=== PATIENT | male | born 1955 | race Caucasian/White ===

== ENCOUNTER 2016-08-31 18:03 | Emergency (ER) | payer MEDICAID ==
[~2016-08-31] VITALS: Ht 175.3 cm; Wt 90.0 kg
[~2016-08-31 18:03] MED LIST: ASPI81CH CHEW; ISOS30TA3 PO; LIPI40TA PO; METO25TA3 PO; NIFE30TA8 PO; PANT20 PO
[2016-08-31 18:19] VITALS: BP 129/77; PULSE 72; RESP 22; TEMP 97.9; O2SAT 94
--- NOTE | 2016-08-31 18:39 | PD ---
HPI Chief Complaint: Flank/Kidney Pain Time Seen by Provider: 18:36 Travel History International Travel<30 days: No Contact w/Intl Traveler<30days: No Traveled to known affect area: No History of Present Illness HPI 61-year-old male that presents to the ED for evaluation of left chest discomfort. Per patient he had a fall about a week ago and he landed on his left chest. Per patient she's been having the pain since been worsening recently. Denies any shortness of breath. He has a history of alcohol abuse and states that he drank a lot today. Patient is a daily drinker. Patient comes here a lot secondary to chest discomfort. Patient denies any his head or losing consciousness. Patient denies any abdominal pain. He does have a history of renal cancer with bladder removal. He denies any abdominal discomfort. No fevers chills or sweats. Patient does have bruising noted on the left rib cage. Per patient he spent is 8 out of 10 and gets worse with movement. Allergy to doxycycline and sulfa. Per patient he has not sick help until now because the pain got severe today. Unclear if this taken anything for this. History is somewhat limited because of patient's intoxication. He does have a history of heart disease on himself with stents in the past. PFSH Past Medical History Hx Anticoagulant Therapy: Yes Arthritis: Yes (BACK) Blood Disorders: No Anxiety: Yes Depression: No Heart Rhythm Problems: Yes Cancer: Yes (BLADDER) Cardiac Catheterization: No Cardiovascular Problems: Yes High Cholesterol: Yes Chemotherapy: No Chest Pain: Yes Congestive Heart Failure: No Cerebrovascular Accident: No Diabetes: No Diminished Hearing: No Endocrine: No Gastrointestinal Disorders: Yes GERD: No Genitourinary: Yes (ILEAL CONDUIT) Headaches: Yes Hepatitis: Yes (HEP B) Hiatal Hernia: No Hypertension: Yes Immune Disorder: No Implanted Vascular Access Dvce: Yes Medical other: No Musculoskeletal: No Neurologic: No Psychiatric: No Reproductive: No Respiratory: No Migraines: No Myocardial Infarction: Yes Radiation Therapy: No Renal Failure: No Seizures: No Thyroid Disease: No Ulcer: Yes Past Surgical History Abdominal Surgery: Yes AICD: No Arteriovenous Shunt: No Body Medical Devices: ILEAL CONDUIT, CARDIAC STENTS Cardiac Surgery: Yes (CARDIAC STENT 01/2013) Coronary Artery Bypass Graft: No Coronary Stent: Yes (X 2) Ear Surgery: No Endocrine Surgery: No Eye Surgery: No Genitourinary Surgery: Yes (BLADDER REMOVED-UROSTOMY IN 2011, URETERAL STENT) Gynecologic Surgery: No Insulin Pump: No Joint Replacement: No Neurologic Surgery: No Oral Surgery: No Pacemaker: No Prostatectomy: Yes Thoracic Surgery: No Other Surgery: Yes (CYSTECTOMY/PROSTATECTOMY 2010) Family History Family Myocardial Infarction: Yes Social History Alcohol Use: Yes (VODKA) Tobacco Use: Yes (< 1/2 PPD) Substance Use: Yes (etoh abuse) Allergies-Medications (Allergen,Severity, Reaction): Coded Allergies: Doxycycline (Verified Allergy, Severe, 08/31/16) allergy Sulfa (Verified Allergy, Severe, Rash, 08/31/16) "quit breathing" *MDRO Multi-Drug Resistant Organism (Verified Adverse Reaction, Unknown, ESBL, 08/31/16) 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 Reported Meds & Prescriptions Reported Meds & Active Scripts Active Reported Isosorbide Mononitrate ER (Isosorbide Mononitrate) 30 Mg Lance 30 Mg PO DAILY Protonix (Pantoprazole Sodium) 20 Mg Tab 20 Mg PO DAILY Lipitor (Atorvastatin Calcium) 40 Mg Tab 40 Mg PO HS Aspirin 81 Mg Chew 81 Mg CHEW DAILY Metoprolol Tartrate 25 Mg Tab 12.5 Mg PO BID Review of Systems Except as stated in HPI: all other systems reviewed are Neg Physical Exam Narrative GENERAL: SKIN: Warm and dry. HEAD: Atraumatic. Normocephalic. EYES: Pupils equal and round. No scleral icterus. No injection or drainage. ENT: No nasal bleeding or discharge. Mucous membranes pink and moist. Tongue is midline. No uvula deviation. NECK: Trachea midline. No JVD. CARDIOVASCULAR: Regular rate and rhythm. No murmurs, S3, S4. Patient has reproducible pain in the left chest. Some bruising noted in this area. RESPIRATORY: No accessory muscle use. Clear to auscultation. Breath sounds equal bilaterally. GASTROINTESTINAL: Abdomen soft, non-tender, nondistended. Hepatic and splenic margins not palpable. MUSCULOSKELETAL: Extremities without clubbing, cyanosis, or edema. No obvious deformities. Full range of motion of the upper and lower extremities bilaterally. 2+ pulses bilaterally. NEUROLOGICAL: Awake and alert. No obvious cranial nerve deficits. Motor grossly within normal limits. Five out of 5 muscle strength in the arms and legs. Normal speech. PSYCHIATRIC: Appropriate mood and affect; insight and judgment normal. Data Data Last Documented VS Vital Signs Date Time Temp Pulse Resp B/P Pulse Ox O2 Delivery O2 Flow Rate FiO2 08/31/16 18:19 97.9 72 22 129/77 94 Orders Electrocardiogram (08/31/16 18:25) Complete Blood Count With Diff (08/31/16 18:25) Basic Metabolic Panel (Bmp) (08/31/16 18:25) Troponin I (08/31/16 18:25) Ribs, Uni (W/Exp Cxr-Min 3vw) (08/31/16 ) Urinalysis - C+S If Indicated (08/31/16 18:32) Alcohol (Ethanol) (08/31/16 18:33) Ct Abd/Pel W Iv Contrast(Rout) (08/31/16 ) Acetaminophen (Tylenol) (08/31/16 19:30) Urine Culture (08/31/16 18:25) Ceftriaxone Inj (Rocephin Inj) (08/31/16 20:45) Iohexol 350 Inj (Omnipaque 350 Inj) (08/31/16 20:44) Acetamin-Hydrocod 325-5 Mg ([place] 5-325 (08/31/16 20:45) Labs Laboratory Tests Test 08/31/16 18:25 White Blood Count 4.9 TH/MM3 Red Blood Count 4.11 MIL/MM3 Hemoglobin 13.9 GM/DL Hematocrit 41.3 % Mean Corpuscular Volume 100.5 FL Mean Corpuscular Hemoglobin 33.7 PG Mean Corpuscular Hemoglobin 33.6 % Concent Red Cell Distribution Width 16.7 % Platelet Count 159 TH/MM3 Mean Platelet Volume 7.7 FL Neutrophils (%) (Auto) 59.1 % Lymphocytes (%) (Auto) 28.4 % Monocytes (%) (Auto) 11.4 % Eosinophils (%) (Auto) 0.6 % Basophils (%) (Auto) 0.5 % Neutrophils # (Auto) 2.9 TH/MM3 Lymphocytes # (Auto) 1.4 TH/MM3 Monocytes # (Auto) 0.6 TH/MM3 Eosinophils # (Auto) 0.0 TH/MM3 Basophils # (Auto) 0.0 TH/MM3 CBC Comment DIFF FINAL Differential Comment Urine Color YELLOW Urine Turbidity HAZY Urine pH 7.5 Urine Specific [place] 1.013 Urine Protein 30 mg/dL Urine Glucose (UA) NEG mg/dL Urine Ketones NEG mg/dL Urine Occult Blood MOD Urine Nitrite NEG Urine Bilirubin NEG Urine Urobilinogen LESS THAN 2.0 MG/DL Urine Leukocyte Esterase LARGE Urine RBC 2 /hpf Urine WBC 17 /hpf Urine Squamous Epithelial <1 /hpf Cells Urine Amorphous Sediment RARE Urine Bacteria MOD /hpf Urine Mucus FEW /lpf Microscopic Urinalysis Comment CULTURE INDICATED Sodium Level 140 MEQ/L Potassium Level 3.7 MEQ/L Chloride Level 107 MEQ/L Carbon Dioxide Level 19.1 MEQ/L Anion Gap 14 MEQ/L Blood Urea Nitrogen 10 MG/DL Creatinine 0.79 MG/DL Estimat Glomerular Filtration 99 ML/MIN Rate Random Glucose 107 MG/DL Calcium Level 8.0 MG/DL Troponin I LESS THAN 0.02 NG/ML Ethyl Alcohol Level 287 MG/DL [facility] Medical Decision Making Medical Screen Exam Complete: Yes Emergency Medical Condition: Yes Medical Record Reviewed: Yes Interpretation(s) CBC & BMP Diagram 08/31/16 18:25 Alcohol in the 200s EKG shows sinus rhythm with no sign of acute ischemia or arrythmia read by me and attending. troponin and CKMB negative UA shows UTI Differential Diagnosis Chest pain versus a typical chest pain versus burst fracture versus pneumothorax versus alcohol abuse Narrative Course 61-year-old male that presents to the ED for evaluation of left-sided chest pain. Patient was properly examined and was found to have signs and symptoms consistent appears to be muscle scale chest pain. Labs and imaging ordered. Labs and imaging showed no sign of acute disease. Patient does have an elevated alcohol level. CT and chest x-ray did not show any sign of acute disease. This is likely musculoskeletal chest pain. Patient's pain is reproducible with touch. This time I recommend treatment with anti- inflammatories and pain medication. Patient was told to follow up with PCP. She will be treated for his UTI and given here ceftriaxone IV. Patient will be given a prescription for Cipro. He will be allowed to sleep off his intoxication here until sober or if he get a responsible adult to pick him up. Patient was told to follow up closely with PCP. Ice or warm compresses. See ED if worsening symptoms. Diagnosis Primary Impression: Rib pain on left side Additional Impression: UTI (urinary tract infection) Qualified Code: N30.00 - Acute cystitis without hematuria Patient Instructions: General Instructions, Narcotic given in the ED Additional Instructions: Stop drinking. Take medications as prescribed. See ED worsening symptoms. Follow with PCP. Med/Other Pt SpecificInfo: Prescription(s) given Disposition: 01 DISCHARGE HOME Condition: Shubham Mccain August 31, 2016 18:39
[2016-08-31 19:03] LABS: AUTOMATED NEUTROPHIL # 2.9 TH/MM3 (1.8-7.7); BASOPHIL % 0.5 % (0.0-2.0); EOSINOPHIL % 0.6 % (0.0-4.0); HEMATOCRIT 41.3 % (39.0-51.0); HEMO FLAGS DIFF FINAL; LYMPH % 28.4 % (9.0-44.0); LYMPHOCYTE # 1.4 TH/MM3 (1.0-4.8); MEAN CELL VOLUME 100.5 FL (80.0-100.0); MEAN CORPUSCULAR HEMOGLOBIN 33.7 PG (27.0-34.0); MEAN CORPUSCULAR HGB CONC 33.6 % (32.0-36.0); MONO % 11.4 % (0.0-8.0); NEUT % 59.1 % (16.0-70.0); PLATELET COUNT 159 TH/MM3 (150-450); RED BLOOD COUNT 4.11 MIL/MM3 (4.50-5.90); RED CELL DISTRIBUTION WIDTH 16.7 % (11.6-17.2); WHITE BLOOD COUNT 4.9 TH/MM3 (4.0-11.0)
--- NOTE | 2016-08-31 19:03 | RADRPT ---
EXAM DATE/TIME: 08/31/2016 18:38 [facility] COMPARISON: No previous studies available for comparison. INDICATIONS : Left side rib pain, fall. MEDICAL HISTORY : None. SURGICAL HISTORY : None. ENCOUNTER: Initial ACUITY: 2 weeks PAIN SCORE: 7/10 LOCATION: Left lower ribs FINDINGS: Multiple views of the left ribs were performed. There is no evidence of displaced fracture. No dest ructive lesions or areas of periosteal thickening are seen. Expiratory view of the chest is negative for pneumothorax. The mediastinal structures are midline. CONCLUSION: No acute disease. Dave Perkins Jr., MD on August 31, 2016 at 19:00 Board Certified Radiologist. This report was verified electronically.
[2016-08-31] MEDS ORDERED: ACETAMINOPHEN 325 MG TAB PO ONE (19:30)
[2016-08-31 20:00] LABS: ANION GAP 14 MEQ/L (5-15); BICARBONATE 19.1 MEQ/L (21.0-32.0); BLOOD UREA NITROGEN 10 MG/DL (7-18); CHLORIDE 107 MEQ/L (98-107); GLOMERULAR FILTRATION RATE 99 ML/MIN (>89); POTASSIUM 3.7 MEQ/L (3.5-5.1); SODIUM (NA) 140 MEQ/L (136-145)
[2016-08-31 20:08] LABS: BACTERIA, URINE MOD /hpf; BLOOD, URINE MOD (NEG); COMMENT (UR) CULTURE INDICATED; CULTURE IF INDICATED CULTURE INDICATED; GLUCOSE,URINE NEG (NEG); KETONE, URINE NEG (NEG); MUCUS URINE FEW /lpf (OCC); NITRITE,URINE NEG (NEG); PH, URINE 7.5 (5.0-8.5); SQUAMOUS EPITHELIAL CELL URINE <1 /hpf (0-5); URINE COLOR YELLOW (YELLW/STRAW)
[2016-08-31] MEDS ORDERED: IOHEXOL 350 MG/ML 10 ML VIAL (for RAD DIAG) IV ONE (20:44)
[2016-08-31] MEDS ORDERED: ACETAMINOPHEN/HYDROcodone 325 MG/5 MG TAB PO ONE (20:45)
[2016-08-31] MEDS ORDERED: cefTRIAXone INJ 1,000 MG in SODIUM CHLORIDE 0.9% INJ 25 ML IV ONE (20:45)
--- NOTE | 2016-08-31 20:58 | RADRPT ---
EXAM DATE/TIME: 08/31/2016 20:25 [facility] COMPARISON: CT ABDOMEN & PELVIS W CONTRAST, December 29, 2015, 14:44. INDICATIONS : Abdominal pain after a fall. IV CONTRAST: 93 cc Omnipaque 350 (iohexol) IV ORAL CONTRAST: No oral contrast ingested. RADIATION DOSE: 9.96 CTDIvol (mGy) MEDICAL HISTORY : Hypertension. Cardiovascular disease Carcinoma, prostate. SURGICAL HISTORY : Colostomy. Prostatectomy.Cystectomy. ENCOUNTER: Initial ACUITY: 1 day PAIN SCALE: 4/10 LOCATION: Bilateral lower quadrant TECHNIQUE: Volumetric scanning of the abdomen and pelvis was performed. Using automated exposure control and ad justment of the mA and/or kV according to patient size, radiation dose was kept as low as reasonably achievable to obtain optimal diagnostic quality images. FINDINGS: LOWER LUNGS: A large hiatal hernia. Minimal bibasilar atelectasis. LIVER: The liver is diffusely low in density. No mass or ductal dilatation. Portal vein is patent. Gallbladd er is unremarkable. SPLEEN: Normal size without lesion. PANCREAS: Within normal limits. KIDNEYS: Normal in size and shape. There is no mass, stone or hydronephrosis. ADRENAL GLANDS: Within normal limits. VASCULAR: There is no aortic aneurysm. BOWEL/MESENTERY: The stomach, small bowel, and colon demonstrate no acute abnormality. There is no free intraperitone al air or fluid. A right lower quadrant ileal conduit. ABDOMINAL WALL: Within normal limits. RETROPERITONEUM: There is no lymphadenopathy. BLADDER: Surgically absent with right lower quadrant ileal conduit. REPRODUCTIVE: Within normal limits. INGUINAL: There is no lymphadenopathy or hernia. MUSCULOSKELETAL: Within normal limits for patient age. T12 cement augmentation. CONCLUSION: 1. No acute abnormality. 2. Hepatic steatosis. 3. Prior cystectomy with right lower quadrant ileal conduit. 4. Large hiatal hernia. Dave Perkins Jr., MD on August 31, 2016 at 20:52 Board Certified Radiologist. This report was verified electronically.
[2016-08-31] MEDS ORDERED: HYDR-3533 PO ×2 (21:16→21:19)
[2016-08-31] MEDS ORDERED: CIPR500T2 PO ×2 (21:16→21:19)
[2016-08-31 23:33] VITALS: BP 143/69; PULSE 138; RESP 42; O2SAT 100
[2016-09-01 00:29] VITALS: TEMP 98.4
[2016-09-01 01:06] VITALS: BP 126/72
--- NOTE | 2016-09-01 16:57 | EKG ---
Date Performed: 08/31/2016 Time Performed: 19:19:22 PTAGE: 61 years EKG: Sinus rhythm WITH OCCASIONAL SUPRAVENTRICULAR PREMATURE COMPLEXES BORDERLINE ECG INTERPRETATION BASED ON A DEFAUL T AGE OF 40 YEARS Since PREVIOUS TRACING 03/26/2016, PACs are new. PREVIOUS TRACIN03/26/2016 06.03 DOCTOR: Edward Conley Interpretating Date/Time 09/01/2016 16:55:50
== END 2016-09-01 01:09 | disposition home or self-care (01) ==
LOC: NEPE 18:03
DX: R07.81 Pleurodynia (principal); N30.00 Acute cystitis without hematuria; B96.89 Other specified bacterial agents as the cause of diseases classified elsewhere; I10 Essential (primary) hypertension; F17.200 Nicotine dependence, unspecified, uncomplicated; F10.10 Alcohol abuse, uncomplicated; Y90.8 Blood alcohol level of 240 mg/100 ml or more; Z79.899 Other long term (current) drug therapy
CPT/HCPCS: 71101; 74177; 80048; 80307; 81001; 84484; 85025; 87077; 87086; 87186; 93005; 96374; 99285; J0696; Q9967

== ENCOUNTER 2016-10-29 11:09 | Emergency (ER) | payer MEDICAID ==
[~2016-10-29] VITALS: Ht 175.3 cm; Wt 89.0 kg
[~2016-10-29 11:09] MED LIST changes: +CIPR500T2 PO; +HYDR-3533 PO; -NIFE30TA8 PO
[2016-10-29 11:27] VITALS: BP 157/102; PULSE 70; RESP 20; TEMP 98.3; O2SAT 96
[2016-10-29] MEDS ORDERED: GABA100C4 PO (11:28)
[2016-10-29] MEDS ORDERED: PANT40TA3 PO (11:28)
[2016-10-29] MEDS ORDERED: LIDOCAINE 1%/EPINEPHrine 1:100,000 SOLN 20 ML VIAL INFIL ONE (11:45)
[2016-10-29] MEDS ORDERED: CLIN1CAP6 PO (11:49)
--- NOTE | 2016-10-29 11:49 | PD ---
HPI Chief Complaint: Skin Problem Time Seen by Provider: 11:30 Travel History International Travel<30 days: No Contact w/Intl Traveler<30days: No Traveled to known affect area: No History of Present Illness HPI 61-year-old male presents to the emergency room for evaluation of a painful lesion to his left lower back that started about 2 weeks ago. Patient states it started off as a small pimple and has been growing since then. He reports moderate pain and irritation when he applies pressure to the area. States he has been applying triple antibiotic ointment and trying to squeeze it without any success. Denies fever, chills, nausea, vomiting. Last tetanus was less than 5 years ago. PFSH Past Medical History Hx Anticoagulant Therapy: Yes Arthritis: Yes (BACK) Blood Disorders: No Anxiety: Yes Depression: No Heart Rhythm Problems: Yes Cancer: Yes (BLADDER) Cardiac Catheterization: No Cardiovascular Problems: Yes High Cholesterol: Yes Chemotherapy: No Chest Pain: Yes Congestive Heart Failure: No Cerebrovascular Accident: No Diabetes: No Diminished Hearing: No Endocrine: No Gastrointestinal Disorders: Yes GERD: No Genitourinary: Yes (ILEAL CONDUIT) Headaches: Yes Hepatitis: Yes (HEP B) Hiatal Hernia: No Hypertension: Yes Immune Disorder: No Implanted Vascular Access Dvce: Yes Musculoskeletal: No Neurologic: No Psychiatric: No Reproductive: No Respiratory: No Migraines: No Myocardial Infarction: Yes Radiation Therapy: No Renal Failure: No Seizures: No Thyroid Disease: No Ulcer: Yes Past Surgical History Abdominal Surgery: Yes AICD: No Arteriovenous Shunt: No Body Medical Devices: ILEAL CONDUIT, CARDIAC STENTS Cardiac Surgery: Yes (CARDIAC STENT 01/2013) Coronary Artery Bypass Graft: No Coronary Stent: Yes (X 2) Ear Surgery: No Endocrine Surgery: No Eye Surgery: No Genitourinary Surgery: Yes (BLADDER REMOVED-UROSTOMY IN 2010, URETERAL STENT) Gynecologic Surgery: No Insulin Pump: No Joint Replacement: No Neurologic Surgery: No Oral Surgery: No Pacemaker: No Prostatectomy: Yes Thoracic Surgery: No Other Surgery: Yes (CYSTECTOMY/PROSTATECTOMY 2010) Social History Alcohol Use: Yes (VODKA) Tobacco Use: Yes (< 1/2 PPD) Substance Use: Yes (etoh abuse) Allergies-Medications (Allergen,Severity, Reaction): Coded Allergies: Doxycycline (Verified Allergy, Severe, 08/31/16) allergy Sulfa (Verified Allergy, Severe, Rash, 08/31/16) "quit breathing" *MDRO Multi-Drug Resistant Organism (Verified Adverse Reaction, Unknown, ESBL, 08/31/16) 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 Reported Meds & Prescriptions Reported Meds & Active Scripts Active Clindamycin (Clindamycin HCl) 300 Mg Cap 300 Mg PO Q6H 10 Days Reported Pantoprazole (Pantoprazole Sodium) 40 Mg Tab 40 Mg PO DAILY Gabapentin 100 Mg Cap 100 Mg PO TID Isosorbide Mononitrate ER (Isosorbide Mononitrate) 30 Mg Lance 30 Mg PO DAILY Lipitor (Atorvastatin Calcium) 40 Mg Tab 40 Mg PO HS Aspirin 81 Mg Chew 81 Mg CHEW DAILY Metoprolol Tartrate 25 Mg Tab 12.5 Mg PO BID Review of Systems Except as stated in HPI: all other systems reviewed are Neg Physical Exam Narrative GENERAL: Well-nourished, well-developed male in no acute distress. Afebrile. Ambulatory. SKIN: Focused skin assessment warm/dry. There is an indurated area in the left lower back which measures about 3 cm in diameter. It is fluctuant but there is no pointing or drainage. There is a zone of inflammation around it but no lymphangitis. HEAD: Normocephalic. EYES: No scleral icterus. No injection or drainage. NECK: Supple, trachea midline. No JVD or lymphadenopathy. CARDIOVASCULAR: Regular rate and rhythm without murmurs, gallops, or rubs. RESPIRATORY: Breath sounds equal bilaterally. No accessory muscle use. PSYCHIATRIC: No delusional thought processes. No hallucinations. Data Data Last Documented VS Vital Signs Date Time Temp Pulse Resp B/P Pulse Ox O2 Delivery O2 Flow Rate FiO2 10/29/16 11:27 98.3 70 20 157/102 96 Orders Lidocai-Epi 1%-1:100,000 Inj (Xylocaine- (10/29/16 11:45) Wound Culture And Gram Stain (10/29/16 12:00) MDM Medical Decision Making Medical Screen Exam Complete: Yes Emergency Medical Condition: Yes Medical Record Reviewed: Yes Differential Diagnosis Abscess, folliculitis, cellulitis Narrative Course 61-year-old male presents to the emergency room for evaluation of an abscess to his left lower back that started about 2 weeks ago. Patient is afebrile and well-appearing in the emergency room. No systemic signs of infection. Physical exam reveals a 3 cm induration with surrounding cellulitis. No spontaneous drainage. No lymphangitis. Abscess was drained, see procedure note for details. Patient discharged with prescription for clindamycin. Told to follow up with a primary care physician or return for worsening symptoms. He understands and agrees to plan. Procedures Procedure Narrative INCISION AND DRAINAGE OF ABSCESS: The area was prepped and was sterilely draped. A subcutaneous wheal of 1% lidocaine with epinephrine with a total number 2 mL was used to anesthetize the area properly. A number 11 scalpel was used to make a 1 cm incision across the area of the abscess. The abscess was drained, complex loculations were broken down, and irrigated with normal saline. Cultures were obtained. Sterile dressing applied. Diagnosis Primary Impression: Abscess Referrals: Primary Care Physician Patient Instructions: Abscess (ED), General Instructions Additional Instructions: Rest and drink plenty of fluids. Take clindamycin as directed, until gone. Return to the emergency room in 2 days to have packing removed. If it falls out before, this is okay. Follow up with a primary care physician. Return to emergency room for worsening symptoms, as discussed. Med/Other Pt SpecificInfo: Prescription(s) given Scripts Clindamycin 300 Mg [id number] Mg PO Q6H 10 Days Ref 0 Prov:Ben Green MD 10/29/16 Disposition: 01 DISCHARGE HOME Condition: Stable Marcela Palencia Oct 29, 2016 11:49
[2016-10-29] MEDS ORDERED: PRED20 PO (12:10)
[2016-10-29] MEDS ORDERED: ROBA750T PO (12:10)
[2016-10-29] MEDS ORDERED: IBUP-232 PO (12:10)
== END 2016-10-29 12:26 | disposition home or self-care (01) ==
LOC: PHEFT 11:09
DX: L02.212 Cutaneous abscess of back [any part, except buttock and flank] (principal); B96.89 Other specified bacterial agents as the cause of diseases classified elsewhere
CPT/HCPCS: 10060; 87070; 87185; 87205

== ENCOUNTER 2017-02-25 17:13 | Inpatient (IN) | payer MEDICAID ==
[2017-02-25] VITALS (7 sets, daily range): BP systolic 95–128; BP diastolic 63–94; PULSE 72–82; RESP 20; TEMP 98–98.5; O2SAT 96–98
[~2017-02-25] VITALS: Ht 175.3 cm; Wt 94.0 kg
[~2017-02-25 17:13] MED LIST changes: +ASPI-516 CHEW; -ASPI81CH CHEW; -CIPR500T2 PO; +CLIN300C5 PO; +GABA100C4 PO; -HYDR-3533 PO; -PANT20 PO; +PANT40TA3 PO
--- NOTE | 2017-02-25 17:26 | PD ---
HPI Chief Complaint: Chest Pain Time Seen by Provider: 17:17 Travel History International Travel<30 days: No Contact w/Intl Traveler<30days: No Traveled to known affect area: No History of Present Illness HPI Patient is a 61-year-old male with history of hypertension, coronary artery disease with history of 2 cardiac stents, bladder cancer, hepatitis B, alcohol abuse as well as tobacco abuse, presents to emergency room with complaints of chest pain. Patient reports that he has been having intermittent episodes of chest pain for the past few weeks as well as near syncopal episodes. Patient reports that for the past few days, he has been having constant chest pain. Patient reports that chest pain radiates from under his left breast and then radiates to his right breast. Patient describes chest pain as a sharp and stabbing as well as a "pressure to my chest." Denies any shortness of breath or diaphoresis with his symptoms. Patient reports that today, he went to run some errands and then had lunch with his friend, he did have 2 beers with his lunch and took the bus home. Patient reports that on the bus ride home, he felt as if he was going to pass out. Reports that he was having persistent chest pain which was unrelenting in nature. Reports that once he got home, he did call EMS, on route to the emergency room, patient was given aspirin 162 mg, he had resolution of chest pain on the way to the emergency room. Patient at this time denies any chest pain. Patient reports that he has seen Dr. John Montes in the past 2 to his balloon artist up until 6 months ago when his insurance company changed. Patient reports that he does not have a balloon artist at this time. Patient reports mild headache at this time, no chest pain or shortness of breath. PFSH Past Medical History Hx Anticoagulant Therapy: Yes Arthritis: Yes (BACK) Blood Disorders: No Anxiety: Yes Depression: No Heart Rhythm Problems: Yes Cancer: Yes (HX of bladder ) Cardiac Catheterization: No Cardiovascular Problems: Yes High Cholesterol: Yes Chemotherapy: No Chest Pain: Yes Congestive Heart Failure: No Cerebrovascular Accident: No Diabetes: No Diminished Hearing: No Endocrine: No Gastrointestinal Disorders: Yes GERD: Yes Genitourinary: Yes (ILEAL CONDUIT) Headaches: Yes Hepatitis: Yes (HEP B) Hiatal Hernia: No Hypertension: Yes Immune Disorder: No Implanted Vascular Access Dvce: Yes Musculoskeletal: No Neurologic: No Psychiatric: No Reproductive: No Respiratory: No Migraines: No Myocardial Infarction: Yes (2) Radiation Therapy: No Renal Failure: No Seizures: No Thyroid Disease: No Ulcer: Yes Past Surgical History Abdominal Surgery: Yes AICD: No Arteriovenous Shunt: No Body Medical Devices: ILEAL CONDUIT, CARDIAC STENTS Cardiac Surgery: Yes (CARDIAC STENT 01/2013) Coronary Artery Bypass Graft: No Coronary Stent: Yes (2 within the last 3.5 years) Ear Surgery: No Endocrine Surgery: No Eye Surgery: No Genitourinary Surgery: Yes (HX of bladder cancer and removal with Ileal conduit , HX of kidney stents) Gynecologic Surgery: No Insulin Pump: No Joint Replacement: No Neurologic Surgery: No Oral Surgery: No Pacemaker: No Prostatectomy: Yes Thoracic Surgery: No Other Surgery: Yes (CYSTECTOMY/PROSTATECTOMY 2010) Social History Alcohol Use: Yes (Occassional ) Tobacco Use: Yes (1/ ppd) Substance Use: No Allergies-Medications (Allergen,Severity, Reaction): Coded Allergies: Sulfa (Sulfonamide Antibiotics) (Unverified Allergy, Severe, Rash, ) "quit breathing" doxycycline (Unverified Allergy, Severe, 02/25/17) allergy *MDRO Multi-Drug Resistant Organism (Verified Adverse Reaction, Unknown, ESBL, 02/25/17) 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 Reported Meds & Prescriptions Reported Meds & Active Scripts Active Reported Hydrocodone-Acetaminophen 5-325 mg Tab 1 Tab PO Q4H PRN Pantoprazole (Pantoprazole Sodium) 40 Mg Tab 40 Mg PO DAILY Isosorbide Mononitrate ER (Isosorbide Mononitrate) 30 Mg Lance 30 Mg PO DAILY Aspirin 81 Mg Chew 81 Mg CHEW DAILY Metoprolol Tartrate 25 Mg Tab 12.5 Mg PO BID Review of Systems General / Constitutional: No: Fever Eyes: No: Visual changes HENT: Positive: Headaches Cardiovascular: Positive: Chest Pain or Discomfort Respiratory: No: Shortness of Breath Gastrointestinal: No: Abdominal Pain Genitourinary: No: Dysuria Musculoskeletal: No: Pain Skin: No Rash Neurologic: Positive: Headache, No: Weakness Psychiatric: Positive: Substance Abuse, No: Depression Endocrine: No: Polydipsia Hematologic/Lymphatic: No: Easy Bruising Physical Exam Narrative GENERAL: mild distress SKIN: Focused skin assessment warm/dry. HEAD: Atraumatic. Normocephalic. EYES: Pupils equal and round. No scleral icterus. No injection or drainage. ENT: No nasal bleeding or discharge. Mucous membranes pink and moist. NECK: Trachea midline. No JVD. CARDIOVASCULAR: Regular rate and rhythm. No murmur appreciated. RESPIRATORY: No accessory muscle use. Clear to auscultation. Breath sounds equal bilaterally. GASTROINTESTINAL: Abdomen soft, non-tender, nondistended. Hepatic and splenic margins not palpable. MUSCULOSKELETAL: No obvious deformities. No clubbing. No cyanosis. No edema. NEUROLOGICAL: Awake and alert. No obvious cranial nerve deficits. Motor grossly within normal limits. Normal speech. PSYCHIATRIC: Appropriate mood and affect; insight and judgment normal. Data Data Last Documented VS Vital Signs Date Time Temp Pulse Resp B/P (MAP) Pulse Ox O2 Delivery O2 Flow Rate FiO2 02/25/17 18:34 82 20 120/70 (87) 98 Room Air 02/25/17 17:13 98.0 Orders Orders Electrocardiogram (02/25/17 17:17) B-Type Natriuretic Peptide (02/25/17 17:17) Ckmb (Isoenzyme) Profile (02/25/17 17:17) Complete Blood Count With Diff (02/25/17 17:17) Comprehensive Metabolic Panel (02/25/17 17:17) Magnesium (Mg) (02/25/17 17:17) Prothrombin Time / Inr (Pt) (02/25/17 17:17) Act Partial Throm Time (Ptt) (02/25/17 17:17) Troponin I (02/25/17 17:17) Lipase (02/25/17 17:17) Chest, Single Ap (02/25/17 17:17) Ecg Monitoring (02/25/17 17:17) Bilateral Bp Monitoring (02/25/17 17:17) Iv Access Insert/Monitor (02/25/17 17:17) Oximetry (02/25/17 17:17) Sodium Chloride 0.9% Flush (Ns Flush) (02/25/17 17:30) Sodium Chlor 0.9% 1000 Ml Inj (Ns 1000 M (02/25/17 17:30) Alcohol (Ethanol) (02/25/17 17:17) Potassium Chloride (Kcl) (02/25/17 18:30) Labs Laboratory Tests Test 02/25/17 17:25 White Blood Count 6.7 TH/MM3 Red Blood Count 4.00 MIL/MM3 Hemoglobin 13.5 GM/DL Hematocrit 40.8 % Mean Corpuscular Volume 101.9 FL Mean Corpuscular Hemoglobin 33.8 PG Mean Corpuscular Hemoglobin Concent 33.2 % Red Cell Distribution Width 18.6 % Platelet Count 152 TH/MM3 Mean Platelet Volume 7.6 FL Neutrophils (%) (Auto) 71.5 % Lymphocytes (%) (Auto) 17.2 % Monocytes (%) (Auto) 7.4 % Eosinophils (%) (Auto) 0.1 % Basophils (%) (Auto) 3.8 % Neutrophils # (Auto) 4.7 TH/MM3 Lymphocytes # (Auto) 1.2 TH/MM3 Monocytes # (Auto) 0.5 TH/MM3 Eosinophils # (Auto) 0.0 TH/MM3 Basophils # (Auto) 0.3 TH/MM3 CBC Comment DIFF FINAL Differential Comment Prothrombin Time 10.6 SEC Prothromb Time International Ratio 1.0 RATIO Activated Partial Thromboplast Time 22.2 SEC Blood Urea Nitrogen 8 MG/DL Creatinine 1.20 MG/DL Random Glucose 128 MG/DL Total Protein 7.2 GM/DL Albumin 2.8 GM/DL Calcium Level 8.1 MG/DL Magnesium Level 1.5 MG/DL Alkaline Phosphatase 93 U/L Aspartate Amino Transf (AST/SGOT) 66 U/L Alanine Aminotransferase (ALT/SGPT) 52 U/L Total Bilirubin 0.5 MG/DL Sodium Level 138 MEQ/L Potassium Level 3.1 MEQ/L Chloride Level 106 MEQ/L Carbon Dioxide Level 18.3 MEQ/L Anion Gap 14 MEQ/L Estimat Glomerular Filtration Rate 61 ML/MIN Total Creatine Kinase 66 U/L Troponin I LESS THAN 0.02 NG/ML B-Type Natriuretic Peptide 69 PG/ML Lipase 197 U/L Ethyl Alcohol Level 155 MG/DL [facility] Medical Decision Making Medical Screen Exam Complete: Yes Emergency Medical Condition: Yes Medical Record Reviewed: Yes Interpretation(s) EKG at 1712: NSR at 82bpm, qt/qtc: 391/430, nonspecific t wave changes Differential Diagnosis Differential includes ACS, arrhythmia, electrolyte abnormality, alcohol abuse Narrative Course Patient is a 62-year-old male with history of coronary artery disease, hypertension, alcoholism, presents to emergency room with chest pain. Patient does have history of 2 cardiac stents in the past, patient with no chest pain at this time. During the course of the patients emergency department visit, the patients history, examination, and differential diagnosis were reviewed with the patient. The patient was placed on a radiographer cardiac catheterization with oximetry and frequent blood pressure monitoring. The patient had 20-gauge IV access obtained and blood work sent for analysis. The patient was initially provided IV fluids. Patient was provided with 162 mg of aspirin by EMS prior to arrival to the emergency room. The patients laboratory studies were reviewed and remarkable for: Laboratory Tests Test 02/25/17 17:25 White Blood Count 6.7 TH/MM3 (4.0-11.0) Red Blood Count 4.00 MIL/MM3 (4.50-5.90) Hemoglobin 13.5 GM/DL (13.0-17.0) Hematocrit 40.8 % (39.0-51.0) Mean Corpuscular Volume 101.9 FL (80.0-100.0) Mean Corpuscular Hemoglobin 33.8 PG (27.0-34.0) Mean Corpuscular Hemoglobin Concent 33.2 % (32.0-36.0) Red Cell Distribution Width 18.6 % (11.6-17.2) Platelet Count 152 TH/MM3 (150-450) Mean Platelet Volume 7.6 FL (7.0-11.0) Neutrophils (%) (Auto) 71.5 % (16.0-70.0) Lymphocytes (%) (Auto) 17.2 % (9.0-44.0) Monocytes (%) (Auto) 7.4 % (0.0-8.0) Eosinophils (%) (Auto) 0.1 % (0.0-4.0) Basophils (%) (Auto) 3.8 % (0.0-2.0) Neutrophils # (Auto) 4.7 TH/MM3 (1.8-7.7) Lymphocytes # (Auto) 1.2 TH/MM3 (1.0-4.8) Monocytes # (Auto) 0.5 TH/MM3 (0-0.9) Eosinophils # (Auto) 0.0 TH/MM3 (0-0.4) Basophils # (Auto) 0.3 TH/MM3 (0-0.2) CBC Comment DIFF FINAL Differential Comment Prothrombin Time 10.6 SEC (9.8-11.6) Prothromb Time International Ratio 1.0 RATIO Activated Partial Thromboplast Time 22.2 SEC (24.3-30.1) Blood Urea Nitrogen 8 MG/DL (7-18) Creatinine 1.20 MG/DL (0.60-1.30) Random Glucose 128 MG/DL (74-106) Total Protein 7.2 GM/DL (6.4-8.2) Albumin 2.8 GM/DL (3.4-5.0) Calcium Level 8.1 MG/DL (8.5-10.1) Magnesium Level 1.5 MG/DL (1.5-2.5) Alkaline Phosphatase 93 U/L (45-117) Aspartate Amino Transf (AST/SGOT) 66 U/L (15-37) Alanine Aminotransferase (ALT/SGPT) 52 U/L (12-78) Total Bilirubin 0.5 MG/DL (0.2-1.0) Sodium Level 138 MEQ/L (136-145) Potassium Level 3.1 MEQ/L (3.5-5.1) Chloride Level 106 MEQ/L (98-107) Carbon Dioxide Level 18.3 MEQ/L (21.0-32.0) Anion Gap 14 MEQ/L (5-15) Estimat Glomerular Filtration Rate 61 ML/MIN (>89) Total Creatine Kinase 66 U/L (39-308) Troponin I LESS THAN 0.02 NG/ML B-Type Natriuretic Peptide 69 PG/ML (0-100) Lipase 197 U/L (73-393) Ethyl Alcohol Level 155 MG/DL (0-5) Radiology studies were reviewed and remarkable for: Patient chest pain free at this time, plan to obs in chest pain unit. Patient is an alcoholic, reports that he drinks about 3 hard drinks per day Patient accepted to by Dr. Pina to chest pain unit Diagnosis Primary Impression: Chest pain in adult Additional Impressions: Alcohol abuse Hypokalemia Admitting Information Admitting Physician Requests: Karely Trujillo DO Feb 25, 2017 17:26
[2017-02-25] MEDS ORDERED: SODIUM CHLORIDE 0.9% FLUSH 10 ML FLUSH IVF PRN (17:30)
[2017-02-25] MEDS ORDERED: SODIUM CHLOR 0.9% 1000 ML INJ 1,000 ML IV ONE (17:30)
[2017-02-25 17:32] LABS: AUTOMATED NEUTROPHIL # 4.7 TH/MM3 (1.8-7.7); BASOPHIL # 0.3 TH/MM3 (0-0.2); BASOPHIL % 3.8 % (0.0-2.0); EOSINOPHIL % 0.1 % (0.0-4.0); HEMATOCRIT 40.8 % (39.0-51.0); HEMO FLAGS DIFF FINAL; LYMPH % 17.2 % (9.0-44.0); LYMPHOCYTE # 1.2 TH/MM3 (1.0-4.8); MEAN CELL VOLUME 101.9 FL (80.0-100.0); MEAN CORPUSCULAR HEMOGLOBIN 33.8 PG (27.0-34.0); MEAN CORPUSCULAR HGB CONC 33.2 % (32.0-36.0); MONO % 7.4 % (0.0-8.0); NEUT % 71.5 % (16.0-70.0); PLATELET COUNT 152 TH/MM3 (150-450); RED CELL DISTRIBUTION WIDTH 18.6 % (11.6-17.2); WHITE BLOOD COUNT 6.7 TH/MM3 (4.0-11.0)
[2017-02-25 17:42] LABS: CHLORIDE 106 MEQ/L (98-107); SODIUM (NA) 138 MEQ/L (136-145)
[2017-02-25 17:46] LABS: ANION GAP 14 MEQ/L (5-15); BICARBONATE 18.3 MEQ/L (21.0-32.0); BLOOD UREA NITROGEN 8 MG/DL (7-18); MAGNESIUM 1.5 MG/DL (1.5-2.5)
[2017-02-25] MEDS ORDERED: HYDR-3516 PO (17:46)
[2017-02-25 17:48] LABS: ALT (GPT) 52 U/L (12-78); APTT (PATIENT) 22.2 SEC (24.3-30.1); PROTHROMBIN TIME - PATIENT 10.6 SEC (9.8-11.6)
[2017-02-25 17:49] LABS: AST (GOT) 66 U/L (15-37); GLOMERULAR FILTRATION RATE 61 ML/MIN (>89)
[2017-02-25 17:50] LABS: ALCOHOL 155 MG/DL (0-5); POTASSIUM 3.1 MEQ/L (3.5-5.1); TOTAL BILIRUBIN ADULT 0.5 MG/DL (0.2-1.0)
[2017-02-25 17:51] LABS: ALKALINE PHOSPHATASE 93 U/L (45-117)
[2017-02-25 17:54] LABS: CREATINE KINASE 66 U/L (39-308)
[2017-02-25] MEDS ORDERED: POTASSIUM CHLORIDE 10 MEQ CONTROLLED RELEASE TAB PO ONE (18:30)
[2017-02-25] MEDS ORDERED: IOHEXOL 350 MG/ML 100 ML BTL (for Cath Lab) OTHER ONE (18:53)
--- NOTE | 2017-02-25 18:59 | RADRPT ---
EXAM DATE/TIME: 02/25/2017 18:02 [facility] COMPARISON: CHEST SINGLE AP, March 25, 2016, 19:54. INDICATIONS : Chest pain. MEDICAL HISTORY : Hypertension. Coronary artery disease. SURGICAL HISTORY : Cardiac stent. ENCOUNTER: Initial ACUITY: 1 day PAIN SCORE: 4/10 LOCATION: Bilateral chest FINDINGS: A single view of the chest demonstrates the lungs to be symmetrically aerated without evidence of mas s, infiltrate or effusion. The cardiomediastinal contours are unremarkable. There is some mild thic kening of the soft tissues about the lateral left 7th rib suggesting possible fracture with periostea l thickening. CONCLUSION: 1. The lungs are clear. No evidence pneumothorax. 2. Questionable fracture lateral left 7th rib. Dave Guzmán MD on February 25, 2017 at 18:56 Board Certified Radiologist. This report was verified electronically.
[2017-02-25] MEDS ORDERED: ONDANSETRON HCL 4 MG/2 ML VIAL IV PUSH PRN (19:15)
[2017-02-25] MEDS ORDERED: FLUMAZENIL 0.5 MG/5 ML VIAL IV PUSH PRN (19:15)
[2017-02-25] MEDS ORDERED: NITROGLYCERIN 0.4 MG SL 25 TABS/BTL SL PRN (19:15)
[2017-02-25] MEDS ORDERED: LORazepam 2 MG/ML VIAL IV PUSH PRN ×4 (19:15)
[2017-02-25] MEDS ORDERED: ACETAMINOPHEN 500 MG CPLT PO PRN (19:15)
[2017-02-25] MEDS ORDERED: SODIUM CHLORIDE 0.9% FLUSH 10 ML FLUSH IV FLUSH PRN (19:15)
[2017-02-25] MEDS ORDERED: PILL SPLITTER OTHER PRN (19:15)
[2017-02-25] MEDS ORDERED: LORazepam 2 MG TAB PO PRN (19:15)
[2017-02-25] MEDS: ACETAMINOPHEN/HYDROcodone 325 MG/7.5 MG TAB PO PRN ×2 (19:26→23:03)
[2017-02-25] MEDS: FAMOTIDINE 20 MG TAB PO SCH (21:17)
[2017-02-25] MEDS: METOPROLOL TARTRATE 25 MG TAB PO SCH (21:17)
[2017-02-25] MEDS: SODIUM CHLORIDE 0.9% FLUSH 10 ML FLUSH IV FLUSH SCH (21:18)
[2017-02-26] VITALS (10 sets, daily range): BP systolic 120–158; BP diastolic 81–106; PULSE 55–72; RESP 16–20; TEMP 96.6–98.7; O2SAT 95–99
[2017-02-26] MEDS: ACETAMINOPHEN/HYDROcodone 325 MG/7.5 MG TAB PO PRN ×4 (03:08→20:31)
[2017-02-26 06:05] LABS: POTASSIUM 3.5 MEQ/L (3.5-5.1)
[2017-02-26 06:07] LABS: BICARBONATE 24.1 MEQ/L (21.0-32.0)
[2017-02-26] MEDS: ISOSORBIDE MONONITRATE 30 MG TAB PO SCH (06:13)
--- NOTE | 2017-02-26 07:25 | EKG ---
Date Performed: 02/25/2017 Time Performed: 17:12:33 PTAGE: 62 years EKG: Sinus rhythm WITH FREQUENT SUPRAVENTRICULAR PREMATURE COMPLEXES NONSPECIFIC ST & T-WAVE ABNORMALITY ABNORMAL RHYT HM ECG Since PREVIOUS TRACING , no significant change noted PREVIOUS TRACIN08/31/2016 19.19 DOCTOR: Gisselle Carreon Interpretating Date/Time 02/26/2017 07:24:03
--- NOTE | 2017-02-26 07:27 | EKG ---
Date Performed: 02/25/2017 Time Performed: 21:03:32 PTAGE: 62 years EKG: Sinus rhythm NORMAL ECG Since PREVIOUS TRACING , no significant change noted PREVIOUS TRACIN02/25/2017 17.12 DOCTOR: Gisselle Carreon Interpretating Date/Time 02/26/2017 07:25:25
--- NOTE | 2017-02-26 07:27 | EKG ---
Date Performed: 02/25/2017 Time Performed: 22:31:11 PTAGE: 62 years EKG: Sinus rhythm WITH OCCASIONAL VENTRICULAR PREMATURE COMPLEXES PROLONGED QT INTERVAL ABNORMAL ECG Since PREVIOUS TRACING , no significant change noted PREVIOUS TRACIN02/25/2017 21.03 DOCTOR: Gisselle Carreon Interpretating Date/Time 02/26/2017 07:25:37
[2017-02-26] MEDS: METOPROLOL TARTRATE 25 MG TAB PO SCH ×2 (08:23→20:31)
[2017-02-26] MEDS: ASPIRIN 81 MG CHEW TAB CHEW SCH (08:23)
[2017-02-26] MEDS: FAMOTIDINE 20 MG TAB PO SCH ×2 (08:23→20:31)
[2017-02-26] MEDS: SODIUM CHLORIDE 0.9% FLUSH 10 ML FLUSH IV FLUSH SCH ×2 (08:24→20:32)
--- NOTE | 2017-02-26 09:28 | HHI.HP ---
HPI Service [facility] Primary Care Physician Fadi Estes MD Admission Diagnosis Chest pain, alcoholism Diagnoses: (1) Chest pain Diagnosis: Principal Chief Complaint: Chest pain Travel History International Travel<30 Days: No Contact w/Intl Traveler <30 Da: No Traveled to Known Affected Are: No History of Present Illness Written by Ben Lino, acting as scribe for Dr. Miller on 02/26/17 at 09 :28. 62 year-old male with known history of hypertension, coronary disease , alcohol abuse, hepatitis B, history of bladder cancer who came to emergency department for evaluation of chest discomfort. Patient indicates that he is been having this discomfort for the last 3 weeks intermittently. He describes pain as 8-10 on a pain scale with associated lightheadedness, dizziness, blurred vision, palpitations that lasted a couple seconds at a time. He indicates that there is no significant trigger for his chest discomfort. He states that is usually associated with lightheadedness, dizziness, blurred vision then he develops his heart racing and subsequently chest discomfort. Patient states that he was going to Dr. stone for cardiology, however due to his insurance change he is not able to go back to Dr. stone since the beginning this month. Patient states that he ran out of his Imdur approximate 3-5 days ago. Patient has had multiple workups at [facility] for chest discomfort with multiple stress test, cardiac catheterization the most recent cardiac catheterization was done in 05/26/14. At that time it did show mild nonobstructive coronary artery disease with patent LAD and RCA stents. Patient came to emergency department had evaluation done and is recommended by ER physician that the patient be observed and chest pain center for further evaluation and management. Review of Systems Constitutional: COMPLAINS OF: Dizziness Eyes: COMPLAINS OF: Blurred vision Cardiovascular: COMPLAINS OF: Chest pain Except as stated in HPI: all other systems reviewed are Neg Past Family Social History Past Medical History Hypertension Coronary artery disease Alcohol abuse Tobacco abuse Hepatitis B History of bladder cancer Past Surgical History Cardiac catheterization with stenting Bladder resection Prostatectomy Ileal conduit Reported Medications Reported Meds & Active Scripts Active Reported Hydrocodone-Acetaminophen 5-325 mg Tab 1 Tab PO Q4H PRN Pantoprazole (Pantoprazole Sodium) 40 Mg Tab 40 Mg PO DAILY Isosorbide Mononitrate ER (Isosorbide Mononitrate) 30 Mg Lance 30 Mg PO DAILY Aspirin 81 Mg Chew 81 Mg CHEW DAILY Metoprolol Tartrate 25 Mg Tab 12.5 Mg PO BID Allergies: Coded Allergies: Sulfa (Sulfonamide Antibiotics) (Unverified Allergy, Severe, Rash, ) "quit breathing" doxycycline (Unverified Allergy, Severe, 02/25/17) allergy Family History Reviewed and unremarkable for any diabetes, heart disease Social History Patient states that he continues to drink alcohol two vodka daily. He continues smoke a half a pack a cigarettes a day. Denies any illicit drugs Physical Exam Vital Signs Vital Signs Date Time Temp Pulse Resp B/P (MAP) Pulse Ox O2 Delivery O2 Flow Rate FiO2 02/26/17 08:00 97.0 59 18 158/106 (123) 95 02/26/17 07:58 95 21 02/26/17 04:00 96.6 62 20 158/94 (115) 95 02/26/17 00:00 98.2 55 20 120/81 (94) 96 02/25/17 22:50 96 21 02/25/17 21:03 75 02/25/17 20:15 98.5 77 20 123/94 (104) 97 02/25/17 19:39 98.2 85 18 128/74 (92) 98 02/25/17 18:34 82 20 120/70 (87) 98 Room Air 02/25/17 17:46 72 20 101/65 (77) 98 Room Air 95/66 (76) 02/25/17 17:13 98.0 73 20 115/63 (80) 98 02/25/17 17:13 73 98 Room Air 02/25/17 17:13 98 Room Air Physical Exam GENERAL: Well-developed, well-nourished, in no acute distress. alert and orientated HEENT: Head is normocephalic without any lesions or masses noted. Facial features are symmetric. Eyes: Pupils equal round reactive to light. Extraocular muscles are intact. Conjunctivae were clear. Oropharyngeal: Pharynx without any erythema edema. Tongue is midline without deviation. Buccal mucosa is moist without any masses or lesions NECK: Supple without any masses. Trachea midline no deviation. No JVD, no bruits are appreciated CARDIAC: Regular rhythm, regular rate. S1/S2 are heard. No murmurs gallops or rubs. LUNGS: Clear to auscultation bilaterally. No wheeze, rhonchi or rales. No use of accessory muscles on inspiration or expiration. ABDOMEN: Soft, nontender. Nondistended. Bowel sounds heard in all 4 quadrants. No organomegaly or masses. Negative rebound, negative guarding EXTREMITIES: No edema, pulses are equal bilaterally. No cyanosis or clubbing NEUROLOGY: Mood is very anxious and affect appear appropriate. Cranial nerves II through XII grossly intact. Muscle strength 5/5 in upper and lower extremities bilaterally. Deep tendon reflexes are 2+ in upper and lower extremities bilaterally. Laboratory Laboratory Tests Test 02/25/17 17:25 02/25/17 21:02 02/26/17 00:24 02/26/17 05:30 White Blood Count 6.7 Red Blood Count 4.00 Hemoglobin 13.5 Hematocrit 40.8 Mean Corpuscular Volume 101.9 Mean Corpuscular Hemoglobin 33.8 Mean Corpuscular Hemoglobin Concent 33.2 Red Cell Distribution Width 18.6 Platelet Count 152 Mean Platelet Volume 7.6 Neutrophils (%) (Auto) 71.5 Lymphocytes (%) (Auto) 17.2 Monocytes (%) (Auto) 7.4 Eosinophils (%) (Auto) 0.1 Basophils (%) (Auto) 3.8 Neutrophils # (Auto) 4.7 Lymphocytes # (Auto) 1.2 Monocytes # (Auto) 0.5 Eosinophils # (Auto) 0.0 Basophils # (Auto) 0.3 CBC Comment DIFF FINAL Differential Comment Prothrombin Time 10.6 Prothromb Time International Ratio 1.0 Activated Partial Thromboplast Time 22.2 Blood Urea Nitrogen 8 11 Creatinine 1.20 0.99 Random Glucose 128 96 Total Protein 7.2 Albumin 2.8 Calcium Level 8.1 8.0 Magnesium Level 1.5 Alkaline Phosphatase 93 Aspartate Amino Transf (AST/SGOT) 66 Alanine Aminotransferase (ALT/SGPT) 52 Total Bilirubin 0.5 Sodium Level 138 141 Potassium Level 3.1 3.5 Chloride Level 106 109 Carbon Dioxide Level 18.3 24.1 Anion Gap 14 8 Estimat Glomerular Filtration Rate 61 76 Total Creatine Kinase 66 46 50 Troponin I LESS THAN 0.02 0.02 0.02 B-Type Natriuretic Peptide 69 Lipase 197 Ethyl Alcohol Level 155 Result Diagram: 02/25/17 1725 02/26/17 0530 Imaging Last Impressions Chest X-Ray 02/25/17 1717 Signed Impressions: Service Date/Time: Saturday, February 25, 2017 18:02 - CONCLUSION: 1. The lungs are clear. No evidence pneumothorax. 2. Questionable fracture lateral left 7th rib. MD Kiana Hardin VTE Risk Assessment Caprini VTE Risk Assessment: Mod/High Risk (score >= 2) Caprini Risk Assessment Model Point Value = 1 Point Value = 2 Point Value = 3 Point Value = 5 Age 41-60 Minor surgery BMI > 25 kg/m2 Swollen legs Varicose veins or History of unexplained or recurrent spontaneous Oral contraceptives or hormone replacement Sepsis (< 1 month) Serious lung disease, including pneumonia (< 1 month) Abnormal pulmonary function Acute myocardial infarction Congestive heart failure (< 1 month) History of inflammatory bowel disease Medical patient at bed rest Age 61-74 Arthroscopic surgery Major open surgery (> 45 min) Laparoscopic surgery (> 45 min) Malignancy Confined to bed (> 72 hours) Immobilizing plaster cast Central venous access Age >= 75 History of VTE Family history of VTE Factor V Leiden Prothrombin [id number] Lupus anticoagulant Anticardiolipin antibodies Elevated serum homocysteine Heparin-induced thrombocytopenia Other congenital or acquired thrombophilia Stroke (< 1 month) Elective arthroplasty Hip, pelvis, or leg fracture Acute spinal cord injury (< 1 month) Prophylaxis Regimen Total Risk Factor Score Risk Level Prophylaxis Regimen 0-1 Low Early ambulation 2 Moderate Order ONE of the following: *Sequential Compression Device (SCD) *Heparin 5000 units SQ BID 3-4 Higher Order ONE of the following medications: *Heparin 5000 units SQ TID *Enoxaparin/Lovenox 40 mg SQ daily (WT < 150 kg, CrCl > 30 mL/min) *Enoxaparin/Lovenox 30 mg SQ daily (WT < 150 kg, CrCl > 10-29 mL/min) *Enoxaparin/Lovenox 30 mg SQ BID (WT < 150 kg, CrCl > 30 mL/min) AND/OR *Sequential Compression Device (SCD) 5 or more Highest Order ONE of the following medications: *Heparin 5000 units SQ TID (Preferred with Epidurals) *Enoxaparin/Lovenox 40 mg SQ daily (WT < 150 kg, CrCl > 30 mL/min) *Enoxaparin/Lovenox 30 mg SQ daily (WT < 150 kg, CrCl > 10-29 mL/min) *Enoxaparin/Lovenox 30 mg SQ BID (WT < 150 kg, CrCl > 30 mL/min) AND *Sequential Compression Device (SCD) Assessment and Plan Problem List: (1) Chest pain ICD Code: R07.9 - Chest pain, unspecified Status: Acute Assessment and Plan Chest pain, atypical Patient with increased risk factors to include age, male, hypertension, coronary disease, tobacco use Patient has been ruled out for acute coronary event with serial cardiac enzymes that are negative Serial EKG shows sinus rhythm without any changes Nuclear stress test does indicate a small mild severity area of reversible defect in the apex with decreased ejection fraction from previous study Patient indicates that he has been out of his Imdur. Will need prescription upon discharge Continue aspirin, metoprolol, Imdur Consulted cardiology, plans for cardiac catheterization today Start heparin IV Obtain lipid panel Hypertension Continue home medications Chronic alcohol abuse Acute alcohol intoxication on presentation CIWA protocol was initiated No active signs of withdrawal at this time Patient was counseled on alcohol cessation DVT prevention Sequential compression devices This note was transcribed by josefina Lino. I, Dr. Diego Miller personally performed the history, physical exam, and medical decision making; and confirmed the accuracy of the information in the transcribed note. Authenticated by Dr. Diego Miller on 02/26/17 at 09:28. Code Status Full code Discussed Condition With Patient Ben Lino Feb 26, 2017 09:28 Diego Miller MD Feb 26, 2017 09:28
[2017-02-26] MEDS ORDERED: REGADENOSON INJ 0.4 MG/5 ML SYR IV ONE (10:07)
--- NOTE | 2017-02-26 11:14 | RADRPT ---
EXAM DATE/TIME: 02/26/2017 09:54 [place] COMPARISON: MYOCARDIAL PERF PHARM SPECT, GATED W/EF, May 25, 2014, 12:28. INDICATIONS : Mid chest pain for two weeks. Angina. DOSE: 26.3 mCi Tc99m Myoview at stress. 8.8 mCi Tc99m Myoview at rest. 0.4 mg Lexiscan STRESS SYMPTOMS: Shortness of breath and chest pain. EJECTION FRACTION: 46% MEDICAL HISTORY : Hypertension. Myocardial infarction. SURGICAL HISTORY : Prostatectomy. Coronary artery stent. ENCOUNTER: Initial ACUITY: 2 days PAIN SCALE: 2/10 LOCATION: Left chest discomfort TECHNIQUE: The patient underwent pharmacologic stress with infusion of prescribed dose. Continuous ECG tracing was monitored during stress. Gated SPECT imaging was performed after stress and conventional SPECT i maging was performed at rest. The examination was performed on a SPECT/CT scanner, both attenuation and non-corrected datasets were reviewed. FINDINGS: DISTRIBUTION: The maximum perfused segment at stress is in the inferior wall. PERFUSION STUDY: There is a small size mild severity reversible defect directly at the apex. No fixed defects are iden tified. GATED STUDY: There is intact wall motion and thickening with mild hypokinesis CONCLUSION: 1. Small size mild severity reversible defect at the apex. Ischemia is not excluded. Ejection fractio n has decreased from the prior study where it measured 54% to currently 46% RISK CATEGORY: Intermediate (1-3% Annual Mortality Rate) Jose Coyle MD on February 26, 2017 at 11:09 Board Certified Radiologist. This report was verified electronically.
[2017-02-26] MEDS ORDERED: HEPARIN SODIUM - IV 10,000 UNITS/10 ML VIAL IV PUSH ONE (11:45)
[2017-02-26 12:07] LABS: HEMATOCRIT 40.4 % (39.0-51.0); MEAN CELL VOLUME 102.2 FL (80.0-100.0); MEAN CORPUSCULAR HEMOGLOBIN 34.3 PG (27.0-34.0); MEAN CORPUSCULAR HGB CONC 33.5 % (32.0-36.0); PLATELET COUNT 155 TH/MM3 (150-450); RED BLOOD COUNT 3.95 MIL/MM3 (4.50-5.90); RED CELL DISTRIBUTION WIDTH 19.1 % (11.6-17.2); REVIEW FLAG FINAL; WHITE BLOOD COUNT 6.3 TH/MM3 (4.0-11.0)
[2017-02-26 12:16] LABS: PROTHROMBIN TIME - PATIENT 10.5 SEC (9.8-11.6)
[2017-02-26] MEDS: HEPARIN-D5W 25,000 U/250 ML 250 ML IV PRN (12:41)
[2017-02-26] MEDS ORDERED: HEPARIN-NS/PF INJ 1,000 ML ONE (14:35)
[2017-02-26] MEDS ORDERED: MIDAZOLAM HCL 2 MG/2 ML VIAL ONE (14:35)
[2017-02-26] MEDS ORDERED: VERAPAMIL HCL 5 MG/2 ML VIAL ONE (14:37)
[2017-02-26] MEDS ORDERED: HEPARIN SODIUM - IV 10,000 UNITS/10 ML VIAL ONE (14:37)
--- NOTE | 2017-02-26 15:58 | CATHPROC ---
[place] HIS Report Study Information Study Number Admission Scheduled Start Study Start [id number] Feb 25 2017 6:52PM 02/26/2017 Feb 26 2017 2:27PM [place] [facility] Cardiac Catheterization Admit Source Facility Department Other [facility] - Ophthalmic Technologist Physician and Clinical Staff Initial Augie Lara Rectification Printer Ellie Mondragon BSN Rectification Printer Aly Suarez,RN Other cathlab, cathlab Recorder Sumeet Serrano RCIS(BS) Scrub Rubi Allen,PRINTING GREY CLOTH TENDER TECH2 Procedures Performed Procedure Location (Site) Vessel Name Coronary Angiograms LCA Left Coronary Coronary Angiograms RCA Right Coronary IVUS Lft Main Left Coronary L Heart Cath Wire insertion Radial (right) Radial Art. Equipment Time School Supervisor Description Size Mfg Part Number Used/Scraped [id number] 15:23 [employer] WIRE, ASAHI PROWATER 180CM 180CM Used *[id number] TRANSDUCER, TRUWAVE [id number] 14:27 HILL ISAACS * Used W/STOCKCOCK *[id number] *[id number] *[id number] 14:27 [employer] PACK, CCL CUSTOM * Used *[id number] 14:27 [employer] SUPPORT, ARTERIAL ADULT 26114 *[id number] Used [id number] 15:18 MED[employer]/AVE EBU 3.5 Z2 GUIDE CATHETER FR 6 Used *[id number] BAND, RADIAL COMPRESSION TR [id number] 15:39 [employer] MEDICAL 29CM Used LARGE 29 *[id number] 15:20 [employer] PACK, ANGIOPLASTY * [id number] Used [id number] 14:27 [employer] WIRE, EXCHANGE 260CM 3MMJ 260CM Used *[id number] 14:27 NAMIC MANIFOLD, 4 PORT * Used *[id number] 14:27 [employer]COMED OMNIPAQUE, 350 MG, 150ML 150ML [id number] Used [id number] 14:27 VEGA [employer] BLANKET,WARM AIR CCL * Used *[id number] SHEATH, FR6 TRANSRADIAL [id number] 14:27 TERBrightContext MEDICAL FR 6 Used SLENDER 10CM *[id number] CATHETER, [place] [employer] [id number] 15:20 [employer]OL[employer] Used IMAGING *[id number] History: Current Medications Medication Dosage/Unit Route Frequency Last Date/Time Taken Beta Armand ASA History: Allergies Allergy Reaction *MDRO Multi-Drug Resistant ESBL Organism doxycycline Sulfa Rash Sulfa (Sulfonamide Antibiotics) Rash History: Risk Factors Family History of Hypertension Dyslipidemia Previous CA Previous Heart Failure Premature CAD Yes No Yes No No Prior Valve Prior PCI Prior PCIDate Prior CABG Surgery No Yes 04/08/2013 No Cerebrovascular Peripheral Artery Chronic Lung On Dialysis Diabetes Disease Disease Disease No No No No No History: Symptoms/Diagnosis Selection Items Chest pain History: CV Disease Selection Items Known CAD History: Stress Tests Stress or Imaging Studies Performed Yes Standard Exercise Stress Test No Stress Echo No Stress Test SPECT Stress Test SPECT Result Stress Test SPECT Ischemia Risk/Extent Yes Positive Intermediate Stress Test CMR No Cardiac CTA Coronary Calcium Score No No History: Other Disease Selection Items HTN History: CA/CV Data Previous Cath Date 04/08/2013 History: Other Current Smoker Packs a Day Years Used Pack Years Yes 1 14 14 Labs Hgb (g/dl) Hct (%) WBC (l/cumm) Platelets (thousands) 11.60-17.00 35.00-51.00 4.00-11.00 150.00-450.00 13.5 40.4 6.3 155 Glucose (mg/dl) BUN (mg/dl) Creatinine (mg/dl) BUN:Creatinine (1:x) 74.00-106.00 7.00-18.00 0.50-1.30 10.00-20.00 96 11 0.9 12.2 Na (meq/l) K (meq/l) 136.00-145.00 3.50-5.10 141 3.5 INR (PTT:PT) 0.90-1.10 1 Troponin I (ng/ml) CPK (u/l) CPK-MB (ng/ML) 0.02-0.05 26.00-308.00 0.50-3.60 0.02 50 Not Drawn Medication Medication Total Dose (Bolus/Oral) Medication Total Dosage/Unit 1% XYLOCAINE 3 mL FENTANYL 25 mcg HEPARIN 5400 units RADIAL COCKTAIL 5 mL (Bolus) VERSED 0.5 mg Medications (Bolus/Oral) Medication Time Given Dosage/Unit Administered By Reason VERSED 02/26/2017 2:58:02 PM 0.5 mg Aly Suarez 0.5 mg VERSED given in lab by Aly Suarez RN in Right Hand via Peripheral IV. Ordered by Augie Peña FENTANYL 02/26/2017 2:59:20 PM 25 mcg Aly Suarez 25 mcg FENTANYL given in lab by Aly Suarez, RN via Peripheral IV. Ordered by Augie Peña 1% XYLOCAINE 02/26/2017 3:04:50 PM 3 mL Augie Peña 3 mL 1% XYLOCAINE given in lab by Augie Peña in Right Radial via Subcutaneous. Ntg 200mcg Verapamil 2.5mg Heparin RADIAL COCKTAIL 02/26/2017 3:06:10 PM 5 mL (Bolus) Augie Peña 3000U 5 mL (Bolus) RADIAL COCKTAIL given in lab by Augie Peña via Radial. Using [Solution Name]. R garrison: Ntg 200mcg Verapamil 2.5mg Heparin 3400U. HEPARIN 02/26/2017 3:17:35 PM 5400 units Ellie Mondragon 5400 units HEPARIN given in lab by Ellie Mondragon BSN in Right Hand via Peripheral IV. Ordered by Augie Peña Medication (Drip) Medication Time Given Dosage/Unit Concentration/Unit Diluent (ml) Solution IV Solutions 02/26/2017 2:26:45 PM 0 mL (IV) 500 NaCl .9 Patient arrived on IV Solutions given by cathladarius cathladarius in Right Hand via Peripheral IV. Pump/Drip Flow = 20 ml/hr using NaCl .9. Ordered by Augie Peña. Initial Case Assessment Cardiovascular HR Rhythm NIBP Chest Pain 56 nsr 146/101 0 Edema Present Skin color Skin None Normal Warm Dry Circulatory - Right Pulses Dorsalis Pedis Femoral Radial 2 2 2 Scale (0,1,2,3,4,d) Circulatory - Left Pulses Dorsalis Pedis Femoral Radial 3 2 Scale (0,1,2,3,4,d) Neurological State Oriented to time-place- Alert Moves all extremities person Respiration - General Respiration Rate SpO2 (%) (B/min) 15 96 Final Case Assessment Cardiovascular HR Rhythm NIBP Chest Pain 63 nsr 139/107 0 Edema Present Skin color Skin None Normal Warm Dry Circulatory - Right Pulses Dorsalis Pedis Femoral Radial 2 2 2 Scale (0,1,2,3,4,d) Circulatory - Left Pulses Dorsalis Pedis Femoral Radial 3 2 Scale (0,1,2,3,4,d) Neurological State Oriented to time-place- Alert Moves all extremities person Respiration - General Respiration Rate SpO2 (%) (B/min) 15 96 Chronological Log Time Study Chronological Log 14::34 Patient arrived via Bed. 14::35 Patient Name, D.O.B, / Armband Verified By R.N. 14::37 Consent signed by the physician and the patient and verified by the Ophthalmic Technologist staff. 14::37 Pre-op and post- op instructions given; patient acknowledges understanding of instructions. 14::38 Verbal Stimulation=2 Physical Stimulation=2 Airway=2 Respiration=2 TOTAL=8. (0=absent, 1=li mited, 2=present) 14::38 Presedation assessment performed by Ophthalmic Technologist RN. 14::39 Allens test performed on the right radial and ulnar artery. Positive. 14::40 Immediate Presedation assesment performed by physician. 14::41 Patient has been NPO for More than 6Hrs. 14::42 Skin Breakdown- none per patient 14::42 Patient Warmer Placed on the Table. 14::43 Sofía Prominences Protected 14::44 A # 20 IV was noted in the Hand (right). Grade = 0 Patient arrived on IV Solutions given by cathlab, cathlab in Right Hand via Peripheral IV. Pump /Drip Flow = 20 ml/hr 14::45 using NaCl .9. Ordered by Augie Peña 14:26:45 History and physical on the chart or being dictated. Vitals capture started with the following parameters, Patient=Adult, Interval=5 min, Initial Pr qmwuiw=288 mmHg, 14:31:21 Deflation Rate=5 mmHg, Cuff placed on Left Arm 14:32:34 HR=56 bpm, CSDZ=780/99 mmhg, SpO2=94.0 %, Pain=0, Tanmay=10, Lyn=2 Assessment: Initial Case, HR=56 BPM, Rhythm=nsr, ADNR=196/101 mmhg, Chest Pain=0, Edema=None, Color=Normal, Skin = Warm, Dry Right Pulses: Sidney Ped=2, Femoral=2, Radial=2 14:35:56 Left Pulses: Sidney Ped=3, Femoral=2 Neurological: State=Alert, Ox3, CARDOZO Respiration: Resp=15 B/min, SpO2=96 % 14:36:46 Reference ECG taken 14:37:07 HR=53 bpm, BBPY=201/101 mmhg, SpO2=96.0 %, Resp=16 B/min, Pain=0, Tanmay=10, Lyn=2 14:42:06 HR=55 bpm, UADT=645/87 mmhg, SpO2=94.0 %, Resp=15 B/min, Pain=0, Tanmay=10, Lyn=2 14:43:41 Right Radial and groin(s) prepped with 2% chlorhexidine, and draped after a 3 min. waiting time. 14:46:10 MD paged 14:47:01 HR=56 bpm, AVDH=120/99 mmhg, SpO2=97.0 %, Resp=17 B/min, Pain=0, Tanmay=10, Lyn=2 14:48:57 Pressure channel 1 zeroed. 14:52:06 HR=54 bpm, ALZP=650/92 mmhg, SpO2=96.0 %, Resp=16 B/min, Pain=0, Tanmay=10, Lyn=2 14:52:23 MD responded 14:53:34 MD arrived. 14:53:37 Contrast Scanned 14:53:38 Immediate Presedation assesment performed by physician. 14:57:01 HR=56 bpm, FFTC=524/94 mmhg, SpO2=94.0 %, Resp=15 B/min, Pain=0, Tanmay=10, Lyn=2 14:58:02 0.5 mg VERSED given in lab by Aly Suarez RN in Right Hand via Peripheral IV. Ordered by Augie Peña 14:59:20 25 mcg FENTANYL given in lab by Aly Suarez RN via Peripheral IV. Ordered by Radha Peña 15:02:02 HR=57 bpm, RHTE=867/98 mmhg, SpO2=92.0 %, Resp=13 B/min, Pain=0, Tanmay=10, Lyn=2 Time Out. Correct patient, correct procedure, correct physician, power injector not loaded with contrast with surgical 15:04:31 team present. Time Out Concurred by MD and individual staff in procedure. 15:04:39 Case Start 15:04:41 Verbal Stimulation=2 Physical Stimulation=2 Airway=2 Respiration=2 TOTAL=8. (0=absent, 1=li mited, 2=present) 15:04:50 3 mL 1% XYLOCAINE given in lab by Augie Peña in Right Radial via Subcutaneous. 15:05:42 Access site was Right Radial Artery. A SHEATH, FR6 TRANSRADIAL SLENDER 10CM FR 6 was advanced into the Radial (right) using the Perc utaneous 15:05:57 technique. 5 mL (Bolus) RADIAL COCKTAIL given in lab by Augie Peña via Radial. Using [Solution Na me]. Reason: Ntg 15:06:10 200mcg Verapamil 2.5mg Heparin 3400U. 15:07:03 HR=62 bpm, AVEZ=723/92 mmhg, SpO2=95.0 %, Resp=20 B/min, Pain=0, Tanmay=10, Lyn=2 A JR 4.0 INFINITI CATHETER FR 5 was advanced over a wire. OMNIPAQUE, 350 MG, 150ML 150ML was us ed for 15:07:07 injections. Recorded Pressure: LV, HR=61, Condition=Condition 1 15:09:25 (Left Ventricle) LV 119/5/13 Recorded Pressure: LV, Ao, HR=63, Condition=Condition 1 15:09:40 (Left Ventricle) LV 117/5/11, (Aorta) Ao 116/79/96 Recorded Pressure: Ao, HR=61, Condition=Condition 1 15:10:09 (Aorta) Ao 117/78/96 15:10:39 The RCA was injected and visualized at various angles. OMNIPAQUE, 350 MG, 150ML 150ML used . After removing the current catheter a JL 3.5 INFINITI CATHETER FR 5 was advanced over a WIRE, E XCHANGE 260CM 15:11:34 3MMJ 260CM. 15:12:06 HR=67 bpm, PCMU=025/99 mmhg, SpO2=95 %, Resp=15 B/min, Pain=0, Tanmay=10, Lyn=2 15:14:00 The LCA was injected and visualized at various angles. OMNIPAQUE, 350 MG, 150ML 150ML used . 15:17:03 HR=66 bpm, LFYJ=081/97 mmhg, SpO2=91.0 %, Resp=15 B/min, Pain=0, Tanmay=10, Lyn=2 5400 units HEPARIN given in lab by Ellie Mondragon BSN in Right Hand via Peripheral IV. Or dered by Casey, 15:17:35 Augie Mathias After removing the current catheter a EBU 3.5 Z2 GUIDE CATHETER FR 6 was advanced over a WIRE, EXCHANGE 15:17:56 260CM 3MMJ 260CM. 15:22:02 HR=59 bpm, JGET=364/93 mmhg, SpO2=95 %, Resp=16 B/min, Pain=0, Tanmay=10, Lyn=2 15:24:00 A WIRE, [place] PROWATER 180CM 180CM was inserted via Radial (right). 15:24:16 Interventional wire has crossed the lesion 15:27:25 Lost wire and guide catheter position. 15:27:42 HR=60 bpm, THAV=131/99 mmhg, SpO2=93.0 %, Resp=14 B/min, Pain=0, Tanmay=10, Lyn=2 15:28:49 Interventional wire has crossed the lesion 15:30:44 An CATHETER, [place] [employer] [employer] [place] [employer] IMAGING was advanced through the lesion. Images saved on to IVUS hard drive 15:31:04 IVUS in progress using ivus 15:32:06 HR=60 bpm, LFHY=232/103 mmhg, SpO2=94.0 %, Resp=18 B/min, Pain=0, Tanmay=10, Lyn=2 15:32:14 IVUS catheter removed 15:36:20 Wire removed 15:37:26 Catheter was removed 15:37:54 HR=55 bpm, FNVT=009/107 mmhg, SpO2=96.0 %, Resp=20 B/min, Pain=0, Tanmay=10, Lyn=2 15:38:57 Case End Radial Compression Device Used. 12 mLs of air placed in BAND, RADIAL COMPRESSION TR LARGE 29 29 CM. Affected 15:39:00 hand 95 % O2 saturation. Assessment: Final Case, HR=63 BPM, Rhythm=nsr, BTRI=099/107 mmhg, Chest Pain=0, Edema=None, Col or=Normal, Skin = Warm, Dry Right Pulses: Sidney Ped=2, Femoral=2, Radial=2 15:39:11 Left Pulses: Sidney Ped=3, Femoral=2 Neurological: State=Alert, Ox3, CARDOZO Respiration: Resp=15 B/min, SpO2=96 % 15:39:22 Catheter(s) removed without difficulty 15:39:23 Sterile dressing applied to site 15:39:24 No case complications noted. 15:39:25 Cine recording checked. 15:39:26 Bedside Report will be given. 15:39:28 Contrast Scanned 15:39:29 Verbal Stimulation=2 Physical Stimulation=2 Airway=2 Respiration=2 TOTAL=8. (0=absent, 1=li mited, 2=present) 15:39:35 A Left Heart Cath was performed. 15:42:06 HR=51 bpm, LAPZ=281/94 mmhg, SpO2=96.0 %, Resp=12 B/min, Pain=0, Tanmay=10, Lyn=2 15:47:47 Patient moved to stretcher End Study - Contrast Media Used In Study Contrast Total Opened (mL) Total Used (mL) Total Wasted (mL) Omnipaque 60 60 0 End Study - Maximum Contrast Load Max Contrast Load (mL) 503.3 End Study - Radiation Exposure Fluoro Time (minutes) 8.1 End Study - Patient Disposition Complications Transferred To Interventional Outcome No Telemetry Bed No attempt made
[2017-02-26 16:22] LABS: HDL CHOLESTEROL 74.6 MG/DL (40.0-60.0)
[2017-02-26] MEDS: LORazepam 1 MG TAB PO PRN ×2 (16:46→23:17)
--- NOTE | 2017-02-26 16:54 | TR ---
Date Performed: 02/26/2017 Time Performed: 10:18:49 DOCTOR: Gisselle Carreon DRUG LIST: CLINICAL HISTORY: ANGINA REASON FOR TEST: Angina REASON FOR ENDING: OBSERVATION: CONCLUSION: Lexiscan stress test was performed under standard four minute protocol. Radionuclid e was injected one minute prior to ending the test. No electrocardiographic abormalities were present to suggest ischemia. Nuclear imaging and interpretation are pending. COMMENTS:
[2017-02-26] MEDS ORDERED: HEPARIN SODIUM - IV 10,000 UNITS/10 ML VIAL IV PUSH PRN (17:45)
[2017-02-27] VITALS (14 sets, daily range): BP systolic 128–163; BP diastolic 82–108; PULSE 56–69; RESP 16–20; TEMP 97.6–98.7; O2SAT 97–99
[2017-02-27] MEDS: ACETAMINOPHEN/HYDROcodone 325 MG/7.5 MG TAB PO PRN ×4 (01:13→21:40)
[2017-02-27] MEDS: LORazepam 1 MG TAB PO PRN ×3 (02:50→15:04)
[2017-02-27 04:20] LABS: APTT (PATIENT) 31.2 SEC (24.3-30.1)
[2017-02-27 04:31] LABS: BICARBONATE 22.6 MEQ/L (21.0-32.0); POTASSIUM 3.4 MEQ/L (3.5-5.1)
[2017-02-27 04:36] LABS: AUTOMATED NEUTROPHIL # 3.5 TH/MM3 (1.8-7.7); BASOPHIL % 0.6 % (0.0-2.0); EOSINOPHIL # 0.1 TH/MM3 (0-0.4); HEMATOCRIT 34.5 % (39.0-51.0); HEMO FLAGS DIFF FINAL; LYMPHOCYTE # 1.5 TH/MM3 (1.0-4.8); MEAN CELL VOLUME 103.6 FL (80.0-100.0); MEAN CORPUSCULAR HEMOGLOBIN 35.4 PG (27.0-34.0); MEAN CORPUSCULAR HGB CONC 34.1 % (32.0-36.0); MONO % 7.3 % (0.0-8.0); NEUT % 64.1 % (16.0-70.0); PLATELET COUNT 128 TH/MM3 (150-450); RED BLOOD COUNT 3.33 MIL/MM3 (4.50-5.90); RED CELL DISTRIBUTION WIDTH 18.9 % (11.6-17.2); WHITE BLOOD COUNT 5.5 TH/MM3 (4.0-11.0)
--- NOTE | 2017-02-27 06:06 | MB ---
cc: AUGIE QUIROGA DO DATE OF CONSULTATION February 26, 2017 REASON FOR CONSULTATION Chest pain. Abnormal stress test. HISTORY OF PRESENT ILLNESS Dave Avalos is a pleasant 62-year-old male who presented to [facility] Emergency Room due to chest discomfort on March 05, 2017. He underwent stress testing and it showed possible small to moderate area of ischemia and because of this he was recommended consideration of cardiac catheterization. The patient states that he has had the chest pain for the last three weeks off and on. When he gets it, it is around 8/10 but it only lasts a few seconds. He is unsure exactly what triggers his discomfort. He previously was seeing Dr. Roberts and underwent a cardiac catheterization two years ago but, because of change in his insurance, is no longer followed by Dr. Roberts. He also previously was on Imdur and ran out of it approximately 3-5 days ago. In seeing him he is currently hemodynamically stable, without chest pain or shortness of breath. PAST MEDICAL HISTORY 1. Hypertension. 2. Coronary artery disease. 3. Alcohol abuse. 4. Tobacco abuse. 5. Hepatitis B. 6. History of bladder cancer. PAST SURGICAL HISTORY 1. Cardiac catheterization (May 26, 2014) Left main distal 30%. LAD - mild luminal irregularities, patent stent in the midportion of LAD. Left circumflex 30%. RCA 30% with a stent in the mid-segment which is widely patent. 2. Bladder resection. 3. Prostatectomy. 4. Ileal conduit. ALLERGIES SULFA. DOXYCYCLINE. MEDICATIONS 1. Imdur 30 mg daily. 2. Metoprolol tartrate 12.5 mg b.i.d. 3. Aspirin 81 mg daily. 4. Hydrocodone/acetaminophen 5/325 every 4 hours as needed for pain. 5. Protonix 40 mg daily. FAMILY HISTORY Denies sudden cardiac within the family. SOCIAL HISTORY The patient states that he drinks two glasses of vodka daily which appear to be possibly 3-5 ounces in discussing with him. He smokes half-a-pack of cigarettes a day. Denies illicit drug abuse. REVIEW OF SYSTEMS 14-systems were reviewed including osteopathic pertinent positives and negatives above, otherwise negative. PHYSICAL EXAMINATION VITAL SIGNS: Temperature 97.0, heart rate 60, blood pressure 158/100, respirations 18, pulse ox 95% on room air. IN GENERAL: The patient appears well, in no acute distress, alert, awake and oriented x3. Extraocular muscles intact. Mucous membranes moist. NECK: Supple. No JVD at 45 degrees. No carotid bruits heard bilaterally. Carotid upstroke is brisk in nature. HEART: Regular rate and rhythm. Positive first and second heart sounds with no noted murmurs, gallops or rubs. LUNGS: Clear to auscultation bilaterally. No wheezes, rales or rhonchi. ABDOMEN: Soft, nontender, nondistended. No organomegaly noted. Ileoconduit with ileostomy noted. EXTREMITIES: No clubbing, cyanosis or edema. Femoral and distal pulses intact bilaterally. NEUROLOGICALLY: No focal deficits. SKIN: Warm, dry and intact. OSTEOPATHIC: No kyphoscoliosis, lordosis or paraspinal tender points. LABORATORY FINDINGS Hemoglobin 13.5, hematocrit 40.4, platelets 155. Potassium 3.5, BUN 11, creatinine 0.99. ELECTROCARDIOGRAM (February 25, 2017 at 22:31) Sinus rhythm, occasional PVC, mildly prolonged QT interval. IMPRESSIONS 1. Atypical chest pain. 2. Abnormal stress test showing possible ischemia. 3. Hypertension. 4. Chronic alcohol abuse. 5. Tobacco abuse. 6. History of coronary artery disease. RECOMMENDATIONS 1. Mr. Avalos presented with atypical chest pain and underwent stress testing which showed possible ischemia. Because of this he will be recommended cardiac catheterization. 2. The risks, benefits and alternatives were explained to him and he consented as such. 3. I spoke to him for greater than three minutes about tobacco cessation. 4. I also discussed with him about his alcohol abuse at this time and how he needs to attempt to try to cut back. 5. Further recommendations will be made after coronary visualization. Thank you for allowing me to see Dave Avalos. If there are any questions, please do not hesitate to call. Augie Quiroga DO VGP/SSB /11:37 PM /5:55 AM
[2017-02-27] MEDS: ISOSORBIDE MONONITRATE 30 MG TAB PO SCH (06:28)
[2017-02-27] MEDS: HEPARIN SODIUM - IV 10,000 UNITS/10 ML VIAL IV PUSH PRN (06:29)
[2017-02-27] MEDS: FAMOTIDINE 20 MG TAB PO SCH ×2 (08:59→21:40)
[2017-02-27] MEDS: ASPIRIN 81 MG CHEW TAB CHEW SCH (08:59)
[2017-02-27] MEDS: METOPROLOL TARTRATE 25 MG TAB PO SCH ×2 (08:59→21:39)
[2017-02-27] MEDS: SODIUM CHLORIDE 0.9% FLUSH 10 ML FLUSH IV FLUSH SCH ×2 (09:00→21:40)
[2017-02-27] MEDS: HEPARIN-D5W 25,000 U/250 ML 250 ML IV PRN (10:41)
--- NOTE | 2017-02-27 12:08 | ECHRPT ---
Indication: Atherosclerotic heart disease of [place] coronary artery with unspecified angina pector is CONCLUSIONS The left ventricular systolic function is low normal with an estimated ejection fraction in the rang e of 50- 55%. Wall thickness is normal. Normal left ventricular size. There is moderate tricuspid regurgitation. The estimated pulmonary arterial pressure is 47.7 mmHg. BP: 150 / 99 HR: 56 Rhythm: Sinus MEASUREMENTS (Male / Female) Normal Values Technical Quality:Good 2D ECHO LV Diastolic Diameter PLAX 5.2 cm 4.2 - 5.9 / 3.9 - 5.3 cm LV Systolic Diameter PLAX 4.0 cm IVS Diastolic Thickness 1.0 cm 0.6 - 1.0 / 0.6 - 0.9 cm LVPW Diastolic Thickness 1.0 cm 0.6 - 1.0 / 0.6 - 0.9 cm LV Relative Wall Thickness 0.4 LVOT Diameter 2.2 cm M-MODE Aortic Root Diameter MM 3.3 cm LA Systolic Diameter MM 4.0 cm LA Ao Ratio MM 1.2 AV Cusp Separation MM 2.1 cm DOPPLER AV Peak Velocity 149.0 cm/s AV Peak Gradient 8.9 mmHg LVOT Peak Velocity 107.0 cm/s LVOT Peak Gradient 4.6 mmHg AV Area Cont Eq pk 2.7 cm Mitral E Point Velocity 73.1 cm/s Mitral A Point Velocity 51.3 cm/s Mitral E to A Ratio 1.4 LV E' Lateral Velocity 7.5 cm/s Mitral E to LV E' Lateral Ratio 9.7 LV E' Septal Velocity 8.1 cm/s Mitral E to LV E' Septal Ratio 9.0 TR Peak Velocity 307.0 cm/s TR Peak Gradient 37.7 mmHg Right Atrial Pressure 10.0 mmHg Pulmonary Artery Systolic Pressu 47.7 mmHg Right Ventricular Systolic Press 47.7 mmHg PV Peak Velocity 114.0 cm/s PV Peak Gradient 5.2 mmHg FINDINGS LEFT VENTRICLE The left ventricular systolic function is low normal with an estimated ejection fraction in the rang e of 50- 55%. Wall thickness is normal. Normal left ventricular size. RIGHT VENTRICLE Normal right ventricular size and systolic function. LEFT ATRIUM The left atrial size is normal. RIGHT ATRIUM The right atrial size is normal. ATRIAL SEPTUM Normal atrial septal thickness without atrial level shunting by limited color doppler interrogation. AORTA The aortic root and proximal ascending aorta are normal in size on limited imaging. MITRAL VALVE Structurally normal mitral valve. No mitral valve stenosis or regurgitation. AORTIC VALVE Trileaflet aortic valve. No aortic valve stenosis or regurgitation. TRICUSPID VALVE There is moderate tricuspid regurgitation. The estimated pulmonary arterial pressure is 47.7 mmHg. PULMONARY VALVE No pulmonary valve regurgitation or stenosis. VESSELS The inferior vena cava is normal in size. PERICARDIUM No pericardial effusion. Navi Roberts MD, FACC (Electronically Signed) Final Date:27 February 2017 12:07
[2017-02-27 12:30] LABS: APTT (PATIENT) 38.5 SEC (24.3-30.1)
[2017-02-27] MEDS ORDERED: PAPAVERINE INJ 60 MG, NITROGLYCERIN INJ 100 MCG, DILTIAZEM INJ 100 MG in SODIUM CHLORID... IRRIGATION SCH (13:45)
[2017-02-27] MEDS ORDERED: SODIUM CHLORIDE 0.9% FLUSH 10 ML FLUSH IV FLUSH PRN (13:45)
[2017-02-27] MEDS ORDERED: CEFAZOLIN INJ 500 MG in SODIUM CHLORIDE 0.9% IRR BTL 500 ML IRRIGATION SCH (13:45)
[2017-02-27] MEDS ORDERED: INSULIN REGULAR (IV INFUSION) 100 UNITS in SODIUM CHLORIDE 0.9% INJ 99 ML IV PRN (13:45)
[2017-02-27] MEDS ORDERED: ceFAZolin 2 GM PREMIX 50 ML IV SCH (13:45)
[2017-02-27] MEDS ORDERED: METOPROLOL TARTRATE 25 MG TAB PO SCH (13:45)
[2017-02-27] MEDS ORDERED: CHLORHEXIDINE GLUCONATE 4% SOLN 120 ML BTL TOPICAL SCH (13:45)
[2017-02-27] MEDS ORDERED: DEXTROSE 50% IN WATER 50 ML VIAL(D50) IV PUSH PRN (13:45)
--- NOTE | 2017-02-27 14:02 | PD.CAR.PN ---
CVT Progress Note Subjective/Hospital Course: sts discussed with pt RISK SCORES About the STS Risk Calculator Procedure: CAB Only Risk of Mortality: 0.586% Morbidity or Mortality: 7.761% Long Length of Stay: 2.624% Short Length of Stay: 64.461% Permanent Stroke: 0.468% Prolonged Ventilation: 5.714% DSW Infection: 0.317% Renal Failure: 0.85% Reoperation: 3.552% Objective: Vital Signs Date Time Temp Pulse Resp B/P (MAP) Pulse Ox O2 Delivery O2 Flow Rate FiO2 02/27/17 11:32 98 02/27/17 11:00 69 02/27/17 11:00 98.3 69 16 128/85 (99) 97 02/27/17 10:10 13 02/27/17 08:00 98.0 68 17 149/95 (113) 98 02/27/17 08:00 68 02/27/17 03:00 98.3 56 20 150/99 (116) 98 02/27/17 00:00 98.7 67 20 152/97 (115) 99 02/27/17 00:00 58 02/26/17 20:00 71 02/26/17 19:00 98.7 67 20 152/97 (115) 99 02/26/17 18:00 68 02/26/17 17:00 72 02/26/17 16:00 57 Labs: Laboratory Tests Test 02/27/17 03:55 02/27/17 12:00 White Blood Count 5.5 TH/MM3 (4.0-11.0) Red Blood Count 3.33 MIL/MM3 (4.50-5.90) Hemoglobin 11.8 GM/DL (13.0-17.0) Hematocrit 34.5 % (39.0-51.0) Mean Corpuscular Volume 103.6 FL (80.0-100.0) Mean Corpuscular Hemoglobin 35.4 PG (27.0-34.0) Mean Corpuscular Hemoglobin Concent 34.1 % (32.0-36.0) Red Cell Distribution Width 18.9 % (11.6-17.2) Platelet Count 128 TH/MM3 (150-450) Mean Platelet Volume 8.2 FL (7.0-11.0) Neutrophils (%) (Auto) 64.1 % (16.0-70.0) Lymphocytes (%) (Auto) 27.0 % (9.0-44.0) Monocytes (%) (Auto) 7.3 % (0.0-8.0) Eosinophils (%) (Auto) 1.0 % (0.0-4.0) Basophils (%) (Auto) 0.6 % (0.0-2.0) Neutrophils # (Auto) 3.5 TH/MM3 (1.8-7.7) Lymphocytes # (Auto) 1.5 TH/MM3 (1.0-4.8) Monocytes # (Auto) 0.4 TH/MM3 (0-0.9) Eosinophils # (Auto) 0.1 TH/MM3 (0-0.4) Basophils # (Auto) 0.0 TH/MM3 (0-0.2) CBC Comment DIFF FINAL Differential Comment Activated Partial Thromboplast Time 31.2 SEC (24.3-30.1) 38.5 SEC (24.3-30.1) Blood Urea Nitrogen 12 MG/DL (7-18) Creatinine 0.80 MG/DL (0.60-1.30) Random Glucose 85 MG/DL (74-106) Calcium Level 7.8 MG/DL (8.5-10.1) Sodium Level 140 MEQ/L (136-145) Potassium Level 3.4 MEQ/L (3.5-5.1) Chloride Level 107 MEQ/L (98-107) Carbon Dioxide Level 22.6 MEQ/L (21.0-32.0) Anion Gap 10 MEQ/L (5-15) Estimat Glomerular Filtration Rate 97 ML/MIN (>89) Result Diagram: 02/27/17 0355 02/27/17 0355 Yenny Fall Feb 27, 2017 14:02
--- NOTE | 2017-02-27 14:20 | HHI.PR ---
Subjective Remarks No deterioration since last night. Patient denies having any chest pain. Denies any nausea vomiting currently. Objective Vital Signs Date Time Temp Pulse Resp B/P (MAP) Pulse Ox O2 Delivery O2 Flow Rate FiO2 02/27/17 11:32 98 02/27/17 11:00 69 02/27/17 11:00 98.3 69 16 128/85 (99) 97 02/27/17 10:10 13 02/27/17 08:00 98.0 68 17 149/95 (113) 98 02/27/17 08:00 68 02/27/17 03:00 98.3 56 20 150/99 (116) 98 02/27/17 00:00 98.7 67 20 152/97 (115) 99 02/27/17 00:00 58 02/26/17 20:00 71 02/26/17 19:00 98.7 67 20 152/97 (115) 99 02/26/17 18:00 68 02/26/17 17:00 72 02/26/17 16:00 57 I/O 02/26/17 02/26/17 02/26/17 02/27/17 02/27/17 02/27/17 07:00 15:00 23:00 07:00 15:00 23:00 Intake Total 360 ml 0 ml 670 ml 562 ml Output Total 575 ml 300 ml Balance 360 ml 0 ml 95 ml 262 ml Intake Oral 360 ml 0 ml 620 ml 480 ml IV Total 50 ml 82 ml Output Urine Total 575 ml 300 ml # Voids 1 2 # Bowel Movements 0 0 0 Result Diagram: 02/27/17 0355 02/27/17 0355 Objective Remarks hrt sounds rrr, no murmurs no LE edema no labored breathing, awake and alert A/P Assessment and Plan Chest pain, atypical Cardiac catheterization demonstrated left main disease. Discussed with cardiology, CV surgery consultation and process Concerned about potential imminent ETOH w/drawal. Starting Tranxene taper. continue aspirin, Lopressor. Starting lipitor. Hypertension Continue home medications Chronic alcohol abuse CIWA with tranxene taper started DVT prevention heparin Code Status Full code Discussed Condition With Patient Govind Silverman MD Feb 27, 2017 14:20
[2017-02-27] MEDS ORDERED: POTASSIUM BICARBONATE 25 MEQ EFFERVESCENT TAB PO ONE (14:30)
[2017-02-27] MEDS: MAGNESIUM SULFATE 1 GM PREMIX 100 ML IV SCH ×2 (15:00→16:44)
[2017-02-27] MEDS: ATORVASTATIN 40 MG TAB PO SCH ×2 (15:30→16:18)
[2017-02-27] MEDS ORDERED: POTASSIUM CHLORIDE 10 MEQ CONTROLLED RELEASE TAB PO ONE (16:00)
--- NOTE | 2017-02-27 16:15 | PD.CARD.PN ---
Subjective Subjective Remarks No events overnight No complaints today Objective Medications Current Medications Medications (Trade) Dose Ordered Sig/Marta Route Start Time Stop Time Status Last Admin (Aspirin Chew) 81 mg DAILY CHEW 02/26/17 09:00 02/27/17 08:59 (Imdur) 30 mg DAILY@0700 PO 02/26/17 07:00 02/27/17 06:28 (Lopressor) 12.5 mg BID PO 02/25/17 21:00 02/27/17 08:59 (NS Flush) 2 ml UNSCH PRN IV FLUSH 02/25/17 19:15 (NS Flush) 2 ml BID IV FLUSH 02/25/17 21:00 02/27/17 09:00 (Tylenol) 500 mg Q4H PRN PO 02/25/17 19:15 02/25/17 23:02 ([place] 7.5-325 Mg) 1 tab Q4H PRN PO 02/25/17 19:15 02/27/17 15:03 (Zofran Inj) 4 mg Q6H PRN IV PUSH 02/25/17 19:15 (Pepcid) 20 mg BID PO 02/25/17 21:00 02/27/17 08:59 (Nitrostat Sl) 0.4 mg Q5M PRN SL 02/25/17 19:15 (Romazicon Inj) 0.2 mg Q1M PRN IV PUSH 02/25/17 19:15 (Ativan) 1 mg Q4H PRN PO 02/25/17 19:15 02/27/17 15:04 (Ativan Inj) 1 mg Q4H PRN IV PUSH 02/25/17 19:15 02/26/17 14:05 (Ativan) 2 mg Q2H PRN PO 02/25/17 19:15 (Ativan Inj) 2 mg Q2H PRN IV PUSH 02/25/17 19:15 (Ativan Inj) 2 mg Q1H PRN IV PUSH 02/25/17 19:15 (Ativan Inj) 2 mg Q15M PRN IV PUSH 02/25/17 19:15 (Pill Splitter) 1 ea UNSCH PRN OTHER 02/25/17 19:15 (Heparin Inj) 5,000 units UNSCH PRN IV PUSH 02/26/17 17:45 (Heparin Inj) 2,500 units UNSCH PRN IV PUSH 02/26/17 17:45 02/27/17 06:29 Heparin Sodium/ Dextrose 250 ml @ 10 mls/hr TITRATE PRN IV 02/26/17 11:45 02/27/17 10:41 (Theragran) 1 tab DAILY PO 02/27/17 14:00 (Vitamin B1) 100 mg DAILY PO 02/27/17 14:00 (Folate) 1 mg DAILY PO 02/27/17 14:00 Papaverine HCl 60 mg/Nitroglycerin 100 mcg/Diltiazem HCl 100 mg/Sodium Chloride 100 ml @ 0 mls/hr FILTER PRESS SUPERVISOR IRRIGATION 02/27/17 13:45 03/06/17 13:44 Cefazolin Sodium 500 mg/Sodium Chloride 505 ml @ 0 mls/hr FILTER PRESS SUPERVISOR IRRIGATION 02/27/17 13:45 03/06/17 13:44 Cefazolin Sodium/ Dextrose 50 ml @ 150 mls/hr FILTER PRESS SUPERVISOR IV 02/27/17 13:45 03/06/17 13:44 (Lopressor) 12.5 mg FILTER PRESS SUPERVISOR PO 02/27/17 13:45 03/06/17 13:44 (Hibiclens 4% Top Soln) 1 applic FILTER PRESS SUPERVISOR TOPICAL 02/27/17 13:45 03/06/17 13:44 Insulin Human Regular 100 units/ Sodium Chloride 100 ml @ 3 mls/hr TITRATE PRN IV 02/27/17 13:45 03/06/17 13:44 (D50w (Vial) Inj) 50 ml UNSCH PRN IV PUSH 02/27/17 13:45 (Librium) 5 mg TID PO 02/27/17 15:15 (Lipitor) 40 mg HS PO 02/27/17 15:30 Vital Signs / I&O Vital Signs Date Time Temp Pulse Resp B/P (MAP) Pulse Ox O2 Delivery O2 Flow Rate FiO2 02/27/17 15:00 97.6 69 16 130/82 (98) 97 02/27/17 15:00 58 02/27/17 11:32 98 02/27/17 11:00 69 02/27/17 11:00 98.3 69 16 128/85 (99) 97 02/27/17 10:10 13 02/27/17 08:00 98.0 68 17 149/95 (113) 98 02/27/17 08:00 68 02/27/17 03:00 98.3 56 20 150/99 (116) 98 02/27/17 00:00 98.7 67 20 152/97 (115) 99 02/27/17 00:00 58 02/26/17 20:00 71 02/26/17 19:00 98.7 67 20 152/97 (115) 99 02/26/17 18:00 68 02/26/17 17:00 72 I/O 02/26/17 02/26/17 02/26/17 02/27/17 02/27/17 02/27/17 07:00 15:00 23:00 07:00 15:00 23:00 Intake Total 360 ml 0 ml 670 ml 562 ml Output Total 575 ml 300 ml Balance 360 ml 0 ml 95 ml 262 ml Intake Oral 360 ml 0 ml 620 ml 480 ml IV Total 50 ml 82 ml Output Urine Total 575 ml 300 ml # Voids 1 2 # Bowel Movements 0 0 0 Physical Exam GENERAL: NAD, AAOx3 SKIN: Warm and dry. HEAD: Atraumatic. Normocephalic. EYES: Pupils equal and round. No scleral icterus. No injection or drainage. ENT: No nasal bleeding or discharge. Mucous membranes pink and moist. NECK: Trachea midline. No JVD. CARDIOVASCULAR: Regular rate and rhythm. RESPIRATORY: No accessory muscle use. Clear to auscultation. Breath sounds equal bilaterally. GASTROINTESTINAL: Abdomen soft, non-tender, nondistended. Hepatic and splenic margins not palpable. MUSCULOSKELETAL: Extremities without clubbing, cyanosis, or edema. No obvious deformities. NEUROLOGICAL: Awake and alert. No obvious cranial nerve deficits. Motor grossly within normal limits. Five out of 5 muscle strength in the arms and legs. Normal speech. PSYCHIATRIC: Appropriate mood and affect; insight and judgment normal. Laboratory Laboratory Tests Test 02/27/17 03:55 02/27/17 12:00 02/27/17 15:50 White Blood Count 5.5 TH/MM3 Red Blood Count 3.33 MIL/MM3 Hemoglobin 11.8 GM/DL Hematocrit 34.5 % Mean Corpuscular Volume 103.6 FL Mean Corpuscular Hemoglobin 35.4 PG Mean Corpuscular Hemoglobin Concent 34.1 % Red Cell Distribution Width 18.9 % Platelet Count 128 TH/MM3 Mean Platelet Volume 8.2 FL Neutrophils (%) (Auto) 64.1 % Lymphocytes (%) (Auto) 27.0 % Monocytes (%) (Auto) 7.3 % Eosinophils (%) (Auto) 1.0 % Basophils (%) (Auto) 0.6 % Neutrophils # (Auto) 3.5 TH/MM3 Lymphocytes # (Auto) 1.5 TH/MM3 Monocytes # (Auto) 0.4 TH/MM3 Eosinophils # (Auto) 0.1 TH/MM3 Basophils # (Auto) 0.0 TH/MM3 CBC Comment DIFF FINAL Differential Comment Activated Partial Thromboplast Time 31.2 SEC 38.5 SEC Blood Urea Nitrogen 12 MG/DL Creatinine 0.80 MG/DL Random Glucose 85 MG/DL Calcium Level 7.8 MG/DL Sodium Level 140 MEQ/L Potassium Level 3.4 MEQ/L Chloride Level 107 MEQ/L Carbon Dioxide Level 22.6 MEQ/L Anion Gap 10 MEQ/L Estimat Glomerular Filtration Rate 97 ML/MIN Assessment and Plan Problem List: (1) Chest pain ICD Codes: R07.9 - Chest pain, unspecified Status: Acute (2) Coronary artery disease ICD Codes: I25.10 - Coronary artery disease Status: Chronic (3) Hyperlipidemia ICD Codes: E78.5 - Hyperlipidemia Status: Chronic (4) Alcohol abuse ICD Codes: F10.10 - Alcohol abuse, uncomplicated Status: Acute (5) Tobacco abuse ICD Codes: Z72.0 - Tobacco abuse Status: Chronic Assessment and Plan 1) Left main disease For consideration of CT surgery Con't heparin drip 2) ETOH abuse Watch for withdrawal 3) Tobacco abuse Tobacco cessation 4) Will plan to see on Saturday If concerns over the holiday, please call the covering physician Augie Peña DO Feb 27, 2017 16:15
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
[2017-02-27] MEDS: THIAMINE HCL 100 MG TAB PO SCH (16:43)
[2017-02-27] MEDS: MULTIVITAMIN TAB PO SCH (16:43)
[2017-02-27] MEDS: FOLIC ACID 1 MG TAB PO SCH (16:43)
[2017-02-27 16:51] LABS: BACTERIA, URINE MANY /hpf; BLOOD, URINE NEG (NEG); COMMENT (UR) CULTURE INDICATED; CULTURE IF INDICATED CULTURE INDICATED; GLUCOSE,URINE NEG (NEG); KETONE, URINE NEG (NEG); NITRITE,URINE NEG (NEG); URINE COLOR YELLOW (YELLW/STRAW)
--- NOTE | 2017-02-27 17:48 | RADRPT ---
EXAM DATE/TIME: 02/27/2017 15:58 [facility] COMPARISON: No previous studies available for comparison. INDICATIONS : Preop cardiac surgery. MEDICAL HISTORY : Myocardial infarction. Hypercholesterolemia. Carcinoma, prostate. Carcinoma, bladder. Arthritis. Hep B. Clotting problems. Syncope. Chest pain. Irregular heartbeat. HTN. Sleep apnea. Dyspnea. Ulcers. Il eal conduit. UTI. Anticoagulant therapy, Aspirin. Anxiety. Tobacco use. ESBL. MRSA. SURGICAL HISTORY : Coronary artery stent. Prostatectomy. Removal of ileal conduit. Kidney stents. Back surgery. Cystect anahi. Blood transfusions. Cardiac cath. ENCOUNTER: Initial ACUITY: 1 day PAIN SCORE: 2/10 LOCATION: Bilateral leg. GREATER SAPHENOUS VEIN THIGH: PROXIMAL: Right 7 mm Left 7 mm MID: Right 5 mm Left 5 mm DISTAL: Right 4 mm Left 5 mm CALF: PROXIMAL: Right 3 mm Left 4 mm MID: Right 2 mm Left 3 mm DISTAL: Right 2 mm Left 2 mm FINDINGS: The venous system of the lower extremities are patent by color Doppler imaging. Measurements of the leg veins (in mm) are listed above. CONCLUSION: Venous mapping with measurements as detailed above. Dave Perkins Jr., MD on February 27, 2017 at 17:41 Board Certified Radiologist. This report was verified electronically.
--- NOTE | 2017-02-27 19:05 | RADRPT ---
EXAM DATE/TIME: 02/27/2017 15:49 [facility] COMPARISON: US LEG BILATERAL VENOUS DOPPLER, April 02, 2015, 20:00. INDICATIONS : Preop cardiac surgery. MEDICAL HISTORY : Myocardial infarction. Hypercholesterolemia. Carcinoma, prostate. Carcinoma, bladder. Arthritis. Hepa titis B. Clotting problems. Syncope. Chest pain. Irregular heartbeat. Hypertension. Sleep apnea. Dysp ashley. Ulcers. Ileal conduit. UTI. Anticoagulant therapy, Aspirin. Anxiety. Tobacco use. ESBL. MRSA. SURGICAL HISTORY : Prostatectomy.Coronary artery stent. Removal of ileal conduit. Kidney stents. Back surgery. Cystectom y. Blood transfusions. Cardiac cath. ENCOUNTER: Initial ACUITY: 1 day PAIN SCORE: 2/10 LOCATION: Bilateral leg. TECHNIQUE: Venous ultrasound of the left and right leg was performed from the inguinal ligament to the proximal calf. Real-time, color Doppler and spectral tracing, compression and augmentation techniques were us ed. FINDINGS: RIGHT LEG: There is normal compressibility of the deep venous system from the inguinal region to the proximal ca lf. No echogenic clot is seen in the lumen of the common femoral, femoral, popliteal, and posterior tibial veins. There is a normal response of the venous system to proximal and distal augmentation an d respiration. LEFT LEG: There is normal compressibility of the deep venous system from the inguinal region to the proximal ca lf. No echogenic clot is seen in the lumen of the common femoral, femoral, popliteal, and posterior tibial veins. There is a normal response of the venous system to proximal and distal augmentation an d respiration. CONCLUSION: The study is negative for deep venous thrombosis bilateral lower extremity. Dave Guzmán MD on February 27, 2017 at 19:02 Board Certified Radiologist. This report was verified electronically.
[2017-02-27 19:07] LABS: APTT (PATIENT) 35.5 SEC (24.3-30.1)
--- NOTE | 2017-02-27 19:14 | RADRPT ---
EXAM DATE/TIME: 02/27/2017 15:26 [facility] COMPARISON: No previous studies available for comparison. INDICATIONS : Preop cardiac surgery. MEDICAL HISTORY : Myocardial infarction. Hypercholesterolemia. Carcinoma, prostate. Carcinoma, bladder. Arthritis. Hepa titis B. Clotting problems. Syncope. Chest pain. Irregular heartbeat. Hypertension. Sleep apnea. Dysp ashley. Ulcers. Ileal conduit. UTI. Anticoagulant therapy, Aspirin. ESBL. MRSA. SURGICAL HISTORY : Prostatectomy. Coronary artery stent. Removal of ileal conduit. Kidney stents. Back surgery. Cystec derrick. Blood transfusions. Cardiac catheterization. ENCOUNTER: Initial ACUITY: 1 day PAIN SCORE: 2/10 LOCATION: Bilateral neck PEAK SYSTOLIC VELOCITIES (cm/sec): ICA/CCA RATIO: Right: 0.8 Left: 0.9 ICA: Right: 46.7 Left: 51.6 CCA: Right: 58.1 Left: 59.4 ECA: Right: 74.9 Left: 69.8 VERTEBRAL: Right: 33.5 antegrade Left: 30.7 antegrade Elevated flow velocities and ICA/CCA ratios have been found to correlate with increased degrees of vessel stenosis, calculated as percentage of diameter relative to a normal segment of distal ICA/CCA FINDINGS: RIGHT CAROTID: No significant stenosis is visualized. The waveforms are within normal limits. LEFT CAROTID: Mild plaque in the carotid bulb without significant stenosis. The waveforms are within normal limits . VERTEBRAL ARTERIES: Antegrade flow is seen in both vertebral arteries. MISCELLANEOUS: None. CONCLUSION: Mild plaque formation. Hemodynamic parameters are characteristic of less than 50% stenosis. Dave Guzmán MD on February 27, 2017 at 19:11 Board Certified Radiologist. This report was verified electronically.
[2017-02-27] MEDS ORDERED: SODIUM CHLORIDE 0.9% FLUSH 10 ML FLUSH IV FLUSH SCH (21:00)
[2017-02-27 22:24] LABS: HEMOGLOBIN A1a 1.3 %; HEMOGLOBIN A1b 0.8 %; HEMOGLOBIN Ao 84.8 %; HEMOGLOBIN F 0.7 %; HEMOGLOBIN LA1C 2.2 %; HEMOGLOBIN P3 3.6 %
[2017-02-28] VITALS (26 sets, daily range): BP systolic 118–144; BP diastolic 67–94; PULSE 49–94; RESP 16–18; TEMP 97.7–98.7; O2SAT 96–98
--- NOTE | 2017-02-28 00:04 | MA ---
cc: AUGIE QUIROGA DO DATE February 26, 2017 PROCEDURE Left heart catheterization, coronary angiogram, moderate sedation 40 minutes, IVUS left main. PREPROCEDURE DIAGNOSIS Chest pain, abnormal stress test. POSTPROCEDURE DIAGNOSIS Coronary artery disease with left main disease (3.9 mm squared by IVUS). MEDICATIONS 1. Versed 0.5 milligrams. 2. Fentanyl 25 micrograms. 3. Verapamil 2.5 milligrams. 4. Nitro 200 micrograms. 5. Heparin 9000 units. CONTRAST 60 cc. FLUOROSCOPY 8.1 minutes. MODERATE SEDATION 40 minutes. ESTIMATED BLOOD LOSS 10 cc. PROCEDURAL SUMMARY Dave Avalos is a 62-year-old male who presented to [facility] due to atypical chest pain. He underwent stress testing which showed possible apical ischemia and because of this he was recommended cardiac catheterization. Risks, benefits and alternatives were explained to him and he consented as such. He was brought to lab and prepped in the usual sterile fashion. Right radial artery was accessed using a modified Seldinger technique and placement of a 5/6 Yi slender sheath. This was easily aspirated and flushed. The JR-4 was advanced over a J-wire to the ascending aorta and across the aortic valve for measurement of left ventricular pressure. This was pulled back across the aortic valve showing no significant gradient of aortic stenosis. JR-4 was used for selective angiography of the right coronary artery. This was exchanged out for a JL 3.5 which was used for selective angiography of the left coronary artery. JL 3.5 was removed over a J-wire. Because of the significance of left main disease it was felt that this needed to be further investigated. An EBU 3.5 guide was engaged into left main. The patient was given heparin as an additional anticoagulant. A [employer] wire was advanced down the obtuse marginal. IVUS catheter was advanced distal left main and recordings were taken upon pullback. IVUS catheter and wire were removed. Final angiogram shows no disruption of the coronary artery system. EBU guide was removed. Images of IVUS were reviewed showing distal left main measuring 3.9 mm squared consistent with significant left main disease. Radial band was placed over the arteriotomy site for hemostasis. The patient left the geophysical laboratory supervisor cardiovascularly stable. FINDINGS Left main normal size vessel with distal 70% stenosis. IVUS measurement of 3.9 mm squared. It bifurcates into an LAD circumflex and ramus. LAD: Normal size vessel with mild luminal irregularities in the proximal portion. In the proximal to distal portion there is 50 and then 70% disease before a patent stent. Distally, the vessel has good runoff with one small diagonal. Left circumflex: Moderate to large size vessel which is somewhat aneurysmal before tandem 40% lesions. Supplies one large obtuse marginal which is overall tortuous but no significant disease. RCA: Normal size vessel with mild luminal irregularities throughout the mid to distal portion. There is a patent stent in the midportion which appears to have 20% in-stent restenosis. Overall, the RCA is a dominant vessel with no significant disease distally. Ramus: Small vessel overall supplying very little myocardium. LVEDP 11. IMPRESSION 1. Atypical chest pain. 2. Abnormal stress test. 3. Coronary artery disease with significant left main disease by IVUS (3.9 mm squared). RECOMMENDATIONS 1. Mr. Avalos appears to have left main disease and he will be recommended coronary artery bypass grafting. 2. Because of the significance of his coronary artery disease he will be placed on a heparin drip 1 hour after his TR band is removed. 3. He will be evaluated by CT surgery for consideration of bypass surgery. 4. We will check an echo to look at his overall left ventricular function, cardiac structure and possible valvulopathies. 5. Further recommendations will be made after CT surgery evaluation. Thank you for allowing me to see Dave Avalos. If there are any questions please do not hesitate to call. Augie Quiroga DO VGP/EO /8:26 PM /11:50 PM
[2017-02-28] MEDS: LORazepam 1 MG TAB PO PRN (00:11)
[2017-02-28 00:48] LABS: APTT (PATIENT) 37.3 SEC (24.3-30.1)
[2017-02-28] MEDS: HEPARIN SODIUM - IV 10,000 UNITS/10 ML VIAL IV PUSH PRN (01:02)
[2017-02-28] MEDS ORDERED: hydrALAZINE HCL 20 MG/ML VIAL IV PUSH ONE (02:00)
[2017-02-28] MEDS: ACETAMINOPHEN/HYDROcodone 325 MG/7.5 MG TAB PO PRN ×4 (03:52→20:18)
[2017-02-28] MEDS: ISOSORBIDE MONONITRATE 30 MG TAB PO SCH (06:19)
[2017-02-28 07:21] LABS: APTT (PATIENT) 42.7 SEC (24.3-30.1)
[2017-02-28 07:47] LABS: BICARBONATE 22.1 MEQ/L (21.0-32.0); MAGNESIUM 1.5 MG/DL (1.5-2.5); POTASSIUM 3.4 MEQ/L (3.5-5.1)
[2017-02-28] MEDS: HEPARIN-D5W 25,000 U/250 ML 250 ML IV PRN (08:37)
[2017-02-28] MEDS: FOLIC ACID 1 MG TAB PO SCH (09:44)
[2017-02-28] MEDS: ASPIRIN 81 MG CHEW TAB CHEW SCH (09:44)
[2017-02-28] MEDS: MULTIVITAMIN TAB PO SCH (09:44)
[2017-02-28] MEDS: FAMOTIDINE 20 MG TAB PO SCH ×2 (09:44→20:17)
[2017-02-28] MEDS: METOPROLOL TARTRATE 25 MG TAB PO SCH ×2 (09:44→20:17)
[2017-02-28] MEDS: THIAMINE HCL 100 MG TAB PO SCH (09:44)
[2017-02-28] MEDS: SODIUM CHLORIDE 0.9% FLUSH 10 ML FLUSH IV FLUSH SCH ×2 (09:46→20:18)
--- NOTE | 2017-02-28 10:17 | HHI.PR ---
Subjective Remarks RN denies any deterioration since last night. Patient denies having any chest pain. Denies any nausea vomiting currently. Objective Vital Signs Date Time Temp Pulse Resp B/P (MAP) Pulse Ox O2 Delivery O2 Flow Rate FiO2 02/28/17 08:32 97 21 02/28/17 07:00 67 02/28/17 07:00 98.0 67 18 139/94 (109) 97 02/28/17 06:00 63 02/28/17 05:04 64 02/28/17 04:59 16 02/28/17 04:00 66 02/28/17 03:00 68 02/28/17 03:00 97.9 66 16 125/78 (94) 98 02/28/17 02:00 67 02/28/17 01:00 55 02/28/17 00:00 56 02/27/17 23:16 98.2 62 18 161/108 (125) 97 02/27/17 23:00 58 02/27/17 22:00 56 02/27/17 21:00 62 02/27/17 20:00 58 02/27/17 19:00 98.0 68 20 163/105 (124) 97 02/27/17 19:00 60 02/27/17 18:00 67 02/27/17 17:52 97 21 02/27/17 15:00 97.6 69 16 130/82 (98) 97 02/27/17 15:00 58 02/27/17 11:32 98 02/27/17 11:00 69 02/27/17 11:00 98.3 69 16 128/85 (99) 97 I/O 02/27/17 02/27/17 02/27/17 02/28/17 02/28/17 02/28/17 07:00 15:00 23:00 07:00 15:00 23:00 Intake Total 562 ml 500 ml 664 ml Output Total 300 ml 1100 ml 1450 ml Balance 262 ml -600 ml -786 ml Intake Oral 480 ml 400 ml 480 ml IV Total 82 ml 100 ml 184 ml Output Urine Total 300 ml 1100 ml 1450 ml Stool Total 0 ml # Bowel Movements 0 Result Diagram: 02/27/17 0355 02/28/17 0650 Objective Remarks hrt sounds rrr, no murmurs no LE edema no labored breathing, awake and alert A/P Assessment and Plan Chest pain, atypical Cardiac catheterization demonstrated left main disease. D/w CV surg, will continue baby aspirin since pt is already receiving it since admission. Concerned about potential imminent ETOH w/drawal. continue librium taper , aspirin, lipitor, lopressor Hypertension Continue home medications Chronic alcohol abuse CIWA with tranxene taper DVT prevention heparin Code Status Full code Discussed Condition With Patient Govind Silverman MD Feb 28, 2017 10:17
[2017-02-28] MEDS: PANTOPRAZOLE SOD 40 MG DELAYED RELEASE TAB PO SCH (11:38)
[2017-02-28 14:52] LABS: APTT (PATIENT) 28.4 SEC (24.3-30.1)
[2017-02-28] MEDS: ATORVASTATIN 40 MG TAB PO SCH (20:18)
[2017-02-28 22:10] LABS: APTT (PATIENT) 52.7 SEC (24.3-30.1)
[2017-03-01] VITALS (28 sets, daily range): BP systolic 110–155; BP diastolic 80–108; PULSE 53–79; RESP 16–18; TEMP 97.3–98.5; O2SAT 96–99
[2017-03-01] MEDS: ACETAMINOPHEN/HYDROcodone 325 MG/7.5 MG TAB PO PRN ×4 (01:12→20:49)
[2017-03-01] MEDS: HEPARIN-D5W 25,000 U/250 ML 250 ML IV PRN ×2 (01:20→23:01)
[2017-03-01 02:56] LABS: HEMATOCRIT 34.6 % (39.0-51.0); MEAN CELL VOLUME 105.6 FL (80.0-100.0); MEAN CORPUSCULAR HEMOGLOBIN 35.3 PG (27.0-34.0); MEAN CORPUSCULAR HGB CONC 33.5 % (32.0-36.0); PLATELET COUNT 136 TH/MM3 (150-450); RED BLOOD COUNT 3.27 MIL/MM3 (4.50-5.90); REVIEW FLAG FINAL; WHITE BLOOD COUNT 5.5 TH/MM3 (4.0-11.0)
[2017-03-01 03:06] LABS: APTT (PATIENT) 53.6 SEC (24.3-30.1)
[2017-03-01] MEDS: ISOSORBIDE MONONITRATE 30 MG TAB PO SCH (06:09)
[2017-03-01] MEDS: ASPIRIN 81 MG CHEW TAB CHEW SCH (09:24)
[2017-03-01] MEDS: MULTIVITAMIN TAB PO SCH (09:24)
[2017-03-01] MEDS: FAMOTIDINE 20 MG TAB PO SCH ×2 (09:24→20:48)
[2017-03-01] MEDS: METOPROLOL TARTRATE 25 MG TAB PO SCH ×2 (09:24→22:56)
[2017-03-01] MEDS: PANTOPRAZOLE SOD 40 MG DELAYED RELEASE TAB PO SCH (09:24)
[2017-03-01] MEDS: SODIUM CHLORIDE 0.9% FLUSH 10 ML FLUSH IV FLUSH SCH ×2 (09:25→20:48)
[2017-03-01] MEDS: THIAMINE HCL 100 MG TAB PO SCH (09:25)
[2017-03-01] MEDS: FOLIC ACID 1 MG TAB PO SCH (09:25)
--- NOTE | 2017-03-01 09:25 | HHI.PR ---
Subjective Remarks RN denies any deterioration since last night. Patient denies having any chest pain. Denies any nausea vomiting currently. Pt wanting to shower. Objective Vital Signs Date Time Temp Pulse Resp B/P (MAP) Pulse Ox O2 Delivery O2 Flow Rate FiO2 03/01/17 08:00 53 03/01/17 07:00 53 03/01/17 07:00 98.1 53 16 144/91 (108) 96 03/01/17 06:00 58 03/01/17 05:20 56 03/01/17 04:02 79 03/01/17 03:19 98.2 70 17 147/88 (107) 99 03/01/17 03:00 75 03/01/17 02:28 18 03/01/17 02:08 73 03/01/17 01:00 53 03/01/17 00:13 56 02/28/17 23:07 98.7 61 18 118/67 (84) 98 02/28/17 23:00 64 02/28/17 22:00 54 02/28/17 21:00 49 02/28/17 20:00 52 02/28/17 19:00 71 02/28/17 19:00 97.7 75 18 144/93 (110) 98 02/28/17 18:00 75 02/28/17 17:00 84 02/28/17 16:00 81 02/28/17 15:00 98.2 57 18 142/93 (109) 96 02/28/17 15:00 57 02/28/17 14:00 72 02/28/17 13:00 72 02/28/17 12:00 66 02/28/17 11:00 98.4 67 18 123/79 (94) 96 02/28/17 11:00 72 02/28/17 10:00 88 I/O 02/28/17 02/28/17 02/28/17 03/01/17 03/01/17 03/01/17 07:00 15:00 23:00 07:00 15:00 23:00 Intake Total 664 ml 910 ml 851 ml Output Total 1450 ml 1300 ml 1250 ml Balance -786 ml -390 ml -399 ml Intake Oral 480 ml 720 ml 720 ml IV Total 184 ml 190 ml 131 ml Output Urine Total 1450 ml 1300 ml Stool Total 0 ml 1250 ml Result Diagram: 11/24/17 0211 02/28/17 0650 Objective Remarks hrt sounds rrr, no murmurs no LE edema no labored breathing, awake and alert A/P Assessment and Plan Chest pain 2/2 unstable angina - stable currently CABG tentatively for 03/04 continue aspirin, Lipitor, Lopressor, heparin drip urine culture is growing GNR - starting Rocephin - sensitivities to follow Hypertension Continue home medications Chronic alcohol abuse CIWA with librium taper (lowering down to twice a day today and tomorrow, once a day starting Saturday) DVT prevention heparin Code Status Full code Discussed Condition With Patient informed he could shower, just needs to be under close supervision given he is on heparin drip Govind Silverman MD Mar 01, 2017 09:25
[2017-03-01] MEDS: cefTRIAXone 1,000 MG/NS 100 ML IV SCH ×2 (09:30)
[2017-03-01] MEDS: ATORVASTATIN 40 MG TAB PO SCH (20:48)
[2017-03-01] MEDS: LORazepam 1 MG TAB PO PRN (20:49)
[2017-03-02] VITALS (27 sets, daily range): BP systolic 127–152; BP diastolic 78–95; PULSE 33–66; RESP 16–18; TEMP 97.8–98.2; O2SAT 95–98
[2017-03-02] MEDS: ACETAMINOPHEN/HYDROcodone 325 MG/7.5 MG TAB PO PRN ×4 (03:26→20:54)
[2017-03-02 05:39] LABS: APTT (PATIENT) 41.8 SEC (24.3-30.1)
[2017-03-02] MEDS: ISOSORBIDE MONONITRATE 30 MG TAB PO SCH (06:16)
[2017-03-02] MEDS: METOPROLOL TARTRATE 25 MG TAB PO SCH ×2 (08:24→20:54)
[2017-03-02] MEDS: MULTIVITAMIN TAB PO SCH (08:24)
[2017-03-02] MEDS: FAMOTIDINE 20 MG TAB PO SCH ×2 (08:25→20:55)
[2017-03-02] MEDS: THIAMINE HCL 100 MG TAB PO SCH (08:25)
[2017-03-02] MEDS: PANTOPRAZOLE SOD 40 MG DELAYED RELEASE TAB PO SCH (08:25)
[2017-03-02] MEDS: FOLIC ACID 1 MG TAB PO SCH (08:25)
[2017-03-02] MEDS: SODIUM CHLORIDE 0.9% FLUSH 10 ML FLUSH IV FLUSH SCH ×2 (08:26→20:55)
[2017-03-02] MEDS: ASPIRIN 81 MG CHEW TAB CHEW SCH (08:26)
[2017-03-02] MEDS: cefTRIAXone 1,000 MG/NS 100 ML IV SCH ×2 (08:28)
--- NOTE | 2017-03-02 10:01 | HHI.PR ---
Subjective Remarks RN denies any deterioration since last night. Patient denies having any chest pain. States that the ostomy/colostomy bag on his right side is slightly irritating him and will like to see if any supplies similar to his home brand supplies are available. He is concerned about the possible "downtime" he will have after this potential upcoming scheduled CABG as having undergone some sort of iliofemoral procedure in the past caused him to have a prolonged hospitalization due to infection. Patient is currently on Rocephin for gram- negative rods growing in the urine, speciation and sensitivities still pending. Objective Vital Signs Date Time Temp Pulse Resp B/P (MAP) Pulse Ox O2 Delivery O2 Flow Rate FiO2 03/02/17 09:00 62 03/02/17 08:00 98.0 54 16 139/83 (101) 98 03/02/17 08:00 53 03/02/17 07:00 54 03/02/17 06:00 53 03/02/17 05:00 49 03/02/17 04:00 64 03/02/17 03:33 33 03/02/17 03:15 97.9 54 16 152/95 (114) 98 03/02/17 03:00 49 03/02/17 02:00 54 03/02/17 01:00 64 03/02/17 00:00 53 03/01/17 23:00 68 03/01/17 23:00 97.9 69 16 142/96 (111) 96 03/01/17 22:13 98 21 03/01/17 22:00 59 03/01/17 21:00 54 03/01/17 20:20 97.9 60 18 155/108 (124) 97 03/01/17 20:00 58 03/01/17 19:00 56 03/01/17 18:05 16 03/01/17 18:00 60 03/01/17 17:00 65 03/01/17 16:00 68 03/01/17 15:00 97.3 60 16 110/80 (90) 96 03/01/17 15:00 60 03/01/17 14:00 62 03/01/17 13:00 58 03/01/17 12:05 97 21 03/01/17 12:00 60 03/01/17 11:00 98.5 58 16 125/87 (100) 97 03/01/17 11:00 58 03/01/17 10:00 53 I/O 03/01/17 03/01/17 03/01/17 03/02/17 03/02/17 03/02/17 07:00 15:00 23:00 07:00 15:00 23:00 Intake Total 851 ml 500 ml 888 ml Output Total 1250 ml 1100 ml 1100 ml Balance -399 ml -600 ml -212 ml Intake Oral 720 ml 400 ml 720 ml IV Total 131 ml 100 ml 168 ml Output Urine Total 1100 ml 1100 ml Stool Total 1250 ml # Bowel Movements 0 0 Result Diagram: 03/01/17 0211 02/28/17 0650 Objective Remarks hrt sounds rrr, no murmurs no LE edema no labored breathing, awake and alert A/P Assessment and Plan Chest pain 2/2 unstable angina - stable currently CABG tentatively for 03/04 continue aspirin, Lipitor, Lopressor, heparin drip urine culture is growing GNR -continue Rocephin - sensitivities and speciation still pending Hypertension Continue home medications Chronic alcohol abuse CIWA with librium taper (lowering down starting Saturday) DVT prevention heparin Govind Silverman MD Mar 02, 2017 10:01
--- NOTE | 2017-03-02 10:14 | PD.CARD.PN ---
Subjective Subjective Remarks No chest pain, no shortness of breath Concerned about "downtime" post-CABG Objective Medications Current Medications Medications (Trade) Dose Ordered Sig/Marta Route Start Time Stop Time Status Last Admin (Aspirin Chew) 81 mg DAILY CHEW 02/26/17 09:00 03/02/17 08:26 (Imdur) 30 mg DAILY@0700 PO 02/26/17 07:00 03/02/17 06:16 (Lopressor) 12.5 mg BID PO 02/25/17 21:00 03/02/17 08:24 (NS Flush) 2 ml UNSCH PRN IV FLUSH 02/25/17 19:15 (NS Flush) 2 ml BID IV FLUSH 02/25/17 21:00 03/02/17 08:26 (Tylenol) 500 mg Q4H PRN PO 02/25/17 19:15 02/25/17 23:02 (Lane 7.5-325 Mg) 1 tab Q4H PRN PO 02/25/17 19:15 03/02/17 08:23 (Zofran Inj) 4 mg Q6H PRN IV PUSH 02/25/17 19:15 (Pepcid) 20 mg BID PO 02/25/17 21:00 03/02/17 08:25 (Nitrostat Sl) 0.4 mg Q5M PRN SL 02/25/17 19:15 (Romazicon Inj) 0.2 mg Q1M PRN IV PUSH 02/25/17 19:15 (Ativan) 1 mg Q4H PRN PO 02/25/17 19:15 03/01/17 20:49 (Ativan Inj) 1 mg Q4H PRN IV PUSH 02/25/17 19:15 02/26/17 14:05 (Ativan) 2 mg Q2H PRN PO 02/25/17 19:15 (Ativan Inj) 2 mg Q2H PRN IV PUSH 02/25/17 19:15 (Ativan Inj) 2 mg Q1H PRN IV PUSH 02/25/17 19:15 (Ativan Inj) 2 mg Q15M PRN IV PUSH 02/25/17 19:15 (Pill Splitter) 1 ea UNSCH PRN OTHER 02/25/17 19:15 (Heparin Inj) 5,000 units UNSCH PRN IV PUSH 02/26/17 17:45 (Heparin Inj) 2,500 units UNSCH PRN IV PUSH 02/26/17 17:45 02/28/17 01:02 Heparin Sodium/ Dextrose 250 ml @ 10 mls/hr TITRATE PRN IV 02/26/17 11:45 03/01/17 23:01 (Theragran) 1 tab DAILY PO 02/27/17 14:00 03/02/17 08:24 (Vitamin B1) 100 mg DAILY PO 02/27/17 14:00 03/02/17 08:25 (Folate) 1 mg DAILY PO 02/27/17 14:00 03/02/17 08:25 Papaverine HCl 60 mg/Nitroglycerin 100 mcg/Diltiazem HCl 100 mg/Sodium Chloride 100 ml @ 0 mls/hr INTERMEDIATE FRAME TENDER IRRIGATION 02/27/17 13:45 03/06/17 13:44 Cefazolin Sodium 500 mg/Sodium Chloride 505 ml @ 0 mls/hr INTERMEDIATE FRAME TENDER IRRIGATION 02/27/17 13:45 03/06/17 13:44 Cefazolin Sodium/ Dextrose 50 ml @ 150 mls/hr INTERMEDIATE FRAME TENDER IV 02/27/17 13:45 03/06/17 13:44 (Lopressor) 12.5 mg INTERMEDIATE FRAME TENDER PO 02/27/17 13:45 03/06/17 13:44 (Hibiclens 4% Top Soln) 1 applic INTERMEDIATE FRAME TENDER TOPICAL 02/27/17 13:45 03/06/17 13:44 Insulin Human Regular 100 units/ Sodium Chloride 100 ml @ 3 mls/hr TITRATE PRN IV 02/27/17 13:45 03/06/17 13:44 (D50w (Vial) Inj) 50 ml UNSCH PRN IV PUSH 02/27/17 13:45 (Lipitor) 40 mg HS PO 02/27/17 15:30 03/01/17 20:48 (Protonix) 40 mg DAILY PO 02/28/17 10:15 03/02/17 08:25 (Librium) 5 mg BID PO 03/01/17 09:15 03/02/17 23:00 03/02/17 08:26 (Librium) 5 mg AC LUNCH PO 03/01/17 11:00 03/01/17 11:00 Ceftriaxone Sodium 1000 mg/ Sodium Chloride 100 ml @ 200 mls/hr DAILY IV 03/01/17 09:30 03/02/17 08:28 (Miralax) 17 gm DAILY PO 03/02/17 10:15 UNV (Glycerin Adult Supp) 2 gm ONCE ONCE RECTAL 03/02/17 10:15 03/02/17 10:16 UNV Vital Signs / I&O Vital Signs Date Time Temp Pulse Resp B/P (MAP) Pulse Ox O2 Delivery O2 Flow Rate FiO2 03/02/17 09:00 62 03/02/17 08:00 98.0 54 16 139/83 (101) 98 03/02/17 08:00 53 03/02/17 07:00 54 03/02/17 06:00 53 03/02/17 05:00 49 03/02/17 04:00 64 03/02/17 03:33 33 03/02/17 03:15 97.9 54 16 152/95 (114) 98 03/02/17 03:00 49 03/02/17 02:00 54 03/02/17 01:00 64 03/02/17 00:00 53 03/01/17 23:00 68 03/01/17 23:00 97.9 69 16 142/96 (111) 96 03/01/17 22:13 98 21 03/01/17 22:00 59 03/01/17 21:00 54 03/01/17 20:20 97.9 60 18 155/108 (124) 97 03/01/17 20:00 58 03/01/17 19:00 56 03/01/17 18:05 16 03/01/17 18:00 60 03/01/17 17:00 65 03/01/17 16:00 68 03/01/17 15:00 97.3 60 16 110/80 (90) 96 03/01/17 15:00 60 03/01/17 14:00 62 03/01/17 13:00 58 03/01/17 12:05 97 21 03/01/17 12:00 60 03/01/17 11:00 98.5 58 16 125/87 (100) 97 03/01/17 11:00 58 I/O 03/01/17 03/01/17 03/01/17 03/02/17 03/02/17 03/02/17 07:00 15:00 23:00 07:00 15:00 23:00 Intake Total 851 ml 500 ml 888 ml Output Total 1250 ml 1100 ml 1100 ml Balance -399 ml -600 ml -212 ml Intake Oral 720 ml 400 ml 720 ml IV Total 131 ml 100 ml 168 ml Output Urine Total 1100 ml 1100 ml Stool Total 1250 ml # Bowel Movements 0 0 Physical Exam GENERAL: NAD, AAOx3 SKIN: Warm and dry. HEAD: Atraumatic. Normocephalic. EYES: Pupils equal and round. No scleral icterus. No injection or drainage. ENT: No nasal bleeding or discharge. Mucous membranes pink and moist. NECK: Trachea midline. No JVD. CARDIOVASCULAR: Regular rate and rhythm. RESPIRATORY: No accessory muscle use. Clear to auscultation. Breath sounds equal bilaterally. GASTROINTESTINAL: Abdomen soft, non-tender, nondistended. Hepatic and splenic margins not palpable. MUSCULOSKELETAL: Extremities without clubbing, cyanosis, or edema. No obvious deformities. NEUROLOGICAL: Awake and alert. No obvious cranial nerve deficits. Motor grossly within normal limits. Five out of 5 muscle strength in the arms and legs. Normal speech. PSYCHIATRIC: Appropriate mood and affect; insight and judgment normal. Laboratory Laboratory Tests Test 03/02/17 04:07 Activated Partial Thromboplast Time 41.8 SEC Assessment and Plan Problem List: (1) Chest pain ICD Codes: R07.9 - Chest pain, unspecified Status: Acute (2) Coronary artery disease ICD Codes: I25.10 - Coronary artery disease Status: Chronic (3) Hyperlipidemia ICD Codes: E78.5 - Hyperlipidemia Status: Chronic (4) Alcohol abuse ICD Codes: F10.10 - Alcohol abuse, uncomplicated Status: Acute (5) Tobacco abuse ICD Codes: Z72.0 - Tobacco abuse Status: Chronic Assessment and Plan 1) Left main disease For consideration of CT surgery, planned for Saturday Con't heparin drip 2) ETOH abuse Watch for withdrawal, appears stable 3) Tobacco abuse Tobacco cessation 4) Mild bradycardia Asymptomatic Con't low dose BB Augie Peña DO Mar 02, 2017 10:14
[2017-03-02] MEDS ORDERED: GLYCERIN ADULT 2 GM SUPP RECTAL ONE (10:15)
[2017-03-02] MEDS: POLYETHYLENE GLYCOL 17 GM PKG PO SCH (12:18)
[2017-03-02] MEDS: HEPARIN-D5W 25,000 U/250 ML 250 ML IV PRN (16:19)
[2017-03-02] MEDS: LORazepam 1 MG TAB PO PRN (19:45)
[2017-03-02] MEDS: ATORVASTATIN 40 MG TAB PO SCH (20:55)
[2017-03-03] VITALS (27 sets, daily range): BP systolic 120–152; BP diastolic 78–103; PULSE 44–80; RESP 18–20; TEMP 97.7–98.3; O2SAT 93–98
[2017-03-03] MEDS: ACETAMINOPHEN/HYDROcodone 325 MG/7.5 MG TAB PO PRN ×5 (00:57→20:57)
[2017-03-03] MEDS: LORazepam 1 MG TAB PO PRN (04:25)
[2017-03-03 06:39] LABS: APTT (PATIENT) 48.9 SEC (24.3-30.1)
[2017-03-03] MEDS: ISOSORBIDE MONONITRATE 30 MG TAB PO SCH (08:45)
[2017-03-03] MEDS: THIAMINE HCL 100 MG TAB PO SCH (08:45)
[2017-03-03] MEDS: ASPIRIN 81 MG CHEW TAB CHEW SCH (08:45)
[2017-03-03] MEDS: FOLIC ACID 1 MG TAB PO SCH (08:45)
[2017-03-03] MEDS: POLYETHYLENE GLYCOL 17 GM PKG PO SCH (08:45)
[2017-03-03] MEDS: PANTOPRAZOLE SOD 40 MG DELAYED RELEASE TAB PO SCH (08:45)
[2017-03-03] MEDS: FAMOTIDINE 20 MG TAB PO SCH ×2 (08:45→20:17)
[2017-03-03] MEDS: MULTIVITAMIN TAB PO SCH (08:45)
[2017-03-03] MEDS: METOPROLOL TARTRATE 25 MG TAB PO SCH ×2 (08:46→20:17)
[2017-03-03] MEDS: SODIUM CHLORIDE 0.9% FLUSH 10 ML FLUSH IV FLUSH SCH ×2 (08:46→20:17)
[2017-03-03] MEDS: cefTRIAXone 1,000 MG/NS 100 ML IV SCH ×2 (08:47)
[2017-03-03] MEDS: HEPARIN-D5W 25,000 U/250 ML 250 ML IV PRN (08:50)
--- NOTE | 2017-03-03 09:21 | HHI.PR ---
Subjective Remarks RN denies any acute deterioration since last night. CIWA score from this morning is 0 per nursing. Patient denies having any chest pain. enjoying his breakfast. Objective Vital Signs Date Time Temp Pulse Resp B/P (MAP) Pulse Ox O2 Delivery O2 Flow Rate FiO2 03/03/17 08:00 97.9 53 18 152/92 (112) 93 03/03/17 06:06 50 03/03/17 05:03 51 03/03/17 04:30 97.9 56 18 151/103 (119) 97 03/03/17 04:00 52 03/03/17 03:00 49 03/03/17 02:00 63 03/03/17 01:00 59 03/03/17 00:57 98.1 59 18 142/94 (110) 97 03/03/17 00:00 51 03/02/17 23:00 49 03/02/17 22:00 49 03/02/17 21:00 62 03/02/17 20:00 52 03/02/17 19:59 97.8 55 18 135/86 (102) 97 03/02/17 19:00 55 03/02/17 18:00 64 03/02/17 17:00 62 03/02/17 16:00 97.9 64 16 127/78 (94) 98 03/02/17 16:00 58 03/02/17 14:00 62 03/02/17 13:00 62 03/02/17 12:00 98.2 66 18 129/93 (105) 98 03/02/17 12:00 66 03/02/17 11:20 95 21 03/02/17 11:00 66 03/02/17 10:00 60 03/02/17 09:23 18 I/O 03/02/17 03/02/17 03/02/17 03/03/17 03/03/17 03/03/17 07:00 15:00 23:00 07:00 15:00 23:00 Intake Total 888 ml 1143 ml 588 ml 30 ml Output Total 1100 ml 750 ml 600 ml Balance -212 ml 393 ml -12 ml 30 ml Intake Oral 720 ml 975 ml 420 ml IV Total 168 ml 168 ml 168 ml 30 ml Output Urine Total 1100 ml 750 ml 600 ml # Bowel Movements 0 1 0 Result Diagram: 03/01/1721017 0650 Objective Remarks hrt sounds rrr, no murmurs no labored breathing, awake and alert eating breakfast A/P Assessment and Plan Chest pain 2/2 unstable angina - stable currently CABG tentatively for 03/04 continue aspirin, Lipitor, Lopressor, heparin drip Urine culture is positive for pansensitive for klebsiella and e.coli - pt is asymptomatic. on rocephin, Receiving 3rd dose later this morning Hypertension Continue home medications Chronic alcohol abuse CIWA stable, librium - now once a day DVT prevention heparin Govind Silverman MD Mar 03, 2017 09:21
--- NOTE | 2017-03-03 12:43 | PD.CARD.PN ---
Subjective Subjective Remarks No chest pain, no shortness of breath Objective Medications Current Medications Medications (Trade) Dose Ordered Sig/Marta Route Start Time Stop Time Status Last Admin (Aspirin Chew) 81 mg DAILY CHEW 02/26/17 09:00 03/03/17 08:45 (Imdur) 30 mg DAILY@0700 PO 02/26/17 07:00 03/03/17 08:45 (Lopressor) 12.5 mg BID PO 02/25/17 21:00 03/03/17 08:46 (NS Flush) 2 ml UNSCH PRN IV FLUSH 02/25/17 19:15 (NS Flush) 2 ml BID IV FLUSH 02/25/17 21:00 03/03/17 08:46 (Tylenol) 500 mg Q4H PRN PO 02/25/17 19:15 02/25/17 23:02 (Grandy 7.5-325 Mg) 1 tab Q4H PRN PO 02/25/17 19:15 03/03/17 12:20 (Zofran Inj) 4 mg Q6H PRN IV PUSH 02/25/17 19:15 (Pepcid) 20 mg BID PO 02/25/17 21:00 03/03/17 08:45 (Nitrostat Sl) 0.4 mg Q5M PRN SL 02/25/17 19:15 (Romazicon Inj) 0.2 mg Q1M PRN IV PUSH 02/25/17 19:15 (Ativan) 1 mg Q4H PRN PO 02/25/17 19:15 03/03/17 04:25 (Ativan Inj) 1 mg Q4H PRN IV PUSH 02/25/17 19:15 02/26/17 14:05 (Ativan) 2 mg Q2H PRN PO 02/25/17 19:15 (Ativan Inj) 2 mg Q2H PRN IV PUSH 02/25/17 19:15 (Ativan Inj) 2 mg Q1H PRN IV PUSH 02/25/17 19:15 (Ativan Inj) 2 mg Q15M PRN IV PUSH 02/25/17 19:15 (Pill Splitter) 1 ea UNSCH PRN OTHER 02/25/17 19:15 (Heparin Inj) 5,000 units UNSCH PRN IV PUSH 02/26/17 17:45 (Heparin Inj) 2,500 units UNSCH PRN IV PUSH 02/26/17 17:45 02/28/17 01:02 Heparin Sodium/ Dextrose 250 ml @ 10 mls/hr TITRATE PRN IV 02/26/17 11:45 03/03/17 08:50 (Theragran) 1 tab DAILY PO 02/27/17 14:00 03/03/17 08:45 (Vitamin B1) 100 mg DAILY PO 02/27/17 14:00 03/03/17 08:45 (Folate) 1 mg DAILY PO 02/27/17 14:00 03/03/17 08:45 Papaverine HCl 60 mg/Nitroglycerin 100 mcg/Diltiazem HCl 100 mg/Sodium Chloride 100 ml @ 0 mls/hr LACE ROLLER OPERATOR IRRIGATION 02/27/17 13:45 03/06/17 13:44 Cefazolin Sodium 500 mg/Sodium Chloride 505 ml @ 0 mls/hr LACE ROLLER OPERATOR IRRIGATION 02/27/17 13:45 03/06/17 13:44 Cefazolin Sodium/ Dextrose 50 ml @ 150 mls/hr LACE ROLLER OPERATOR IV 02/27/17 13:45 03/06/17 13:44 (Lopressor) 12.5 mg LACE ROLLER OPERATOR PO 02/27/17 13:45 03/06/17 13:44 (Hibiclens 4% Top Soln) 1 applic LACE ROLLER OPERATOR TOPICAL 02/27/17 13:45 03/06/17 13:44 Insulin Human Regular 100 units/ Sodium Chloride 100 ml @ 3 mls/hr TITRATE PRN IV 02/27/17 13:45 03/06/17 13:44 (D50w (Vial) Inj) 50 ml UNSCH PRN IV PUSH 02/27/17 13:45 (Lipitor) 40 mg HS PO 02/27/17 15:30 03/02/17 20:55 (Protonix) 40 mg DAILY PO 02/28/17 10:15 03/03/17 08:45 (Librium) 5 mg AC LUNCH PO 03/01/17 11:00 03/03/17 12:18 Ceftriaxone Sodium 1000 mg/ Sodium Chloride 100 ml @ 200 mls/hr DAILY IV 03/01/17 09:30 03/03/17 08:47 (Miralax) 17 gm DAILY PO 03/02/17 10:15 03/03/17 08:45 Vital Signs / I&O Vital Signs Date Time Temp Pulse Resp B/P (MAP) Pulse Ox O2 Delivery O2 Flow Rate FiO2 03/03/17 10:00 54 03/03/17 09:00 54 03/03/17 08:00 97.9 53 18 152/92 (112) 93 03/03/17 08:00 52 03/03/17 07:00 50 03/03/17 06:06 50 03/03/17 05:03 51 03/03/17 04:30 97.9 56 18 151/103 (119) 97 03/03/17 04:00 52 03/03/17 03:00 49 03/03/17 02:00 63 03/03/17 01:00 59 03/03/17 00:57 98.1 59 18 142/94 (110) 97 03/03/17 00:00 51 03/02/17 23:00 49 03/02/17 22:00 49 03/02/17 21:00 62 03/02/17 20:00 52 03/02/17 19:59 97.8 55 18 135/86 (102) 97 03/02/17 19:00 55 03/02/17 18:00 64 03/02/17 17:00 62 03/02/17 16:00 97.9 64 16 127/78 (94) 98 03/02/17 16:00 58 03/02/17 14:00 62 03/02/17 13:00 62 I/O 03/02/17 03/02/17 03/02/17 03/03/17 03/03/17 03/03/17 07:00 15:00 23:00 07:00 15:00 23:00 Intake Total 888 ml 1143 ml 588 ml 30 ml Output Total 1100 ml 750 ml 600 ml Balance -212 ml 393 ml -12 ml 30 ml Intake Oral 720 ml 975 ml 420 ml IV Total 168 ml 168 ml 168 ml 30 ml Output Urine Total 1100 ml 750 ml 600 ml # Bowel Movements 0 1 0 Physical Exam GENERAL: NAD, AAOx3 SKIN: Warm and dry. HEAD: Atraumatic. Normocephalic. EYES: Pupils equal and round. No scleral icterus. No injection or drainage. ENT: No nasal bleeding or discharge. Mucous membranes pink and moist. NECK: Trachea midline. No JVD. CARDIOVASCULAR: Regular rate and rhythm. RESPIRATORY: No accessory muscle use. Clear to auscultation. Breath sounds equal bilaterally. GASTROINTESTINAL: Abdomen soft, non-tender, nondistended. Hepatic and splenic margins not palpable. MUSCULOSKELETAL: Extremities without clubbing, cyanosis, or edema. No obvious deformities. NEUROLOGICAL: Awake and alert. No obvious cranial nerve deficits. Motor grossly within normal limits. Five out of 5 muscle strength in the arms and legs. Normal speech. PSYCHIATRIC: Appropriate mood and affect; insight and judgment normal. Laboratory Laboratory Tests Test 03/03/17 05:02 Activated Partial Thromboplast Time 48.9 SEC Assessment and Plan Problem List: (1) Chest pain ICD Codes: R07.9 - Chest pain, unspecified Status: Acute (2) Coronary artery disease ICD Codes: I25.10 - Coronary artery disease Status: Chronic (3) Hyperlipidemia ICD Codes: E78.5 - Hyperlipidemia Status: Chronic (4) Alcohol abuse ICD Codes: F10.10 - Alcohol abuse, uncomplicated Status: Acute (5) Tobacco abuse ICD Codes: Z72.0 - Tobacco abuse Status: Chronic Assessment and Plan 1) Left main disease For consideration of CT surgery, planned for tomorrow Con't heparin drip 2) ETOH abuse Watch for withdrawal, appears stable 3) Tobacco abuse Tobacco cessation 4) Mild bradycardia Asymptomatic Con't low dose BB Augie Peña DO Mar 03, 2017 12:43
[2017-03-03] MEDS: ATORVASTATIN 40 MG TAB PO SCH (20:17)
[2017-03-04] VITALS (28 sets, daily range): BP systolic 80–149; BP diastolic 46–94; PULSE 46–78; RESP 13–20; TEMP 97.3–98.2; O2SAT 93–98
[2017-03-04] MEDS: ACETAMINOPHEN/HYDROcodone 325 MG/7.5 MG TAB PO PRN ×3 (00:25→11:01)
[2017-03-04] MEDS: HEPARIN-D5W 25,000 U/250 ML 250 ML IV PRN (03:38)
[2017-03-04 05:58] LABS: HEMATOCRIT 35.1 % (39.0-51.0); MEAN CELL VOLUME 106.2 FL (80.0-100.0); MEAN CORPUSCULAR HEMOGLOBIN 35.6 PG (27.0-34.0); MEAN CORPUSCULAR HGB CONC 33.6 % (32.0-36.0); PLATELET COUNT 184 TH/MM3 (150-450); RED BLOOD COUNT 3.31 MIL/MM3 (4.50-5.90); RED CELL DISTRIBUTION WIDTH 19.3 % (11.6-17.2); REVIEW FLAG FINAL; WHITE BLOOD COUNT 5.2 TH/MM3 (4.0-11.0)
[2017-03-04] MEDS: ISOSORBIDE MONONITRATE 30 MG TAB PO SCH (06:06)
[2017-03-04] MEDS: PANTOPRAZOLE SOD 40 MG DELAYED RELEASE TAB PO SCH (08:55)
[2017-03-04] MEDS: METOPROLOL TARTRATE 25 MG TAB PO SCH ×2 (08:55→21:00)
[2017-03-04] MEDS: MULTIVITAMIN TAB PO SCH (08:55)
[2017-03-04] MEDS: FOLIC ACID 1 MG TAB PO SCH (08:55)
[2017-03-04] MEDS: THIAMINE HCL 100 MG TAB PO SCH (08:55)
[2017-03-04] MEDS: cefTRIAXone 1,000 MG/NS 100 ML IV SCH ×2 (08:56)
[2017-03-04] MEDS: SODIUM CHLORIDE 0.9% FLUSH 10 ML FLUSH IV FLUSH SCH ×2 (08:56→21:00)
[2017-03-04] MEDS: ASPIRIN 81 MG CHEW TAB CHEW SCH (08:56)
[2017-03-04] MEDS: FAMOTIDINE 20 MG TAB PO SCH ×2 (08:56→21:00)
[2017-03-04] MEDS: POLYETHYLENE GLYCOL 17 GM PKG PO SCH (08:56)
[2017-03-04] MEDS ORDERED: HEPARIN SODIUM - SQ 10,000 UNITS/ML VIAL ONE (12:43)
[2017-03-04] MEDS ORDERED: ceFAZolin 2 GM PREMIX 50 ML ONE (12:43)
[2017-03-04] MEDS ORDERED: ceFAZolin INJ 1,000 MG VIAL ONE (12:43)
[2017-03-04] MEDS ORDERED: VANCOMYCIN HCL 1000 MG VIAL ONE (12:43)
--- NOTE | 2017-03-04 15:18 | PD.CAR.PN ---
CVT Progress Note Subjective/Hospital Course: A 62-year-old male patient of Dr. Fadi Estes, Dr. Peña, presented to the emergency room at [facility] with chest discomfort on the 25 of February, underwent exercise stress testing which showed small to moderate area of ischemia. He was recommended for cardiac catheterization. He states he has been having chest pain off and on for the last few weeks without exertion. He is very vague about it. He does have some nitro at home but does not remember to take it. His pain has been up to 8 out of a 10, becomes lightheaded, has some occasional nausea, some shortness of breath. He has history of coronary artery disease and has history of two stents in the past, the LAD and the RCA. He was transferred to [facility] and underwent cardiac cath which showed 70% left main, proximal LAD 50%, mid distal LAD 20%, the diagonal 10%, the circumflex 10%, the OM 30% and the RCA 30%. We were consulted to evaluate for coronary artery bypass grafting. The ejection fraction on the stress test showed an EF of 46%. The patient also has a longstanding history of ETOH. He was admitted with an ETOH level of 155. He has been admitted to our psyche unit in the past for ETOH abuse. Last admission was September 12, 2015 where at that time he had been drinking 1.7 liters of vodka, binge drinking apparently, had some depression, suicidal statements, however, he was initially Jessica Acted but then that was lifted. He has had an MN in the past. Currently he admits to drinking approximately 2-3 ounces of vodka three times a day. PAST MEDICAL HISTORY: Hypertension, Coronary artery disease, ETOH abuse, Tobacco abuse, Hepatitis B, History of bladder cancer, Last cardiac cath on May 26, 2014 which showed a patent stent in the midportion of the LAD and the RCA, Bladder resection, Prostatectomy, he has ileoconduit. 03/04 scheduled for surgery today Objective: Vital Signs Date Time Temp Pulse Resp B/P (MAP) Pulse Ox O2 Delivery O2 Flow Rate FiO2 03/04/17 12:00 56 03/04/17 11:03 97.9 51 18 121/78 (92) 94 03/04/17 11:00 50 03/04/17 10:00 52 03/04/17 09:00 50 03/04/17 08:37 98.2 56 16 121/84 (96) 95 03/04/17 08:00 58 03/04/17 07:00 97 21 03/04/17 07:00 60 03/04/17 06:23 55 03/04/17 05:24 55 03/04/17 04:10 49 03/04/17 03:28 48 03/04/17 03:00 97.5 55 149/94 (112) 96 03/04/17 02:19 63 03/04/17 01:05 46 03/04/17 00:32 54 03/03/17 23:48 56 03/03/17 23:36 98.1 55 139/79 (99) 94 03/03/17 22:00 66 03/03/17 21:00 58 03/03/17 20:00 97.7 57 145/85 (105) 97 03/03/17 20:00 58 03/03/17 19:00 68 03/03/17 18:00 50 03/03/17 17:00 44 03/03/17 16:00 50 Labs: Laboratory Tests Test 03/04/17 04:38 White Blood Count 5.2 TH/MM3 (4.0-11.0) Red Blood Count 3.31 MIL/MM3 (4.50-5.90) Hemoglobin 11.8 GM/DL (13.0-17.0) Hematocrit 35.1 % (39.0-51.0) Mean Corpuscular Volume 106.2 FL (80.0-100.0) Mean Corpuscular Hemoglobin 35.6 PG (27.0-34.0) Mean Corpuscular Hemoglobin Concent 33.6 % (32.0-36.0) Red Cell Distribution Width 19.3 % (11.6-17.2) Platelet Count 184 TH/MM3 (150-450) Mean Platelet Volume 8.1 FL (7.0-11.0) Activated Partial Thromboplast Time 44.0 SEC (24.3-30.1) Result Diagram: 03/04/17 0438 02/28/17 0650 (1) Chest pain (2) Coronary artery disease (3) Hyperlipidemia (4) Alcohol abuse (5) Tobacco abuse Yenny Fall Mar 04, 2017 15:18
[2017-03-04] MEDS ORDERED: DOBUTamine PREMIX DRIP 250 ML IV SCH (17:11)
[2017-03-04] MEDS ORDERED: hydrALAZINE HCL 20 MG/ML VIAL IV PUSH PRN (17:15)
[2017-03-04] MEDS ORDERED: ACETAMINOPHEN 325 MG TAB PO PRN (17:15)
[2017-03-04] MEDS ORDERED: ALBUMIN 5% INJ 250 ML IV PRN (17:15)
[2017-03-04] MEDS ORDERED: RESP: RACEPINEPHRINE 2.25% 0.5 ML NEB NEB PRN (17:15)
[2017-03-04] MEDS ORDERED: Post-op Orders (for Pharmacy) MISC OTHER ONE (17:15)
[2017-03-04] MEDS ORDERED: SODIUM BICARBONATE 8.4% SOLN 50 MEQ/50 ML VIAL IV PUSH PRN ×2 (17:15)
[2017-03-04] MEDS ORDERED: CALCIUM CHLORIDE 10% 1 GRAM/10 ML VIAL IV PUSH PRN (17:15)
[2017-03-04] MEDS ORDERED: DEXMEDETOMIDINE INJ 200 MCG in SODIUM CHLORIDE 0.9% INJ 50 ML IV PRN (17:15)
[2017-03-04] MEDS ORDERED: RESP: ALBUTEROL 2.5 MG/IPRATROPIUM 0.5 MG NEB (PRN) NEB (17:15)
[2017-03-04] MEDS ORDERED: INSULIN REGULAR (IV INFUSION) 100 UNITS in SODIUM CHLORIDE 0.9% INJ 99 ML IV PRN (17:15)
[2017-03-04] MEDS ORDERED: DEXTROSE 50% IN WATER 50 ML VIAL(D50) IV PUSH PRN (17:15)
[2017-03-04] MEDS ORDERED: SODIUM CHLORIDE 0.9% FLUSH 10 ML FLUSH IV FLUSH PRN (17:15)
[2017-03-04] MEDS ORDERED: POTASSIUM CHLORIDE 20 MEQ CONTROLLED RELEASE TAB PO PRN ×2 (17:15)
[2017-03-04] MEDS ORDERED: MEPERIDINE HCL 25 MG/ML VIAL IV PUSH PRN (17:15)
[2017-03-04] MEDS ORDERED: MAGNESIUM SULFATE INJ 2 GM in SODIUM CHLORIDE 0.9% INJ 100 ML IV PRN ×4 (17:15)
[2017-03-04] MEDS ORDERED: POTASSIUM CHLOR 20 MEQ PREMIX 100 ML IV PRN ×3 (17:15)
[2017-03-04] MEDS ORDERED: PHENYLEPHRINE INJ 40 MG in DEXTROSE 5% IN WATE 500 ML INJ 496 ML IV PRN ×2 (17:15)
[2017-03-04] MEDS ORDERED: CALCIUM CHLORIDE INJ 1 GM in SODIUM CHLORIDE 0.9% INJ 100 ML IV PRN (17:15)
[2017-03-04] MEDS ORDERED: NITROGLYCERIN-D5W 50 MG/250 ML 250 ML IV PRN (17:15)
[2017-03-04] MEDS ORDERED: ONDANSETRON HCL 4 MG/2 ML VIAL IV PUSH PRN (17:15)
[2017-03-04] MEDS ORDERED: DOPamine INJ PREMIX 500 ML IV PRN (17:15)
[2017-03-04] MEDS ORDERED: CLEVIDIPINE INJ 50 ML IV PRN (17:15)
[2017-03-04] MEDS ORDERED: METOPROLOL TARTRATE 5 MG/5 ML VIAL IV PUSH PRN (17:15)
[2017-03-04] MEDS ORDERED: ACETAMINOPHEN 650 MG SUPP RECTAL PRN (17:15)
[2017-03-04] MEDS ORDERED: ACETAMINOPHEN/HYDROcodone 325 MG/5 MG TAB PO PRN (17:15)
--- NOTE | 2017-03-04 17:20 | PD.OP ---
cc: Altaf Luther MD; Augie Peña DO Operative Report Date of Surgery: Mar 04, 2017 Preoperative Diagnosis: Postoperative Diagnosis: Procedure: 1. Urgent Off-pump Coronary Artery Bypass Grafting x 2 with Left Internal Mammary Artery (ESPINOZA) to the Left Anterior Descending (LAD), reverse saphenous vein graft to the Obtuse Marginal 1 (OM1) 2. Left Leg Endoscopic Vein [place] 3. Intraoperative Vein Mapping Surgeon: Altaf Luther Steel Spar Operator(s): Sanna Portillo Operation and Findings: PREPROCEDURE DIAGNOSES 1. Severe Multi-Vessel Coronary Artery Disease. 2 Left Main Disease 3. Mild Left Ventricular Dysfunction 4. Alcoholism POSTPROCEDURE DIAGNOSES Same SURGICAL PROCEDURE 1. Urgent Off-pump Coronary Artery Bypass Grafting x 2 with Left Internal Mammary Artery (ESPINOZA) to the Left Anterior Descending (LAD), reverse saphenous vein graft to the Obtuse Marginal 1 (OM1) 2. Left Leg Endoscopic Vein [place] 3. Intraoperative Vein Mapping SURGEON Altaf Luther MD OPTICIAN MANAGER DILLON Mcdonald ANESTHESIA General endotracheal FURNACE REPAIR MECHANIC JACK Bradley MD PREPARATION ChloraPrep. COUNTS Needle, sponge, and instrument counts were correct. DRAINS Two 32-German mediastinal tubes. COMPLICATIONS None. INDICATIONS FOR PROCEDURE The patient is a 62-year-old presenting with chest pain and left main coronary artery disease. He is being brought to the operating room for surgical revascularization therapy. PROCEDURE Patient was brought to the operating room and placed supine on the OR table. Following the induction of adequate general endotracheal anesthesia and placement of appropriate monitoring devices, intraoperative vein mapping was performed which revealed suitable-caliber conduit in both legs. The patient was then prepped and draped in standard sterile fashion. Next, 2500 units of intravenous heparin was given. The left greater saphenous vein was harvested endoscopically from the thigh. This appeared to be a useable-caliber conduit. Simultaneously, a median sternotomy was performed and the left internal mammary artery dissected free off the posterior sternal table. The patient was systemically heparinized and anticoagulation monitored by serial ACT measurements. The internal mammary artery had good pulsatile flow in it and was a decent-caliber conduit. The pericardium was then divided in the midline, the cradle created and targets analyzed. At this point, all anastomoses were performed in a beating-heart fashion using the [employer] stabilizing system. The left internal mammary artery was anastomosed to the mid LAD (2 mm) in an end-to- side fashion using 7-0 Prolene. The next segment was anastomosed to the OM1 ( 2.5 mm) in an end-to-side fashion using a running 7-0 Prolene. The proximal anastomosis was then constructed to the ascending aorta in a running manner using 6-0 Prolene. All anastomotic sites were inspected and appeared to be hemostatic and patent. Protamine solution was given. Strict hemostasis was assured. The closure was undertaken. 2 chest tubes were placed. The pericardium was reapproximated in the midline. The sternum was approximated using sternal wires. The muscular and fascial layer were then closed in 3 layers. The endoscopic vein harvest site was closed in 2 layers. The patient tolerated the procedure well and was transferred to CVICU in stable condition. Altaf Luther MD Mar 04, 2017 17:20
[2017-03-04] MEDS ORDERED: MIDAZOLAM HCL 5 MG/ML VIAL (1 ML) ONE (18:20)
--- NOTE | 2017-03-04 18:26 | RADRPT ---
EXAM DATE/TIME: 03/04/2017 17:58 [facility] COMPARISON: CHEST SINGLE AP, February 25, 2017, 18:02. INDICATIONS : Post CABG. MEDICAL HISTORY : Myocardial infarction. Hypercholesterolemia. Carcinoma, prostatic. Carcinoma, bladder. Arthritis. Hepatitis B. Clotting problems. Syncope. Chest pain. Irregular heartbeat. Hypertension. Sleep apnea. Dyspnea. Ulcers. Ileal conduit. UTI. Anticoagulant therapy, Aspirin. Anxiety. Tobacco use. ESBL. MRS A. SURGICAL HISTORY : Prostatectomy. Coronary artery stent. Removal of ileal conduit. Kidney stents. Back surgery. Cystect anahi. Blood transfusions. Cardiac cath. ENCOUNTER: Initial ACUITY: 1 day PAIN SCORE: Non-responsive. LOCATION: Bilateral chest FINDINGS: A single view of the chest demonstrates recent surgical intervention characteristic of a reported his tory of a CABG. Left-sided thoracostomy tube without pneumothorax. Minimal atelectatic changes in the left base. Mediastinal drain and a right IJ central venous catheter are identified with the tip of t he latter projecting of the central venous system. Endotracheal tube is above the guerda at the level of the clavicular heads. A nasogastric tube is curled in a large hiatal hernia above the diaphragms. Heart size is borderline prominent but well compensated. Osseous structures are stable with multiple left posterolateral rib fractures in the mid chest CONCLUSION: 1. Postsurgical changes characteristic of post CABG. Left thoracostomy tube without pneumothorax. 2. Nasogastric tube is curled in a large hiatal hernia above the diaphragms. Life-support tubes are o therwise appropriately positioned Hari Noriega MD on March 04, 2017 at 18:22 Board Certified Radiologist. This report was verified electronically.
[2017-03-04] MEDS: ACETAMINOPHEN 1000 MG/100 ML 100 ML IV SCH ×2 (18:29→23:01)
[2017-03-04] MEDS: LACTATED RINGER'S 1000 ML INJ 500 ML IV PRN ×2 (19:01→19:02)
[2017-03-04] MEDS: ATORVASTATIN 40 MG TAB PO SCH (21:00)
[2017-03-04] MEDS: AMIODARONE 200 MG TAB PO SCH (21:00)
[2017-03-04] MEDS: MORPHINE SULFATE 4 MG/ML INJ IV PUSH PRN ×3 (21:51→22:27)
[2017-03-04] MEDS: ceFAZolin 2 GM PREMIX 50 ML IV SCH (21:52)
[2017-03-04] MEDS: RESP: ALBUTEROL 2.5 MG/IPRATROPIUM 0.5 MG NEB (SCH) NEB (22:10)
[2017-03-04] MEDS: KETOROLAC TROMETHAMINE 30 MG/ML (IVP) VIAL IV PUSH PRN (22:17)
[2017-03-05] VITALS (17 sets, daily range): BP systolic 101–132; BP diastolic 52–76; PULSE 70–100; RESP 20; TEMP 98.2–98.8; O2SAT 91–96
[2017-03-05] MEDS: RESP: ALBUTEROL 2.5 MG/IPRATROPIUM 0.5 MG NEB (SCH) NEB ×3 (03:23→13:17)
[2017-03-05] MEDS: KETOROLAC TROMETHAMINE 30 MG/ML (IVP) VIAL IV PUSH PRN ×3 (03:43→20:45)
[2017-03-05] MEDS: ACETAMINOPHEN/HYDROcodone 325 MG/5 MG TAB PO PRN ×4 (04:07→21:10)
[2017-03-05 04:11] LABS: HEMATOCRIT 30.4 % (39.0-51.0); MEAN CELL VOLUME 105.4 FL (80.0-100.0); MEAN CORPUSCULAR HEMOGLOBIN 35.3 PG (27.0-34.0); MEAN CORPUSCULAR HGB CONC 33.5 % (32.0-36.0); PLATELET COUNT 164 TH/MM3 (150-450); RED BLOOD COUNT 2.89 MIL/MM3 (4.50-5.90); RED CELL DISTRIBUTION WIDTH 19.1 % (11.6-17.2); REVIEW FLAG FINAL; WHITE BLOOD COUNT 6.2 TH/MM3 (4.0-11.0)
[2017-03-05 04:42] LABS: BICARBONATE 25.4 MEQ/L (21.0-32.0); MAGNESIUM 1.9 MG/DL (1.5-2.5); POTASSIUM 4.7 MEQ/L (3.5-5.1)
--- NOTE | 2017-03-05 05:16 | RADRPT ---
EXAM DATE/TIME: 03/05/2017 03:58 [facility] COMPARISON: CHEST SINGLE AP, March 04, 2017, 17:58. INDICATIONS : Shortness of breath. MEDICAL HISTORY : Myocardial infarction. Hypercholesterolemia. Carcinoma, prostatic. SURGICAL HISTORY : Prostatectomy. Coronary artery stent. Removal of ileal conduit. Kidney stents. ENCOUNTER: Subsequent ACUITY: 1 week PAIN SCORE: 0/10 LOCATION: Bilateral chest FINDINGS: The patient is status post sternotomy. There is a right internal jugular central line, mediastinal dr aikrystyna, and a left chest tube in place. The heart size is normal. There is increased density at the left base. The right lung is clear. CONCLUSION: 1. Tubes and lines in good position. 2. Left base atelectasis or consolidation. Fadi Stevens MD on March 05, 2017 at 5:14 Board Certified Radiologist. This report was verified electronically.
[2017-03-05] MEDS: PANTOPRAZOLE SOD 40 MG DELAYED RELEASE TAB PO SCH (05:23)
[2017-03-05] MEDS: ceFAZolin 2 GM PREMIX 50 ML IV SCH ×3 (05:23→21:10)
[2017-03-05] MEDS: ACETAMINOPHEN 1000 MG/100 ML 100 ML IV SCH ×2 (05:23→12:00)
[2017-03-05] MEDS: ISOSORBIDE MONONITRATE 30 MG TAB PO SCH (07:00)
[2017-03-05] MEDS: POLYETHYLENE GLYCOL 17 GM PKG PO SCH (09:00)
[2017-03-05] MEDS ORDERED: MULTIVITAMIN INJ 10 ML, THIAMINE INJ 500 MG, FOLIC ACID INJ 1 MG in SODIUM CHLORID 0.9%... IV SCH (09:00)
[2017-03-05] MEDS: CLOPIDOGREL 75 MG TAB PO SCH (09:17)
[2017-03-05] MEDS: ASPIRIN 81 MG CHEW TAB PO SCH (09:17)
[2017-03-05] MEDS: FAMOTIDINE 20 MG TAB PO SCH ×2 (09:18→20:44)
[2017-03-05] MEDS: cefTRIAXone 1,000 MG/NS 100 ML IV SCH ×2 (09:18)
[2017-03-05] MEDS: SODIUM CHLORIDE 0.9% FLUSH 10 ML FLUSH IV FLUSH SCH ×2 (09:19→20:45)
[2017-03-05] MEDS ORDERED: DEXTROSE 50% IN WATER 50 ML VIAL(D50) IV PUSH PRN (09:30)
[2017-03-05] MEDS: DOCUSATE SODIUM 100 MG CAP PO SCH ×2 (09:30→20:44)
[2017-03-05] MEDS ORDERED: GLUCAGON 1 MG/ML VIAL OTHER PRN (09:30)
[2017-03-05] MEDS: MULTIVITAMINS/MINERALS THERAPEUTIC TAB PO SCH (10:17)
[2017-03-05] MEDS: FOLIC ACID 1 MG TAB PO SCH (10:18)
[2017-03-05] MEDS: THIAMINE HCL 100 MG TAB PO SCH (10:18)
[2017-03-05] MEDS: INSULIN ASPART SUPPLEMENTAL SCALE SQ SCH ×4 (10:19→22:00)
--- NOTE | 2017-03-05 10:50 | RSPPFT ---
DATE OF PROCEDURE: 02/27/17 COMMENTS: Spirometry with FVC of 2.8 predicted 4.1, FEV1 of 1.4 predicted 3.2, FEV1/FVC ratio 49% predicted 79%. IMPRESSION: On the basis of the above, patient has an obstructive lung defect. Post-bronchodilator values and lung volumes have not been measured.
[2017-03-05] MEDS: BUDESONIDE-FORMOTEROL 160/4.5 MCG INHALER INH SCH ×2 (12:16→20:44)
[2017-03-05] MEDS ORDERED: FUROSEMIDE 20 MG/2 ML VIAL IV PUSH ONE (14:00)
--- NOTE | 2017-03-05 15:45 | PD.WCN.NOT ---
Wound Consult Description: Consult placed for Ostomy Management of right ileostomy per MARIA TERESA Fall Communicated with: Patient RN Recommendation: Obtain supplies ordered for patient to try them out and see what works best for him. He normally uses [employer] supplies and is trying to find a [employer] appliance that works well for him while he is here in the hospital. This is not a new urostomy. Additional Information: Spoke with patient at length regarding our supplies vs [employer] supplies and made him aware of what we have available for him here. Ostomy Type: Other (Ileal Conduit) Educated patient on: Supplies available to him here Additional information Urostomy is measuring 1 1/4" located on the right side abdomen, pink, moist, moderately protruding and functioning with yellow urine noted in drainable pouch Marilynn Beasley [facility] Mar 05, 2017 15:45
--- NOTE | 2017-03-05 17:30 | PD.WCN.NOT ---
Wound Consult Description: Consult placed for Ostomy Management of right ileostomy per MARIA TERESA Fall Communicated with: Patient Additional Information: Patient seen on for Urostomy appliance change. Ostomy Type: Other (Ileal Conduit) Complete: Other (Appliance change) Educated patient on: Moisture related breakdown on peristomal skin Adhesive remover to be used with next appliance change Smaller size wafer for urostomy needed is 1 3/4" moldable and does not need to be cut Additional information Urostomy is measuring 1" tall and 1 1/4" wide. Patient was having chest, neck, and head discomfort and needed to lie down. RN was called to bedside and appliance was quickly placed. Appliance used today is size 2 1/4" however is too large for the stoma. Patient needs smaller size of 1 3/4" for next appliance change and is to be ordered from [facility]. There is moisture related peristomal skin breakdown that is to be addressed with next appliance change. Supplies ordered for this as well. Marilynn Beasley [facility] Mar 05, 2017 17:30
--- NOTE | 2017-03-05 17:36 | EKG ---
Date Performed: 03/05/2017 Time Performed: 05:58:58 PTAGE: 62 years EKG: Sinus rhythm with PAC(s) rSr'(V1) - probable normal variant Since previous tracing, no significant change noted B orderline ECG PREVIOUS TRACING : 02/25/2017 22.31 DOCTOR: Gisselle Carreon Interpretating Date/Time 03/05/2017 17:35:16
[2017-03-05 18:03] LABS: BLOOD, URINE NEG (NEG); COMMENT (UR) CULTURE INDICATED; CULTURE IF INDICATED CULTURE INDICATED; GLUCOSE,URINE NEG (NEG); KETONE, URINE NEG (NEG); NITRITE,URINE NEG (NEG); PH, URINE 6.5 (5.0-8.5); URINE COLOR YELLOW (YELLW/STRAW)
--- NOTE | 2017-03-05 18:11 | PD.CAR.PN ---
CVT Progress Note Subjective/Hospital Course: A 62-year-old male patient of Dr. Fadi Estes, Dr. Peña, presented to the emergency room at [place] with chest discomfort on the 25 of February, underwent exercise stress testing which showed small to moderate area of ischemia. He was recommended for cardiac catheterization. He states he has been having chest pain off and on for the last few weeks without exertion. He is very vague about it. He does have some nitro at home but does not remember to take it. His pain has been up to 8 out of a 10, becomes lightheaded, has some occasional nausea, some shortness of breath. He has history of coronary artery disease and has history of two stents in the past, the LAD and the RCA. He was transferred to [facility] and underwent cardiac cath which showed 70% left main, proximal LAD 50%, mid distal LAD 20%, the diagonal 10%, the circumflex 10%, the OM 30% and the RCA 30%. We were consulted to evaluate for coronary artery bypass grafting. The ejection fraction on the stress test showed an EF of 46%. The patient also has a longstanding history of ETOH. He was admitted with an ETOH level of 155. He has been admitted to our psyche unit in the past for ETOH abuse. Last admission was September 12, 2015 where at that time he had been drinking 1.7 liters of vodka, binge drinking apparently, had some depression, suicidal statements, however, he was initially Jessica Acted but then that was lifted. He has had an [place] in the past. Currently he admits to drinking approximately 2-3 ounces of vodka three times a day. PAST MEDICAL HISTORY: Hypertension, Coronary artery disease, ETOH abuse, Tobacco abuse, Hepatitis B, History of bladder cancer, Last cardiac cath on May 26, 2014 which showed a patent stent in the midportion of the LAD and the RCA, Bladder resection, Prostatectomy, he has ileoconduit. surgery: . Urgent Off-pump Coronary Artery Bypass Grafting x 2 with Left Internal Mammary Artery (ESPINOZA) to the Left Anterior Descending (LAD), reverse saphenous vein graft to the Obtuse Marginal 1 (OM1) 2. Left Leg Endoscopic Vein [place] 03/05 up in chair, very painful wound ostomy nurse consulted, recheck UA on post op Ancef will transfer to stepdown Objective: GENERAL: SKIN: Warm and dry.prevena to chest elida wrap to left leg HEAD: Normocephalic. EYES: No scleral icterus. No injection or drainage. NECK: Supple, trachea midline. No JVD or lymphadenopathy. CARDIOVASCULAR: Regular rate and rhythm without murmurs, gallops, or rubs. RESPIRATORY: Breath sounds equal bilaterally. No accessory muscle use. diminished in bases GASTROINTESTINAL: Abdomen soft, non-tender, nondistended. MUSCULOSKELETAL: No cyanosis, or edema. BACK: Nontender without obvious deformity. No CVA tenderness. Vital Signs Date Time Temp Pulse Resp B/P (MAP) Pulse Ox O2 Delivery O2 Flow Rate FiO2 03/05/17 15:08 91 Nasal Cannula 6.00 03/05/17 15:06 87 20 107/65 (79) 91 03/05/17 11:00 84 03/05/17 11:00 98.8 84 20 101/52 (68) 95 Arterial Line 03/05/17 11:00 95 Simple Mask 8.00 03/05/17 07:20 92 Nasal Cannula 5.00 03/05/17 07:00 95 Nasal Cannula 6.00 03/05/17 07:00 98.6 81 20 101/67 (78) 92 103/58 (73) 03/05/17 07:00 81 03/05/17 06:36 18 03/05/17 06:36 18 03/05/17 05:03 18 03/05/17 05:03 18 03/05/17 03:00 79 03/05/17 03:00 95 Nasal Cannula 5.00 03/05/17 03:00 98.3 79 20 113/71 (85) 95 115/54 (74) 03/04/17 23:00 78 03/04/17 23:00 98.0 78 20 92/69 (77) 94 101/53 (69) 03/04/17 23:00 94 Nasal Cannula 6.00 03/04/17 22:31 20 03/04/17 22:05 94 Nasal Cannula 6.00 03/04/17 22:05 94 Nasal Cannula 6.00 03/04/17 22:05 94 Nasal Cannula 6 03/04/17 21:55 95 45 03/04/17 20:50 97 55 03/04/17 20:17 97 65 03/04/17 19:50 96 75 03/04/17 19:30 98 85 03/04/17 19:20 98 90 03/04/17 19:00 85 03/04/17 19:00 65 03/04/17 19:00 97.3 61 20 81/55 (64) 98 90/46 (61) Labs: Laboratory Tests Test 03/05/17 17:44 Urine Color YELLOW (YELLW/STRAW) Urine Turbidity CLEAR (CLEAR) Urine pH 6.5 (5.0-8.5) Urine Specific [place] 1.016 (1.002-1.035) Urine Protein NEG mg/dL (NEG-TRACE) Urine Glucose (UA) NEG mg/dL (NEG) Urine Ketones NEG mg/dL (NEG) Urine Occult Blood NEG (NEG) Urine Nitrite NEG (NEG) Urine Bilirubin NEG (NEG) Urine Urobilinogen LESS THAN 2.0 MG/DL (LESS Urine Leukocyte Esterase NEG (NEG) Urine RBC 4 /hpf (0-3) Urine WBC 18 /hpf (0-5) Urine Amorphous Sediment RARE Microscopic Urinalysis Comment CULTURE INDICATED Result Diagram: 03/05/175 03/05/175 (1) Tobacco abuse (2) S/P CABG x 2 Plan: ASA, statin , plavix , amiodarone EF 50% start BB this pm pulm toileting pt/ OOB (3) Coronary artery disease (4) Hyperlipidemia Plan: on statin (5) Alcohol abuse Plan: prn Librium Yenny Bray Mar 05, 2017 18:11
--- NOTE | 2017-03-05 19:37 | PD.CARD.PN ---
Subjective Subjective Remarks Patient was seen earlier today, late entry note Doing well, up to the chair Objective Medications Current Medications Medications (Trade) Dose Ordered Sig/Marta Route Start Time Stop Time Status Last Admin (Lopressor) 12.5 mg BID PO 02/25/17 21:00 03/04/17 08:55 (Pepcid) 20 mg BID PO 02/25/17 21:00 03/05/17 09:18 (Pill Splitter) 1 ea UNSCH PRN OTHER 02/25/17 19:15 (Lipitor) 40 mg HS PO 02/27/17 15:30 03/03/17 20:17 (Librium) 5 mg AC LUNCH PO 03/01/17 11:00 03/04/17 11:09 Ceftriaxone Sodium 1000 mg/ Sodium Chloride 100 ml @ 200 mls/hr DAILY IV 03/01/17 09:30 03/05/17 09:18 (Miralax) 17 gm DAILY PO 03/02/17 10:15 03/03/17 08:45 (NS Flush) 2 ml BID IV FLUSH 03/04/17 21:00 03/05/17 09:19 (NS Flush) 2 ml UNSCH PRN IV FLUSH 03/04/17 17:15 (Aspirin Chew) 81 mg DAILY PO 03/05/17 09:00 03/05/17 09:17 (Plavix) 75 mg DAILY PO 03/05/17 09:00 03/05/17 09:17 (Protonix) 40 mg DAILY@06 PO 03/05/17 06:00 03/05/17 05:23 (Cordarone) 200 mg Q12HR PO 03/04/17 21:00 (Tylenol) 650 mg Q4H PRN PO 03/04/17 17:15 ([place] 5-325 Mg) 1 tab Q3H PRN PO 03/04/17 17:15 ([place] 5-325 Mg) 2 tab Q3H PRN PO 03/04/17 17:15 03/05/17 18:17 (Toradol Inj) 15 mg Q6H PRN IV PUSH 03/04/17 17:15 03/06/17 17:14 03/05/17 10:19 (fentaNYL INJ) 25 mcg Q1H PRN IV PUSH 03/04/17 17:15 03/05/17 17:05 (Zofran Inj) 4 mg Q6H PRN IV PUSH 03/04/17 17:15 (Apresoline Inj) 10 mg Q4H PRN IV PUSH 03/04/17 17:15 (Lopressor Inj) 2.5 mg Q1H PRN IV PUSH 03/04/17 17:15 (D50w (Vial) Inj) 50 ml UNSCH PRN IV PUSH 03/04/17 17:15 Cefazolin Sodium/ Dextrose 50 ml @ 100 mls/hr Q8H IV 03/04/17 22:00 03/06/17 06:29 03/05/17 13:46 (Duoneb Neb) 1 ampule Q6HR NEB NEB 03/04/17 22:00 03/05/17 09:12 (Duoneb Neb) 1 ampule Q2HR NEB PRN NEB 03/04/17 17:15 (Vitamin B1) 100 mg DAILY PO 03/05/17 09:30 03/05/17 10:18 (Folate) 1 mg DAILY PO 03/05/17 09:30 03/05/17 10:18 (Duoneb Neb) 1 ampule Q6HR WHILE AWAKE NEB NEB 03/05/17 14:00 03/07/17 13:59 03/05/17 13:17 (Colace) 100 mg BID PO 03/05/17 09:30 (Theragran M Tab) 1 tab DAILY PO 03/05/17 09:30 03/05/17 10:17 (Milk Of Magnesia Liq) 30 ml DAILY PO 03/06/17 09:00 (Dulcolax Supp) 10 mg UNSCH PRN RECTAL 03/07/17 09:30 (Senokot) 8.6 mg HS PO 03/05/17 21:00 (Fleets Enema (Adult)) 118 ml UNSCH PRN RECTAL 03/07/17 09:30 (NovoLOG SUPPLEMENTAL SCALE) 1 02,06,10,14,18,22 SQ 03/05/17 10:00 03/06/17 09:59 03/05/17 10:19 (D50w (Vial) Inj) 50 ml UNSCH PRN IV PUSH 03/05/17 09:30 (Glucagon Inj) 1 mg UNSCH PRN OTHER 03/05/17 09:30 (Symbicort 160-4.5 Inh) 2 puff Q12HR INH 03/05/17 09:45 03/05/17 12:16 (NovoLOG SUPPLEMENTAL SCALE) 1 ACHS SQ 03/06/17 12:00 Vital Signs / I&O Vital Signs Date Time Temp Pulse Resp B/P (MAP) Pulse Ox O2 Delivery O2 Flow Rate FiO2 03/05/17 18:00 94 03/05/17 17:00 90 03/05/17 16:00 88 03/05/17 15:08 91 Nasal Cannula 6.00 03/05/17 15:06 87 20 107/65 (79) 91 03/05/17 15:01 88 03/05/17 11:00 84 03/05/17 11:00 98.8 84 20 101/52 (68) 95 Arterial Line 03/05/17 11:00 95 Simple Mask 8.00 03/05/17 07:20 92 Nasal Cannula 5.00 03/05/17 07:00 95 Nasal Cannula 6.00 03/05/17 07:00 98.6 81 20 101/67 (78) 92 103/58 (73) 03/05/17 07:00 81 03/05/17 06:36 18 03/05/17 06:36 18 03/05/17 05:03 18 03/05/17 05:03 18 03/05/17 03:00 79 03/05/17 03:00 95 Nasal Cannula 5.00 03/05/17 03:00 98.3 79 20 113/71 (85) 95 115/54 (74) 03/04/17 23:00 78 03/04/17 23:00 98.0 78 20 92/69 (77) 94 101/53 (69) 03/04/17 23:00 94 Nasal Cannula 6.00 03/04/17 22:31 20 03/04/17 22:05 94 Nasal Cannula 6.00 03/04/17 22:05 94 Nasal Cannula 6.00 03/04/17 22:05 94 Nasal Cannula 6 03/04/17 21:55 95 45 03/04/17 20:50 97 55 03/04/17 20:17 97 65 03/04/17 19:50 96 75 I/O 03/04/17 03/04/17 03/04/17 03/05/17 03/05/17 03/05/17 07:00 15:00 23:00 07:00 15:00 23:00 Intake Total 240 ml 4360 ml 1023 ml 200 ml Output Total 1825 ml 856 ml 1790 ml Balance -1585 ml 3504 ml -767 ml 200 ml Intake Oral 240 ml 720 ml IV Total 1610 ml 303 ml 200 ml Autotransfusion 250 ml Other 2500 ml Output Urine Total 1325 ml 200 ml 1150 ml Stool Total 90 ml Chest Tube Drainage Total 66 ml 640 ml Drainage Total 500 ml Estimated Blood Loss 500 ml Physical Exam GENERAL: NAD, AAOx3 SKIN: Warm and dry. HEAD: Atraumatic. Normocephalic. EYES: Pupils equal and round. No scleral icterus. No injection or drainage. ENT: No nasal bleeding or discharge. Mucous membranes pink and moist. NECK: Trachea midline. No JVD. CARDIOVASCULAR: Regular rate and rhythm. Sternotomy with covering RESPIRATORY: No accessory muscle use. Decreased breath sounds bilaterally GASTROINTESTINAL: Abdomen soft, non-tender, nondistended. Hepatic and splenic margins not palpable. MUSCULOSKELETAL: Extremities without clubbing, cyanosis, or edema. No obvious deformities. NEUROLOGICAL: Awake and alert. No obvious cranial nerve deficits. Motor grossly within normal limits. Five out of 5 muscle strength in the arms and legs. Normal speech. PSYCHIATRIC: Appropriate mood and affect; insight and judgment normal. Laboratory Laboratory Tests Test 03/05/17 03:45 03/05/17 17:44 White Blood Count 6.2 TH/MM3 Red Blood Count 2.89 MIL/MM3 Hemoglobin 10.2 GM/DL Hematocrit 30.4 % Mean Corpuscular Volume 105.4 FL Mean Corpuscular Hemoglobin 35.3 PG Mean Corpuscular Hemoglobin Concent 33.5 % Red Cell Distribution Width 19.1 % Platelet Count 164 TH/MM3 Mean Platelet Volume 8.3 FL Blood Urea Nitrogen 13 MG/DL Creatinine 0.77 MG/DL Random Glucose 97 MG/DL Calcium Level 8.6 MG/DL Magnesium Level 1.9 MG/DL Sodium Level 139 MEQ/L Potassium Level 4.7 MEQ/L Chloride Level 106 MEQ/L Carbon Dioxide Level 25.4 MEQ/L Anion Gap 8 MEQ/L Estimat Glomerular Filtration Rate 102 ML/MIN Urine Color YELLOW Urine Turbidity CLEAR Urine pH 6.5 Urine Specific [place] 1.016 Urine Protein NEG mg/dL Urine Glucose (UA) NEG mg/dL Urine Ketones NEG mg/dL Urine Occult Blood NEG Urine Nitrite NEG Urine Bilirubin NEG Urine Urobilinogen LESS THAN 2.0 MG/DL Urine Leukocyte Esterase NEG Urine RBC 4 /hpf Urine WBC 18 /hpf Urine Amorphous Sediment RARE Microscopic Urinalysis Comment CULTURE INDICATED Imaging Last 24 hours Impressions Chest X-Ray 03/05/17 0500 Signed Impressions: Service Date/Time: Sunday, March 05, 2017 03:58 - CONCLUSION: 1. Tubes and lines in good position. 2. Left base atelectasis or consolidation. Fadi Stevens MD Assessment and Plan Problem List: (1) Tobacco abuse ICD Codes: Z72.0 - Tobacco abuse Status: Chronic (2) S/P CABG x 2 ICD Codes: Z95.1 - Presence of aortocoronary bypass graft (3) Coronary artery disease ICD Codes: I25.10 - Coronary artery disease Status: Chronic (4) Hyperlipidemia ICD Codes: E78.5 - Hyperlipidemia Status: Chronic (5) Alcohol abuse ICD Codes: F10.10 - Alcohol abuse, uncomplicated Status: Acute Assessment and Plan 1) MVCAD s/p CABGx2 POD #1 ESPINOZA to LAD SVG to OM1 2) ETOH abuse Watch for withdrawal, appears stable 3) Tobacco abuse Tobacco cessation 4) Mild bradycardia Asymptomatic Con't low dose BB Augie Peña DO Mar 05, 2017 19:37
[2017-03-05] MEDS: METOPROLOL TARTRATE 25 MG TAB PO SCH (20:44)
[2017-03-05] MEDS: SENNOSIDES 8.6 MG TAB PO SCH (20:44)
[2017-03-05] MEDS: ATORVASTATIN 40 MG TAB PO SCH (20:44)
[2017-03-05] MEDS: AMIODARONE 200 MG TAB PO SCH (20:44)
[2017-03-06] VITALS (30 sets, daily range): BP systolic 99–132; BP diastolic 59–89; PULSE 55–106; RESP 18–22; TEMP 97.6–98.7; O2SAT 84–96
[2017-03-06] MEDS: ACETAMINOPHEN/HYDROcodone 325 MG/5 MG TAB PO PRN ×6 (00:13→21:17)
[2017-03-06] MEDS: INSULIN ASPART SUPPLEMENTAL SCALE SQ SCH ×5 (02:00→21:00)
[2017-03-06] MEDS: RESP: ALBUTEROL 2.5 MG/IPRATROPIUM 0.5 MG NEB (SCH) NEB ×4 (04:17→19:54)
[2017-03-06 05:13] LABS: AUTOMATED NEUTROPHIL # 5.8 TH/MM3 (1.8-7.7); BASOPHIL % 0.3 % (0.0-2.0); EOSINOPHIL # 0.1 TH/MM3 (0-0.4); EOSINOPHIL % 0.7 % (0.0-4.0); HEMATOCRIT 29.1 % (39.0-51.0); HEMO FLAGS DIFF FINAL; LYMPH % 11.6 % (9.0-44.0); LYMPHOCYTE # 0.9 TH/MM3 (1.0-4.8); MEAN CELL VOLUME 104.9 FL (80.0-100.0); MEAN CORPUSCULAR HEMOGLOBIN 35.2 PG (27.0-34.0); MEAN CORPUSCULAR HGB CONC 33.5 % (32.0-36.0); MONO % 11.1 % (0.0-8.0); NEUT % 76.3 % (16.0-70.0); PLATELET COUNT 178 TH/MM3 (150-450); RED BLOOD COUNT 2.77 MIL/MM3 (4.50-5.90); RED CELL DISTRIBUTION WIDTH 18.9 % (11.6-17.2); WHITE BLOOD COUNT 7.6 TH/MM3 (4.0-11.0)
[2017-03-06 05:32] LABS: BICARBONATE 26.4 MEQ/L (21.0-32.0); MAGNESIUM 1.9 MG/DL (1.5-2.5); POTASSIUM 4.5 MEQ/L (3.5-5.1)
[2017-03-06] MEDS: ceFAZolin 2 GM PREMIX 50 ML IV SCH (05:52)
[2017-03-06] MEDS: PANTOPRAZOLE SOD 40 MG DELAYED RELEASE TAB PO SCH (05:52)
[2017-03-06] MEDS: AMIODARONE 200 MG TAB PO SCH ×2 (08:47→21:17)
[2017-03-06] MEDS: FAMOTIDINE 20 MG TAB PO SCH ×2 (08:48→21:16)
[2017-03-06] MEDS: DOCUSATE SODIUM 100 MG CAP PO SCH ×2 (08:48→21:16)
[2017-03-06] MEDS: CLOPIDOGREL 75 MG TAB PO SCH (08:48)
[2017-03-06] MEDS: FOLIC ACID 1 MG TAB PO SCH (08:48)
[2017-03-06] MEDS: ASPIRIN 81 MG CHEW TAB PO SCH (08:48)
[2017-03-06] MEDS: MULTIVITAMINS/MINERALS THERAPEUTIC TAB PO SCH (08:48)
[2017-03-06] MEDS: METOPROLOL TARTRATE 25 MG TAB PO SCH ×2 (08:48→21:16)
[2017-03-06] MEDS: MAGNESIUM HYDROXIDE SUSP 30 ML CUP PO SCH (08:49)
[2017-03-06] MEDS: SODIUM CHLORIDE 0.9% FLUSH 10 ML FLUSH IV FLUSH SCH ×2 (08:49→21:17)
[2017-03-06] MEDS: BUDESONIDE-FORMOTEROL 160/4.5 MCG INHALER INH SCH ×2 (08:49→21:16)
[2017-03-06] MEDS ORDERED: POLYETHYLENE GLYCOL 17 GM PKG PO SCH (09:00)
[2017-03-06] MEDS: THIAMINE HCL 100 MG TAB PO SCH (09:49)
[2017-03-06] MEDS ORDERED: AMIODARONE 200 MG TAB PO ONE (10:30)
[2017-03-06] MEDS: MAGNESIUM SULFATE 1 GM PREMIX 100 ML IV SCH ×2 (12:06→12:19)
--- NOTE | 2017-03-06 13:43 | PD.WCN.NOT ---
Wound Consult Description: Consult placed for Ostomy Management of right ileostomy per MARIA TERESA Fall Communicated with: Patient MELINDA Colindres Recommendation: Change appliance as needed Additional Information: *Late entry* Patient seen earlier this am for follow up Ostomy Type: Other (Ileal Conduit) Complete: Other (Supplies ordered for next appliance change) Additional information This is not a new urostomy. Patient states the appliance held up over night and had no issues. Pouch is attached to a drainage bag. Supplies are available in patient room for next appliance change when patient requests. Marilynn Beasley [facility] Mar 06, 2017 13:43
--- NOTE | 2017-03-06 13:44 | PD.CAR.PN ---
CVT Progress Note Subjective/Hospital Course: A 62-year-old male patient of Dr. Fadi Estes, Dr. Peña, presented to the emergency room at [place] with chest discomfort on the 25 of February, underwent exercise stress testing which showed small to moderate area of ischemia. He was recommended for cardiac catheterization. He states he has been having chest pain off and on for the last few weeks without exertion. He is very vague about it. He does have some nitro at home but does not remember to take it. His pain has been up to 8 out of a 10, becomes lightheaded, has some occasional nausea, some shortness of breath. He has history of coronary artery disease and has history of two stents in the past, the LAD and the RCA. He was transferred to [facility] and underwent cardiac cath which showed 70% left main, proximal LAD 50%, mid distal LAD 20%, the diagonal 10%, the circumflex 10%, the OM 30% and the RCA 30%. We were consulted to evaluate for coronary artery bypass grafting. The ejection fraction on the stress test showed an EF of 46%. The patient also has a longstanding history of ETOH. He was admitted with an ETOH level of 155. He has been admitted to our psyche unit in the past for ETOH abuse. Last admission was September 12, 2015 where at that time he had been drinking 1.7 liters of vodka, binge drinking apparently, had some depression, suicidal statements, however, he was initially Jessica Acted but then that was lifted. He has had an FL in the past. Currently he admits to drinking approximately 2-3 ounces of vodka three times a day. PAST MEDICAL HISTORY: Hypertension, Coronary artery disease, ETOH abuse, Tobacco abuse, Hepatitis B, History of bladder cancer, Last cardiac cath on May 26, 2014 which showed a patent stent in the midportion of the LAD and the RCA, Bladder resection, Prostatectomy, he has ileoconduit. surgery: . Urgent Off-pump Coronary Artery Bypass Grafting x 2 with Left Internal Mammary Artery (ESPINOZA) to the Left Anterior Descending (LAD), reverse saphenous vein graft to the Obtuse Marginal 1 (OM1) 2. Left Leg Endoscopic Vein [place] 03/05 up in chair, very painful wound ostomy nurse consulted, recheck UA on post op Ancef will transfer to stepdown 03/06 still painful despite toradol , percocet and breakthrough fentanly has chronic back pain, will order lidocaine patch to lower back leave chest tubes in today await / repeat urine culture on IV rocephin continue pulm toileting Objective: GENERAL: SKIN: Warm and dry. prevena dressing to chest , incision intact and well approximated left arm HEAD: Normocephalic. EYES: No scleral icterus. No injection or drainage. NECK: Supple, trachea midline. No JVD or lymphadenopathy. CARDIOVASCULAR: Regular rate and rhythm without murmurs, gallops, or rubs. RESPIRATORY: Breath sounds equal bilaterally. No accessory muscle use. chest tube drained 110cc/ 12 hrs and 150cc since this am , no air leak GASTROINTESTINAL: Abdomen soft, non-tender, nondistended. MUSCULOSKELETAL: No cyanosis, or edema. BACK: Nontender without obvious deformity. No CVA tenderness. Vital Signs Date Time Temp Pulse Resp B/P (MAP) Pulse Ox O2 Delivery O2 Flow Rate FiO2 03/06/17 07:05 91 Nasal Cannula 6.00 03/06/17 06:00 82 03/06/17 05:00 83 03/06/17 04:00 83 03/06/17 03:30 95 Nasal Cannula 6.00 Humidified 03/06/17 03:30 97.6 86 18 108/74 (85) 95 03/06/17 03:25 84 21 03/06/17 03:25 84 Room Air 03/06/17 03:00 85 03/06/17 02:00 79 03/06/17 01:00 81 03/06/17 00:00 81 03/05/17 23:00 92 Nasal Cannula 6.00 Humidified 03/05/17 23:00 92 Nasal Cannula 6.00 03/05/17 23:00 98.2 79 20 103/67 (79) 92 03/05/17 23:00 70 03/05/17 22:00 76 03/05/17 21:00 100 03/05/17 20:30 96 Nasal Cannula 6.00 Humidified 03/05/17 20:30 98.6 97 20 132/76 (94) 96 03/05/17 20:00 88 03/05/17 19:00 90 03/05/17 18:00 94 03/05/17 17:00 90 03/05/17 16:00 88 03/05/17 15:08 91 Nasal Cannula 6.00 03/05/17 15:08 91 Nasal Cannula 6.00 03/05/17 15:06 87 20 107/65 (79) 91 03/05/17 15:01 88 Labs: Laboratory Tests Test 03/06/17 05:00 White Blood Count 7.6 TH/MM3 (4.0-11.0) Red Blood Count 2.77 MIL/MM3 (4.50-5.90) Hemoglobin 9.8 GM/DL (13.0-17.0) Hematocrit 29.1 % (39.0-51.0) Mean Corpuscular Volume 104.9 FL (80.0-100.0) Mean Corpuscular Hemoglobin 35.2 PG (27.0-34.0) Mean Corpuscular Hemoglobin Concent 33.5 % (32.0-36.0) Red Cell Distribution Width 18.9 % (11.6-17.2) Platelet Count 178 TH/MM3 (150-450) Mean Platelet Volume 8.2 FL (7.0-11.0) Neutrophils (%) (Auto) 76.3 % (16.0-70.0) Lymphocytes (%) (Auto) 11.6 % (9.0-44.0) Monocytes (%) (Auto) 11.1 % (0.0-8.0) Eosinophils (%) (Auto) 0.7 % (0.0-4.0) Basophils (%) (Auto) 0.3 % (0.0-2.0) Neutrophils # (Auto) 5.8 TH/MM3 (1.8-7.7) Lymphocytes # (Auto) 0.9 TH/MM3 (1.0-4.8) Monocytes # (Auto) 0.8 TH/MM3 (0-0.9) Eosinophils # (Auto) 0.1 TH/MM3 (0-0.4) Basophils # (Auto) 0.0 TH/MM3 (0-0.2) CBC Comment DIFF FINAL Differential Comment Blood Urea Nitrogen 15 MG/DL (7-18) Creatinine 1.02 MG/DL (0.60-1.30) Random Glucose 97 MG/DL (74-106) Calcium Level 8.2 MG/DL (8.5-10.1) Magnesium Level 1.9 MG/DL (1.5-2.5) Sodium Level 136 MEQ/L (136-145) Potassium Level 4.5 MEQ/L (3.5-5.1) Chloride Level 103 MEQ/L (98-107) Carbon Dioxide Level 26.4 MEQ/L (21.0-32.0) Anion Gap 7 MEQ/L (5-15) Estimat Glomerular Filtration Rate 74 ML/MIN (>89) Result Diagram: 03/06/17 0500 03/06/17 0500 Telemetry: NSR (1) Tobacco abuse (2) S/P CABG x 2 Plan: ASA, statin , plavix , amiodarone EF 50% BB pulm toileting pt/ OOB gentle diuresis (3) Coronary artery disease (4) Hyperlipidemia Plan: on statin (5) Alcohol abuse Plan: prn Librium rally briana (6) UTI (lower urinary tract infection) Plan: repeat UA pending , continue Yenny Conway Mar 06, 2017 13:44
[2017-03-06] MEDS ORDERED: FUROSEMIDE 20 MG/2 ML VIAL IV PUSH ONE (14:00)
[2017-03-06] MEDS ORDERED: POTASSIUM CHLORIDE 8 MEQ CONTROLLED RELEASE TAB PO ONE (14:00)
[2017-03-06] MEDS ORDERED: cefTRIAXone 1,000 MG/NS 100 ML IV SCH ×2 (18:19)
--- NOTE | 2017-03-06 18:27 | PD.CARD.PN ---
Subjective Subjective Remarks Patient was seen earlier today, late entry note Still with incisional pain and back pain Objective Medications Current Medications Medications (Trade) Dose Ordered Sig/Marta Route Start Time Stop Time Status Last Admin (Pepcid) 20 mg BID PO 02/25/17 21:00 03/06/17 08:48 (Pill Splitter) 1 ea UNSCH PRN OTHER 02/25/17 19:15 (Lipitor) 40 mg HS PO 02/27/17 15:30 03/05/17 20:44 (Librium) 5 mg AC LUNCH PO 03/01/17 11:00 03/06/17 12:04 (Miralax) 17 gm DAILY PO 03/02/17 10:15 03/03/17 08:45 (NS Flush) 2 ml BID IV FLUSH 03/04/17 21:00 03/06/17 08:49 (NS Flush) 2 ml UNSCH PRN IV FLUSH 03/04/17 17:15 (Aspirin Chew) 81 mg DAILY PO 03/05/17 09:00 03/06/17 08:48 (Plavix) 75 mg DAILY PO 03/05/17 09:00 03/06/17 08:48 (Protonix) 40 mg DAILY@06 PO 03/05/17 06:00 03/06/17 05:52 (Tylenol) 650 mg Q4H PRN PO 03/04/17 17:15 ([place] 5-325 Mg) 1 tab Q3H PRN PO 03/04/17 17:15 ([place] 5-325 Mg) 2 tab Q3H PRN PO 03/04/17 17:15 03/06/17 14:11 (fentaNYL INJ) 25 mcg Q1H PRN IV PUSH 03/04/17 17:15 03/06/17 05:51 (Zofran Inj) 4 mg Q6H PRN IV PUSH 03/04/17 17:15 (Apresoline Inj) 10 mg Q4H PRN IV PUSH 03/04/17 17:15 (Lopressor Inj) 2.5 mg Q1H PRN IV PUSH 03/04/17 17:15 (D50w (Vial) Inj) 50 ml UNSCH PRN IV PUSH 03/04/17 17:15 (Duoneb Neb) 1 ampule Q2HR NEB PRN NEB 03/04/17 17:15 (Vitamin B1) 100 mg DAILY PO 03/05/17 09:30 03/06/17 09:49 (Folate) 1 mg DAILY PO 03/05/17 09:30 03/06/17 08:48 (Duoneb Neb) 1 ampule Q6HR WHILE AWAKE NEB NEB 03/05/17 14:00 03/07/17 13:59 03/06/17 14:04 (Colace) 100 mg BID PO 03/05/17 09:30 03/06/17 08:48 (Theragran M Tab) 1 tab DAILY PO 03/05/17 09:30 03/06/17 08:48 (Milk Of Magnesia Liq) 30 ml DAILY PO 03/06/17 09:00 03/06/17 08:49 (Dulcolax Supp) 10 mg UNSCH PRN RECTAL 03/07/17 09:30 (Senokot) 8.6 mg HS PO 03/05/17 21:00 03/05/17 20:44 (Fleets Enema (Adult)) 118 ml UNSCH PRN RECTAL 03/07/17 09:30 (D50w (Vial) Inj) 50 ml UNSCH PRN IV PUSH 03/05/17 09:30 (Glucagon Inj) 1 mg UNSCH PRN OTHER 03/05/17 09:30 (Symbicort 160-4.5 Inh) 2 puff Q12HR INH 03/05/17 09:45 03/06/17 08:49 (NovoLOG SUPPLEMENTAL SCALE) 1 ACHS SQ 03/06/17 12:00 03/06/17 11:56 (Cordarone) 400 mg Q12HR PO 03/06/17 21:00 (Lopressor) 25 mg BID PO 03/06/17 21:00 Ceftriaxone Sodium 1000 mg/ Sodium Chloride 100 ml @ 200 mls/hr DAILY@1800 IV 03/06/17 18:19 Vital Signs / I&O Vital Signs Date Time Temp Pulse Resp B/P (MAP) Pulse Ox O2 Delivery O2 Flow Rate FiO2 03/06/17 15:30 96 Nasal Cannula 6.00 03/06/17 15:30 98.7 80 22 132/89 (103) 96 03/06/17 11:45 98.5 85 20 99/59 (72) 96 03/06/17 11:45 96 Nasal Cannula 6.00 03/06/17 07:30 84 03/06/17 07:30 97.7 55 20 130/73 (92) 96 03/06/17 07:30 96 Nasal Cannula 6.00 03/06/17 07:05 91 Nasal Cannula 6.00 03/06/17 06:00 82 03/06/17 05:00 83 03/06/17 04:00 83 03/06/17 03:30 95 Nasal Cannula 6.00 Humidified 03/06/17 03:30 97.6 86 18 108/74 (85) 95 03/06/17 03:25 84 21 03/06/17 03:25 84 Room Air 03/06/17 03:00 85 03/06/17 02:00 79 03/06/17 01:00 81 03/06/17 00:00 81 03/05/17 23:00 92 Nasal Cannula 6.00 Humidified 03/05/17 23:00 92 Nasal Cannula 6.00 03/05/17 23:00 98.2 79 20 103/67 (79) 92 03/05/17 23:00 70 03/05/17 22:00 76 03/05/17 21:00 100 03/05/17 20:30 96 Nasal Cannula 6.00 Humidified 03/05/17 20:30 98.6 97 20 132/76 (94) 96 03/05/17 20:00 88 03/05/17 19:00 90 I/O 03/05/17 03/05/17 03/05/17 03/06/17 03/06/17 03/06/17 07:00 15:00 23:00 07:00 15:00 23:00 Intake Total 1023 ml 200 ml 470 ml 390 ml 840 ml Output Total 1790 ml 900 ml 660 ml 1710 ml Balance -767 ml 200 ml -430 ml -270 ml -870 ml Intake Oral 720 ml 420 ml 340 ml 840 ml IV Total 303 ml 200 ml 50 ml 50 ml Output Urine Total 1150 ml 800 ml 550 ml 1500 ml Chest Tube Drainage Total 640 ml 100 ml 110 ml 210 ml # Bowel Movements 0 0 0 Physical Exam GENERAL: NAD, AAOx3 SKIN: Warm and dry. HEAD: Atraumatic. Normocephalic. EYES: Pupils equal and round. No scleral icterus. No injection or drainage. ENT: No nasal bleeding or discharge. Mucous membranes pink and moist. NECK: Trachea midline. No JVD. CARDIOVASCULAR: Regular rate and rhythm. Sternotomy with covering RESPIRATORY: No accessory muscle use. Decreased breath sounds bilaterally GASTROINTESTINAL: Abdomen soft, non-tender, nondistended. Hepatic and splenic margins not palpable. MUSCULOSKELETAL: Extremities without clubbing, cyanosis, or edema. No obvious deformities. NEUROLOGICAL: Awake and alert. No obvious cranial nerve deficits. Motor grossly within normal limits. Five out of 5 muscle strength in the arms and legs. Normal speech. PSYCHIATRIC: Appropriate mood and affect; insight and judgment normal. Laboratory Laboratory Tests Test 03/06/17 05:00 White Blood Count 7.6 TH/MM3 Red Blood Count 2.77 MIL/MM3 Hemoglobin 9.8 GM/DL Hematocrit 29.1 % Mean Corpuscular Volume 104.9 FL Mean Corpuscular Hemoglobin 35.2 PG Mean Corpuscular Hemoglobin Concent 33.5 % Red Cell Distribution Width 18.9 % Platelet Count 178 TH/MM3 Mean Platelet Volume 8.2 FL Neutrophils (%) (Auto) 76.3 % Lymphocytes (%) (Auto) 11.6 % Monocytes (%) (Auto) 11.1 % Eosinophils (%) (Auto) 0.7 % Basophils (%) (Auto) 0.3 % Neutrophils # (Auto) 5.8 TH/MM3 Lymphocytes # (Auto) 0.9 TH/MM3 Monocytes # (Auto) 0.8 TH/MM3 Eosinophils # (Auto) 0.1 TH/MM3 Basophils # (Auto) 0.0 TH/MM3 CBC Comment DIFF FINAL Differential Comment Blood Urea Nitrogen 15 MG/DL Creatinine 1.02 MG/DL Random Glucose 97 MG/DL Calcium Level 8.2 MG/DL Magnesium Level 1.9 MG/DL Sodium Level 136 MEQ/L Potassium Level 4.5 MEQ/L Chloride Level 103 MEQ/L Carbon Dioxide Level 26.4 MEQ/L Anion Gap 7 MEQ/L Estimat Glomerular Filtration Rate 74 ML/MIN Assessment and Plan Problem List: (1) Tobacco abuse ICD Codes: Z72.0 - Tobacco abuse Status: Chronic (2) S/P CABG x 2 ICD Codes: Z95.1 - Presence of aortocoronary bypass graft (3) Coronary artery disease ICD Codes: I25.10 - Coronary artery disease Status: Chronic (4) Hyperlipidemia ICD Codes: E78.5 - Hyperlipidemia Status: Chronic (5) Alcohol abuse ICD Codes: F10.10 - Alcohol abuse, uncomplicated Status: Acute (6) UTI (lower urinary tract infection) ICD Codes: N39.0 - Lower urinary tract infectious disease Status: Acute Assessment and Plan 1) MVCAD s/p CABGx2 POD #2 ESPINOZA to LAD SVG to OM1 2) ETOH abuse Watch for withdrawal, appears stable 3) Tobacco abuse Tobacco cessation 4) Occasional bradycardia Asymptomatic Con't low dose BB 5) Chronic low back pain Augie Peña DO Mar 06, 2017 18:27
[2017-03-06] MEDS: POLYETHYLENE GLYCOL 17 GM PKG PO SCH (19:00)
[2017-03-06] MEDS: ATORVASTATIN 40 MG TAB PO SCH (21:16)
[2017-03-06] MEDS: SENNOSIDES 8.6 MG TAB PO SCH (21:16)
[2017-03-07] VITALS (17 sets, daily range): BP systolic 91–111; BP diastolic 61–71; PULSE 54–88; RESP 16–20; TEMP 97.9–98.9; O2SAT 90–94
[2017-03-07] MEDS: ACETAMINOPHEN/HYDROcodone 325 MG/5 MG TAB PO PRN ×2 (00:33→03:43)
[2017-03-07 05:25] LABS: HEMATOCRIT 29.5 % (39.0-51.0); MEAN CELL VOLUME 106.6 FL (80.0-100.0); MEAN CORPUSCULAR HEMOGLOBIN 34.8 PG (27.0-34.0); MEAN CORPUSCULAR HGB CONC 32.7 % (32.0-36.0); PLATELET COUNT 193 TH/MM3 (150-450); RED BLOOD COUNT 2.77 MIL/MM3 (4.50-5.90); RED CELL DISTRIBUTION WIDTH 19.2 % (11.6-17.2); REVIEW FLAG FINAL; WHITE BLOOD COUNT 7.6 TH/MM3 (4.0-11.0)
[2017-03-07] MEDS: PANTOPRAZOLE SOD 40 MG DELAYED RELEASE TAB PO SCH (06:30)
[2017-03-07] MEDS: RESP: ALBUTEROL 2.5 MG/IPRATROPIUM 0.5 MG NEB (SCH) NEB (07:53)
[2017-03-07] MEDS: INSULIN ASPART SUPPLEMENTAL SCALE SQ SCH ×4 (08:00→21:00)
[2017-03-07] MEDS: CLOPIDOGREL 75 MG TAB PO SCH (08:20)
[2017-03-07] MEDS: MULTIVITAMINS/MINERALS THERAPEUTIC TAB PO SCH (08:20)
[2017-03-07] MEDS: DOCUSATE SODIUM 100 MG CAP PO SCH ×2 (08:20→21:00)
[2017-03-07] MEDS: ASPIRIN 81 MG CHEW TAB PO SCH (08:20)
[2017-03-07] MEDS: POLYETHYLENE GLYCOL 17 GM PKG PO SCH (08:20)
[2017-03-07] MEDS: FAMOTIDINE 20 MG TAB PO SCH ×2 (08:20→21:29)
[2017-03-07] MEDS: METOPROLOL TARTRATE 25 MG TAB PO SCH ×2 (08:21→21:30)
[2017-03-07] MEDS: BUDESONIDE-FORMOTEROL 160/4.5 MCG INHALER INH SCH ×2 (08:21→21:00)
[2017-03-07] MEDS: THIAMINE HCL 100 MG TAB PO SCH (08:21)
[2017-03-07] MEDS: ACETAMINOPHEN/HYDROcodone 325 MG/10 MG TAB PO PRN ×2 (08:21→21:38)
[2017-03-07] MEDS: FOLIC ACID 1 MG TAB PO SCH (08:21)
[2017-03-07] MEDS: AMIODARONE 200 MG TAB PO SCH ×2 (08:21→21:31)
[2017-03-07] MEDS: SODIUM CHLORIDE 0.9% FLUSH 10 ML FLUSH IV FLUSH SCH ×2 (08:22→21:31)
[2017-03-07] MEDS: MAGNESIUM HYDROXIDE SUSP 30 ML CUP PO SCH (08:23)
[2017-03-07] MEDS ORDERED: BISACODYL 10 MG SUPP RECTAL PRN (09:30)
[2017-03-07] MEDS ORDERED: SOD PHOSPHATE/SOD BIPHOSPHATE (ADULT) ENEMA 133ML RECTAL PRN (09:30)
[2017-03-07] MEDS ORDERED: BISACODYL 10 MG SUPP RECTAL ONE (10:00)
[2017-03-07] MEDS ORDERED: SOD PHOSPHATE/SOD BIPHOSPHATE (ADULT) ENEMA 133ML PR ONE (10:00)
--- NOTE | 2017-03-07 12:19 | PD.WCN.NOT ---
Wound Consult Description: Consult placed for Ostomy Management of right ileostomy per MARIA TERESA Fall Communicated with: MELINDA Colindres Patient Recommendation: Change appliance as needed Additional Information: *Late entry* Patient seen earlier today from [id number] for urostomy appliance assessment and teaching. This is not a new ostomy. Patient is needing education regarding our supplies. Ostomy Type: Other (Ileal Conduit) Complete: Education materials, Other (Supplies ordered for next appliance change) Educated patient on: Moldable wafer Changing wafer when needed every 3 days and PRN Stoma size 1" requiring a smaller wafer (1 3/4") than the one in place (2 1/4") Additional information Patient seen on for urostomy appliance check. Patient states feeling better and has many topics to discuss today. Appliance on right side abdomen is intact without leaks and attached to a gravity drainage bag with clear yellow urine noted in tubing. Urostomy is measuring 1" tall by 1 1/4" wide making his stoma oval. It is moderately protruding and functioning. Wafer may be changed today or tomorrow depending on patient request. This is not a new stoma, however patient usually uses a different manufacturing company and is having difficulty with the [employer] appliances that we have here. Therefore when patient is ready to change appliance, MELINDA Colindres was asked to call proposal manager writer for assistance and teaching. Marilynn Beasley [facility] Mar 07, 2017 12:19
--- NOTE | 2017-03-07 16:24 | PD.CAR.PN ---
CVT Progress Note Subjective/Hospital Course: A 62-year-old male patient of Dr. Fadi Estes, Dr. Peña, presented to the emergency room at [place] with chest discomfort on the 25 of February, underwent exercise stress testing which showed small to moderate area of ischemia. He was recommended for cardiac catheterization. He states he has been having chest pain off and on for the last few weeks without exertion. He is very vague about it. He does have some nitro at home but does not remember to take it. His pain has been up to 8 out of a 10, becomes lightheaded, has some occasional nausea, some shortness of breath. He has history of coronary artery disease and has history of two stents in the past, the LAD and the RCA. He was transferred to [facility] and underwent cardiac cath which showed 70% left main, proximal LAD 50%, mid distal LAD 20%, the diagonal 10%, the circumflex 10%, the OM 30% and the RCA 30%. We were consulted to evaluate for coronary artery bypass grafting. The ejection fraction on the stress test showed an EF of 46%. The patient also has a longstanding history of ETOH. He was admitted with an ETOH level of 155. He has been admitted to our psyche unit in the past for ETOH abuse. Last admission was September 12, 2015 where at that time he had been drinking 1.7 liters of vodka, binge drinking apparently, had some depression, suicidal statements, however, he was initially Jessica Acted but then that was lifted. He has had an AR in the past. Currently he admits to drinking approximately 2-3 ounces of vodka three times a day. PAST MEDICAL HISTORY: Hypertension, Coronary artery disease, ETOH abuse, Tobacco abuse, Hepatitis B, History of bladder cancer, Last cardiac cath on May 26, 2014 which showed a patent stent in the midportion of the LAD and the RCA, Bladder resection, Prostatectomy, he has ileoconduit. surgery: . Urgent Off-pump Coronary Artery Bypass Grafting x 2 with Left Internal Mammary Artery (ESPINOZA) to the Left Anterior Descending (LAD), reverse saphenous vein graft to the Obtuse Marginal 1 (OM1) 2. Left Leg Endoscopic Vein [place] 03/05 up in chair, very painful wound ostomy nurse consulted, recheck UA on post op Ancef will transfer to stepdown 03/06 still painful despite toradol , percocet and breakthrough fentanly has chronic back pain, will order lidocaine patch to lower back leave chest tubes in today await / repeat urine culture on IV rocephin continue pulm toileting 03/07 chest tubes dc without difficulty had episode of junctional bradycardia last pm amiodarone decreased repeat UA culture no growth , eval for dc to rehab in am Objective: GENERAL: SKIN: Warm and dry. prevena dressing to chest , incision intact to leg HEAD: Normocephalic. EYES: No scleral icterus. No injection or drainage. NECK: Supple, trachea midline. No JVD or lymphadenopathy. CARDIOVASCULAR: Regular rate and rhythm without murmurs, gallops, or rubs. RESPIRATORY: Breath sounds equal bilaterally. No accessory muscle use. GASTROINTESTINAL: Abdomen soft, non-tender, nondistended. MUSCULOSKELETAL: No cyanosis, or edema. BACK: Nontender without obvious deformity. No CVA tenderness. ileostomy bag in place / stoma pink Vital Signs Date Time Temp Pulse Resp B/P (MAP) Pulse Ox O2 Delivery O2 Flow Rate FiO2 03/07/17 11:45 90 Nasal Cannula 4.00 03/07/17 11:45 97.9 54 20 91/61 (71) 90 03/07/17 11:45 54 03/07/17 08:01 94 Nasal Cannula 4.00 03/07/17 07:30 98.3 77 20 91/63 (72) 90 03/07/17 07:30 76 03/07/17 07:30 90 Nasal Cannula 4.00 03/07/17 06:00 76 03/07/17 05:00 68 03/07/17 04:00 69 03/07/17 03:45 92 Nasal Cannula 5.00 03/07/17 03:45 98.1 69 18 111/68 (82) 92 03/07/17 03:00 72 03/07/17 02:00 71 03/07/17 01:00 79 03/07/17 00:00 78 03/07/17 00:00 92 Nasal Cannula 5.00 03/07/17 00:00 98.9 75 20 110/64 (79) 92 03/06/17 23:00 81 03/06/17 22:00 88 03/06/17 21:05 Nasal Cannula 5.00 03/06/17 21:00 98.5 84 20 122/84 (97) 92 03/06/17 21:00 89 Nasal Cannula 4.00 03/06/17 21:00 82 03/06/17 20:00 81 03/06/17 19:54 96 Nasal Cannula 3.00 03/06/17 19:00 84 03/06/17 18:00 86 03/06/17 17:00 82 Labs: Laboratory Tests Test 03/07/17 05:00 White Blood Count 7.6 TH/MM3 (4.0-11.0) Red Blood Count 2.77 MIL/MM3 (4.50-5.90) Hemoglobin 9.6 GM/DL (13.0-17.0) Hematocrit 29.5 % (39.0-51.0) Mean Corpuscular Volume 106.6 FL (80.0-100.0) Mean Corpuscular Hemoglobin 34.8 PG (27.0-34.0) Mean Corpuscular Hemoglobin Concent 32.7 % (32.0-36.0) Red Cell Distribution Width 19.2 % (11.6-17.2) Platelet Count 193 TH/MM3 (150-450) Mean Platelet Volume 8.5 FL (7.0-11.0) Result Diagram: 03/07/17 0500 03/06/17 0500 Telemetry: NSR (1) Tobacco abuse (2) S/P CABG x 2 Plan: ASA, statin , plavix , amiodarone ( decreased ) EF 50% BB pulm toileting pt/ OOB (3) Coronary artery disease (4) Hyperlipidemia Plan: on statin (5) Alcohol abuse Plan: prn Librium rally briana (6) UTI (lower urinary tract infection) Plan: repeat UA culture no growth Yenny Fall Mar 07, 2017 16:24
--- NOTE | 2017-03-07 20:57 | PD.CARD.PN ---
Subjective Subjective Remarks Doing well overall Blood pressure mildly low, asymptomatic Per nursing, patient ambulating well Objective Medications Current Medications Medications (Trade) Dose Ordered Sig/Marta Route Start Time Stop Time Status Last Admin (Pepcid) 20 mg BID PO 02/25/17 21:00 03/07/17 08:20 (Pill Splitter) 1 ea UNSCH PRN OTHER 02/25/17 19:15 (Lipitor) 40 mg HS PO 02/27/17 15:30 03/06/17 21:16 (Librium) 5 mg AC LUNCH PO 03/01/17 11:00 03/06/17 12:04 (Miralax) 17 gm DAILY PO 03/02/17 10:15 03/07/17 08:20 (NS Flush) 2 ml BID IV FLUSH 03/04/17 21:00 03/07/17 08:22 (NS Flush) 2 ml UNSCH PRN IV FLUSH 03/04/17 17:15 (Aspirin Chew) 81 mg DAILY PO 03/05/17 09:00 03/07/17 08:20 (Plavix) 75 mg DAILY PO 03/05/17 09:00 03/07/17 08:20 (Protonix) 40 mg DAILY@06 PO 03/05/17 06:00 03/07/17 06:30 (Tylenol) 650 mg Q4H PRN PO 03/04/17 17:15 ([place] 5-325 Mg) 1 tab Q3H PRN PO 03/04/17 17:15 (Zofran Inj) 4 mg Q6H PRN IV PUSH 03/04/17 17:15 (Apresoline Inj) 10 mg Q4H PRN IV PUSH 03/04/17 17:15 (Lopressor Inj) 2.5 mg Q1H PRN IV PUSH 03/04/17 17:15 (D50w (Vial) Inj) 50 ml UNSCH PRN IV PUSH 03/04/17 17:15 (Duoneb Neb) 1 ampule Q2HR NEB PRN NEB 03/04/17 17:15 (Vitamin B1) 100 mg DAILY PO 03/05/17 09:30 03/07/17 08:21 (Folate) 1 mg DAILY PO 03/05/17 09:30 03/07/17 08:21 (Colace) 100 mg BID PO 03/05/17 09:30 03/07/17 08:20 (Theragran M Tab) 1 tab DAILY PO 03/05/17 09:30 03/07/17 08:20 (Milk Of Magnesia Liq) 30 ml DAILY PO 03/06/17 09:00 03/07/17 08:23 (Dulcolax Supp) 10 mg UNSCH PRN RECTAL 03/07/17 09:30 (Senokot) 8.6 mg HS PO 03/05/17 21:00 03/06/17 21:16 (Fleets Enema (Adult)) 118 ml UNSCH PRN RECTAL 03/07/17 09:30 (D50w (Vial) Inj) 50 ml UNSCH PRN IV PUSH 03/05/17 09:30 (Glucagon Inj) 1 mg UNSCH PRN OTHER 03/05/17 09:30 (Symbicort 160-4.5 Inh) 2 puff Q12HR INH 03/05/17 09:45 03/07/17 08:21 (NovoLOG SUPPLEMENTAL SCALE) 1 ACHS SQ 03/06/17 12:00 03/06/17 11:56 (Lopressor) 25 mg BID PO 03/06/17 21:00 03/07/17 08:21 ([place] 10-325 Mg) 1 tab Q4H PRN PO 03/07/17 06:30 03/07/17 08:21 (Cordarone) 200 mg Q12HR PO 03/07/17 21:00 (Cipro) 250 mg Q12HR PO 03/07/17 21:00 Vital Signs / I&O Vital Signs Date Time Temp Pulse Resp B/P (MAP) Pulse Ox O2 Delivery O2 Flow Rate FiO2 03/07/17 20:22 94 Nasal Cannula 4.00 03/07/17 11:45 90 Nasal Cannula 4.00 03/07/17 11:45 97.9 54 20 91/61 (71) 90 03/07/17 11:45 54 03/07/17 08:01 94 Nasal Cannula 4.00 03/07/17 07:30 98.3 77 20 91/63 (72) 90 03/07/17 07:30 76 03/07/17 07:30 90 Nasal Cannula 4.00 03/07/17 06:00 76 03/07/17 05:00 68 03/07/17 04:00 69 03/07/17 03:45 92 Nasal Cannula 5.00 03/07/17 03:45 98.1 69 18 111/68 (82) 92 03/07/17 03:00 72 03/07/17 02:00 71 03/07/17 01:00 79 03/07/17 00:00 78 03/07/17 00:00 92 Nasal Cannula 5.00 03/07/17 00:00 98.9 75 20 110/64 (79) 92 03/06/17 23:00 81 03/06/17 22:00 88 03/06/17 21:05 Nasal Cannula 5.00 03/06/17 21:00 98.5 84 20 122/84 (97) 92 03/06/17 21:00 89 Nasal Cannula 4.00 03/06/17 21:00 82 I/O 03/06/17 03/06/17 03/06/17 03/07/17 03/07/17 03/07/17 07:00 15:00 23:00 07:00 15:00 23:00 Intake Total 390 ml 940 ml 720 ml Output Total 660 ml 1710 ml 820 ml Balance -270 ml -770 ml -100 ml Intake Oral 340 ml 840 ml 720 ml IV Total 50 ml 100 ml Output Urine Total 550 ml 1500 ml 800 ml Chest Tube Drainage Total 110 ml 210 ml 20 ml # Bowel Movements 0 0 0 Physical Exam GENERAL: NAD, AAOx3 SKIN: Warm and dry. HEAD: Atraumatic. Normocephalic. EYES: Pupils equal and round. No scleral icterus. No injection or drainage. ENT: No nasal bleeding or discharge. Mucous membranes pink and moist. NECK: Trachea midline. No JVD. CARDIOVASCULAR: Regular rate and rhythm. Sternotomy with covering RESPIRATORY: No accessory muscle use. Decreased breath sounds bilaterally GASTROINTESTINAL: Abdomen soft, non-tender, nondistended. Hepatic and splenic margins not palpable. MUSCULOSKELETAL: Extremities without clubbing, cyanosis, or edema. No obvious deformities. NEUROLOGICAL: Awake and alert. No obvious cranial nerve deficits. Motor grossly within normal limits. Five out of 5 muscle strength in the arms and legs. Normal speech. PSYCHIATRIC: Appropriate mood and affect; insight and judgment normal. Laboratory Laboratory Tests Test 03/07/17 05:00 White Blood Count 7.6 TH/MM3 Red Blood Count 2.77 MIL/MM3 Hemoglobin 9.6 GM/DL Hematocrit 29.5 % Mean Corpuscular Volume 106.6 FL Mean Corpuscular Hemoglobin 34.8 PG Mean Corpuscular Hemoglobin Concent 32.7 % Red Cell Distribution Width 19.2 % Platelet Count 193 TH/MM3 Mean Platelet Volume 8.5 FL Assessment and Plan Problem List: (1) Tobacco abuse ICD Codes: Z72.0 - Tobacco abuse Status: Chronic (2) S/P CABG x 2 ICD Codes: Z95.1 - Presence of aortocoronary bypass graft (3) Coronary artery disease ICD Codes: I25.10 - Coronary artery disease Status: Chronic (4) Hyperlipidemia ICD Codes: E78.5 - Hyperlipidemia Status: Chronic (5) Alcohol abuse ICD Codes: F10.10 - Alcohol abuse, uncomplicated Status: Acute (6) UTI (lower urinary tract infection) ICD Codes: N39.0 - Lower urinary tract infectious disease Status: Acute Assessment and Plan 1) MVCAD s/p CABGx2 POD #3 ESPINOZA to LAD SVG to OM1 2) ETOH abuse Watch for withdrawal, appears stable 3) Tobacco abuse Tobacco cessation 4) Occasional bradycardia Asymptomatic Con't low dose BB 5) Chronic low back pain Augie Peña DO Mar 07, 2017 20:57
[2017-03-07] MEDS: SENNOSIDES 8.6 MG TAB PO SCH (21:00)
[2017-03-07] MEDS: CIPROFLOXACIN 250 MG TAB PO SCH (21:29)
[2017-03-07] MEDS: ATORVASTATIN 40 MG TAB PO SCH (21:32)
[2017-03-08] VITALS (14 sets, daily range): BP systolic 100–106; BP diastolic 56–73; PULSE 54–87; RESP 16; TEMP 98.6–98.7; O2SAT 91–93
[2017-03-08] MEDS: ACETAMINOPHEN/HYDROcodone 325 MG/10 MG TAB PO PRN ×4 (01:37→13:34)
[2017-03-08] MEDS: PANTOPRAZOLE SOD 40 MG DELAYED RELEASE TAB PO SCH (06:01)
--- NOTE | 2017-03-08 06:01 | RADRPT ---
EXAM DATE/TIME: 03/08/2017 04:51 [place] COMPARISON: CHEST SINGLE AP, March 05, 2017, 3:58. INDICATIONS : Chest tube removal- Evaluate for pneumothorax MEDICAL HISTORY : Myocardial infarction. Hypercholesterolemia. Carcinoma, prostatic. SURGICAL HISTORY : Prostatectomy. Coronary Artery Stent, Removal of Ileal conduit ENCOUNTER: Subsequent ACUITY: 1 week PAIN SCORE: 8/10 LOCATION: Bilateral chest FINDINGS: Portable AP views of the chest demonstrate normal-sized cardiac silhouette post median sternotomy. Le ft chest tube has been removed. No pneumothorax is visualized. There is mild opacity at the left lung base and linear opacity at the right lung base. No pleural effusion is visualized. Right IJ line is no longer present. CONCLUSION: No pneumothorax following left chest tube removal. There is likely atelectasis at both lung bases. Fadi Flores MD on March 08, 2017 at 5:58 Board Certified Radiologist. This report was verified electronically.
[2017-03-08] MEDS: INSULIN ASPART SUPPLEMENTAL SCALE SQ SCH ×2 (08:00→09:12)
[2017-03-08] MEDS: THIAMINE HCL 100 MG TAB PO SCH (09:00)
[2017-03-08] MEDS: BUDESONIDE-FORMOTEROL 160/4.5 MCG INHALER INH SCH (09:11)
[2017-03-08] MEDS: SODIUM CHLORIDE 0.9% FLUSH 10 ML FLUSH IV FLUSH SCH (09:12)
[2017-03-08] MEDS: MAGNESIUM HYDROXIDE SUSP 30 ML CUP PO SCH (09:13)
[2017-03-08] MEDS: POLYETHYLENE GLYCOL 17 GM PKG PO SCH (09:13)
[2017-03-08] MEDS: DOCUSATE SODIUM 100 MG CAP PO SCH (09:14)
[2017-03-08] MEDS: CIPROFLOXACIN 250 MG TAB PO SCH (09:14)
[2017-03-08] MEDS: ASPIRIN 81 MG CHEW TAB PO SCH (09:14)
[2017-03-08] MEDS: CLOPIDOGREL 75 MG TAB PO SCH (09:14)
[2017-03-08] MEDS: MULTIVITAMINS/MINERALS THERAPEUTIC TAB PO SCH (09:14)
[2017-03-08] MEDS: METOPROLOL TARTRATE 25 MG TAB PO SCH (09:14)
[2017-03-08] MEDS: FAMOTIDINE 20 MG TAB PO SCH (09:14)
[2017-03-08] MEDS: AMIODARONE 200 MG TAB PO SCH (09:15)
[2017-03-08] MEDS: FOLIC ACID 1 MG TAB PO SCH (09:15)
[2017-03-08] MEDS ORDERED: SOD PHOSPHATE/SOD BIPHOSPHATE (ADULT) ENEMA 133ML PR ONE (10:00)
[2017-03-08] MEDS ORDERED: BISACODYL 10 MG SUPP RECTAL ONE (10:00)
--- NOTE | 2017-03-08 12:16 | PD.WCN.NOT ---
Wound Consult Description: Consult placed for Ostomy Management of right ileostomy per MARIA TERESA Fall Communicated with: MELINDA Lord Patient Recommendation: Change/Empty appliance as needed Additional Information: Patient seen on for ostomy assessment, urostomy appliance change, and teaching. Ostomy Type: Other (Ileal Conduit) Complete: Education materials, Other (Supplies ordered for next appliance change) Educated patient on: Using adhesive removal wipes to remove existing barrier Cleansing around stoma with water only Allowing peristomal skin to dry Using Cavilon skin prep if desired Applying new barrier to clean dry skin Holding hand over appliance for a few minutes to create warmth for polymers to activate Additional information Patient seen on for ostomy appliance assessment. Patient states that he "changed it this morning" after his shower. Appliance was visualized and noted to be lifting medially and superiorly with a sticky residue surrounding the wafer. Adhesive removal wipes were used to remove the barrier from patient right side abdomen. Clean dry washcloth was used to cover stoma while preparing the new wafer and pouch for application. Peristomal skin was cleansed with water only and allowed to dry before applying Cavilon skin prep. Peristomal skin was unremarkable. Moldable appliance size 1 3/4" was molded to fit stoma size. Pouch was attached to the wafer and placed over/around stoma. Telephone Maintenance Mechanic held gloved hand over appliance to create warmth for about 2-3 minutes. Patient sat up and inspected appliance. MELINDA Lord ordered 3 kits for patient to be discharged with. Marilynn Beasley [facility] Mar 08, 2017 12:16
[2017-03-08] MEDS ORDERED: CIPR250T52 PO (12:42)
[2017-03-08] MEDS ORDERED: VENTAER INH (12:42)
[2017-03-08] MEDS ORDERED: HYDR-3583 PO (12:42)
[2017-03-08] MEDS ORDERED: THIA100 PO (12:42)
[2017-03-08] MEDS ORDERED: ATOR40TA16 PO (12:42)
[2017-03-08] MEDS ORDERED: AMIO200T PO (12:42)
[2017-03-08] MEDS ORDERED: FOLI1TAB6 PO (12:42)
[2017-03-08] MEDS ORDERED: THERM PO (12:42)
[2017-03-08] MEDS ORDERED: METO25TA3 PO (12:42)
[2017-03-08] MEDS ORDERED: Budeson-Formot 160-4.5 Mg Inh INH (12:42)
[2017-03-08] MEDS ORDERED: DOCU1CAP39 PO (12:42)
[2017-03-08] MEDS ORDERED: PLAV75TA29 PO (12:42)
[2017-03-08] MEDS ORDERED: POLY17S PO (12:42)
--- NOTE | 2017-03-08 12:53 | PD.CARD.PN ---
Subjective Subjective Remarks Doing well overall Per nursing, patient ambulating well Objective Medications Current Medications Medications (Trade) Dose Ordered Sig/Marta Route Start Time Stop Time Status Last Admin (Pepcid) 20 mg BID PO 02/25/17 21:00 03/08/17 09:14 (Pill Splitter) 1 ea UNSCH PRN OTHER 02/25/17 19:15 (Lipitor) 40 mg HS PO 02/27/17 15:30 03/07/17 21:32 (Librium) 5 mg AC LUNCH PO 03/01/17 11:00 03/08/17 11:25 (Miralax) 17 gm DAILY PO 03/02/17 10:15 03/08/17 09:13 (NS Flush) 2 ml BID IV FLUSH 03/04/17 21:00 03/08/17 09:12 (NS Flush) 2 ml UNSCH PRN IV FLUSH 03/04/17 17:15 (Aspirin Chew) 81 mg DAILY PO 03/05/17 09:00 03/08/17 09:14 (Plavix) 75 mg DAILY PO 03/05/17 09:00 03/08/17 09:14 (Protonix) 40 mg DAILY@06 PO 03/05/17 06:00 03/08/17 06:01 (Tylenol) 650 mg Q4H PRN PO 03/04/17 17:15 (Hayward 5-325 Mg) 1 tab Q3H PRN PO 03/04/17 17:15 (Zofran Inj) 4 mg Q6H PRN IV PUSH 03/04/17 17:15 (Apresoline Inj) 10 mg Q4H PRN IV PUSH 03/04/17 17:15 (Lopressor Inj) 2.5 mg Q1H PRN IV PUSH 03/04/17 17:15 (D50w (Vial) Inj) 50 ml UNSCH PRN IV PUSH 03/04/17 17:15 (Duoneb Neb) 1 ampule Q2HR NEB PRN NEB 03/04/17 17:15 (Vitamin B1) 100 mg DAILY PO 03/05/17 09:30 03/08/17 09:00 (Folate) 1 mg DAILY PO 03/05/17 09:30 03/08/17 09:15 (Colace) 100 mg BID PO 03/05/17 09:30 03/08/17 09:14 (Theragran M Tab) 1 tab DAILY PO 03/05/17 09:30 03/08/17 09:14 (Milk Of Magnesia Liq) 30 ml DAILY PO 03/06/17 09:00 03/08/17 09:13 (Dulcolax Supp) 10 mg UNSCH PRN RECTAL 03/07/17 09:30 (Senokot) 8.6 mg HS PO 03/05/17 21:00 03/06/17 21:16 (Fleets Enema (Adult)) 118 ml UNSCH PRN RECTAL 03/07/17 09:30 (D50w (Vial) Inj) 50 ml UNSCH PRN IV PUSH 03/05/17 09:30 (Glucagon Inj) 1 mg UNSCH PRN OTHER 03/05/17 09:30 (Symbicort 160-4.5 Inh) 2 puff Q12HR INH 03/05/17 09:45 03/08/17 09:11 (NovoLOG SUPPLEMENTAL SCALE) 1 ACHS SQ 03/06/17 12:00 03/08/17 09:12 (Lopressor) 25 mg BID PO 03/06/17 21:00 03/08/17 09:14 (Hayward 10-325 Mg) 1 tab Q4H PRN PO 03/07/17 06:30 03/08/17 09:15 (Cordarone) 200 mg Q12HR PO 03/07/17 21:00 03/08/17 09:15 (Cipro) 250 mg Q12HR PO 03/07/17 21:00 03/08/17 09:14 Vital Signs / I&O Vital Signs Date Time Temp Pulse Resp B/P (MAP) Pulse Ox O2 Delivery O2 Flow Rate FiO2 03/08/17 12:00 80 03/08/17 11:00 100/56 (71) 03/08/17 11:00 73 03/08/17 11:00 92 Nasal Cannula 3.00 03/08/17 10:00 82 03/08/17 09:00 86 03/08/17 08:14 93 Nasal Cannula 1.00 03/08/17 08:14 75 16 106/64 (78) 93 03/08/17 08:14 73 03/08/17 06:00 67 03/08/17 05:00 75 03/08/17 04:57 98.6 67 16 106/73 (84) 91 03/08/17 04:00 70 03/08/17 03:54 92 Nasal Cannula 4.00 03/08/17 03:00 70 03/08/17 02:00 65 03/08/17 01:00 62 03/08/17 00:00 54 03/08/17 00:00 98.7 87 16 104/71 (82) 92 03/07/17 23:33 90 Nasal Cannula 4.00 03/07/17 23:00 56 03/07/17 22:00 76 03/07/17 21:00 70 03/07/17 20:22 94 Nasal Cannula 4.00 03/07/17 20:00 98.7 87 16 105/71 (82) 90 03/07/17 20:00 88 03/07/17 20:00 90 Nasal Cannula 4.00 03/07/17 19:00 85 I/O 03/07/17 03/07/17 03/07/17 03/08/17 03/08/17 03/08/17 07:00 15:00 23:00 07:00 15:00 23:00 Intake Total 720 ml 240 ml Output Total 820 ml 850 ml Balance -100 ml -610 ml Intake Oral 720 ml 240 ml Output Urine Total 800 ml 850 ml Chest Tube Drainage Total 20 ml # Bowel Movements 0 Physical Exam GENERAL: NAD, AAOx3 SKIN: Warm and dry. HEAD: Atraumatic. Normocephalic. EYES: Pupils equal and round. No scleral icterus. No injection or drainage. ENT: No nasal bleeding or discharge. Mucous membranes pink and moist. NECK: Trachea midline. No JVD. CARDIOVASCULAR: Regular rate and rhythm. Sternotomy with covering RESPIRATORY: No accessory muscle use. Decreased breath sounds bilaterally GASTROINTESTINAL: Abdomen soft, non-tender, nondistended. Hepatic and splenic margins not palpable. MUSCULOSKELETAL: Extremities without clubbing, cyanosis, or edema. No obvious deformities. NEUROLOGICAL: Awake and alert. No obvious cranial nerve deficits. Motor grossly within normal limits. Five out of 5 muscle strength in the arms and legs. Normal speech. PSYCHIATRIC: Appropriate mood and affect; insight and judgment normal. Imaging Last 24 hours Impressions Chest X-Ray 03/08/17 0600 Signed Impressions: Service Date/Time: Wednesday, March 08, 2017 04:51 - CONCLUSION: No pneumothorax following left chest tube removal. There is likely atelectasis at both lung bases. Fadi Flores MD Assessment and Plan Problem List: (1) Tobacco abuse ICD Codes: Z72.0 - Tobacco abuse Status: Chronic (2) S/P CABG x 2 ICD Codes: Z95.1 - Presence of aortocoronary bypass graft (3) Coronary artery disease ICD Codes: I25.10 - Coronary artery disease Status: Chronic (4) Hyperlipidemia ICD Codes: E78.5 - Hyperlipidemia Status: Chronic (5) Alcohol abuse ICD Codes: F10.10 - Alcohol abuse, uncomplicated Status: Acute (6) UTI (lower urinary tract infection) ICD Codes: N39.0 - Lower urinary tract infectious disease Status: Acute Assessment and Plan 1) MVCAD s/p CABGx2 POD #4 ESPINOZA to LAD SVG to OM1 2) ETOH abuse Watch for withdrawal, appears stable 3) Tobacco abuse Tobacco cessation 4) Occasional bradycardia Asymptomatic Con't low dose BB 5) Chronic low back pain 6) Wean O2 as possible 7) Will see PRN, call with questions Augie Peña DO Mar 08, 2017 12:53
--- NOTE | 2017-03-08 12:53 | HHI.DS ---
Discharge Summary Admission Date Feb 27, 2017 at 09:07 Discharge Date: Mar 08, 2017 Admitting Diagnosis Chest pain, alcoholism (1) Chest pain Diagnosis: Principal ICD Codes: R07.9 - Chest pain, unspecified Status: Acute (2) Ileal conduit stomal stenosis Diagnosis: Principal ICD Codes: T85.85XA - Stenosis due to internal prosthetic devices, implants and grafts, not elsewhere classified, initial encounter Status: Chronic (3) Urinary tract infection Diagnosis: Principal ICD Codes: N39.0 - Urinary tract infection, site not specified Status: Acute (4) Alcohol abuse with alcohol-induced mood disorder ICD Codes: F10.14 - Alcohol abuse with alcohol-induced mood disorder Status: Chronic (5) S/P CABG x 2 Diagnosis: Secondary ICD Codes: Z95.1 - Presence of aortocoronary bypass graft (6) STEMI (ST elevation myocardial infarction) Diagnosis: Principal ICD Codes: I21.3 - ST elevation myocardial infarction (STEMI) Status: Acute (7) Tobacco abuse Diagnosis: Principal ICD Codes: Z72.0 - Tobacco abuse Status: Chronic (8) Hyperlipidemia Diagnosis: Principal ICD Codes: E78.5 - Hyperlipidemia Status: Chronic (9) Coronary artery disease Diagnosis: Principal ICD Codes: I25.10 - Coronary artery disease Status: Chronic Procedures 03/04 1. Urgent Off-pump Coronary Artery Bypass Grafting x 2 with Left Internal Mammary Artery (ESPINOZA) to the Left Anterior Descending (LAD), reverse saphenous vein graft to the Obtuse Marginal 1 (OM1) 2. Left Leg Endoscopic Vein Solon 3. Intraoperative Vein Mapping Brief History A 62-year-old male patient of Dr. Fadi Estes, Dr. Peña, presented to the emergency room at [place] with chest discomfort on the 25 of February, underwent exercise stress testing which showed small to moderate area of ischemia. He was recommended for cardiac catheterization. He states he has been having chest pain off and on for the last few weeks without exertion. He is very vague about it. He does have some nitro at home but does not remember to take it. His pain has been up to 8 out of a 10, becomes lightheaded, has some occasional nausea, some shortness of breath. He has history of coronary artery disease and has history of two stents in the past, the LAD and the RCA. He was transferred to [facility] and underwent cardiac cath which showed 70% left main, proximal LAD 50%, mid distal LAD 20%, the diagonal 10%, the circumflex 10%, the OM 30% and the RCA 30%. We were consulted to evaluate for coronary artery bypass grafting. The ejection fraction on the stress test showed an EF of 46%. The patient also has a longstanding history of ETOH. He was admitted with an ETOH level of 155. He has been admitted to our psyche unit in the past for ETOH abuse. Last admission was September 12, 2015 where at that time he had been drinking 1.7 liters of vodka, binge drinking apparently, had some depression, suicidal statements, however, he was initially Jessica Acted but then that was lifted. He has had an MO in the past. Currently he admits to drinking approximately 2-3 ounces of vodka three times a day. PAST MEDICAL HISTORY: Hypertension, Coronary artery disease, ETOH abuse, Tobacco abuse, Hepatitis B, History of bladder cancer, Last cardiac cath on May 26, 2014 which showed a patent stent in the midportion of the LAD and the RCA, Bladder resection, Prostatectomy, he has ileoconduit. CBC/BMP: 03/07/17 0500 03/06/17 0500 Significant Findings Laboratory Tests Test 03/05/17 17:44 03/06/17 05:00 03/07/17 05:00 Urine RBC 4 /hpf (0-3) Urine WBC 18 /hpf (0-5) Red Blood Count 2.77 MIL/MM3 (4.50-5.90) 2.77 MIL/MM3 (4.50-5.90) Hemoglobin 9.8 GM/DL (13.0-17.0) 9.6 GM/DL (13.0-17.0) Hematocrit 29.1 % (39.0-51.0) 29.5 % (39.0-51.0) Mean Corpuscular Volume 104.9 FL (80.0-100.0) 106.6 FL (80.0-100.0) Mean Corpuscular Hemoglobin 35.2 PG (27.0-34.0) 34.8 PG (27.0-34.0) Red Cell Distribution Width 18.9 % (11.6-17.2) 19.2 % (11.6-17.2) Neutrophils (%) (Auto) 76.3 % (16.0-70.0) Monocytes (%) (Auto) 11.1 % (0.0-8.0) Lymphocytes # (Auto) 0.9 TH/MM3 (1.0-4.8) Calcium Level 8.2 MG/DL (8.5-10.1) Estimat Glomerular Filtration Rate 74 ML/MIN (>89) Imaging Last Impressions Chest X-Ray 03/08/17 0600 Signed Impressions: Service Date/Time: Wednesday, March 08, 2017 04:51 - CONCLUSION: No pneumothorax following left chest tube removal. There is likely atelectasis at both lung bases. Fadi Flores MD Lower Extremity Ultrasound 02/27/17 0000 Signed Impressions: Service Date/Time: Monday, February 27, 2017 15:58 - CONCLUSION: Venous mapping with measurements as detailed above. Dave Perkins Jr., MD Carotid Artery Ultrasound 02/27/17 0000 Signed Impressions: Service Date/Time: Monday, February 27, 2017 15:26 - CONCLUSION: Mild plaque formation. Hemodynamic parameters are characteristic of less than 50%% stenosis. Dave Guzmán MD Myocardial Perfusion Scan Nuc Med 02/26/17 0817 Signed Impressions: Service Date/Time: Sunday, February 26, 2017 09:54 - CONCLUSION: 1. Small size mild severity reversible defect at the apex. Ischemia is not excluded. Ejection fraction has decreased from the prior study where it measured 54%% to currently 46%% RISK CATEGORY: Intermediate (1-3%% Annual Mortality Rate) Jose Coyle MD PE at Discharge GENERAL: SKIN: Warm and dry. prevena dressing to chest , incision intact to left leg HEAD: Normocephalic. EYES: No scleral icterus. No injection or drainage. NECK: Supple, trachea midline. No JVD or lymphadenopathy. CARDIOVASCULAR: Regular rate and rhythm without murmurs, gallops, or rubs. RESPIRATORY: Breath sounds equal bilaterally. No accessory muscle use. diminished in bases GASTROINTESTINAL: Abdomen soft, non-tender, nondistended. MUSCULOSKELETAL: No cyanosis, or edema. BACK: Nontender without obvious deformity. No CVA tenderness. : ileoconduit draining clear zohreh urine Hospital Course surgery: . Urgent Off-pump Coronary Artery Bypass Grafting x 2 with Left Internal Mammary Artery (ESPINOZA) to the Left Anterior Descending (LAD), reverse saphenous vein graft to the Obtuse Marginal 1 (OM1) 2. Left Leg Endoscopic Vein Solon 03/05 up in chair, very painful wound ostomy nurse consulted, recheck UA on post op Ancef will transfer to stepdown 03/06 still painful despite toradol , percocet and breakthrough fentanly has chronic back pain, will order lidocaine patch to lower back leave chest tubes in today await / repeat urine culture on IV rocephin continue pulm toileting 03/07 chest tubes dc without difficulty had episode of junctional bradycardia last pm amiodarone decreased repeat UA culture no growth , eval for dc to rehab in am 03/08 no growth in culture from repeat UA, will continue cipro po x 3 days on 1 liter 02, wean for sat > 89% remains in NSR, continue amiodarone for 2 weeks, continue BB stable for dc to rehab no withdrawal symptoms Pt Condition on Discharge: Good Discharge Disposition: Discharge to SNF Discharge Instructions DIET: Follow Instructions for: Heart Healthy Diet Activities you can perform: Full Weight Bearing, Shower Only-No Bath Activities to avoid: Strenuous Activity, Driving Additional Activity Instructio: no lifting > 8 lbs or gallon of milk Follow up Referrals: Cardiology - 4 Weeks with Augie Peña DO PCP Follow-up - 2 Weeks with Fadi Estes MD Surgical - 2 Weeks with Yenny Fall New Medications: Albuterol 18 GM Inh (Ventolin Hfa 18 GM Inh) 90 Mcg/Act Aer 2 PUFF INH Q4-6H PRN for SHORTNESS OF BREATH, #1 INHALER 0 Refills Amiodarone (Amiodarone) 200 Mg Tab 200 MG PO Q12HR for heart rhythm, #28 TAB 0 Refills Atorvastatin (Atorvastatin) 40 Mg Tab 40 MG PO HS for Cholesterol Management, #30 TAB 2 Refills Ciprofloxacin (Cipro) 250 Mg Tab 250 MG PO Q12HR for antibiotic, UTI, #6 TAB 0 Refills Clopidogrel (Plavix) 75 Mg Tab 75 MG PO DAILY for Blood Clot Prevention, #30 TAB 2 Refills Docusate Sodium (Dok) 100 Mg Cap 100 MG PO BID for Constipation, #60 CAP 0 Refills Folic Acid (Folic Acid) 1 Mg Tablet 1 MG PO DAILY for Agitation, #30 % 2 Refills Hydrocodone/Acetaminophen (Hydrocodone-Acetamin 10-325 mg) 10 Mg-325 Mg Tablet 1 TAB PO Q6HR PRN for PAIN SCALE 6-10, #40 TAB 0 Refills Metoprolol Tartrate (Metoprolol Tartrate) 25 Mg Tab 25 MG PO BID for Blood Pressure Management, #60 TAB 2 Refills Multiple Vitamins W/ Minerals (Thera M Plus) 1 Tab 1 TAB PO DAILY for multi vitamin, #30 TAB 2 Refills Polyethylene Glycol 3350 Powder (Polyethylene Glycol 3350 Powder) 17 Gram Pow 17 GM PO DAILY for Constipation, #30 PACKET 0 Refills Thiamine HCl (Gnp Vitamin B-1) 100 Mg Tab 100 MG PO DAILY for Agitation, #30 TAB 2 Refills [Budeson-Formot 160-4.5 Mg Inh] () 60 PUFF AERO 2 PUFF INH Q12HR for copd, #1 2 Refills Continued Medications: Aspirin (Aspirin) 81 Mg Chew 81 MG CHEW DAILY, TAB 0 Refills Pantoprazole (Pantoprazole) 40 Mg Tab 40 MG PO DAILY for Reflux, #30 TAB 0 Refills Discontinued Medications: Hydrocodone-Acetaminophen (Hydrocodone-Acetaminophen) 5-325 mg Tab 1 TAB PO Q4H PRN for PAIN, TAB 0 Refills Isosorbide Mononitrate ER (Isosorbide Mononitrate ER) 30 Mg Lance 30 MG PO DAILY for Prevent Chest Pain, #30 TAB 0 Refills Metoprolol Tartrate (Metoprolol Tartrate) 25 Mg Tab 12.5 MG PO BID, #60 TAB 0 Refills Yenny Fall Mar 08, 2017 12:53
== END 2017-03-08 15:25 | DRG 234 ==
LOC: PHED 17:13 → PHEDA 18:52 → PH3A 19:45 → HCPC 02-26 13:42 → OBSVTOIN 02-27 09:07 → HCIS 03-04 13:18 → HCVI 03-04 17:26 → HCPC 03-05 13:58
PROVIDERS: ADMIT Thoracic Surgery (Cardiothoracic Vascular Surgery); ATTEND Thoracic Surgery (Cardiothoracic Vascular Surgery)
PROC: B2111ZZ Fluoroscopy of Multiple Coronary Arteries using Low Osmolar Contrast (ICD-10-PCS; 2017-02-26)
PROC: 4A023N7 Measurement of Cardiac Sampling and Pressure, Left Heart, Percutaneous Approach (ICD-10-PCS; principal; 2017-02-26 13:30)
PROC: 021009W Bypass Coronary Artery, One Artery from Aorta with Autologous Venous Tissue, Open Approach (ICD-10-PCS; 2017-03-04)
PROC: 02100Z9 Bypass Coronary Artery, One Artery from Left Internal Mammary, Open Approach (ICD-10-PCS; 2017-03-04)
PROC: 06BQ4ZZ Excision of Left Saphenous Vein, Percutaneous Endoscopic Approach (ICD-10-PCS; 2017-03-04)
DX: I25.110 Atherosclerotic heart disease of native coronary artery with unstable angina pectoris (principal); B19.10 Unspecified viral hepatitis B without hepatic coma; I10 Essential (primary) hypertension; N39.0 Urinary tract infection, site not specified; Z93.6 Other artificial openings of urinary tract status; E78.5 Hyperlipidemia, unspecified; E87.6 Hypokalemia; F10.220 Alcohol dependence with intoxication, uncomplicated; Y90.6 Blood alcohol level of 120-199 mg/100 ml; F17.210 Nicotine dependence, cigarettes, uncomplicated; G89.29 Other chronic pain; K21.9 Gastro-esophageal reflux disease without esophagitis; F41.9 Anxiety disorder, unspecified; M19.90 Unspecified osteoarthritis, unspecified site; M54.5 Low back pain; R00.1 Bradycardia, unspecified; Z95.5 Presence of coronary angioplasty implant and graft; Z85.51 Personal history of malignant neoplasm of bladder; Z79.82 Long term (current) use of aspirin; I25.2 Old myocardial infarction
CPT/HCPCS: 36430; 71010; 76937; 78452; 80048; 80053; 80061; 80307; 81001; 82550; 82948; 83036; 83690; 83735; 83880; 84100; 84484; 85025; 85027; 85610; 85730; 86850; 86900; 86901; 86920; 87077; 87086; 87186; 87641; 92978; 93005; 93017; 93306; 93458; 93880; 93970; 93998; 94002; 94010; 94150; 94640; 94664; 94667; 94668; 96360; A9502; C1753; C1768; C1769; C1887; C1893; J0131; J0360; J0690; J0696; J1644; J1815; J1817; J1885; J1940; J2060; J2250; J2270; J2440; J2785; J3010; J3370; J3475; J3480; J7030; J7120; P9016; P9045; Q9967

== ENCOUNTER 2017-03-09 07:09 | Emergency (ER) | payer MEDICAID ==
[~2017-03-09] VITALS: Ht 175.3 cm; Wt 88.0 kg
[~2017-03-09 07:09] MED LIST changes: +AMIO200T PO; +ATOR40TA16 PO; +Budeson-Formot 160-4.5 Mg Inh INH; +CIPR250T52 PO; -CLIN300C5 PO; +DOCU1CAP39 PO; +FOLI1TAB6 PO; -GABA100C4 PO; +HYDR-3583 PO; -ISOS30TA3 PO; -LIPI40TA PO; +PLAV75TA29 PO; +POLY17S PO; +THERM PO; +THIA100 PO; +VENTAER INH
[2017-03-09 07:32] VITALS: BP 120/68; PULSE 80; RESP 20; TEMP 99.1; O2SAT 94
[2017-03-09] MEDS ORDERED: SODIUM CHLORIDE 0.9% FLUSH 10 ML FLUSH IVF PRN (07:45)
--- NOTE | 2017-03-09 07:57 | PD ---
HPI Chief Complaint: Medical Clearance Time Seen by Provider: 07:52 Travel History International Travel<30 days: No Contact w/Intl Traveler<30days: No Traveled to known affect area: No History of Present Illness HPI 62-year-old male patient with history of CAD, status post stenting and CABG just last week, multiple medical issues, alcoholism, was released from the hospital to rehabilitation yesterday, and states that he was unhappy with the rehabilitation facility, left from there walking on his own to try to get to the corner store, but states that he was having trouble, started having more chest discomfort, dizzy, currently states his chest discomfort is a 4 out of 10. He denies any other issues. Modifying Factors: None Associated Signs & Symptoms: Chest discomfort after trying to walk away from rehabilitation facility Risk Factors: Recent CABG PFSH Past Medical History Hx Anticoagulant Therapy: Yes (asa) Arthritis: Yes (BACK) Anxiety: Yes Heart Rhythm Problems: Yes Cancer: Yes (HX of bladder ) Cardiovascular Problems: Yes High Cholesterol: Yes Chest Pain: Yes Diminished Hearing: No Gastrointestinal Disorders: Yes GERD: Yes Genitourinary: Yes (ILEAL CONDUIT) Headaches: Yes Hepatitis: Yes (HEP B) Hypertension: Yes Implanted Vascular Access Dvce: Yes Immunizations Current: Yes Myocardial Infarction: Yes (2) Sleep Apnea: Yes Ulcer: Yes Past Surgical History Abdominal Surgery: Yes Body Medical Devices: ILEAL CONDUIT, CARDIAC STENTS Cardiac Surgery: Yes (CARDIAC STENT 01/2013) Coronary Stent: Yes (2 ) Genitourinary Surgery: Yes (HX of bladder cancer and removal with Ileal conduit , HX of kidney stents) Prostatectomy: Yes Other Surgery: Yes (CYSTECTOMY/PROSTATECTOMY 2010) Family History Family Myocardial Infarction: Yes Social History Alcohol Use: Yes (Occassional ) Tobacco Use: Yes Substance Use: No Allergies-Medications (Allergen,Severity, Reaction): Coded Allergies: Sulfa (Sulfonamide Antibiotics) (Unverified Allergy, Severe, Rash, ) "quit breathing" doxycycline (Unverified Allergy, Severe, 02/25/17) allergy Reported Meds & Prescriptions Reported Meds & Active Scripts Active Ventolin Hfa 18 GM Inh (Albuterol Sulfate) 90 Mcg/Act Aer 2 Puff INH Q4-6H PRN Thera M Plus (Multivitamins/Minerals Therapeutic) 1 Tab 1 Tab PO DAILY Gnp Vitamin B-1 (Thiamine HCl) 100 Mg Tab 100 Mg PO DAILY Folic Acid 1 Mg Tablet 1 Mg PO DAILY Polyethylene Glycol 3350 Powder (Polyethylene Glycol) 17 Gram Pow 17 Gm PO DAILY Dok (Docusate Sodium) 100 Mg Cap 100 Mg PO BID [Budeson-Formot 160-4.5 Mg Inh] 60 PUFF Aero 2 Puff INH Q12HR Hydrocodone-Acetamin 10-325 mg (Hydrocodone/Acetaminophen) 10 Mg-325 Mg Tablet 1 Tab PO Q6HR PRN Metoprolol Tartrate 25 Mg Tab 25 Mg PO BID Atorvastatin (Atorvastatin Calcium) 40 Mg Tab 40 Mg PO HS Amiodarone (Amiodarone HCl) 200 Mg Tab 200 Mg PO Q12HR Plavix (Clopidogrel Bisulfate) 75 Mg Tab 75 Mg PO DAILY Cipro (Ciprofloxacin HCl) 250 Mg Tab 250 Mg PO Q12HR Reported Pantoprazole (Pantoprazole Sodium) 40 Mg Tab 40 Mg PO DAILY Aspirin 81 Mg Chew 81 Mg CHEW DAILY Review of Systems Except as stated in HPI: all other systems reviewed are Neg Physical Exam Narrative GENERAL: Well-developed elderly white male patient currently in mild distress. Awake and oriented 3. SKIN: Focused skin assessment warm/dry. HEAD: Atraumatic. Normocephalic. EYES: Pupils equal and round. No scleral icterus. No injection or drainage. ENT: No nasal bleeding or discharge. Mucous membranes pink and moist. NECK: Trachea midline. No JVD. CARDIOVASCULAR: Regular rate and rhythm. No murmur appreciated. Pulses are present and equal bilaterally. RESPIRATORY: No accessory muscle use. Clear to auscultation. Breath sounds equal bilaterally. GASTROINTESTINAL: Abdomen soft, non-tender, nondistended. Hepatic and splenic margins not palpable. MUSCULOSKELETAL: No obvious deformities. No clubbing. No cyanosis. No edema. NEUROLOGICAL: Awake and alert. No obvious cranial nerve deficits. Motor grossly within normal limits. Normal speech. PSYCHIATRIC: Appropriate mood and affect; insight and judgment normal. Data Data Last Documented VS Vital Signs Date Time Temp Pulse Resp B/P (MAP) Pulse Ox O2 Delivery O2 Flow Rate FiO2 03/09/17 07:32 99.1 80 20 120/68 (85) 94 Nasal Cannula 2.00 Orders Orders Electrocardiogram (03/09/17 07:42) Complete Blood Count With Diff (03/09/17 07:42) Comprehensive Metabolic Panel (03/09/17 07:42) Magnesium (Mg) (03/09/17 07:42) Ckmb (Isoenzyme) Profile (03/09/17 07:42) Troponin I (03/09/17 07:42) Act Partial Throm Time (Ptt) (03/09/17 07:42) Prothrombin Time / Inr (Pt) (03/09/17 07:42) Urinalysis - C+S If Indicated (03/09/17 07:42) Chest, Single Ap (03/09/17 07:42) Ecg Monitoring (03/09/17 07:42) Iv Access Insert/Monitor (03/09/17 07:42) Oximetry (03/09/17 07:42) Sodium Chloride 0.9% Flush (Ns Flush) (03/09/17 07:45) Morphine Inj (Morphine Inj) (03/09/17 08:00) Labs Laboratory Tests Test 03/09/17 08:23 03/09/17 08:29 White Blood Count 6.9 TH/MM3 Red Blood Count 2.82 MIL/MM3 Hemoglobin 10.0 GM/DL Hematocrit 29.6 % Mean Corpuscular Volume 105.0 FL Mean Corpuscular Hemoglobin 35.6 PG Mean Corpuscular Hemoglobin Concent 33.9 % Red Cell Distribution Width 19.1 % Platelet Count 262 TH/MM3 Mean Platelet Volume 8.0 FL Neutrophils (%) (Auto) 77.4 % Lymphocytes (%) (Auto) 10.7 % Monocytes (%) (Auto) 9.9 % Eosinophils (%) (Auto) 1.6 % Basophils (%) (Auto) 0.4 % Neutrophils # (Auto) 5.4 TH/MM3 Lymphocytes # (Auto) 0.7 TH/MM3 Monocytes # (Auto) 0.7 TH/MM3 Eosinophils # (Auto) 0.1 TH/MM3 Basophils # (Auto) 0.0 TH/MM3 CBC Comment DIFF FINAL Differential Comment Prothrombin Time 9.8 SEC Prothromb Time International Ratio 1.0 RATIO Activated Partial Thromboplast Time 26.0 SEC Blood Urea Nitrogen 19 MG/DL Creatinine 1.04 MG/DL Random Glucose 89 MG/DL Total Protein 6.8 GM/DL Albumin 2.3 GM/DL Calcium Level 8.3 MG/DL Magnesium Level 2.1 MG/DL Alkaline Phosphatase 81 U/L Aspartate Amino Transf (AST/SGOT) 36 U/L Alanine Aminotransferase (ALT/SGPT) 18 U/L Total Bilirubin 0.4 MG/DL Sodium Level 136 MEQ/L Potassium Level 4.9 MEQ/L Chloride Level 104 MEQ/L Carbon Dioxide Level 25.6 MEQ/L Anion Gap 6 MEQ/L Estimat Glomerular Filtration Rate 72 ML/MIN Total Creatine Kinase 100 U/L Troponin I 0.05 NG/ML Urine Color YELLOW Urine Turbidity CLEAR Urine pH 6.5 Urine Specific [place] 1.013 Urine Protein TRACE mg/dL Urine Glucose (UA) NEG mg/dL Urine Ketones NEG mg/dL Urine Occult Blood NEG Urine Nitrite NEG Urine Bilirubin NEG Urine Urobilinogen LESS THAN 2.0 MG/DL Urine Leukocyte Esterase NEG Urine RBC 1 /hpf Urine WBC 7 /hpf Urine Bacteria RARE /hpf Urine Mucus FEW /lpf Microscopic Urinalysis Comment CULT NOT INDICATED MDM Medical Decision Making Medical Screen Exam Complete: Yes Emergency Medical Condition: Yes Medical Record Reviewed: Yes Interpretation(s) Laboratory Tests Test 03/09/17 08:23 03/09/17 08:29 Red Blood Count 2.82 MIL/MM3 (4.50-5.90) Hemoglobin 10.0 GM/DL (13.0-17.0) Hematocrit 29.6 % (39.0-51.0) Mean Corpuscular Volume 105.0 FL (80.0-100.0) Mean Corpuscular Hemoglobin 35.6 PG (27.0-34.0) Red Cell Distribution Width 19.1 % (11.6-17.2) Neutrophils (%) (Auto) 77.4 % (16.0-70.0) Monocytes (%) (Auto) 9.9 % (0.0-8.0) Lymphocytes # (Auto) 0.7 TH/MM3 (1.0-4.8) Blood Urea Nitrogen 19 MG/DL (7-18) Albumin 2.3 GM/DL (3.4-5.0) Calcium Level 8.3 MG/DL (8.5-10.1) Estimat Glomerular Filtration Rate 72 ML/MIN (>89) Urine WBC 7 /hpf (0-5) Urine Bacteria RARE /hpf (NONE) Urine Mucus FEW /lpf (OCC) Last 24 hours Impressions Chest X-Ray 03/09/17 0742 Signed Impressions: Service Date/Time: Thursday, March 09, 2017 08:30 - CONCLUSION: 1. Cardiomegaly with increased pulmonary vascularity. 2. Left basilar density likely atelectasis. Diego Carlos MD Differential Diagnosis Chest discomfort after CABG, after walking away from rehabilitation facility, Medical clearance: Postop pain versus opiate withdrawals versus dysrhythmias versus ACS Narrative Course Vital signs are stable in the ER. Cardiac enzymes and negative. Wound VAC appears to be in place. Patient is not in distress. At this point, I suspect that he may have overexerted himself while he was trying to walk to the store, is fairly deconditioned after the surgery. I have talked to Dr. Thornton was covering for Dr. Peña for cardiology and he states that he does not think that the chest discomfort, dizziness experience with the patient is related to acute cardiac pathology. His suspect some underlying pain related she surgery and the fact that the patient had done more then he is supposed to do. At this point, patient need further rehabilitation. I have discussed the patient's issues with current rehabilitation facility with case management and they state that they will look into the issue but the patient will likely need to go back to rehabilitation facility and arrange transfer there should he want any rehabilitation. At this point, my plan would be to release him back to facility. Return for any worsening in symptoms as needed. The plan has been discussed with him and he states understanding. Diagnosis Primary Impression: Postoperative pain Disposition: 03 DISCHARGE TO SNF Condition: Stable Chelsy Gomes MD Mar 09, 2017 07:57
[2017-03-09] MEDS ORDERED: MORPHINE SULFATE 4 MG/ML INJ IV PUSH ONE (08:00)
[2017-03-09 08:45] LABS: AUTOMATED NEUTROPHIL # 5.4 TH/MM3 (1.8-7.7); BASOPHIL % 0.4 % (0.0-2.0); EOSINOPHIL # 0.1 TH/MM3 (0-0.4); EOSINOPHIL % 1.6 % (0.0-4.0); HEMATOCRIT 29.6 % (39.0-51.0); HEMO FLAGS DIFF FINAL; LYMPH % 10.7 % (9.0-44.0); LYMPHOCYTE # 0.7 TH/MM3 (1.0-4.8); MEAN CORPUSCULAR HEMOGLOBIN 35.6 PG (27.0-34.0); MEAN CORPUSCULAR HGB CONC 33.9 % (32.0-36.0); MONO % 9.9 % (0.0-8.0); NEUT % 77.4 % (16.0-70.0); PLATELET COUNT 262 TH/MM3 (150-450); RED BLOOD COUNT 2.82 MIL/MM3 (4.50-5.90); RED CELL DISTRIBUTION WIDTH 19.1 % (11.6-17.2); WHITE BLOOD COUNT 6.9 TH/MM3 (4.0-11.0)
[2017-03-09 08:48] LABS: BACTERIA, URINE RARE /hpf; BLOOD, URINE NEG (NEG); COMMENT (UR) CULT NOT INDICATED; CULTURE IF INDICATED CULT NOT INDICATED; GLUCOSE,URINE NEG (NEG); KETONE, URINE NEG (NEG); MUCUS URINE FEW /lpf (OCC); NITRITE,URINE NEG (NEG); PH, URINE 6.5 (5.0-8.5); URINE COLOR YELLOW (YELLW/STRAW)
[2017-03-09 08:53] LABS: PROTHROMBIN TIME - PATIENT 9.8 SEC (9.8-11.6)
--- NOTE | 2017-03-09 08:58 | RADRPT ---
EXAM DATE/TIME: 03/09/2017 08:30 [facility] COMPARISON: CHEST SINGLE AP, March 08, 2017, 4:51. INDICATIONS : Cardiac palpitations. MEDICAL HISTORY : Myocardial infarction. Hypercholesterolemia. Carcinoma, prostatic. SURGICAL HISTORY : CABG. 2 cardiac stents. Prostatectomy. Coronary Artery Stent, Removal of Ileal conduit. ENCOUNTER: Initial ACUITY: 1 day PAIN SCORE: 4/10 LOCATION: chest FINDINGS: A single view of the chest demonstrates cardiomegaly with previous CABG. Minimal left basilar density likely atelectasis. Increased pulmonary vascularity. No pulmonary edema or pleural effusion.. [place] us structures are intact. CONCLUSION: 1. Cardiomegaly with increased pulmonary vascularity. 2. Left basilar density likely atelectasis. Diego Carlos MD on March 09, 2017 at 8:55 Board Certified Radiologist. This report was verified electronically.
[2017-03-09 09:12] LABS: ANION GAP 6 MEQ/L (5-15); AST (GOT) 36 U/L (15-37); BICARBONATE 25.6 MEQ/L (21.0-32.0); BLOOD UREA NITROGEN 19 MG/DL (7-18); CHLORIDE 104 MEQ/L (98-107); GLOMERULAR FILTRATION RATE 72 ML/MIN (>89); MAGNESIUM 2.1 MG/DL (1.5-2.5); POTASSIUM 4.9 MEQ/L (3.5-5.1); SODIUM (NA) 136 MEQ/L (136-145)
[2017-03-09 09:13] LABS: ALT (GPT) 18 U/L (12-78)
[2017-03-09 09:17] LABS: ALKALINE PHOSPHATASE 81 U/L (45-117); TOTAL BILIRUBIN ADULT 0.4 MG/DL (0.2-1.0)
[2017-03-09 09:21] LABS: CREATINE KINASE 100 U/L (39-308)
[2017-03-09 11:07] VITALS: BP 133/77; PULSE 81; RESP 18; O2SAT 87
--- NOTE | 2017-03-10 22:57 | EKG ---
Date Performed: 03/09/2017 Time Performed: 09:15:19 PTAGE: 62 years EKG: Sinus rhythm WITH OCCASIONAL SUPRAVENTRICULAR PREMATURE COMPLEXES BORDERLINE ECG PREVIOUS TRACING : 03/05/2017 05.58 Compared to prior tracing no significant change DOCTOR: David Callejas Interpretating Date/Time 03/10/2017 22:56:07
== END 2017-03-09 11:39 | disposition left against medical advice (07) ==
LOC: NEPC 07:09
DX: G89.18 Other acute postprocedural pain (principal); R42 Dizziness and giddiness; R94.31 Abnormal electrocardiogram [ECG] [EKG]; I10 Essential (primary) hypertension; E78.00 Pure hypercholesterolemia, unspecified; G47.30 Sleep apnea, unspecified; I25.2 Old myocardial infarction; Z53.29 Procedure and treatment not carried out because of patient's decision for other reasons; Z98.890 Other specified postprocedural states; Z95.1 Presence of aortocoronary bypass graft; Z72.0 Tobacco use; Z79.82 Long term (current) use of aspirin; Z79.899 Other long term (current) drug therapy; Z87.39 Personal history of other diseases of the musculoskeletal system and connective tissue; Z86.59 Personal history of other mental and behavioral disorders; Z86.79 Personal history of other diseases of the circulatory system; Z85.51 Personal history of malignant neoplasm of bladder; Z87.19 Personal history of other diseases of the digestive system; Z87.448 Personal history of other diseases of urinary system; Z86.19 Personal history of other infectious and parasitic diseases
CPT/HCPCS: 71010; 80053; 81001; 82550; 83735; 84484; 85025; 85610; 85730; 93005; 96374; 99285; J2270

== ENCOUNTER 2017-03-09 17:47 | Emergency (ER) | payer MEDICAID ==
[~2017-03-09] VITALS: Ht 175.3 cm; Wt 90.0 kg
[2017-03-09 18:38] VITALS: BP 122/79; PULSE 84; RESP 19; TEMP 99.5; O2SAT 92
--- NOTE | 2017-03-09 18:50 | PD ---
HPI Chief Complaint: Abdominal Pain Time Seen by Provider: 18:26 Travel History International Travel<30 days: No Contact w/Intl Traveler<30days: No Traveled to known affect area: No History of Present Illness HPI 62-year-old male patient seen earlier, recent CABG, left eye rehabilitation facility AMA, refused to go back and is not able to be set up with a rehabilitation facility until Saturday, left AMA from the ER, is back here after having gone to [facility] in order to get care and was told to come back here. He states that he has noticed leakage around the bandage site of his sternal incision site. He is having pain, increased shortness of breath, and feels like he has overexerted himself. He denies other issues. Modifying Factors: None Associated Signs & Symptoms: Chest wall pain, shortness of breath, dyspnea on exertion, drainage from wound site Risk Factors: CABG last week PFSH Past Medical History Hx Anticoagulant Therapy: Yes (asa) Arthritis: Yes (BACK) Anxiety: Yes Heart Rhythm Problems: Yes Cancer: Yes (HX of bladder ) Cardiovascular Problems: Yes High Cholesterol: Yes Chest Pain: Yes Diminished Hearing: No Gastrointestinal Disorders: Yes GERD: Yes Genitourinary: Yes (ILEAL CONDUIT) Headaches: Yes Hepatitis: Yes (HEP B) Hypertension: Yes Implanted Vascular Access Dvce: Yes Immunizations Current: Yes Myocardial Infarction: Yes (2) Sleep Apnea: Yes Ulcer: Yes Past Surgical History Abdominal Surgery: Yes Body Medical Devices: ILEAL CONDUIT, CARDIAC STENTS Cardiac Surgery: Yes (CARDIAC STENT 01/2013) Coronary Stent: Yes (2 ) Genitourinary Surgery: Yes (HX of bladder cancer and removal with Ileal conduit , HX of kidney stents) Pacemaker: No Prostatectomy: Yes Other Surgery: Yes (CYSTECTOMY/PROSTATECTOMY 2010) Family History Family Myocardial Infarction: Yes Social History Alcohol Use: Yes (Occassional ) Tobacco Use: Yes Substance Use: No Allergies-Medications (Allergen,Severity, Reaction): Coded Allergies: Sulfa (Sulfonamide Antibiotics) (Unverified Allergy, Severe, Rash, 03/09/17 ) "quit breathing" doxycycline (Unverified Allergy, Severe, 03/09/17) allergy Reported Meds & Prescriptions Reported Meds & Active Scripts Active Ventolin Hfa 18 GM Inh (Albuterol Sulfate) 90 Mcg/Act Aer 2 Puff INH Q4-6H PRN Thera M Plus (Multivitamins/Minerals Therapeutic) 1 Tab 1 Tab PO DAILY Gnp Vitamin B-1 (Thiamine HCl) 100 Mg Tab 100 Mg PO DAILY Folic Acid 1 Mg Tablet 1 Mg PO DAILY Polyethylene Glycol 3350 Powder (Polyethylene Glycol) 17 Gram Pow 17 Gm PO DAILY Dok (Docusate Sodium) 100 Mg Cap 100 Mg PO BID [Budeson-Formot 160-4.5 Mg Inh] 60 PUFF Aero 2 Puff INH Q12HR Hydrocodone-Acetamin 10-325 mg (Hydrocodone/Acetaminophen) 10 Mg-325 Mg Tablet 1 Tab PO Q6HR PRN Metoprolol Tartrate 25 Mg Tab 25 Mg PO BID Atorvastatin (Atorvastatin Calcium) 40 Mg Tab 40 Mg PO HS Amiodarone (Amiodarone HCl) 200 Mg Tab 200 Mg PO Q12HR Plavix (Clopidogrel Bisulfate) 75 Mg Tab 75 Mg PO DAILY Cipro (Ciprofloxacin HCl) 250 Mg Tab 250 Mg PO Q12HR Reported Pantoprazole (Pantoprazole Sodium) 40 Mg Tab 40 Mg PO DAILY Aspirin 81 Mg Chew 81 Mg CHEW DAILY Review of Systems Except as stated in HPI: all other systems reviewed are Neg Physical Exam Narrative GENERAL: Well-developed elderly white male patient currently in mild distress. Awake and oriented 3. SKIN: Focused skin assessment warm/dry. HEAD: Atraumatic. Normocephalic. EYES: Pupils equal and round. No scleral icterus. No injection or drainage. ENT: No nasal bleeding or discharge. Mucous membranes pink and moist. NECK: Trachea midline. No JVD. CARDIOVASCULAR: Regular rate and rhythm. No murmur appreciated. Pulses are present and equal bilaterally. CHEST: Nontender throughout without deformity or crepitance. No retractions or use of accessory muscles. Midsternal incision appears clean, dry, intact, and there is a small amount of serosanguineous fluid on the wound bandaged on removal. RESPIRATORY: Mild accessory muscle use. Intermittent wheezing. Breath sounds equal bilaterally. GASTROINTESTINAL: Abdomen soft, non-tender, nondistended. Hepatic and splenic margins not palpable. MUSCULOSKELETAL: No obvious deformities. No clubbing. No cyanosis. No edema. NEUROLOGICAL: Awake and alert. No obvious cranial nerve deficits. Motor grossly within normal limits. Normal speech. PSYCHIATRIC: Appropriate mood and affect; insight and judgment normal. Data Data Last Documented VS Vital Signs Date Time Temp Pulse Resp B/P (MAP) Pulse Ox O2 Delivery O2 Flow Rate FiO2 03/09/17 18:38 99.5 84 19 122/79 (93) 92 Room Air Orders Orders B-Type Natriuretic Peptide (03/09/17 18:45) Electrocardiogram (03/09/17 18:45) Complete Blood Count With Diff (03/09/17 18:45) Comprehensive Metabolic Panel (03/09/17 18:45) Ckmb (Isoenzyme) Profile (03/09/17 18:45) Troponin I (03/09/17 18:45) Chest, Single Ap (03/09/17 18:45) MDM Medical Decision Making Medical Screen Exam Complete: Yes Emergency Medical Condition: Yes Medical Record Reviewed: Yes Differential Diagnosis Deconditioning versus COPD versus worsening CHF versus dysrhythmias versus ACS Narrative Course Incision appears clean, and it is redressed in the ER. On reexamination, he appears to be in mild rest. Distress after the walk, having some wheezing, and additional chest x-ray and lab work was done for further evaluation for medical clearance. Physician Communication Physician Communication Case is signed out to Dr. Gonsalez at 7 PM pending additional workup. Disposition based on workup. Diagnosis Primary Impression: Chest pain in adult Condition: Stable Chelsy Gomes MD Mar 09, 2017 18:50
--- NOTE | 2017-03-09 19:13 | RADRPT ---
EXAM DATE/TIME: 03/09/2017 18:54 [facility] COMPARISON: CHEST SINGLE AP, March 09, 2017, 8:30. INDICATIONS : Short of breath and chest pain. MEDICAL HISTORY : Myocardial infarction. Hypercholesterolemia. Carcinoma, prostatic SURGICAL HISTORY : CABG. 2 cardiac stents. Prostatectomy. Coronary Artery Stent, Removal of Ileal conduit. ENCOUNTER: [facility] ACUITY: 2 months PAIN SCORE: 10/10 LOCATION: Bilateral chest FINDINGS: Mild left base consolidation again noted, not significantly changed right lung remains clear. I don't see a large effusion on either side. No pneumothorax. Heart size stable, mildly enlarged. CONCLUSION: No significant change left base consolidation. Fadi Castañeda MD on March 09, 2017 at 19:10 Board Certified Radiologist. This report was verified electronically.
[2017-03-09 19:26] LABS: AUTOMATED NEUTROPHIL # 5.5 TH/MM3 (1.8-7.7); BASOPHIL % 0.4 % (0.0-2.0); EOSINOPHIL # 0.1 TH/MM3 (0-0.4); EOSINOPHIL % 1.4 % (0.0-4.0); HEMATOCRIT 31.8 % (39.0-51.0); LYMPH % 14.6 % (9.0-44.0); LYMPHOCYTE # 1.1 TH/MM3 (1.0-4.8); MEAN CELL VOLUME 105.8 FL (80.0-100.0); MEAN CORPUSCULAR HEMOGLOBIN 34.8 PG (27.0-34.0); MEAN CORPUSCULAR HGB CONC 32.9 % (32.0-36.0); MONO % 10.6 % (0.0-8.0); PLATELET COUNT 315 TH/MM3 (150-450); RED BLOOD COUNT 3.01 MIL/MM3 (4.50-5.90); WHITE BLOOD COUNT 7.6 TH/MM3 (4.0-11.0)
[2017-03-09 19:28] LABS: HEMO FLAGS AUTO DIFF
[2017-03-09 19:39] VITALS: BP 127/95; PULSE 83; RESP 20; TEMP 99; O2SAT 96
[2017-03-09 19:52] LABS: BANDS 7 % (0-6); EOSINOPHILS 2 % (0-4); METAMYELOCYTES 1 % (0-1); MYELOCYTES 1 % (0-0); NEUTROPHIL # MANUAL DIFF 5.5 TH/MM3 (1.8-7.7); PLATELET ESTIMATE SMEAR NORMAL (NORMAL); PLATELET MORPHOLOGY NORMAL (NORMAL); POLYS (SEG NEUTROPHILS) 63 % (16-70); SCAN/DIFF FINAL DIFF MANUAL; WBC DIFF SAMPLE 100
[2017-03-09 19:57] LABS: ALT (GPT) 22 U/L (12-78); ANION GAP 8 MEQ/L (5-15); AST (GOT) 36 U/L (15-37); BLOOD UREA NITROGEN 18 MG/DL (7-18); CHLORIDE 103 MEQ/L (98-107); GLOMERULAR FILTRATION RATE 66 ML/MIN (>89); SODIUM (NA) 137 MEQ/L (136-145)
[2017-03-09 19:58] LABS: POTASSIUM 5.3 MEQ/L (3.5-5.1)
[2017-03-09 20:01] LABS: ALKALINE PHOSPHATASE 83 U/L (45-117); TOTAL BILIRUBIN ADULT 0.4 MG/DL (0.2-1.0)
[2017-03-09 20:02] LABS: CREATINE KINASE 96 U/L (39-308)
--- NOTE | 2017-03-09 22:25 | PD ---
Physical Exam Date Seen by Provider: Mar 09, 2017 Time Seen by Provider: 22:18 Narrative accepted in transfer of care from Dr Gomes GENERAL: Well-developed well-nourished male in no acute distress no respiratory distress SKIN: Warm and dry. HEAD: Normocephalic. EYES: No scleral icterus. No injection or drainage. NECK: Supple, trachea midline. No JVD or lymphadenopathy. CARDIOVASCULAR: Regular rate and rhythm without murmurs, gallops, or rubs. Chest wall: Well approximated sternotomy wound with scant serosanguineous drainage clean dressing applied. RESPIRATORY: Breath sounds equal bilaterally. No accessory muscle use. GASTROINTESTINAL: Abdomen soft, non-tender, nondistended. Abdomen is soft nontender no guarding or rebound ileostomy site without induration and stoma looks pink and healthy. MUSCULOSKELETAL: No cyanosis, or edema. BACK: Nontender without obvious deformity. No CVA tenderness. Data Data Last Documented VS Vital Signs Date Time Temp Pulse Resp B/P (MAP) Pulse Ox O2 Delivery O2 Flow Rate FiO2 03/09/17 22:45 94 Nasal Cannula 4.00 03/09/17 19:39 99.0 83 20 127/95 (106) Orders Orders B-Type Natriuretic Peptide (03/09/17 18:45) Electrocardiogram (03/09/17 18:45) Complete Blood Count With Diff (03/09/17 18:45) Comprehensive Metabolic Panel (03/09/17 18:45) Ckmb (Isoenzyme) Profile (03/09/17 18:45) Troponin I (03/09/17 18:45) Chest, Single Ap (03/09/17 18:45) Ciprofloxacin (Cipro) (03/09/17 22:30) Albuterol-Ipratropium Neb (Duoneb Neb) (03/09/17 22:30) Furosemide Inj (Lasix Inj) (03/09/17 22:30) Labs Laboratory Tests Test 03/09/17 19:10 White Blood Count 7.6 TH/MM3 Red Blood Count 3.01 MIL/MM3 Hemoglobin 10.5 GM/DL Hematocrit 31.8 % Mean Corpuscular Volume 105.8 FL Mean Corpuscular Hemoglobin 34.8 PG Mean Corpuscular Hemoglobin Concent 32.9 % Red Cell Distribution Width 19.0 % Platelet Count 315 TH/MM3 Mean Platelet Volume 8.1 FL Neutrophils (%) (Auto) 73.0 % Lymphocytes (%) (Auto) 14.6 % Monocytes (%) (Auto) 10.6 % Eosinophils (%) (Auto) 1.4 % Basophils (%) (Auto) 0.4 % Neutrophils # (Auto) 5.5 TH/MM3 Lymphocytes # (Auto) 1.1 TH/MM3 Monocytes # (Auto) 0.8 TH/MM3 Eosinophils # (Auto) 0.1 TH/MM3 Basophils # (Auto) 0.0 TH/MM3 CBC Comment AUTO DIFF Differential Total Cells Counted 100 Neutrophils % (Manual) 63 % Band Neutrophils % 7 % Lymphocytes % 14 % Monocytes % 12 % Eosinophils % 2 % Neutrophils # (Manual) 5.5 TH/MM3 Metamyelocytes 1 % Myelocytes 1 % Differential Comment FINAL DIFF MANUAL Platelet Estimate NORMAL Platelet Morphology Comment NORMAL Blood Urea Nitrogen 18 MG/DL Creatinine 1.12 MG/DL Random Glucose 86 MG/DL Total Protein 7.4 GM/DL Albumin 2.5 GM/DL Calcium Level 8.6 MG/DL Alkaline Phosphatase 83 U/L Aspartate Amino Transf (AST/SGOT) 36 U/L Alanine Aminotransferase (ALT/SGPT) 22 U/L Total Bilirubin 0.4 MG/DL Sodium Level 137 MEQ/L Potassium Level 5.3 MEQ/L Chloride Level 103 MEQ/L Carbon Dioxide Level 26.0 MEQ/L Anion Gap 8 MEQ/L Estimat Glomerular Filtration Rate 66 ML/MIN Total Creatine Kinase 96 U/L Troponin I 0.04 NG/ML B-Type Natriuretic Peptide 428 PG/ML [facility] Medical Record Reviewed: Yes Supervised Visit with SHANNEN: No Interpretation(s) Last Impressions Chest X-Ray 03/09/179 Signed Impressions: Service Date/Time: Thursday, March 09, 2017 18:54 - CONCLUSION: No significant change left base consolidation. Fadi Castañeda MD CBC & BMP Diagram 03/09/17 19:10 Total Protein 7.4 #, Albumin 2.5 L, Calcium Level 8.6, Alkaline Phosphatase 83, Aspartate Amino Transf (AST/SGOT) 36, Alanine Aminotransferase (ALT/SGPT) 22, Total Bilirubin 0.4 Vital Signs Date Time Temp Pulse Resp B/P (MAP) Pulse Ox O2 Delivery O2 Flow Rate FiO2 03/09/17 22:45 94 Nasal Cannula 4.00 03/09/17 19:39 99.0 83 20 127/95 (106) 96 Nasal Cannula 2.00 03/09/17 18:38 99.5 84 19 122/79 (93) 92 Room Air Differential Diagnosis accepted in transfer of care from Dr Gomes; please refer to her dictation Narrative Course accepted in transfer of care from Dr Gomes for follow up on pending labs and disposition At 10:20 PM Patient reports she is here to have his post sternotomy wound evaluated and a new dressing applied. Patient states that he is hungry and that he has a headache. Patient reports that he refuses to go back to the nursing facility/rehabilitation facility where he left this morning. Patient has paid rent at his local residence but does not want to return there due to potential mold issues. Patient does not have any complaint of chest pain shortness of breath orthopnea PND. Patient states he is just fatigued from traveling to multiple facilities today. As previously noted on his earlier visit to the emergency department and his emergency department visit tonight he left the assigned rehabilitation facility early this morning traveled to a friend's location and then was brought to the emergency department by EMS for fatigue and evaluation refused to be admitted back to his nursing facility and was discharged and left [place] and went to [facility] where he states they were not able to provide him any resources so returned here again to have his wound site evaluated and a new dressing applied. Patient has not taken his evening dose of antibiotic use prescribed Cipro 500 mg twice daily denies any fever or chills. According to prior providers note patient was complaining of chest pain and shortness of breath. Lab values and imaging values are all within normal range except for a mildly elevated BNP of 428. Patient given a one-time dose of Lasix as well as a DuoNeb updraft 1 one site was evaluated and had dressing applied. Patient feels well continues to refuse to be transported back to rehabilitation facility over the weekend in order to wait until he could potentially be placed in a new rehabilitation facility. Patient states he has a residence where he pays rent and he is refuses to go back to the rehabilitation facility. At this point time there is no clear indication for admitting the patient to the hospital. Patient did receive his evening dose of Cipro and did his morning dose of Cipro was encouraged to take his medications as prescribed. Patient acknowledges that he needs to be in a rehabilitation facility. Patient will leave AGAINST MEDICAL ADVICE is refuses to be transported to an available rehabilitation facility for ongoing post hospitalization medical management. Physician Communication Physician Communication discussed with medicine Diagnosis Primary Impression: Post-operative pain Referrals: Primary Care Physician 2 days Patient Instructions: General Instructions Additional Instruction: Take your current prescription medications as chronically prescribed try to avoid missing any dosages Follow-up with your primary care provider and specialist call office on Saturday morning Return to the emergency department for any concerns or change in condition Nausea temperature for fever take acetaminophen/Tylenol as needed for fever 100.4F or greater Condition: Stable Amy Gonsalez MD Mar 09, 2017 22:25
[2017-03-09] MEDS ORDERED: FUROSEMIDE 20 MG/2 ML VIAL IV PUSH ONE (22:30)
[2017-03-09] MEDS ORDERED: CIPROFLOXACIN 500 MG TAB PO ONE (22:30)
[2017-03-09] MEDS ORDERED: RESP: ALBUTEROL 2.5 MG/IPRATROPIUM 0.5 MG NEB (SCH) NEB ONE (22:30)
[2017-03-09 22:45] VITALS: O2SAT 94
[2017-03-10] MEDS ORDERED: ACETAMINOPHEN 325 MG TAB PO ONE (00:30)
[2017-03-10 01:32] VITALS: BP 102/61
--- NOTE | 2017-03-10 22:35 | EKG ---
Date Performed: 03/09/2017 Time Performed: 19:39:23 PTAGE: 62 years EKG: Sinus rhythm WITH OCCASIONAL SUPRAVENTRICULAR PREMATURE COMPLEXES NONSPECIFIC T-WAVE ABNORMALITY BORDERLINE ECG PREVIOUS TRACING : 03/09/2017 09.15 Compared to prior tracing no significant change DOCTOR: David Callejas Interpretating Date/Time 03/10/2017 22:34:05
== END 2017-03-10 01:55 | disposition home or self-care (01) ==
LOC: NEPC 17:47
DX: G89.18 Other acute postprocedural pain (principal); R07.9 Chest pain, unspecified; R06.02 Shortness of breath; R06.2 Wheezing; R51 Headache; R94.31 Abnormal electrocardiogram [ECG] [EKG]; I10 Essential (primary) hypertension; E78.00 Pure hypercholesterolemia, unspecified; G47.30 Sleep apnea, unspecified; I25.2 Old myocardial infarction; Z53.29 Procedure and treatment not carried out because of patient's decision for other reasons; Z95.1 Presence of aortocoronary bypass graft; Z98.890 Other specified postprocedural states; Z72.0 Tobacco use; Z79.82 Long term (current) use of aspirin; Z87.39 Personal history of other diseases of the musculoskeletal system and connective tissue; Z86.59 Personal history of other mental and behavioral disorders; Z86.79 Personal history of other diseases of the circulatory system; Z85.51 Personal history of malignant neoplasm of bladder; Z87.19 Personal history of other diseases of the digestive system; Z86.19 Personal history of other infectious and parasitic diseases
CPT/HCPCS: 71010; 80053; 82550; 83880; 84484; 85007; 85027; 93005; 94664; 96374; 99285; J1940

== ENCOUNTER 2017-03-10 15:06 | Emergency (ER) | payer MEDICAID ==
[~2017-03-10] VITALS: Ht 175.3 cm; Wt 85.0 kg
[2017-03-10 15:12] VITALS: BP 105/69; PULSE 73; RESP 16; TEMP 98.5; O2SAT 95
--- NOTE | 2017-03-10 15:27 | PD ---
HPI Chief Complaint: Chest Pain Time Seen by Provider: 15:17 Travel History International Travel<30 days: No Contact w/Intl Traveler<30days: No Traveled to known affect area: No History of Present Illness HPI The patient is a 62-year-old male who presents to the emergency department for dressing change on the chest wall. The patient underwent CABG several weeks ago at [facility] was discharged to inpatient rehabilitation. However, the patient states that he did not want anyone telling him what he could and could not do, he subsequently left the rehabilitation Center in the morning after "words were crossed ". The patient states he went to [facility] yesterday for dressing change, they applied a dressing, however, he took off his dressing when he shower today. He states it has been drainage he states anywhere from clear to purulent, however, he states there is no current drainage from the wound upon arrival. He does complain of postoperative wound over the chest but denies any significant increase in pain or shortness of breath. He has not followed up with his cardiothoracic surgeon. The patient states she does not want to go back to cardiac rehabilitation, states it was a "shelter "and he does not want to stay there. PFSH Past Medical History Hx Anticoagulant Therapy: Yes (asa) Arthritis: Yes (BACK) Anxiety: Yes Heart Rhythm Problems: Yes Cancer: Yes (HX of bladder ) Cardiovascular Problems: Yes High Cholesterol: Yes Chest Pain: Yes Diminished Hearing: No Gastrointestinal Disorders: Yes GERD: Yes Genitourinary: Yes (ILEAL CONDUIT) Headaches: Yes Hepatitis: Yes (HEP B) Hypertension: Yes Implanted Vascular Access Dvce: Yes Immunizations Current: Yes Myocardial Infarction: Yes (2) Sleep Apnea: Yes Ulcer: Yes Past Surgical History Abdominal Surgery: Yes Body Medical Devices: ILEAL CONDUIT, CARDIAC STENTS Cardiac Surgery: Yes (CARDIAC STENT 01/2013) Coronary Stent: Yes (2 ) Genitourinary Surgery: Yes (HX of bladder cancer and removal with Ileal conduit , HX of kidney stents) Pacemaker: No Prostatectomy: Yes Other Surgery: Yes (CYSTECTOMY/PROSTATECTOMY 2010) Social History Alcohol Use: Yes (Occassional ) Tobacco Use: Yes Substance Use: No Allergies-Medications (Allergen,Severity, Reaction): Coded Allergies: Sulfa (Sulfonamide Antibiotics) (Unverified Allergy, Severe, Rash, 03/10/17 ) "quit breathing" doxycycline (Unverified Allergy, Severe, 03/10/17) allergy Reported Meds & Prescriptions Reported Meds & Active Scripts Active Ventolin Hfa 18 GM Inh (Albuterol Sulfate) 90 Mcg/Act Aer 2 Puff INH Q4-6H PRN Thera M Plus (Multivitamins/Minerals Therapeutic) 1 Tab 1 Tab PO DAILY Gnp Vitamin B-1 (Thiamine HCl) 100 Mg Tab 100 Mg PO DAILY Folic Acid 1 Mg Tablet 1 Mg PO DAILY Polyethylene Glycol 3350 Powder (Polyethylene Glycol) 17 Gram Pow 17 Gm PO DAILY Dok (Docusate Sodium) 100 Mg Cap 100 Mg PO BID [Budeson-Formot 160-4.5 Mg Inh] 60 PUFF Aero 2 Puff INH Q12HR Hydrocodone-Acetamin 10-325 mg (Hydrocodone/Acetaminophen) 10 Mg-325 Mg Tablet 1 Tab PO Q6HR PRN Metoprolol Tartrate 25 Mg Tab 25 Mg PO BID Atorvastatin (Atorvastatin Calcium) 40 Mg Tab 40 Mg PO HS Amiodarone (Amiodarone HCl) 200 Mg Tab 200 Mg PO Q12HR Plavix (Clopidogrel Bisulfate) 75 Mg Tab 75 Mg PO DAILY Cipro (Ciprofloxacin HCl) 250 Mg Tab 250 Mg PO Q12HR Reported Pantoprazole (Pantoprazole Sodium) 40 Mg Tab 40 Mg PO DAILY Aspirin 81 Mg Chew 81 Mg CHEW DAILY Review of Systems Except as stated in HPI: all other systems reviewed are Neg General / Constitutional: No: Fever Cardiovascular: Positive: Chest Pain or Discomfort (postoperative pain) Respiratory: No: Shortness of Breath Gastrointestinal: No: Nausea, Vomiting Musculoskeletal: No: Edema Skin: Positive Other (as noted in the history of present illness) Physical Exam Narrative GENERAL: Awake, alert, nontoxic-appearing 62-year-old male who appears his stated age and is in no acute respiratory distress. SKIN: Focused skin assessment warm/dry. HEAD: Atraumatic. Normocephalic. EYES: No injection or drainage. ENT: No nasal bleeding or discharge. Mucous membranes pink and moist. NECK: Trachea midline. No JVD. CARDIOVASCULAR: Sternal scar noted with Steri-Strips in place. Band-Aid over the inferior aspect of the sternum where chest tubes were removed. There is some clear thin drainage but no purulent drainage. No significant erythema noted. RESPIRATORY: No accessory muscle use. Clear to auscultation. Breath sounds equal bilaterally. GASTROINTESTINAL: Abdomen soft, non-tender, nondistended. Hepatic and splenic margins not palpable. MUSCULOSKELETAL: No obvious deformities. No clubbing. No cyanosis. No edema. NEUROLOGICAL: Awake and alert. No obvious cranial nerve deficits. Motor grossly within normal limits. Normal speech. PSYCHIATRIC: Appropriate mood and affect; insight and judgment normal. Data Data Last Documented VS Vital Signs Date Time Temp Pulse Resp B/P (MAP) Pulse Ox O2 Delivery O2 Flow Rate FiO2 03/10/17 15:12 98.5 73 16 105/69 (81) 95 MDM Medical Decision Making Medical Screen Exam Complete: Yes Emergency Medical Condition: Yes Medical Record Reviewed: Yes Differential Diagnosis differential diagnosis includes postoperative pain, wound check, cellulitis, abscess. Narrative Course The patient's wound was inspected, no significant erythema or drainage noted. The patient had the area cleaned, Steri-Strips were clipped in place, he had ointment applied over the affected area and a dry sterile dressing applied. The patient will be provided a dressing change material, he is advised to monitor daily for increasing signs of infection and to follow-up with his cardiothoracic surgeon. Diagnosis Primary Impression: Visit for wound check Patient Instructions: General Instructions Additional Instructions: Monitor for signs of infection. Follow-up with cardiothoracic surgery surgeon. Return if symptoms worsen or progress. Med/Other Pt SpecificInfo: No Change to Meds Disposition: 01 DISCHARGE HOME Condition: Stable Jasper Francis MD Mar 10, 2017 15:27
== END 2017-03-10 15:44 | disposition home or self-care (01) ==
LOC: PHED 15:06
DX: Z48.01 Encounter for change or removal of surgical wound dressing (principal); I10 Essential (primary) hypertension; E78.00 Pure hypercholesterolemia, unspecified; I25.2 Old myocardial infarction; K21.9 Gastro-esophageal reflux disease without esophagitis; Z95.1 Presence of aortocoronary bypass graft; Z88.2 Allergy status to sulfonamides; Z72.0 Tobacco use; Z79.82 Long term (current) use of aspirin; Z79.899 Other long term (current) drug therapy
CPT/HCPCS: 99281

== ENCOUNTER 2017-03-12 18:05 | Observation (INO) | payer MEDICAID ==
[~2017-03-12] VITALS: Ht 175.3 cm; Wt 89.0 kg
[~2017-03-12 18:05] MED LIST changes: -Budeson-Formot 160-4.5 Mg Inh INH; -THIA100 PO
[2017-03-12 18:10] VITALS: TEMP 97.8
[2017-03-12 18:15] VITALS: BP 115/84; PULSE 89; RESP 19; TEMP 97.8; O2SAT 96
--- NOTE | 2017-03-12 18:24 | PD ---
HPI Chief Complaint: Chest Pain Time Seen by Provider: 18:29 Travel History International Travel<30 days: No Contact w/Intl Traveler<30days: No Traveled to known affect area: No History of Present Illness HPI 50 YO M with PMH of chronic alcoholism, CABG 2 on 03/04 presents to the ED via EMS for evaluation of CP, nausea, diaphoresis and palpitations. Onset "a few hours ago" after walking across the street and back and drinking a 4Loco. Patient states that the symptoms were accompanied by weakness. He states he felt as if he was unable to stand. Complains today of ongoing CP which he states is unchanged since his CABG. He states that he was in rehabilitation until 3 days ago when he left AMA. His main complaint today is "being a dumb ass." He has not been taking ANY medications since leaving the rehab AMA. Patient states that he recognizes that he made a mistake by leaving the rehabilitation. He also acknowledges that he made a mistake by drinking and smoking after discharge. PFSH Past Medical History Hx Anticoagulant Therapy: Yes (asa) Arthritis: Yes (BACK) Anxiety: Yes Heart Rhythm Problems: Yes Cancer: Yes (HX of bladder ) Cardiovascular Problems: Yes (BYPASS) High Cholesterol: Yes Chest Pain: Yes Diminished Hearing: No Gastrointestinal Disorders: Yes GERD: Yes Genitourinary: Yes (ILEAL CONDUIT) Headaches: Yes Hepatitis: Yes (HEP B) Hypertension: Yes Implanted Vascular Access Dvce: Yes Immunizations Current: Yes Myocardial Infarction: Yes (2) Sleep Apnea: Yes Ulcer: Yes Influenza Vaccination: Yes Past Surgical History Abdominal Surgery: Yes Body Medical Devices: ILEAL CONDUIT, CARDIAC STENTS Cardiac Surgery: Yes (CARDIAC STENT 01/2013, BYPASS 02/2017) Coronary Stent: Yes (2 ) Genitourinary Surgery: Yes (HX of bladder cancer and removal with Ileal conduit , HX of kidney stents) Pacemaker: No Prostatectomy: Yes Other Surgery: Yes (CYSTECTOMY/PROSTATECTOMY 2010) Family History Family Myocardial Infarction: Yes Social History Alcohol Use: Yes (DRANK ONE 4 LOCO PRIOR TO ARRIVAL) Tobacco Use: Yes (1/2 - 1 PPD ) Substance Use: No Allergies-Medications (Allergen,Severity, Reaction): Coded Allergies: Sulfa (Sulfonamide Antibiotics) (Unverified Allergy, Severe, Rash, 03/10/17 ) "quit breathing" doxycycline (Unverified Allergy, Severe, 03/10/17) allergy Reported Meds & Prescriptions Reported Meds & Active Scripts Active Ventolin Hfa 18 GM Inh (Albuterol Sulfate) 90 Mcg/Act Aer 2 Puff INH Q4-6H PRN Thera M Plus (Multivitamins/Minerals Therapeutic) 1 Tab 1 Tab PO DAILY Folic Acid 1 Mg Tablet 1 Mg PO DAILY Polyethylene Glycol 3350 Powder (Polyethylene Glycol) 17 Gram Pow 17 Gm PO DAILY Dok (Docusate Sodium) 100 Mg Cap 100 Mg PO BID Hydrocodone-Acetamin 10-325 mg (Hydrocodone/Acetaminophen) 10 Mg-325 Mg Tablet 1 Tab PO Q6HR PRN Metoprolol Tartrate 25 Mg Tab 25 Mg PO BID Atorvastatin (Atorvastatin Calcium) 40 Mg Tab 40 Mg PO HS Amiodarone (Amiodarone HCl) 200 Mg Tab 200 Mg PO Q12HR Plavix (Clopidogrel Bisulfate) 75 Mg Tab 75 Mg PO DAILY Cipro (Ciprofloxacin HCl) 250 Mg Tab 250 Mg PO Q12HR Reported Pantoprazole (Pantoprazole Sodium) 40 Mg Tab 40 Mg PO DAILY Aspirin 81 Mg Chew 81 Mg CHEW DAILY Review of Systems Except as stated in HPI: all other systems reviewed are Neg Physical Exam Narrative GENERAL: Well-nourished, well-developed white male in no acute distress. SKIN: Focused skin assessment warm/dry. Well healing midsternal surgical wound without signs of infection. 3 cm surgical wound in the left inner thigh without signs of infection. HEAD: Normocephalic. EYES: No scleral icterus. No injection or drainage. NECK: Supple, trachea midline. No JVD or lymphadenopathy. CARDIOVASCULAR: Regular rate and rhythm without murmurs, gallops, or rubs. RESPIRATORY: Breath sounds clear and equal bilaterally. No accessory muscle use. GASTROINTESTINAL: Abdomen protuberant, soft, non-tender, nondistended. Active bowel sounds. MUSCULOSKELETAL: No cyanosis, or edema. BACK: Nontender without obvious deformity. No CVA tenderness. Data Data Last Documented VS Vital Signs Date Time Temp Pulse Resp B/P (MAP) Pulse Ox O2 Delivery O2 Flow Rate FiO2 03/12/17 19:30 88 20 141/90 (107) 94 Room Air 03/12/17 18:15 97.8 Orders Orders Electrocardiogram (03/12/17 18:24) Ckmb (Isoenzyme) Profile (03/12/17 18:24) Complete Blood Count With Diff (03/12/17 18:24) Comprehensive Metabolic Panel (03/12/17 18:24) Magnesium (Mg) (03/12/17 18:24) Prothrombin Time / Inr (Pt) (03/12/17 18:24) Act Partial Throm Time (Ptt) (03/12/17 18:24) Troponin I (03/12/17 18:24) Chest, Single Ap (03/12/17 18:24) Ecg Monitoring (03/12/17 18:24) Bilateral Bp Monitoring (03/12/17 18:24) Iv Access Insert/Monitor (03/12/17 18:24) Oximetry (03/12/17 18:24) Sodium Chloride 0.9% Flush (Ns Flush) (03/12/17 18:30) Aspirin (Aspirin) (03/12/17 18:30) Morphine Inj (Morphine Inj) (03/12/17 18:30) Alcohol Withdrawal Asmt-Ciwa ONCE (03/12/17 18:29) Flumazenil Inj (Romazicon Inj) (03/12/17 18:30) Lorazepam (Ativan) (03/12/17 18:30) Lorazepam Inj (Ativan Inj) (03/12/17 18:30) Lorazepam (Ativan) (03/12/17 18:30) Lorazepam Inj (Ativan Inj) (03/12/17 18:30) Lorazepam Inj (Ativan Inj) (03/12/17 18:30) Lorazepam Inj (Ativan Inj) (03/12/17 18:30) Alcohol (Ethanol) (03/12/17 18:39) Admit Order (Ed Use Only) (03/12/17 20:01) Labs Laboratory Tests Test 03/12/17 18:31 03/12/17 19:35 White Blood Count 10.1 TH/MM3 Red Blood Count 3.03 MIL/MM3 Hemoglobin 11.1 GM/DL Hematocrit 31.7 % Mean Corpuscular Volume 104.6 FL Mean Corpuscular Hemoglobin 36.7 PG Mean Corpuscular Hemoglobin Concent 35.1 % Red Cell Distribution Width 18.4 % Platelet Count 426 TH/MM3 Mean Platelet Volume 7.7 FL Neutrophils (%) (Auto) 71.3 % Lymphocytes (%) (Auto) 17.1 % Monocytes (%) (Auto) 7.3 % Eosinophils (%) (Auto) 3.7 % Basophils (%) (Auto) 0.6 % Neutrophils # (Auto) 7.2 TH/MM3 Lymphocytes # (Auto) 1.7 TH/MM3 Monocytes # (Auto) 0.7 TH/MM3 Eosinophils # (Auto) 0.4 TH/MM3 Basophils # (Auto) 0.1 TH/MM3 CBC Comment AUTO DIFF Differential Total Cells Counted 100 Neutrophils % (Manual) 71 % Band Neutrophils % 3 % Lymphocytes % 15 % Monocytes % 6 % Eosinophils % 1 % Basophils % 1 % Neutrophils # (Manual) 7.8 TH/MM3 Myelocytes 2 % Promyelocytes 1 % Nucleated Red Blood Cells 1 /100 WBC Differential Comment FINAL DIFF MANUAL Platelet Estimate NORMAL Platelet Morphology Comment NORMAL Spherocytes 1+ Prothrombin Time 10.1 SEC Prothromb Time International Ratio 1.0 RATIO Activated Partial Thromboplast Time 24.0 SEC Blood Urea Nitrogen 11 MG/DL Creatinine 0.93 MG/DL Random Glucose 98 MG/DL Total Protein 6.7 GM/DL Albumin 2.3 GM/DL Calcium Level 8.0 MG/DL Magnesium Level 1.6 MG/DL Alkaline Phosphatase 85 U/L Aspartate Amino Transf (AST/SGOT) 34 U/L Alanine Aminotransferase (ALT/SGPT) 29 U/L Total Bilirubin 0.2 MG/DL Sodium Level 145 MEQ/L Potassium Level 3.3 MEQ/L Chloride Level 111 MEQ/L Carbon Dioxide Level 22.5 MEQ/L Anion Gap 12 MEQ/L Estimat Glomerular Filtration Rate 82 ML/MIN Total Creatine Kinase 36 U/L Troponin I 0.02 NG/ML Ethyl Alcohol Level 88 MG/DL [facility] Medical Decision Making Medical Screen Exam Complete: Yes Emergency Medical Condition: Yes Differential Diagnosis CAD versus ACS versus noncompliance versus chronic alcoholism versus postoperative pain versus other Narrative Course 50 YO M with PMH of chronic alcoholism, CABG 2 on 03/04 presents to the ED via EMS for evaluation of CP, nausea, diaphoresis and palpitations. Onset "a few hours ago" after walking across the street and back and drinking a 4Loco. CP ongoing, unchanged since his CABG. he left AMA from rehabilitation 3 days ago. His main complaint today is "being a dumb ass." He has not been taking ANY medications since leaving the rehab AMA. Vitals reviewed. Physical exam reveals a nontoxic-appearing white male in no acute distress. The surgical wounds of the chest and left leg are well healing without signs of infection. Chest is clear to auscultation bilaterally. Abdomen soft and nontender. Family edema noted. IV was established. Patient was administered aspirin by mouth and 4 mg morphine IV. CIWA protocol was ordered. EKG rate 88, sinus rhythm with occasional PVCs. WA interval 149, QRS 91, QTc 385 ms. Normal axis. No acute ST changes. Similar to previous EKG of 03/09/17. CXR: No interval change. Troponin negative 1. CBC: Hemoglobin 11.1. Hematocrit 31.7. Platelets 426. CMP: Potassium 3.3. BUN 11, creatinine 0.93. INR 1.0. Alcohol 88 Cardiothoracic surgery consult was placed with Dr. Luther. I discussed the patient with Dr. Vital who agrees to accept him to the medical service. Please see medicine notes for disposition. Elizabeth Ramírez Mar 12, 2017 18:24
[2017-03-12] MEDS ORDERED: LORazepam 2 MG TAB PO PRN (18:30)
[2017-03-12] MEDS ORDERED: MORPHINE SULFATE 4 MG/ML INJ IV PUSH ONE (18:30)
[2017-03-12] MEDS ORDERED: SODIUM CHLORIDE 0.9% FLUSH 10 ML FLUSH IVF PRN (18:30)
[2017-03-12] MEDS ORDERED: ASPIRIN 325 MG TAB PO ONE (18:30)
[2017-03-12] MEDS ORDERED: LORazepam 2 MG/ML VIAL IV PUSH PRN ×4 (18:30)
[2017-03-12] MEDS ORDERED: LORazepam 1 MG TAB PO PRN (18:30)
[2017-03-12] MEDS ORDERED: FLUMAZENIL 0.5 MG/5 ML VIAL IV PUSH PRN (18:30)
[2017-03-12 19:12] LABS: AUTOMATED NEUTROPHIL # 7.2 TH/MM3 (1.8-7.7); BASOPHIL # 0.1 TH/MM3 (0-0.2); BASOPHIL % 0.6 % (0.0-2.0); EOSINOPHIL # 0.4 TH/MM3 (0-0.4); EOSINOPHIL % 3.7 % (0.0-4.0); HEMATOCRIT 31.7 % (39.0-51.0); LYMPH % 17.1 % (9.0-44.0); LYMPHOCYTE # 1.7 TH/MM3 (1.0-4.8); MEAN CELL VOLUME 104.6 FL (80.0-100.0); MEAN CORPUSCULAR HEMOGLOBIN 36.7 PG (27.0-34.0); MEAN CORPUSCULAR HGB CONC 35.1 % (32.0-36.0); MONO % 7.3 % (0.0-8.0); NEUT % 71.3 % (16.0-70.0); PLATELET COUNT 426 TH/MM3 (150-450); RED BLOOD COUNT 3.03 MIL/MM3 (4.50-5.90); RED CELL DISTRIBUTION WIDTH 18.4 % (11.6-17.2); WHITE BLOOD COUNT 10.1 TH/MM3 (4.0-11.0)
[2017-03-12 19:21] LABS: HEMO FLAGS AUTO DIFF
[2017-03-12 19:26] LABS: PROTHROMBIN TIME - PATIENT 10.1 SEC (9.8-11.6)
[2017-03-12 19:29] VITALS: BP 121/83; PULSE 87; RESP 20; O2SAT 94
[2017-03-12 19:30] VITALS: BP 141/90; PULSE 88; RESP 20; O2SAT 94
[2017-03-12 19:32] LABS: ALKALINE PHOSPHATASE 85 U/L (45-117); ALT (GPT) 29 U/L (12-78); ANION GAP 12 MEQ/L (5-15); AST (GOT) 34 U/L (15-37); BICARBONATE 22.5 MEQ/L (21.0-32.0); BLOOD UREA NITROGEN 11 MG/DL (7-18); CHLORIDE 111 MEQ/L (98-107); GLOMERULAR FILTRATION RATE 82 ML/MIN (>89); MAGNESIUM 1.6 MG/DL (1.5-2.5); POTASSIUM 3.3 MEQ/L (3.5-5.1); SODIUM (NA) 145 MEQ/L (136-145); TOTAL BILIRUBIN ADULT 0.2 MG/DL (0.2-1.0)
[2017-03-12 19:33] LABS: CREATINE KINASE 36 U/L (39-308)
[2017-03-12] MEDS ORDERED: SODIUM CHLORIDE 0.9% FLUSH 10 ML FLUSH IV FLUSH PRN (20:15)
[2017-03-12] MEDS ORDERED: NALOXONE HCL 0.4 MG/ML AMP IV PUSH PRN (20:15)
[2017-03-12] MEDS ORDERED: POTASSIUM CHLORIDE 20 MEQ CONTROLLED RELEASE TAB PO ONE (20:15)
[2017-03-12 20:21] LABS: BANDS 3 % (0-6); BASOPHILS 1 % (0-2); CORRECTED NUCLEATED RBC 1 /100 WBC (0-0); EOSINOPHILS 1 % (0-4); MYELOCYTES 2 % (0-0); NEUTROPHIL # MANUAL DIFF 7.8 TH/MM3 (1.8-7.7); POLYS (SEG NEUTROPHILS) 71 % (16-70); PROMYELOCYTES 1 % (0-0); WBC DIFF SAMPLE 100
[2017-03-12 20:22] LABS: PLATELET ESTIMATE SMEAR NORMAL (NORMAL); PLATELET MORPHOLOGY NORMAL (NORMAL); SCAN/DIFF FINAL DIFF MANUAL
[2017-03-12 20:23] LABS: SPHEROCYTES 1+ (NORMAL)
--- NOTE | 2017-03-12 20:59 | RADRPT ---
EXAM DATE/TIME: 03/12/2017 18:44 [facility] COMPARISON: CHEST SINGLE AP, March 09, 2017, 18:54. INDICATIONS : Chest pain. MEDICAL HISTORY : Myocardial infarction. Hypercholesterolemia. Carcinoma, prostatic SURGICAL HISTORY : CABG. 2 cardiac stents. Prostatectomy. Coronary Artery Stent, Removal of Ileal conduit ENCOUNTER: Sequela ACUITY: 2 months PAIN SCORE: 10/10 LOCATION: Bilateral chest FINDINGS: The heart is enlarged but stable. Bibasilar atelectasis and/or infiltrates are stable. No pulmonary e grady is noted. There is no significant change compared to 03/09/17. CONCLUSION: No significant change compared to 03/09/17. Chalino Farris MD on March 12, 2017 at 20:57 Board Certified Radiologist. This report was verified electronically.
[2017-03-12 22:07] VITALS: BP 132/83; PULSE 100; RESP 24; TEMP 97.8; O2SAT 96
--- NOTE | 2017-03-12 22:40 | EKG ---
Date Performed: 03/12/2017 Time Performed: 18:11:05 PTAGE: 62 years EKG: Sinus rhythm WITH OCCASIONAL ECTOPIC PREMATURE COMPLEXES NONSPECIFIC T-WAVE ABNORMALITY BORDERLINE ECG PREVIOUS TRACING : 03/09/2017 19.39 Compared to prior tracing no significant change DOCTOR: Abraham Tabares Interpretating Date/Time 03/12/2017 22:38:42
--- NOTE | 2017-03-12 23:28 | HHI.HP ---
[facility] Service [facility] Primary Care Physician Fadi Estes MD Admission Diagnosis chest pain Diagnoses: (1) Chest pain (2) Coronary artery disease Chief Complaint: Chest pain Travel History International Travel<30 Days: No Contact w/Intl Traveler <30 Da: No Traveled to Known Affected Are: No History of Present Illness Mr. 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 Since that time, he has had 3 other visits to the emergency department but has refused to return to a rehabilitation facility. He presented on 03/12/2017 complaining of chest pain and shortness of breath and was admitted for observation and further medical management. The patient is seen in the CDU. He reports that he has not been taking his medications other than isosorbide yesterday that he took for chest pain. He states that he got a 4 [place] malt beverage and drank "about half of it" today. He states he has not been feeling very well since leaving rehabilitation and was hoping it would make him feel better. He states he developed weakness while walking and this was accompanied by central chest pressure that was a 10 out of 10 and was alleviated in the emergency room with morphine. Symptoms were accompanied by palpitations, shortness of breath, nausea, and diaphoresis. He denies any recent fever, chills, vomiting, or diarrhea. Review of Systems Except as stated in HPI: all other systems reviewed are Neg Past Family Social History Past Medical History Coronary artery disease status post CABG 2 03/04/2017- Dr. Luther Right DVT Right lung PE Arthritis Anxiety Bladder cancer status post cystectomy with ileostomy Arthritis Anxiety Bladder cancer Hyperlipidemia GERD Hepatitis B Hypertension Myocardial infarction 2 Obstructive sleep apnea but does not use CPAP Gastric ulcer 2 years ago - with upper endoscopy 1 year ago showing no further ulceration Denies any history of COPD, seizures, alcohol withdrawal, thyroid disease, CVA, or diabetes mellitus. Past Surgical History Ileal conduit Cardiac stents 2 CABG 2 03/04/2017 Kidney stents Prostatectomy/cystectomy 2011 Back surgery . Reported Medications Reported Meds & Active Scripts Active Ventolin Hfa 18 GM Inh (Albuterol Sulfate) 90 Mcg/Act Aer 2 Puff INH Q4-6H PRN Thera M Plus (Multivitamins/Minerals Therapeutic) 1 Tab 1 Tab PO DAILY Folic Acid 1 Mg Tablet 1 Mg PO DAILY Polyethylene Glycol 3350 Powder (Polyethylene Glycol) 17 Gram Pow 17 Gm PO DAILY Dok (Docusate Sodium) 100 Mg Cap 100 Mg PO BID Hydrocodone-Acetamin 10-325 mg (Hydrocodone/Acetaminophen) 10 Mg-325 Mg Tablet 1 Tab PO Q6HR PRN Metoprolol Tartrate 25 Mg Tab 25 Mg PO BID Atorvastatin (Atorvastatin Calcium) 40 Mg Tab 40 Mg PO HS Amiodarone (Amiodarone HCl) 200 Mg Tab 200 Mg PO Q12HR Plavix (Clopidogrel Bisulfate) 75 Mg Tab 75 Mg PO DAILY Cipro (Ciprofloxacin HCl) 250 Mg Tab 250 Mg PO Q12HR Reported Pantoprazole (Pantoprazole Sodium) 40 Mg Tab 40 Mg PO DAILY Aspirin 81 Mg Chew 81 Mg CHEW DAILY . Allergies: Coded Allergies: Sulfa (Sulfonamide Antibiotics) (Unverified Allergy, Severe, Rash, 03/10/17 ) "quit breathing" doxycycline (Unverified Allergy, Severe, 03/10/17) allergy Active Ordered Medications Current Medications Sodium Chloride (NS Flush) 2 ml UNSCH PRN IVF FLUSH AFTER USING IV ACCESS; Start 03/12/17 at 18:30; Stop 03/12/17 at 20:09; Status DC Aspirin (Aspirin) 325 mg ONCE ONCE PO Last administered on 03/12/17 18:53; Start 03/12/17 at 18:30; Stop 03/12/17 at 18:31; Status DC Morphine Sulfate (Morphine Inj) 4 mg ONCE ONCE IV PUSH Last administered on 18:54; Start 03/12/17 at 18:30; Stop 03/12/17 at 18:31; Status DC Flumazenil (Romazicon Inj) 0.2 mg Q1M PRN IV PUSH SEE LABEL COMMENTS; Start at 18:30 Lorazepam (Ativan) 1 mg Q4H PRN PO CIWA 8 - 10; Start 03/12/17 at 18:30 Lorazepam (Ativan Inj) 1 mg Q4H PRN IV PUSH CIWA 8 - 10 Last administered on t 20:42; Start 03/12/17 at 18:30 Lorazepam (Ativan) 2 mg Q2H PRN PO CIWA 11-14; Start 03/12/17 at 18:30 Lorazepam (Ativan Inj) 2 mg Q2H PRN IV PUSH CIWA 11-14; Start 03/12/17 at 18:30 Lorazepam (Ativan Inj) 2 mg Q1H PRN IV PUSH CIWA 15-20; Start 03/12/17 at 18:30 Lorazepam (Ativan Inj) 2 mg Q15M PRN IV PUSH CIWA > 20; Start 03/12/17 at 18:30 Sodium Chloride (NS Flush) 2 ml UNSCH PRN IV FLUSH FLUSH AFTER USING IV ACCESS ; Start 03/12/17 at 20:15 Sodium Chloride (NS Flush) 2 ml BID IV FLUSH ; Start 03/12/17 at 21:00 Naloxone HCl (Narcan Inj) 0.4 mg UNSCH PRN IV PUSH SEE LABEL COMMENTS; Start 03/12/17 at 20:15 Potassium Chloride (KCl) 40 meq ONCE ONCE PO Last administered on 03/12/17t 20 :30; Start 03/12/17 at 20:15; Stop 03/12/17 at 20:16; Status DC . Family History Father during open heart surgery in his 80s from a CVA Brother with first AL in his mid 50s . Social History Tobacco: Smokes one half pack cigarettes per day Alcohol: Denies daily use - reports drinking every other day or so Illicit Drugs: Denies any illicit drug use . Physical Exam Vital Signs Vital Signs Date Time Temp Pulse Resp B/P (MAP) Pulse Ox O2 Delivery O2 Flow Rate FiO2 03/12/17 22:07 97.8 100 24 132/83 (99) 96 03/12/17 21:16 03/12/17 21:02 Room Air 03/12/17 19:30 88 20 141/90 (107) 94 Room Air 03/12/17 19:29 87 20 121/83 (96) 94 Room Air 03/12/17 18:18 89 95 Room Air 03/12/17 18:15 97.8 89 19 115/84 (94) 96 Room Air 12/5/17 18:10 97.8 Physical Exam GENERAL: This is an overweight older male patient, in no apparent distress. SKIN: Multiple areas of ecchymosis on bilateral upper extremities. Cool and dry. Sternotomy with two steri-strips still in place, no significant erythema, no edema, no exudate noted. HEAD: Atraumatic. Normocephalic. EYES: No scleral icterus. No injection or drainage. ENT: Nose without bleeding, purulent drainage. NECK: Trachea midline. No JVD. CARDIOVASCULAR: Regular rate and rhythm without murmurs, gallops, or rubs. RESPIRATORY: Breath sounds diminished at bases, equal bilaterally. No wheezes, rales, or rhonchi. GASTROINTESTINAL: Abdomen soft, non-tender, nondistended. No guarding. MUSCULOSKELETAL: Extremities without clubbing, cyanosis, or edema. No calf tenderness. NEUROLOGICAL: Awake and alert. Motor and sensory grossly within normal limits. Normal speech. . Laboratory Laboratory Tests Test 03/12/17 18:31 03/12/17 19:35 White Blood Count 10.1 Red Blood Count 3.03 Hemoglobin 11.1 Hematocrit 31.7 Mean Corpuscular Volume 104.6 Mean Corpuscular Hemoglobin 36.7 Mean Corpuscular Hemoglobin Concent 35.1 Red Cell Distribution Width 18.4 Platelet Count 426 Mean Platelet Volume 7.7 Neutrophils (%) (Auto) 71.3 Lymphocytes (%) (Auto) 17.1 Monocytes (%) (Auto) 7.3 Eosinophils (%) (Auto) 3.7 Basophils (%) (Auto) 0.6 Neutrophils # (Auto) 7.2 Lymphocytes # (Auto) 1.7 Monocytes # (Auto) 0.7 Eosinophils # (Auto) 0.4 Basophils # (Auto) 0.1 CBC Comment AUTO DIFF Differential Total Cells Counted 100 Neutrophils % (Manual) 71 Band Neutrophils % 3 Lymphocytes % 15 Monocytes % 6 Eosinophils % 1 Basophils % 1 Neutrophils # (Manual) 7.8 Myelocytes 2 Promyelocytes 1 Nucleated Red Blood Cells 1 Differential Comment FINAL DIFF MANUAL Platelet Estimate NORMAL Platelet Morphology Comment NORMAL Spherocytes 1+ Prothrombin Time 10.1 Prothromb Time International Ratio 1.0 Activated Partial Thromboplast Time 24.0 Blood Urea Nitrogen 11 Creatinine 0.93 Random Glucose 98 Total Protein 6.7 Albumin 2.3 Calcium Level 8.0 Magnesium Level 1.6 Alkaline Phosphatase 85 Aspartate Amino Transf (AST/SGOT) 34 Alanine Aminotransferase (ALT/SGPT) 29 Total Bilirubin 0.2 Sodium Level 145 Potassium Level 3.3 Chloride Level 111 Carbon Dioxide Level 22.5 Anion Gap 12 Estimat Glomerular Filtration Rate 82 Total Creatine Kinase 36 Troponin I 0.02 Ethyl Alcohol Level 88 Result Diagram: 03/12/17183003/12/17 1831 Imaging Last Impressions Chest X-Ray 03/12/174 Signed Impressions: Service Date/Time: Sunday, March 12, 2017 18:44 - CONCLUSION: No significant change compared to 03/09/17. Chalino Farris MD . Caprini VTE Risk Assessment Caprini VTE Risk Assessment: Mod/High Risk (score >= 2) Caprini Risk Assessment Model Point Value = 1 Point Value = 2 Point Value = 3 Point Value = 5 Age 41-60 Minor surgery BMI > 25 kg/m2 Swollen legs Varicose veins or History of unexplained or recurrent spontaneous Oral contraceptives or hormone replacement Sepsis (< 1 month) Serious lung disease, including pneumonia (< 1 month) Abnormal pulmonary function Acute myocardial infarction Congestive heart failure (< 1 month) History of inflammatory bowel disease Medical patient at bed rest Age 61-74 Arthroscopic surgery Major open surgery (> 45 min) Laparoscopic surgery (> 45 min) Malignancy Confined to bed (> 72 hours) Immobilizing plaster cast Central venous access Age >= 75 History of VTE Family history of VTE Factor V Leiden Prothrombin [id number] Lupus anticoagulant Anticardiolipin antibodies Elevated serum homocysteine Heparin-induced thrombocytopenia Other congenital or acquired thrombophilia Stroke (< 1 month) Elective arthroplasty Hip, pelvis, or leg fracture Acute spinal cord injury (< 1 month) Prophylaxis Regimen Total Risk Factor Score Risk Level Prophylaxis Regimen 0-1 Low Early ambulation 2 Moderate Order ONE of the following: *Sequential Compression Device (SCD) *Heparin 5000 units SQ BID 3-4 Higher Order ONE of the following medications: *Heparin 5000 units SQ TID *Enoxaparin/Lovenox 40 mg SQ daily (WT < 150 kg, CrCl > 30 mL/min) *Enoxaparin/Lovenox 30 mg SQ daily (WT < 150 kg, CrCl > 10-29 mL/min) *Enoxaparin/Lovenox 30 mg SQ BID (WT < 150 kg, CrCl > 30 mL/min) AND/OR *Sequential Compression Device (SCD) 5 or more Highest Order ONE of the following medications: *Heparin 5000 units SQ TID (Preferred with Epidurals) *Enoxaparin/Lovenox 40 mg SQ daily (WT < 150 kg, CrCl > 30 mL/min) *Enoxaparin/Lovenox 30 mg SQ daily (WT < 150 kg, CrCl > 10-29 mL/min) *Enoxaparin/Lovenox 30 mg SQ BID (WT < 150 kg, CrCl > 30 mL/min) AND *Sequential Compression Device (SCD) Assessment and Plan Problem List: (1) Chest pain ICD Code: R07.9 - Chest pain, unspecified Status: Acute (2) Coronary artery disease ICD Code: I25.10 - Coronary artery disease Status: Chronic (3) S/P CABG x 2 ICD Code: Z95.1 - Presence of aortocoronary bypass graft (4) Hypokalemia ICD Code: E87.6 - Hypokalemia (5) Anemia ICD Code: D64.9 - Anemia, unspecified Status: Chronic Assessment and Plan Chest pain Coronary artery disease status post CABG 2 03/04/2017 - Serial EKGs and cardiac enzymes to r/o ACS - initial EKG and cardiac enzymes do not suggest ACS - follow further results - Monitor VS q4h - Monitor I and O qshift - CTS consulted in ED - Continuous cardiac telemetry to monitor for arrhythmia - Nitroglycerin 0.4 mg sublingual every 5 minutes when necessary - PT consulted Hypokalemia - Initial potassium 3.3 - Replaced orally - Recheck BMP in a.m. and follow results Anemia, improved since discharge - Hemoglobin 11.1, medical at 31.7 - We'll continue to monitor CBC EtOH intoxication - EtOH 88 in ED - CIWA protocol Case management consulted for assistance with placement awaiting completion of med rec to order home medications, discussed with RN DVT prophylaxis - SCD/TEDs . Discussed Condition With Patient, ER TRENTON, RN . Karolina Peace Mar 12, 2017 23:28
[2017-03-13] VITALS (12 sets, daily range): BP systolic 123–171; BP diastolic 77–97; PULSE 63–87; RESP 20–24; TEMP 97.4–98.3; O2SAT 93–97
[2017-03-13] MEDS: SODIUM CHLORIDE 0.9% FLUSH 10 ML FLUSH IV FLUSH SCH ×3 (00:02→21:28)
[2017-03-13] MEDS ORDERED: NITROGLYCERIN 0.4 MG SL 25 TABS/BTL SL PRN (00:15)
[2017-03-13] MEDS ORDERED: ACETAMINOPHEN/HYDROcodone 325 MG/10 MG TAB PO ONE (00:15)
[2017-03-13 01:33] LABS: AUTOMATED NEUTROPHIL # 6.3 TH/MM3 (1.8-7.7); BASOPHIL # 0.1 TH/MM3 (0-0.2); BASOPHIL % 1.2 % (0.0-2.0); EOSINOPHIL # 0.4 TH/MM3 (0-0.4); EOSINOPHIL % 4.6 % (0.0-4.0); HEMATOCRIT 30.5 % (39.0-51.0); LYMPH % 17.9 % (9.0-44.0); LYMPHOCYTE # 1.7 TH/MM3 (1.0-4.8); MEAN CELL VOLUME 103.1 FL (80.0-100.0); MEAN CORPUSCULAR HEMOGLOBIN 33.7 PG (27.0-34.0); MEAN CORPUSCULAR HGB CONC 32.7 % (32.0-36.0); MONO % 9.7 % (0.0-8.0); NEUT % 66.6 % (16.0-70.0); PLATELET COUNT 412 TH/MM3 (150-450); RED BLOOD COUNT 2.96 MIL/MM3 (4.50-5.90); RED CELL DISTRIBUTION WIDTH 19.1 % (11.6-17.2); WHITE BLOOD COUNT 9.4 TH/MM3 (4.0-11.0)
[2017-03-13 01:34] LABS: HEMO FLAGS AUTO DIFF
[2017-03-13 01:54] LABS: BICARBONATE 24.3 MEQ/L (21.0-32.0); POTASSIUM 4.5 MEQ/L (3.5-5.1)
[2017-03-13 03:02] LABS: BANDS 2 % (0-6); BASOPHILS 1 % (0-2); EOSINOPHILS 5 % (0-4); METAMYELOCYTES 2 % (0-1); NEUTROPHIL # MANUAL DIFF 6.7 TH/MM3 (1.8-7.7); POLYS (SEG NEUTROPHILS) 65 % (16-70); PROMYELOCYTES 2 % (0-0); WBC DIFF SAMPLE 100
[2017-03-13 03:03] LABS: SPHEROCYTES 1+ (NORMAL)
[2017-03-13 03:04] LABS: PLATELET ESTIMATE SMEAR NORMAL (NORMAL); PLATELET MORPHOLOGY NORMAL (NORMAL); SCAN/DIFF FINAL DIFF MANUAL
[2017-03-13] MEDS ORDERED: PANT40TA3 PO (06:43)
[2017-03-13] MEDS ORDERED: GABA100C4 PO (06:44)
[2017-03-13 07:05] LABS: CREATINE KINASE 35 U/L (39-308)
--- NOTE | 2017-03-13 09:50 | HHI.PR ---
Subjective Remarks The patient said he had chest pain, but he also mentioned he had pain all over his body. He said he was breathing okay. He said he is unable to get any of the medications he was discharged with. He says his chest wound has been seeping regularly. Discussed with nursing. Objective Vitals Vital Signs Date Time Temp Pulse Resp B/P (MAP) Pulse Ox O2 Delivery O2 Flow Rate FiO2 03/13/17 08:25 97.4 76 20 171/95 (120) 93 03/13/17 05:12 76 03/13/17 04:40 97.9 72 22 150/96 (114) 93 03/13/17 00:28 97.9 87 22 123/77 (92) 97 03/13/17 00:15 81 03/12/17 22:07 97.8 100 24 132/83 (99) 96 03/12/17 21:16 03/12/17 21:02 Room Air 03/12/17 19:30 88 20 141/90 (107) 94 Room Air 03/12/17 19:29 87 20 121/83 (96) 94 Room Air 03/12/17 18:18 89 95 Room Air 03/12/17 18:15 97.8 89 19 115/84 (94) 96 Room Air 03/12/17 18:10 97.8 I/O 03/12/17 03/12/17 03/12/17 03/13/17 03/13/17 03/13/17 07:00 15:00 23:00 07:00 15:00 23:00 Intake Total 240 ml Balance 240 ml Intake Oral 240 ml Result Diagram: 03/13/17 0120 03/13/17 0120 Imaging Last Impressions Chest X-Ray 03/12/171823 Signed Impressions: Service Date/Time: Sunday, March 12, 2017 18:44 - CONCLUSION: No significant change compared to 03/09/17. Chalino Farris MD Objective Remarks GENERAL: This is an overweight male patient in no apparent distress. SKIN: Multiple areas of ecchymosis on bilateral upper extremities. Cool and dry. Sternotomy with two steri-strips still in place, no significant erythema, no edema, no exudate noted. HEAD: Atraumatic. Normocephalic. EYES: No scleral icterus. No injection or drainage. ENT: Nose without bleeding, purulent drainage. NECK: Trachea midline. No JVD. CARDIOVASCULAR: Regular rate and rhythm without murmurs, gallops, or rubs. RESPIRATORY: Breath sounds diminished at bases, equal bilaterally. No wheezes, rales, or rhonchi. GASTROINTESTINAL: Abdomen soft, non-tender, nondistended. No guarding. Ostomy in place in RLQ. MUSCULOSKELETAL: Extremities without clubbing, cyanosis, or edema. NEUROLOGICAL: Awake and alert. Motor and sensory grossly within normal limits. Normal speech. Medications and IVs Current Medications Medications (Trade) Dose Ordered Sig/Marta Route Start Time Stop Time Status Last Admin (Romazicon Inj) 0.2 mg Q1M PRN IV PUSH 03/12/17 18:30 (Ativan) 1 mg Q4H PRN PO 03/12/17 18:30 (Ativan Inj) 1 mg Q4H PRN IV PUSH 03/12/17 18:30 03/12/17 20:42 (Ativan) 2 mg Q2H PRN PO 03/12/17 18:30 (Ativan Inj) 2 mg Q2H PRN IV PUSH 03/12/17 18:30 (Ativan Inj) 2 mg Q1H PRN IV PUSH 03/12/17 18:30 (Ativan Inj) 2 mg Q15M PRN IV PUSH 03/12/17 18:30 (NS Flush) 2 ml UNSCH PRN IV FLUSH 03/12/17 20:15 (NS Flush) 2 ml BID IV FLUSH 03/12/17 21:00 03/13/17 00:02 (Narcan Inj) 0.4 mg UNSCH PRN IV PUSH 03/12/17 20:15 (Nitrostat Sl) 0.4 mg Q5M PRN SL 03/13/17 00:15 (Morphine Inj) 4 mg Q3H PRN IV PUSH 03/13/17 09:45 (Cordarone) 200 mg Q12HR PO 03/13/17 10:00 UNV (Aspirin Chew) 81 mg DAILY CHEW 03/13/17 10:00 UNV (Lipitor) 40 mg HS PO 03/13/17 21:00 UNV (Plavix) 75 mg DAILY PO 03/13/17 10:00 UNV (Colace) 100 mg BID PO 03/13/17 10:00 UNV (Folate) 1 mg DAILY PO 03/13/17 10:00 UNV (Neurontin) 100 mg TID PO 03/13/17 13:00 UNV (Lopressor) 25 mg BID PO 03/13/17 10:00 UNV (Theragran M Tab) 1 tab DAILY PO 03/13/17 10:00 UNV (Protonix) 40 mg DAILY PO 03/13/17 10:00 UNV (Miralax) 17 gm DAILY PO 03/14/17 09:00 UNV A/P Problem List: (1) Chest pain ICD Code: R07.9 - Chest pain, unspecified Status: Acute (2) Coronary artery disease ICD Code: I25.10 - Coronary artery disease Status: Chronic (3) S/P CABG x 2 ICD Code: Z95.1 - Presence of aortocoronary bypass graft (4) Hypokalemia ICD Code: E87.6 - Hypokalemia (5) Anemia ICD Code: D64.9 - Anemia, unspecified Status: Chronic Assessment and Plan Chest pain Coronary artery disease status post CABG 2 03/04/2017. Still with chest pain. Trops negative x 3. CXR stable. - repeat EKG. - CTS consulted in ED. - Continuous cardiac telemetry to monitor for arrhythmia. - oxygen, nitroglycerin and morphine as needed. - PT consulted. - continue cardiac regimen including ASA, Plavix, amiodarone, Lopressor and statin. HTN Likely exacerbated by chest pain. - treatment as above. - resume home meds. Hypokalemia Initial potassium 3.3. Replaced orally. - follow BMP as needed. Anemia Stable. - We'll continue to monitor CBC EtOH intoxication EtOH 88 in ED. - CIWA protocol. - cessation instruction. DVT prophylaxis - SCD/TEDs. Discharge Planning Awaiting CTS Jens Perez DO Mar 13, 2017 09:50
--- NOTE | 2017-03-13 10:06 | EKG ---
Date Performed: 03/13/2017 Time Performed: 06:13:55 PTAGE: 62 years EKG: Sinus rhythm MINIMAL ST DEPRESSION BORDERLINE ECG PREVIOUS TRACING : 03/13/2017 00.35 Compared to prior tracing no significant change DOCTOR: Abraham Tabares Interpretating Date/Time 03/13/2017 10:06:20
--- NOTE | 2017-03-13 10:19 | EKG ---
Date Performed: 03/13/2017 Time Performed: 00:35:30 PTAGE: 62 years EKG: Sinus rhythm NONSPECIFIC T-WAVE ABNORMALITY BORDERLINE ECG PREVIOUS TRACING : 03/12/2017 18.11 Compared to prior tracing no significant change DOCTOR: Abraham Tabares Interpretating Date/Time 03/13/2017 10:18:48
[2017-03-13] MEDS: MORPHINE SULFATE 4 MG/ML INJ IV PUSH PRN ×4 (10:26→21:28)
[2017-03-13] MEDS: PANTOPRAZOLE SOD 40 MG DELAYED RELEASE TAB PO SCH (11:12)
[2017-03-13] MEDS: FOLIC ACID 1 MG TAB PO SCH (11:12)
[2017-03-13] MEDS: ASPIRIN 81 MG CHEW TAB CHEW SCH (11:12)
[2017-03-13] MEDS: AMIODARONE 200 MG TAB PO SCH ×2 (11:12→21:28)
[2017-03-13] MEDS: DOCUSATE SODIUM 100 MG CAP PO SCH ×2 (11:12→21:28)
[2017-03-13] MEDS: CLOPIDOGREL 75 MG TAB PO SCH (11:12)
[2017-03-13] MEDS: MULTIVITAMINS/MINERALS THERAPEUTIC TAB PO SCH (11:12)
[2017-03-13] MEDS: METOPROLOL TARTRATE 25 MG TAB PO SCH ×2 (11:12→21:29)
[2017-03-13] MEDS: GABAPENTIN 100 MG CAP PO SCH ×2 (13:39→18:43)
[2017-03-13] MEDS: ATORVASTATIN 40 MG TAB PO SCH (21:29)
[2017-03-14] VITALS (14 sets, daily range): BP systolic 107–141; BP diastolic 69–93; PULSE 54–69; RESP 18–24; TEMP 97.7–98.7; O2SAT 90–97
[2017-03-14] MEDS: MORPHINE SULFATE 4 MG/ML INJ IV PUSH PRN ×5 (02:36→20:26)
[2017-03-14] MEDS: MULTIVITAMINS/MINERALS THERAPEUTIC TAB PO SCH (08:25)
[2017-03-14] MEDS: GABAPENTIN 100 MG CAP PO SCH ×3 (08:25→17:52)
[2017-03-14] MEDS: FOLIC ACID 1 MG TAB PO SCH (08:25)
[2017-03-14] MEDS: METOPROLOL TARTRATE 25 MG TAB PO SCH ×2 (08:25→20:23)
[2017-03-14] MEDS: AMIODARONE 200 MG TAB PO SCH ×2 (08:25→20:23)
[2017-03-14] MEDS: DOCUSATE SODIUM 100 MG CAP PO SCH ×2 (08:25→20:23)
[2017-03-14] MEDS: ASPIRIN 81 MG CHEW TAB CHEW SCH (08:25)
[2017-03-14] MEDS: SODIUM CHLORIDE 0.9% FLUSH 10 ML FLUSH IV FLUSH SCH ×2 (08:25→20:24)
[2017-03-14] MEDS: PANTOPRAZOLE SOD 40 MG DELAYED RELEASE TAB PO SCH (08:25)
[2017-03-14] MEDS: CLOPIDOGREL 75 MG TAB PO SCH (08:25)
[2017-03-14] MEDS: POLYETHYLENE GLYCOL 17 GM PKG PO SCH (08:26)
--- NOTE | 2017-03-14 10:29 | EKG ---
Date Performed: 03/13/2017 Time Performed: 10:24:20 PTAGE: 62 years EKG: Sinus rhythm NONSPECIFIC T-WAVE ABNORMALITY BORDERLINE ECG PREVIOUS TRACING : 03/13/2017 06.13 Compared to prior tracing no significant change DOCTOR: Abraham Tabares Interpretating Date/Time 03/14/2017 10:27:54
[2017-03-14 16:21] LABS: HEMATOCRIT 30.5 % (39.0-51.0); MEAN CORPUSCULAR HEMOGLOBIN 34.3 PG (27.0-34.0); MEAN CORPUSCULAR HGB CONC 33.3 % (32.0-36.0); PLATELET COUNT 411 TH/MM3 (150-450); RED BLOOD COUNT 2.96 MIL/MM3 (4.50-5.90); RED CELL DISTRIBUTION WIDTH 18.5 % (11.6-17.2); REVIEW FLAG FINAL
--- NOTE | 2017-03-14 16:57 | HHI.PR ---
Subjective Remarks The patient says his chest pain is on and off. He says he has questions for his cardiothoracic surgeon. No other acute complaints. Objective Vitals Vital Signs Date Time Temp Pulse Resp B/P (MAP) Pulse Ox O2 Delivery O2 Flow Rate FiO2 03/14/17 16:13 98.4 60 24 123/84 (97) 94 03/14/17 13:09 98.3 58 24 128/81 (97) 94 03/14/17 10:03 18 03/14/17 08:12 97.7 65 20 129/93 (105) 94 03/14/17 08:12 Room Air 03/14/17 05:28 98.7 61 18 141/72 (95) 90 03/14/17 04:00 54 03/14/17 00:49 98.0 61 20 130/83 (99) 93 03/14/17 00:00 66 03/13/17 20:52 98.1 68 24 156/97 (116) 96 03/13/17 20:00 66 I/O 03/13/17 03/13/17 03/13/17 03/14/17 03/14/17 03/14/17 07:00 15:00 23:00 07:00 15:00 23:00 Output Total 450 ml 450 ml 850 ml Balance -450 ml -450 ml -850 ml Output Urine Total 450 ml Stool Total 450 ml 850 ml # Voids 1 # Bowel Movements 1 Result Diagram: 03/14/17 1607 03/13/17 0120 Imaging Last Impressions Chest X-Ray 03/12/17 1824 Signed Impressions: Service Date/Time: Sunday, March 12, 2017 18:44 - CONCLUSION: No significant change compared to 03/09/17. Chalino Farris MD Objective Remarks GENERAL: This is an overweight male patient in no apparent distress. SKIN: Multiple areas of ecchymosis on bilateral upper extremities. Cool and dry. Sternotomy with two steri-strips still in place, no significant erythema, no edema, no exudate noted. HEAD: Atraumatic. Normocephalic. EYES: No scleral icterus. No injection or drainage. ENT: Nose without bleeding, purulent drainage. NECK: Trachea midline. No JVD. CARDIOVASCULAR: Regular rate and rhythm without murmurs, gallops, or rubs. RESPIRATORY: Breath sounds diminished at bases, equal bilaterally. No wheezes, rales, or rhonchi. GASTROINTESTINAL: Abdomen soft, non-tender, nondistended. No guarding. Ostomy in place in RLQ. MUSCULOSKELETAL: Extremities without clubbing, cyanosis, or edema. NEUROLOGICAL: Awake and alert. Motor and sensory grossly within normal limits. Normal speech. Medications and IVs Current Medications Medications (Trade) Dose Ordered Sig/Marta Route Start Time Stop Time Status Last Admin (Romazicon Inj) 0.2 mg Q1M PRN IV PUSH 03/12/17 18:30 (Ativan) 1 mg Q4H PRN PO 03/12/17 18:30 03/13/17 21:29 (Ativan Inj) 1 mg Q4H PRN IV PUSH 03/12/17 18:30 03/12/17 20:42 (Ativan) 2 mg Q2H PRN PO 03/12/17 18:30 (Ativan Inj) 2 mg Q2H PRN IV PUSH 03/12/17 18:30 (Ativan Inj) 2 mg Q1H PRN IV PUSH 03/12/17 18:30 (Ativan Inj) 2 mg Q15M PRN IV PUSH 03/12/17 18:30 (NS Flush) 2 ml UNSCH PRN IV FLUSH 03/12/17 20:15 03/14/17 02:35 (NS Flush) 2 ml BID IV FLUSH 03/12/17 21:00 03/14/17 08:25 (Narcan Inj) 0.4 mg UNSCH PRN IV PUSH 03/12/17 20:15 (Nitrostat Sl) 0.4 mg Q5M PRN SL 03/13/17 00:15 (Morphine Inj) 4 mg Q3H PRN IV PUSH 03/13/17 09:45 03/14/17 13:47 (Cordarone) 200 mg Q12HR PO 03/13/17 11:00 03/14/17 08:25 (Aspirin Chew) 81 mg DAILY CHEW 03/13/17 11:00 03/14/17 08:25 (Lipitor) 40 mg HS PO 03/13/17 21:00 03/13/17 21:29 (Plavix) 75 mg DAILY PO 03/13/17 11:00 03/14/17 08:25 (Colace) 100 mg BID PO 03/13/17 11:00 03/14/17 08:25 (Folate) 1 mg DAILY PO 03/13/17 11:00 03/14/17 08:25 (Neurontin) 100 mg TID PO 03/13/17 13:00 03/14/17 13:47 (Lopressor) 25 mg BID PO 03/13/17 11:00 03/14/17 08:25 (Theragran M Tab) 1 tab DAILY PO 03/13/17 11:00 03/14/17 08:25 (Protonix) 40 mg DAILY PO 03/13/17 11:00 03/14/17 08:25 (Miralax) 17 gm DAILY PO 03/14/17 09:00 03/14/17 08:26 A/P Problem List: (1) Chest pain ICD Code: R07.9 - Chest pain, unspecified Status: Acute (2) Coronary artery disease ICD Code: I25.10 - Coronary artery disease Status: Chronic (3) S/P CABG x 2 ICD Code: Z95.1 - Presence of aortocoronary bypass graft (4) Hypokalemia ICD Code: E87.6 - Hypokalemia (5) Anemia ICD Code: D64.9 - Anemia, unspecified Status: Chronic Assessment and Plan Chest pain Coronary artery disease status post CABG 2 03/04/2017. Still with chest pain. Trops negative x 3. CXR stable. - repeat EKG. - CTS consulted in ED. Recommended antibiotics for incisional wound. Will add clindamycin and lactobacillus. - Continuous cardiac telemetry to monitor for arrhythmia. - oxygen, nitroglycerin and morphine as needed. - PT consulted. - continue cardiac regimen including ASA, Plavix, amiodarone, Lopressor and statin. HTN Likely exacerbated by chest pain. - treatment as above. - resume home meds. Hypokalemia Initial potassium 3.3. Replaced orally. - follow BMP as needed. Anemia Stable. - We'll continue to monitor CBC EtOH intoxication EtOH 88 in ED. - CIWA protocol. - cessation instruction. DVT prophylaxis - SCD/TEDs. Discharge Planning Anticipate d/c home in the AM Jens George DO Mar 14, 2017 16:57
--- NOTE | 2017-03-14 17:03 | PD.CAR.PN ---
CVT Progress Note Subjective/Hospital Course: s/p Urgent Off-pump Coronary Artery Bypass Grafting x 2 with Left Internal Mammary Artery (ESPINOZA) to the Left Anterior Descending (LAD), reverse saphenous vein graft to the Obtuse Marginal 1 (OM1), Left Leg Endoscopic Vein Dickey 03/04 discharged to SNF signed out AMA after one day still had prevena in place, did not leave with his meds, was noncompliant , no HHC set up distal portion of sternal wound has a 2x1 area of redness , no current drainage recommend antibiotics for 10 days, has followup appointment wound care needs [facility] Objective: Vital Signs Date Time Temp Pulse Resp B/P (MAP) Pulse Ox O2 Delivery O2 Flow Rate FiO2 03/14/17 16:13 98.4 60 24 123/84 (97) 94 03/14/17 13:09 98.3 58 24 128/81 (97) 94 03/14/17 10:03 18 03/14/17 08:12 97.7 65 20 129/93 (105) 94 03/14/17 08:12 Room Air 03/14/17 05:28 98.7 61 18 141/72 (95) 90 03/14/17 04:00 54 03/14/17 00:49 98.0 61 20 130/83 (99) 93 03/14/17 00:00 66 03/13/17 20:52 98.1 68 24 156/97 (116) 96 03/13/17 20:00 66 Labs: Laboratory Tests Test 03/14/17 16:07 White Blood Count 8.0 TH/MM3 (4.0-11.0) Red Blood Count 2.96 MIL/MM3 (4.50-5.90) Hemoglobin 10.2 GM/DL (13.0-17.0) Hematocrit 30.5 % (39.0-51.0) Mean Corpuscular Volume 103.0 FL (80.0-100.0) Mean Corpuscular Hemoglobin 34.3 PG (27.0-34.0) Mean Corpuscular Hemoglobin Concent 33.3 % (32.0-36.0) Red Cell Distribution Width 18.5 % (11.6-17.2) Platelet Count 411 TH/MM3 (150-450) Mean Platelet Volume 7.8 FL (7.0-11.0) Result Diagram: 03/14/17 1607 03/13/17 0120 Yenny Fall Mar 14, 2017 17:03
--- NOTE | 2017-03-14 17:08 | HHI.FF ---
Face to Face Verification Diagnosis: (1) Wound infection after surgery (2) Alcohol abuse (3) Hyperlipidemia (4) S/P CABG x 2 Home Health Nursing Order: Signs/symptoms of disease process Medication education-adverse effect Wound care and dressing changes Nursing assessment with vital signs Instructions: Incentive spirometry Q1 hr x 10, while awake, also use acapella device hourly whole awake Sternal Breast Bone Precautions: NO pushing or pulling, ( pt must use sternal pillow to support chest with all activities and with coughing ( takes up to 3 months breast bone to heal ) Daily incision care: ok to shower daily, no tub bath. Wash all incisions with liquid dial soap, clean wash cloth to each site, rinse and pat dry. Observe for any signs of infection, such as drainage which is dark yellow, arnett, green or foul smelling. Immediately report to the surgeon any drainage from the chest incision, or legs, and for any abnormal drainage from the chest tube sites. Notify surgeon if any temp >101.5 degrees F. When specialty dressing removed/ or if you do not have one, continue to shower daily as above, then rinse and pat incision dry and paint with betadine daily x 5 days. Allow steri strips to fall off if you have any. Avoid lotions, creams, salves, oils, etc. for the first month. F/U appointment: as per ME instructions: PCP in 2 weeks, CV surgeon 2 weeks, Case Worker 3-4 weeks For any questions regarding incisions/ dressing / meds / post op care or above Symptoms, Saturday 8am-5pm Heart & Vascular Surgery Office ( Dr. Luther & Dr. Aceves), After Hours / Nights (5pm -8am) Weekends and Holidays Please call [facility] Cardiac [facility] Care Unit (CIC) Charge Nurse I have seen patient Dave Avalos on 03/14/17. My clinical findings support the need for the requested home health care services because: Deconditioned w/ increased weakness I certify that my clinical findings support that this patient is homebound because: Post-op weakness Yenny Fall Mar 14, 2017 17:08
[2017-03-14] MEDS: CLINDAMYCIN 150 MG CAP PO SCH ×2 (17:52→18:00)
[2017-03-14] MEDS: LACTOBACILLUS ACIDOPHILUS TAB PO SCH ×2 (17:52→18:00)
[2017-03-14] MEDS: ATORVASTATIN 40 MG TAB PO SCH (20:23)
[2017-03-15 00:06] VITALS: PULSE 59
[2017-03-15] MEDS: CLINDAMYCIN 150 MG CAP PO SCH ×2 (00:47→05:42)
[2017-03-15] MEDS: MORPHINE SULFATE 4 MG/ML INJ IV PUSH PRN ×3 (01:44→09:42)
[2017-03-15 04:03] VITALS: PULSE 57
[2017-03-15 04:31] VITALS: BP 127/86; PULSE 65; RESP 17; TEMP 98.3; O2SAT 93
[2017-03-15 07:43] VITALS: PULSE 58
[2017-03-15 08:26] VITALS: BP 168/72; PULSE 68; RESP 20; TEMP 97.9; O2SAT 97
[2017-03-15] MEDS: CLOPIDOGREL 75 MG TAB PO SCH (09:41)
[2017-03-15] MEDS: AMIODARONE 200 MG TAB PO SCH (09:41)
[2017-03-15] MEDS: GABAPENTIN 100 MG CAP PO SCH (09:41)
[2017-03-15] MEDS: ASPIRIN 81 MG CHEW TAB CHEW SCH (09:41)
[2017-03-15] MEDS: DOCUSATE SODIUM 100 MG CAP PO SCH (09:41)
[2017-03-15] MEDS: LACTOBACILLUS ACIDOPHILUS TAB PO SCH (09:41)
[2017-03-15] MEDS: MULTIVITAMINS/MINERALS THERAPEUTIC TAB PO SCH (09:41)
[2017-03-15] MEDS: METOPROLOL TARTRATE 25 MG TAB PO SCH (09:41)
[2017-03-15] MEDS: FOLIC ACID 1 MG TAB PO SCH (09:41)
[2017-03-15] MEDS: SODIUM CHLORIDE 0.9% FLUSH 10 ML FLUSH IV FLUSH SCH (09:42)
[2017-03-15] MEDS: PANTOPRAZOLE SOD 40 MG DELAYED RELEASE TAB PO SCH (09:42)
[2017-03-15] MEDS: POLYETHYLENE GLYCOL 17 GM PKG PO SCH (09:42)
[2017-03-15] MEDS ORDERED: METO25TA3 PO (10:17)
[2017-03-15] MEDS ORDERED: HYDR-3583 PO (10:17)
[2017-03-15] MEDS ORDERED: AMIO200T PO (10:17)
[2017-03-15] MEDS ORDERED: CLIN150 PO (10:17)
[2017-03-15] MEDS ORDERED: ASPI-516 CHEW (10:17)
[2017-03-15] MEDS ORDERED: LACT PO (10:17)
[2017-03-15] MEDS ORDERED: PLAV75TA29 PO (10:17)
[2017-03-15] MEDS ORDERED: VENTAER INH (10:17)
[2017-03-15] MEDS ORDERED: ATOR40TA16 PO (10:17)
--- NOTE | 2017-03-15 10:24 | HHI.DCPOC ---
Discharge Care Plan Diagnosis: (1) S/P CABG x 2 (2) Wound infection after surgery (3) Chest pain in adult Goals to Promote Your Health * To prevent worsening of your condition and complications * To maintain your health at the optimal level Directions to Meet Your Goals Take your medications as prescribed Follow your dietary instruction Follow activity as directed Keep your appointments as scheduled Take your immunizations and boosters as scheduled If your symptoms worsen call your PCP, if no PCP go to Urgent Care Center or Emergency Room Smoking is Dangerous to Your Health. Avoid second hand smoke Call the 24-hour hour crisis hotline for domestic abuse at Jens George DO Mar 15, 2017 10:23
--- NOTE | 2017-03-15 10:29 | HHI.DS ---
Discharge Summary Admission Date Mar 12, 2017 at 20:02 Discharge Date: Mar 15, 2017 Admitting Diagnosis chest pain (1) Chest pain ICD Code: R07.9 - Chest pain, unspecified Diagnosis: Principal Status: Acute (2) Coronary artery disease ICD Code: I25.10 - Coronary artery disease Status: Chronic (3) S/P CABG x 2 ICD Code: Z95.1 - Presence of aortocoronary bypass graft Diagnosis: Principal (4) Hypokalemia ICD Code: E87.6 - Hypokalemia (5) Anemia ICD Code: D64.9 - Anemia, unspecified Status: Chronic (6) Wound infection after surgery ICD Code: T81.4XXA - Infection following a procedure, initial encounter Procedures None Brief History - From Admission Mr. Avalos is a 62-year-old male who underwent coronary artery bypass graft 2 on 03/04 and has a history of chronic alcohol abuse who went to [facility] on 03/08/2017 but left AGAINST MEDICAL ADVICE on March 09, 2017 in the strategy specialist hours after a disagreement with an employee there. Since that time, he has had 3 other visits to the emergency department but has refused to return to a rehabilitation facility. He presented on 03/12/2017 complaining of chest pain and shortness of breath and was admitted for observation and further medical management. The patient is seen in the CDU. He reports that he has not been taking his medications other than isosorbide yesterday that he took for chest pain. He states that he got a 4 [place] malt beverage and drank "about half of it" today. He states he has not been feeling very well since leaving rehabilitation and was hoping it would make him feel better. He states he developed weakness while walking and this was accompanied by central chest pressure that was a 10 out of 10 and was alleviated in the emergency room with morphine. Symptoms were accompanied by palpitations, shortness of breath, nausea, and diaphoresis. He denies any recent fever, chills, vomiting, or diarrhea. CBC/BMP: 03/14/17 1607 03/13/17 0120 Significant Findings Laboratory Tests Test 03/12/17 18:31 03/12/17 19:35 03/13/17 01:20 03/13/17 06:04 Red Blood Count 3.03 MIL/MM3 (4.50-5.90) 2.96 MIL/MM3 (4.50-5.90) Hemoglobin 11.1 GM/DL (13.0-17.0) 10.0 GM/DL (13.0-17.0) Hematocrit 31.7 % (39.0-51.0) 30.5 % (39.0-51.0) Mean Corpuscular Volume 104.6 FL (80.0-100.0) 103.1 FL (80.0-100.0) Mean Corpuscular Hemoglobin 36.7 PG (27.0-34.0) Red Cell Distribution Width 18.4 % (11.6-17.2) 19.1 % (11.6-17.2) Neutrophils (%) (Auto) 71.3 % (16.0-70.0) Neutrophils % (Manual) 71 % (16-70) Neutrophils # (Manual) 7.8 TH/MM3 (1.8-7.7) Myelocytes 2 % (0-0) Promyelocytes 1 % (0-0) 2 % (0-0) Nucleated Red Blood Cells 1 /100 WBC (0-0) Spherocytes 1+ (NORMAL) 1+ (NORMAL) Activated Partial Thromboplast Time 24.0 SEC (24.3-30.1) Albumin 2.3 GM/DL (3.4-5.0) Calcium Level 8.0 MG/DL (8.5-10.1) 7.8 MG/DL (8.5-10.1) Potassium Level 3.3 MEQ/L (3.5-5.1) Chloride Level 111 MEQ/L (98-107) 110 MEQ/L (98-107) Estimat Glomerular Filtration Rate 82 ML/MIN (>89) 76 ML/MIN (>89) Total Creatine Kinase 36 U/L (39-308) 34 U/L (39-308) 35 U/L (39-308) Ethyl Alcohol Level 88 MG/DL (0-5) Monocytes (%) (Auto) 9.7 % (0.0-8.0) Eosinophils (%) (Auto) 4.6 % (0.0-4.0) Eosinophils % 5 % (0-4) Metamyelocytes 2 % (0-1) Troponin I LESS THAN 0.02 NG/ML Test 03/14/17 16:07 Red Blood Count 2.96 MIL/MM3 (4.50-5.90) Hemoglobin 10.2 GM/DL (13.0-17.0) Hematocrit 30.5 % (39.0-51.0) Mean Corpuscular Volume 103.0 FL (80.0-100.0) Mean Corpuscular Hemoglobin 34.3 PG (27.0-34.0) Red Cell Distribution Width 18.5 % (11.6-17.2) Imaging Last Impressions Chest X-Ray 03/12/174 Signed Impressions: Service Date/Time: Sunday, March 12, 2017 18:44 - CONCLUSION: No significant change compared to 03/09/17. Chalino Farris MD PE at Discharge GENERAL: This is an overweight male patient in no apparent distress. SKIN: Multiple areas of ecchymosis on bilateral upper extremities. Cool and dry. Sternotomy with two steri-strips still in place, no significant erythema, no edema, no exudate noted. HEAD: Atraumatic. Normocephalic. EYES: No scleral icterus. No injection or drainage. ENT: Nose without bleeding, purulent drainage. NECK: Trachea midline. No JVD. CARDIOVASCULAR: Regular rate and rhythm without murmurs, gallops, or rubs. RESPIRATORY: Breath sounds diminished at bases, equal bilaterally. No wheezes, rales, or rhonchi. GASTROINTESTINAL: Abdomen soft, non-tender, nondistended. No guarding. Ostomy in place in RLQ. MUSCULOSKELETAL: Extremities without clubbing, cyanosis, or edema. NEUROLOGICAL: Awake and alert. Motor and sensory grossly within normal limits. Normal speech. Pt update on day of discharge The patient was working with physical therapy. He said he could use a day or 2 extra in the hospital to get stronger. He said he will need a ride home. Discussed with case management. Hospital Course The pt has a history of coronary artery disease status post CABG 2 03/04/2017. He left the SNF he was staying at AMA. Still with chest pain. Trops negative x 3. CXR stable. EKG without acute ischemic changes. Cardiothoracic surgery was consulted by the ED, who recommended antibiotics for incisional wound infection. We started clindamycin and lactobacillus. He was placed on continuous cardiac telemetry. He received oxygen, nitroglycerin and morphine as needed. He worked with PT. He was continued on his cardiac regimen which includes ASA, Plavix, amiodarone, Lopressor and a statin. He will be discharged with home health care. Case management was consulted. He had hypokalemia which resolved with KCl repletion. His EtOH level was 88 in the ED. He was placed on CIWA protocol. He received alcohol cessation instruction. Pt Condition on Discharge: Stable Discharge Disposition: Disch w/ Home Health Serv Discharge Time: > 30 minutes Discharge Instructions DIET: Follow Instructions for: Heart Healthy Diet Activities you can perform: Weight Bearing as Noe Follow up Referrals: PCP Follow-up - 1 Week Surgical - 2 Weeks with Altaf Luther MD New Medications: Clindamycin (Cleocin) 150 Mg Cap 300 MG PO Q6HR for Infection for 7 Days, CAP Lactobacillus Acidophilus (Acidophilus/l-Sporogenes) 35 Million Cell-25 Million Cell Tab 1 TAB PO TID for Antibiotics for 7 Days, TAB Continued Medications: Albuterol 18 GM Inh (Ventolin Hfa 18 GM Inh) 90 Mcg/Act Aer 2 PUFF INH Q4-6H PRN for SHORTNESS OF BREATH, #1 INHALER 0 Refills (This prescription has been renewed) Amiodarone (Amiodarone) 200 Mg Tab 200 MG PO Q12HR for heart rhythm, #14 TAB 0 Refills (This prescription has been renewed) Aspirin (Aspirin) 81 Mg Chew 81 MG CHEW DAILY for Heart, #30 TAB 0 Refills (This prescription has been renewed) Atorvastatin (Atorvastatin) 40 Mg Tab 40 MG PO HS for Cholesterol Management, #30 TAB 2 Refills (This prescription has been renewed) Clopidogrel (Plavix) 75 Mg Tab 75 MG PO DAILY for Blood Clot Prevention, #30 TAB 2 Refills (This prescription has been renewed) Docusate Sodium (Dok) 100 Mg Cap 100 MG PO BID for Constipation, #60 CAP 0 Refills Folic Acid (Folic Acid) 1 Mg Tablet 1 MG PO DAILY for Agitation, #30 % 2 Refills Gabapentin (Gabapentin) 100 Mg Cap 100 MG PO TID, #90 CAP 0 Refills Hydrocodone/Acetaminophen (Hydrocodone-Acetamin 10-325 mg) 10 Mg-325 Mg Tablet 1 TAB PO Q6HR PRN for PAIN SCALE 6-10, #10 TAB 0 Refills (This prescription has been renewed) Metoprolol Tartrate (Metoprolol Tartrate) 25 Mg Tab 25 MG PO BID for Blood Pressure Management, #60 TAB 2 Refills (This prescription has been renewed) Multiple Vitamins W/ Minerals (Thera M Plus) 1 Tab 1 TAB PO DAILY for multi vitamin, #30 TAB 2 Refills Pantoprazole (Pantoprazole) 40 Mg Tab 40 MG PO DAILY for Reflux, #30 TAB 0 Refills Polyethylene Glycol 3350 Powder (Polyethylene Glycol 3350 Powder) 17 Gram Pow 17 GM PO DAILY for Constipation, #30 PACKET 0 Refills Discontinued Medications: Ciprofloxacin (Cipro) 250 Mg Tab 250 MG PO Q12HR for antibiotic, UTI, #6 TAB 0 Refills Pantoprazole (Pantoprazole) 40 Mg Tab 40 MG PO DAILY for Reflux, #30 TAB 0 Refills Jens George DO Mar 15, 2017 10:29
== END 2017-03-15 11:28 | disposition home or self-care (01) ==
LOC: NEPE 18:05 → NEDA 20:02 → NEPGCP 21:34
PROVIDERS: ADMIT Hospitalist; ATTEND Hospitalist
DX: R07.9 Chest pain, unspecified (principal); I25.10 Atherosclerotic heart disease of native coronary artery without angina pectoris; E87.6 Hypokalemia; T81.4XXA Infection following a procedure, initial encounter; D64.9 Anemia, unspecified; R06.02 Shortness of breath; R53.1 Weakness; R00.2 Palpitations; R61 Generalized hyperhidrosis; I11.9 Hypertensive heart disease without heart failure; I25.2 Old myocardial infarction; I49.3 Ventricular premature depolarization; E78.00 Pure hypercholesterolemia, unspecified; E78.5 Hyperlipidemia, unspecified; G47.33 Obstructive sleep apnea (adult) (pediatric); K21.9 Gastro-esophageal reflux disease without esophagitis; B19.10 Unspecified viral hepatitis B without hepatic coma; F41.9 Anxiety disorder, unspecified; M19.90 Unspecified osteoarthritis, unspecified site; E66.3 Overweight; F17.210 Nicotine dependence, cigarettes, uncomplicated; Y90.4 Blood alcohol level of 80-99 mg/100 ml; Z95.1 Presence of aortocoronary bypass graft; Z85.51 Personal history of malignant neoplasm of bladder; Z79.899 Other long term (current) drug therapy; Z79.84 Long term (current) use of oral hypoglycemic drugs; Z79.02 Long term (current) use of antithrombotics/antiplatelets; Z85.46 Personal history of malignant neoplasm of prostate; X58.XXXA Exposure to other specified factors, initial encounter
CPT/HCPCS: 71010; 80048; 80053; 80307; 82550; 83735; 84484; 85007; 85027; 85610; 85730; 93005; 96374; 96375; 96376; 97110; 97161; 97530; 99285; G0378; G8987; G8988; J2060; J2270

== ENCOUNTER 2017-04-01 20:19 | Observation (INO) | payer MEDICAID ==
[~2017-04-01] VITALS: Ht 175.3 cm; Wt 90.4 kg
[~2017-04-01 20:19] MED LIST changes: -CIPR250T52 PO; +CLIN150 PO; +GABA100C4 PO; +LACT PO
[2017-04-01 20:32] VITALS: BP 119/75; PULSE 61; RESP 18; TEMP 98.7; O2SAT 97
[2017-04-01] MEDS ORDERED: SODIUM CHLORIDE 0.9% FLUSH 10 ML FLUSH IVF PRN (20:45)
[2017-04-01] MEDS: NITROGLYCERIN 0.4 MG SL 25 TABS/BTL SL SCH ×3 (20:50→20:55)
--- NOTE | 2017-04-01 20:50 | PD ---
HPI Chief Complaint: Chest Pain Time Seen by Provider: 20:33 Travel History International Travel<30 days: No Contact w/Intl Traveler<30days: No Traveled to known affect area: No History of Present Illness HPI The patient is a 62-year-old male with a history of coronary artery disease who complains of a sharp chest pain beginning at 5 PM today primarily in the right chest. The pain is constant and is associated with nausea and shortness of breath. He denies any diaphoresis. He states the pain radiates "everywhere". He does have a history of alcohol abuse and states his last drink was [address] Estes is his primary care physician. PFSH Past Medical History Hx Anticoagulant Therapy: Yes (asa) Arthritis: Yes (BACK) Asthma: No Blood Disorders: No Anxiety: Yes Depression: No Heart Rhythm Problems: Yes Cancer: Yes (HX of bladder ) Cardiovascular Problems: Yes (BYPASS) High Cholesterol: Yes Chemotherapy: No Chest Pain: Yes Congestive Heart Failure: No COPD: No Coronary Artery Disease: Yes Diabetes: No Diminished Hearing: No Endocrine: No Gastrointestinal Disorders: Yes GERD: Yes Genitourinary: Yes (ILEAL CONDUIT) Headaches: Yes Hepatitis: Yes (HEP B) Hypertension: Yes Immune Disorder: No Implanted Vascular Access Dvce: Yes Musculoskeletal: No Neurologic: No Psychiatric: No Reproductive: No Respiratory: No Immunizations Current: Yes Myocardial Infarction: Yes (2) Radiation Therapy: No Sleep Apnea: Yes Thyroid Disease: No Ulcer: Yes Tetanus Vaccination: Unknown Past Surgical History Abdominal Surgery: Yes Body Medical Devices: ILEAL CONDUIT, CARDIAC STENTS Cardiac Surgery: Yes (CARDIAC STENT 01/2013, BYPASS 02/2017) Coronary Stent: Yes (2 ) Genitourinary Surgery: Yes (HX of bladder cancer and removal with Ileal conduit , HX of kidney stents) Pacemaker: No Prostatectomy: Yes Other Surgery: Yes (CYSTECTOMY/PROSTATECTOMY 2010) Family History Family Myocardial Infarction: Yes Social History 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) Tobacco Use: Yes (1/2 - 1 PPD ) Substance Use: No Allergies-Medications (Allergen,Severity, Reaction): Coded Allergies: Sulfa (Sulfonamide Antibiotics) (Unverified Allergy, Severe, Rash, ) "quit breathing" doxycycline (Unverified Allergy, Severe, 04/01/17) allergy Reported Meds & Prescriptions Reported Meds & Active Scripts Active Acidophilus/l-Sporogenes (Lactobacillus Acidophilus) 35 Million Cell-25 Million Cell Tab 1 Tab PO TID 7 Days Cleocin (Clindamycin HCl) 150 Mg Cap 300 Mg PO Q6HR 7 Days Ventolin Hfa 18 GM Inh (Albuterol Sulfate) 90 Mcg/Act Aer 2 Puff INH Q4-6H PRN Hydrocodone-Acetamin 10-325 mg (Hydrocodone/Acetaminophen) 10 Mg-325 Mg Tablet 1 Tab PO Q6HR PRN Metoprolol Tartrate 25 Mg Tab 25 Mg PO BID Atorvastatin (Atorvastatin Calcium) 40 Mg Tab 40 Mg PO HS Amiodarone (Amiodarone HCl) 200 Mg Tab 200 Mg PO Q12HR Plavix (Clopidogrel Bisulfate) 75 Mg Tab 75 Mg PO DAILY Aspirin 81 Mg Chew 81 Mg CHEW DAILY Polyethylene Glycol 3350 Powder (Polyethylene Glycol) 17 Gram Pow 17 Gm PO DAILY Reported Pantoprazole (Pantoprazole Sodium) 40 Mg Tab 40 Mg PO DAILY Review of Systems Except as stated in HPI: all other systems reviewed are Neg Physical Exam Narrative GENERAL: The patient is alert, oriented 3 and slight apparent distress with his chest discomfort. His vital signs are normal. He does smell of alcohol but is cooperative. SKIN: Focused skin assessment warm/dry. HEAD: Atraumatic. Normocephalic. EYES: Pupils equal and round. No scleral icterus. No injection or drainage. ENT: No nasal bleeding or discharge. Mucous membranes pink and moist. NECK: Trachea midline. No JVD. CARDIOVASCULAR: Regular rate and rhythm. No murmur appreciated. I can completely reproduce the patient's pain by pressing on the chest wall. Even extremely light pressure causes the patient to jump in scream in pain. RESPIRATORY: No accessory muscle use. Clear to auscultation. Breath sounds equal bilaterally. GASTROINTESTINAL: Abdomen soft, non-tender, nondistended. Hepatic and splenic margins not palpable. MUSCULOSKELETAL: No obvious deformities. No clubbing. No cyanosis. No edema. NEUROLOGICAL: Awake and alert. No obvious cranial nerve deficits. Motor grossly within normal limits. Normal speech. PSYCHIATRIC: Appropriate mood and affect; insight and judgment normal. Data Data Last Documented VS Vital Signs Date Time Temp Pulse Resp B/P (MAP) Pulse Ox O2 Delivery O2 Flow Rate FiO2 04/01/17 20:56 18 04/01/17 20:35 61 97 04/01/17 20:32 98.7 119/75 (90) Orders Orders Electrocardiogram (04/01/17 20:43) Ckmb (Isoenzyme) Profile (04/01/17 20:43) Complete Blood Count With Diff (04/01/17 20:43) Comprehensive Metabolic Panel (04/01/17 20:43) Magnesium (Mg) (04/01/17 20:43) Prothrombin Time / Inr (Pt) (04/01/17 20:43) Act Partial Throm Time (Ptt) (04/01/17 20:43) Troponin I (04/01/17 20:43) Chest, Single Ap (04/01/17 20:43) Ecg Monitoring (04/01/17 20:43) Bilateral Bp Monitoring (04/01/17 20:43) Iv Access Insert/Monitor (04/01/17 20:43) Oximetry (04/01/17 20:43) Oxygen Administration (04/01/17 20:43) Sodium Chloride 0.9% Flush (Ns Flush) (04/01/17 20:45) Nitroglycerin Sl (Nitrostat Sl) (04/01/17 20:45) Alcohol (Ethanol) (04/01/17 20:43) Ondansetron Inj (Zofran Inj) (04/01/17 21:30) Sodium Chlor 0.9% 1000 Ml Inj (Ns 1000 M (04/01/17 21:30) Lipase (04/01/17 20:55) Ketorolac Inj (Toradol Inj) (04/01/17 22:30) Alcohol Withdrawal Asmt-Ciwa Q4HX18 (04/01/17 22:38) Flumazenil Inj (Romazicon Inj) (04/01/17 22:45) Lorazepam (Ativan) (04/01/17 22:45) Lorazepam Inj (Ativan Inj) (04/01/17 22:45) Lorazepam (Ativan) (04/01/17 22:45) Lorazepam Inj (Ativan Inj) (04/01/17 22:45) Lorazepam Inj (Ativan Inj) (04/01/17 22:45) Lorazepam Inj (Ativan Inj) (04/01/17 22:45) Amiodarone (Cordarone) (04/02/17 09:00) Aspirin Chew (Aspirin Chew) (04/02/17 09:00) Atorvastatin (Lipitor) (04/02/17 21:00) Clopidogrel (Plavix) (04/02/17 09:00) Metoprolol Tartrate (Lopressor) (04/02/17 09:00) Pantoprazole (Protonix) (04/02/17 09:00) Place In Observation (04/01/17:37) Activity Bed Rest With Brp (04/01/17:37) Vital Signs (Adult) Q4H (04/01/17:37) Cardiac Rhythm .As Directed (04/01/17:37) Notify Dr: Other .PRN (04/01/17:37) Notify Dr. Parameters (04/01/17:37) Diet Npo (04/02/17 Breakfast) Ckmb (Isoenzyme) Profile (04/01/17 23:55) Ckmb (Isoenzyme) Profile (04/02/17 02:55) Troponin I (04/01/17 23:55) Troponin I (04/02/17 02:55) Electrocardiogram (04/01/17 23:55) Electrocardiogram (04/02/17 02:55) ^ Obtain (04/01/17 22:37) Sodium Chloride 0.9% Flush (Ns Flush) (04/01/17 22:45) Sodium Chloride 0.9% Flush (Ns Flush) (04/02/17 09:00) Acetaminophen (Tylenol) (04/01/17 22:45) Ondansetron Inj (Zofran Inj) (04/01/17 22:45) Famotidine (Pepcid) (04/02/17 09:00) Nitroglycerin Sl (Nitrostat Sl) (04/01/17 22:45) Whipped Topping Supervisor / Telemetry MARCELLO.Q8H (04/01/17 22:37) Heparin Inj (Heparin Inj) (04/01/17 22:45) Admit Order (Ed Use Only) (04/01/17 22:44) Labs Laboratory Tests Test 04/01/17 20:55 White Blood Count 9.3 TH/MM3 Red Blood Count 3.42 MIL/MM3 Hemoglobin 10.3 GM/DL Hematocrit 32.4 % Mean Corpuscular Volume 94.7 FL Mean Corpuscular Hemoglobin 30.1 PG Mean Corpuscular Hemoglobin Concent 31.8 % Red Cell Distribution Width 21.3 % Platelet Count 338 TH/MM3 Mean Platelet Volume 7.0 FL Neutrophils (%) (Auto) 74.0 % Lymphocytes (%) (Auto) 14.5 % Monocytes (%) (Auto) 7.1 % Eosinophils (%) (Auto) 2.9 % Basophils (%) (Auto) 1.5 % Neutrophils # (Auto) 6.9 TH/MM3 Lymphocytes # (Auto) 1.3 TH/MM3 Monocytes # (Auto) 0.7 TH/MM3 Eosinophils # (Auto) 0.3 TH/MM3 Basophils # (Auto) 0.1 TH/MM3 CBC Comment DIFF FINAL Differential Comment Prothrombin Time 9.9 SEC Prothromb Time International Ratio 1.0 RATIO Activated Partial Thromboplast Time 23.2 SEC Blood Urea Nitrogen 15 MG/DL Creatinine 1.10 MG/DL Random Glucose 107 MG/DL Total Protein 7.7 GM/DL Albumin 3.0 GM/DL Calcium Level 8.1 MG/DL Magnesium Level 1.8 MG/DL Alkaline Phosphatase 121 U/L Aspartate Amino Transf (AST/SGOT) 30 U/L Alanine Aminotransferase (ALT/SGPT) 30 U/L Total Bilirubin 0.2 MG/DL Sodium Level 139 MEQ/L Potassium Level 4.1 MEQ/L Chloride Level 107 MEQ/L Carbon Dioxide Level 19.0 MEQ/L Anion Gap 13 MEQ/L Estimat Glomerular Filtration Rate 67 ML/MIN Total Creatine Kinase 66 U/L Troponin I LESS THAN 0.02 NG/ML Lipase 262 U/L Ethyl Alcohol Level 155 MG/DL MDM Medical Decision Making Medical Screen Exam Complete: Yes Emergency Medical Condition: Yes Medical Record Reviewed: Yes Interpretation(s) The EKG shows sinus rhythm with a rate of 66, incomplete right bundle branch block and no acute ST elevation or depression. The chest x-ray shows chronic mild cardiac enlargement and a moderate-sized hiatal hernia. The cardiac enzymes are normal and the complete metabolic profile shows an albumin of 3.0, calcium 8.1, alkaline phosphatase 121 and bicarbonate of 19. The alcohol level is 155. Differential Diagnosis Alcohol intoxication, acute coronary syndrome, congestive heart failure, chest wall pain, atypical chest pain Narrative Course The patient has alcohol intoxication and atypical chest pain. He states he needs something for the pain and wants admission. Impression: Chest pain and alcohol abuse Diagnosis Primary Impression: Chest pain Additional Impression: Alcohol abuse Admitting Information Admitting Physician Requests: Observation Ab Lino MD Apr 01, 2017 20:50
[2017-04-01 21:21] LABS: AUTOMATED NEUTROPHIL # 6.9 TH/MM3 (1.8-7.7); BASOPHIL # 0.1 TH/MM3 (0-0.2); BASOPHIL % 1.5 % (0.0-2.0); EOSINOPHIL # 0.3 TH/MM3 (0-0.4); EOSINOPHIL % 2.9 % (0.0-4.0); HEMATOCRIT 32.4 % (39.0-51.0); HEMOGLOBIN 10.3 GM/DL (13.0-17.0); LYMPH % 14.5 % (9.0-44.0); LYMPHOCYTE # 1.3 TH/MM3 (1.0-4.8); MEAN CELL VOLUME 94.7 FL (80.0-100.0); MEAN CORPUSCULAR HEMOGLOBIN 30.1 PG (27.0-34.0); MEAN CORPUSCULAR HGB CONC 31.8 % (32.0-36.0); MONO % 7.1 % (0.0-8.0); MONOCYTE # 0.7 TH/MM3 (0-0.9); PLATELET COUNT 338 TH/MM3 (150-450); RED BLOOD COUNT 3.42 MIL/MM3 (4.50-5.90); RED CELL DISTRIBUTION WIDTH 21.3 % (11.6-17.2); WHITE BLOOD COUNT 9.3 TH/MM3 (4.0-11.0)
[2017-04-01 21:29] LABS: CHLORIDE 107 MEQ/L (98-107); SODIUM (NA) 139 MEQ/L (136-145)
[2017-04-01 21:30] VITALS: BP 98/64; PULSE 69; RESP 18; O2SAT 97
[2017-04-01] MEDS ORDERED: ONDANSETRON HCL 4 MG/2 ML VIAL IV ONE (21:30)
[2017-04-01] MEDS ORDERED: SODIUM CHLOR 0.9% 1000 ML INJ 1,000 ML IV SCH (21:30)
[2017-04-01 21:33] LABS: CALCIUM 8.1 MG/DL (8.5-10.1); GLUCOSE,RANDOM 107 MG/DL (74-106); MAGNESIUM 1.8 MG/DL (1.5-2.5)
[2017-04-01 21:34] LABS: BLOOD UREA NITROGEN 15 MG/DL (7-18); PROTHROMBIN TIME - PATIENT 9.9 SEC (9.8-11.6)
[2017-04-01 21:35] VITALS: BP_SYST 101; BP_SYST 112; BP_DIAS 62; BP_DIAS 72; PULSE 66; RESP 18; O2SAT 97
[2017-04-01 21:36] LABS: ALT (GPT) 30 U/L (12-78); AST (GOT) 30 U/L (15-37)
[2017-04-01 21:37] LABS: GLOMERULAR FILTRATION RATE 67 ML/MIN (>89)
[2017-04-01 21:38] LABS: TOTAL BILIRUBIN ADULT 0.2 MG/DL (0.2-1.0); TOTAL PROTEIN 7.7 GM/DL (6.4-8.2)
[2017-04-01 21:39] LABS: ALKALINE PHOSPHATASE 121 U/L (45-117)
[2017-04-01 21:42] LABS: TROPONIN I LESS THAN 0.02 NG/ML (0.02-0.05)
[2017-04-01 21:48] LABS: LIPASE 262 U/L (73-393)
--- NOTE | 2017-04-01 21:50 | RADRPT ---
EXAM DATE/TIME: 04/01/2017 20:48 [facility] COMPARISON: CHEST SINGLE AP, March 12, 2017, 18:44. INDICATIONS : Chest pain. MEDICAL HISTORY : Myocardial infarction. Hypercholesterolemia. Carcinoma, prostatic SURGICAL HISTORY : Umbilical hernia repair. CABG. 2 cardiac stents. Prostatectomy. Coronary Artery Stent, Removal of I tiwari conduit ENCOUNTER: Initial ACUITY: 1 day PAIN SCORE: 10/10 LOCATION: Bilateral chest FINDINGS: 2 AP views of the chest. Median sternotomy wires. Moderate size hiatal hernia. Mild cardiac silhouett e enlargement. Lungs are clear. No evidence of pleural effusion or pneumothorax. CONCLUSION: Chronic mild cardiac silhouette enlargement a moderate size hiatal hernia. Lungs are clear. Moo Gurrola MD on April 01, 2017 at 21:47 Board Certified Radiologist. This report was verified electronically.
[2017-04-01] MEDS ORDERED: KETOROLAC TROMETHAMINE 30 MG/ML (IVP) VIAL IV PUSH ONE (22:30)
[2017-04-01] MEDS ORDERED: SODIUM CHLORIDE 0.9% FLUSH 10 ML FLUSH IV FLUSH PRN (22:45)
[2017-04-01] MEDS ORDERED: NITROGLYCERIN 0.4 MG SL 25 TABS/BTL SL PRN (22:45)
[2017-04-01] MEDS ORDERED: FLUMAZENIL 0.5 MG/5 ML VIAL IV PUSH PRN (22:45)
[2017-04-01] MEDS ORDERED: ACETAMINOPHEN 500 MG CPLT PO PRN (22:45)
[2017-04-01] MEDS ORDERED: ONDANSETRON HCL 4 MG/2 ML VIAL IV PUSH PRN (22:45)
[2017-04-01] MEDS ORDERED: LORazepam 2 MG/ML VIAL IV PUSH PRN ×4 (22:45)
[2017-04-01] MEDS ORDERED: LORazepam 1 MG TAB PO PRN (22:45)
[2017-04-01] MEDS ORDERED: LORazepam 2 MG TAB PO PRN (22:45)
[2017-04-01] MEDS: HEPARIN SODIUM - SQ 10,000 UNITS/ML VIAL SQ SCH (23:37)
[2017-04-01 23:45] VITALS: BP 106/84; PULSE 75; RESP 18; O2SAT 95
[2017-04-02] VITALS (8 sets, daily range): BP systolic 135–151; BP diastolic 84–101; PULSE 60–75; RESP 16–20; TEMP 97.3–98.1; O2SAT 96–98
[2017-04-02 00:12] LABS: TROPONIN I LESS THAN 0.02 NG/ML (0.02-0.05)
[2017-04-02] MEDS ORDERED: ACETAMINOPHEN/HYDROcodone 325 MG/5 MG TAB PO ONE (01:45)
[2017-04-02 03:54] LABS: TROPONIN I LESS THAN 0.02 NG/ML (0.02-0.05)
[2017-04-02] MEDS: HEPARIN SODIUM - SQ 10,000 UNITS/ML VIAL SQ SCH ×2 (05:54→14:42)
[2017-04-02] MEDS ORDERED: FAMOTIDINE 20 MG TAB PO SCH (09:00)
[2017-04-02] MEDS ORDERED: MORPHINE SULFATE 2 MG/ML INJ IM PRN (09:00)
[2017-04-02] MEDS: SODIUM CHLORIDE 0.9% FLUSH 10 ML FLUSH IV FLUSH SCH ×2 (09:51→22:04)
[2017-04-02] MEDS: PANTOPRAZOLE SOD 40 MG DELAYED RELEASE TAB PO SCH (09:51)
[2017-04-02] MEDS: AMIODARONE 200 MG TAB PO SCH ×2 (09:51→22:05)
[2017-04-02] MEDS: CLOPIDOGREL 75 MG TAB PO SCH (09:51)
[2017-04-02] MEDS: ASPIRIN 81 MG CHEW TAB CHEW SCH (09:51)
[2017-04-02] MEDS: MORPHINE SULFATE 2 MG/ML INJ IV PUSH PRN ×3 (09:52→22:05)
[2017-04-02] MEDS: METOPROLOL TARTRATE 25 MG TAB PO SCH ×2 (09:55→22:05)
[2017-04-02] MEDS ORDERED: CYCLOBENZAPRINE HCL 10 MG TAB PO ONE (12:00)
[2017-04-02] MEDS ORDERED: PROCHLORPERAZINE MALEATE 5 MG TAB PO ONE (12:00)
[2017-04-02] MEDS ORDERED: KETOROLAC TROMETHAMINE 60 MG/2 ML (IM) VIAL IM ONE (12:00)
--- NOTE | 2017-04-02 12:06 | HHI.HP ---
[facility] Service [facility] Primary Care Physician Fadi Estes MD Admission Diagnosis Chest pain, alcohol abuse Diagnoses: (1) Chest pain Chief Complaint: Chest pain Travel History International Travel<30 Days: No Contact w/Intl Traveler <30 Da: No Traveled to Known Affected Are: No History of Present Illness Written by Iveth Miranda, acting as scribe for Dr. Larkin on 04/02/17 at 11:53. Mr. Avalos is a 62-year-old male patient with a known medical history of CAD with history of CABG x 2 on 03/04/2017 and chronic alcohol abuse who presented to the ED with complaints of chest pain. Patient states that around 1700 last evening he noticed a right chest pain in his midsternal chest and complaints of "generalized pain all over his chest wall" that is sharp and intermittent in nature, rated a 7/10 on pain scale, admits to associated nausea and shortness of breath. Denies any vomiting or diaphoresis. Does admit to compliance with prescribed medications since CABG was performed. Denies any recent illness including fever, chills, headache, abdominal pain, v/d or dysuria. Does complain of chronic hiccups x 1 month now. PCP is Dr. Estes. Review of Systems Constitutional: DENIES: Fever, Chills Eyes: DENIES: Blurred vision Respiratory: DENIES: Cough Cardiovascular: COMPLAINS OF: Chest pain, Palpitations Gastrointestinal: COMPLAINS OF: Nausea, DENIES: Abdominal pain, Bloody stools, Constipation, Diarrhea, Vomiting Psychiatric: COMPLAINS OF: Anxiety Except as stated in HPI: all other systems reviewed are Neg Past Family Social History Past Medical History Coronary artery disease status post CABG 2 03/04/2017- Dr. Luther Right DVT Right lung PE Arthritis Anxiety Bladder cancer status post cystectomy with ileostomy Arthritis Anxiety Bladder cancer Hyperlipidemia GERD Hepatitis B Hypertension Myocardial infarction 2 Obstructive sleep apnea but does not use CPAP Gastric ulcer 3 years ago - with upper endoscopy 2 years ago showing no further ulceration. Past Surgical History Ileal conduit Cardiac stents 2 CABG 2 03/04/2017 Kidney stents Prostatectomy/cystectomy 2011 Back surgery Reported Medications Active Acidophilus/l-Sporogenes (Lactobacillus Acidophilus) 35 Million Cell-25 Million Cell Tab 1 Tab PO TID 7 Days Cleocin (Clindamycin HCl) 150 Mg Cap 300 Mg PO Q6HR 7 Days Ventolin Hfa 18 GM Inh (Albuterol Sulfate) 90 Mcg/Act Aer 2 Puff INH Q4-6H PRN Hydrocodone-Acetamin 10-325 mg (Hydrocodone/Acetaminophen) 10 Mg-325 Mg Tablet 1 Tab PO Q6HR PRN Metoprolol Tartrate 25 Mg Tab 25 Mg PO BID Atorvastatin (Atorvastatin Calcium) 40 Mg Tab 40 Mg PO HS Amiodarone (Amiodarone HCl) 200 Mg Tab 200 Mg PO Q12HR Plavix (Clopidogrel Bisulfate) 75 Mg Tab 75 Mg PO DAILY Aspirin 81 Mg Chew 81 Mg CHEW DAILY Polyethylene Glycol 3350 Powder (Polyethylene Glycol) 17 Gram Pow 17 Gm PO DAILY Reported Pantoprazole (Pantoprazole Sodium) 40 Mg Tab 40 Mg PO DAILY Allergies: Coded Allergies: Sulfa (Sulfonamide Antibiotics) (Unverified Allergy, Severe, Rash, ) "quit breathing" doxycycline (Unverified Allergy, Severe, 04/01/17) allergy Active Ordered Medications Current Medications Medications (Trade) Dose Ordered Sig/Marta Route Start Time Stop Time Status Last Admin (Romazicon Inj) 0.2 mg Q1M PRN IV PUSH 04/01/17 22:45 (Ativan) 1 mg Q4H PRN PO 04/01/17 22:45 (Ativan Inj) 1 mg Q4H PRN IV PUSH 04/01/17 22:45 (Ativan) 2 mg Q2H PRN PO 04/01/17 22:45 (Ativan Inj) 2 mg Q2H PRN IV PUSH 04/01/17 22:45 (Ativan Inj) 2 mg Q1H PRN IV PUSH 04/01/17 22:45 (Ativan Inj) 2 mg Q15M PRN IV PUSH 04/01/17 22:45 (Cordarone) 200 mg Q12HR PO 04/02/17 09:00 04/02/17 09:51 (Aspirin Chew) 81 mg DAILY CHEW 04/02/17 09:00 04/02/17 09:51 (Lipitor) 40 mg HS PO 04/02/17 21:00 (Plavix) 75 mg DAILY PO 04/02/17 09:00 04/02/17 09:51 (Lopressor) 25 mg BID PO 04/02/17 09:00 04/02/17 09:55 (Protonix) 40 mg DAILY PO 04/02/17 09:00 04/02/17 09:51 (NS Flush) 2 ml UNSCH PRN IV FLUSH 04/01/17 22:45 (NS Flush) 2 ml BID IV FLUSH 04/02/17 09:00 04/02/17 09:51 (Tylenol) 500 mg Q4H PRN PO 04/01/17 22:45 (Zofran Inj) 4 mg Q6H PRN IV PUSH 04/01/17 22:45 (Nitrostat Sl) 0.4 mg Q5M PRN SL 04/01/17 22:45 (Heparin Inj) 5,000 units Q8H SQ 04/01/17 22:45 04/02/17 05:54 (Morphine Inj) 2 mg Q4H PRN IV PUSH 04/02/17 09:45 04/02/17 09:52 Family History Father during open heart surgery in his 80s from a CVA Brother with first [place] in his mid 50s Social History Admits to smoking 1/2 ppd cigarettes x 20 years. Does admit to drinking roughly 4 alcoholic drinks almost every day. Denies any illicit drug use. Physical Exam Vital Signs Vital Signs Date Time Temp Pulse Resp B/P (MAP) Pulse Ox O2 Delivery O2 Flow Rate FiO2 04/02/17 08:00 97.5 60 16 140/101 (114) 96 04/02/17 04:00 97.5 75 20 151/86 (107) 96 04/02/17 01:00 72 04/02/17 00:15 04/01/17 23:45 75 18 106/84 (91) 95 Room Air 04/01/17 21:35 97 Room Air 04/01/17 21:35 66 18 101/62 (75) 97 Room Air 112/72 (85) 04/01/17 21:35 18 97 Room Air 04/01/17 21:30 69 18 98/64 (75) 97 Room Air 04/01/17 20:56 18 04/01/17 20:35 61 18 97 04/01/17 20:32 98.7 61 18 119/75 (90) 97 Physical Exam GENERAL: This is a well-nourished, well-developed patient, in no apparent distress. SKIN: No rashes, ecchymoses or lesions. Warm and dry. Midsternal healed chest incision, no drainage or erythema present. HEAD: Atraumatic. Normocephalic. No temporal or scalp tenderness. EYES: Pupils equal round and reactive. Extraocular motions intact. No scleral icterus. No injection or drainage. ENT: Nose without bleeding, purulent drainage or septal hematoma. Throat without erythema, tonsillar hypertrophy or exudate. Uvula midline. Airway patent. NECK: Trachea midline. No JVD or lymphadenopathy. Supple, nontender, no meningeal signs. CARDIOVASCULAR: Regular rate and rhythm without murmurs, gallops, or rubs. Reproducible midsternal chest discomfort to palpation. RESPIRATORY: Clear to auscultation. Breath sounds equal bilaterally. No wheezes , rales, or rhonchi. GASTROINTESTINAL: Abdomen soft, non-tender, nondistended. No guarding. MUSCULOSKELETAL: Extremities without clubbing, cyanosis, or edema. No joint tenderness, effusion, or edema noted. NEUROLOGICAL: Awake and alert. Cranial nerves II through XII intact. Motor and sensory grossly within normal limits. Five out of 5 muscle strength in all muscle groups. Normal speech. Laboratory Laboratory Tests Test 04/01/17 20:55 04/01/17 23:38 04/02/17 03:10 White Blood Count 9.3 Red Blood Count 3.42 Hemoglobin 10.3 Hematocrit 32.4 Mean Corpuscular Volume 94.7 Mean Corpuscular Hemoglobin 30.1 Mean Corpuscular Hemoglobin Concent 31.8 Red Cell Distribution Width 21.3 Platelet Count 338 Mean Platelet Volume 7.0 Neutrophils (%) (Auto) 74.0 Lymphocytes (%) (Auto) 14.5 Monocytes (%) (Auto) 7.1 Eosinophils (%) (Auto) 2.9 Basophils (%) (Auto) 1.5 Neutrophils # (Auto) 6.9 Lymphocytes # (Auto) 1.3 Monocytes # (Auto) 0.7 Eosinophils # (Auto) 0.3 Basophils # (Auto) 0.1 CBC Comment DIFF FINAL Differential Comment Prothrombin Time 9.9 Prothromb Time International Ratio 1.0 Activated Partial Thromboplast Time 23.2 Blood Urea Nitrogen 15 Creatinine 1.10 Random Glucose 107 Total Protein 7.7 Albumin 3.0 Calcium Level 8.1 Magnesium Level 1.8 Alkaline Phosphatase 121 Aspartate Amino Transf (AST/SGOT) 30 Alanine Aminotransferase (ALT/SGPT) 30 Total Bilirubin 0.2 Sodium Level 139 Potassium Level 4.1 Chloride Level 107 Carbon Dioxide Level 19.0 Anion Gap 13 Estimat Glomerular Filtration Rate 67 Total Creatine Kinase 66 60 61 Troponin I LESS THAN 0.02 LESS THAN 0.02 LESS THAN 0.02 Lipase 262 Ethyl Alcohol Level 155 Result Diagram: 04/01/17205404/01/172054 Imaging Last Impressions Chest X-Ray 04/01/172042 Signed Impressions: Service Date/Time: Saturday, April 01, 2017 20:48 - CONCLUSION: Chronic mild cardiac silhouette enlargement a moderate size hiatal hernia. Lungs are clear. Moo Gurrola MD Septic Shock Reassessment Septic shock perfusion: reassessment completed Caprini VTE Risk Assessment Caprini VTE Risk Assessment: Mod/High Risk (score >= 2) Caprini Risk Assessment Model Point Value = 1 Point Value = 2 Point Value = 3 Point Value = 5 Age 41-60 Minor surgery BMI > 25 kg/m2 Swollen legs Varicose veins or History of unexplained or recurrent spontaneous Oral contraceptives or hormone replacement Sepsis (< 1 month) Serious lung disease, including pneumonia (< 1 month) Abnormal pulmonary function Acute myocardial infarction Congestive heart failure (< 1 month) History of inflammatory bowel disease Medical patient at bed rest Age 61-74 Arthroscopic surgery Major open surgery (> 45 min) Laparoscopic surgery (> 45 min) Malignancy Confined to bed (> 72 hours) Immobilizing plaster cast Central venous access Age >= 75 History of VTE Family history of VTE Factor V Leiden Prothrombin [id number] Lupus anticoagulant Anticardiolipin antibodies Elevated serum homocysteine Heparin-induced thrombocytopenia Other congenital or acquired thrombophilia Stroke (< 1 month) Elective arthroplasty Hip, pelvis, or leg fracture Acute spinal cord injury (< 1 month) Prophylaxis Regimen Total Risk Factor Score Risk Level Prophylaxis Regimen 0-1 Low Early ambulation 2 Moderate Order ONE of the following: *Sequential Compression Device (SCD) *Heparin 5000 units SQ BID 3-4 Higher Order ONE of the following medications: *Heparin 5000 units SQ TID *Enoxaparin/Lovenox 40 mg SQ daily (WT < 150 kg, CrCl > 30 mL/min) *Enoxaparin/Lovenox 30 mg SQ daily (WT < 150 kg, CrCl > 10-29 mL/min) *Enoxaparin/Lovenox 30 mg SQ BID (WT < 150 kg, CrCl > 30 mL/min) AND/OR *Sequential Compression Device (SCD) 5 or more Highest Order ONE of the following medications: *Heparin 5000 units SQ TID (Preferred with Epidurals) *Enoxaparin/Lovenox 40 mg SQ daily (WT < 150 kg, CrCl > 30 mL/min) *Enoxaparin/Lovenox 30 mg SQ daily (WT < 150 kg, CrCl > 10-29 mL/min) *Enoxaparin/Lovenox 30 mg SQ BID (WT < 150 kg, CrCl > 30 mL/min) AND *Sequential Compression Device (SCD) Assessment and Plan Assessment and Plan Chest pain suspect musculoskeletal in nature Coronary artery disease status post CABG 2 03/04/2017 - Reproducible chest discomfort to palpation. - Serial EKGs and cardiac enzymes ordered for ruling out ACS purposes. Serial troponins flat. EKGs reviewed showing NSR with controlled heart rate, presence of RBBB. No ST changes to indicate ischemia. - Continuous cardiac telemetry to monitor for arrhythmia - Nitroglycerin 0.4 mg sublingual every 5 minutes PRN - Control pain, IV narcotics available PRN per pain scale. - Flexeril PO x 1 and Toradol IV x 1 given for musculoskeletal pain. Assess effect. - Continue home beta ailyn, statin, aspirin, Plavix and amiodarone. - Spoke to Dr. Peña who has seen patient post CABG who does not advise in stress testing patient due to the recent CABG, most likely musculoskeletal in nature since ACS ruled out with serial troponins and EKGs. Will control pain and probable discharge to follow up with cardiology upon discharge. - Supportive care. Hypertension, chronic: May be related to musculoskeletal pain. Control pain. Continue home medications. Monitor BP trends. GERD: Continue home Protonix. Alcohol intoxication Chronic alcohol abuse - Ethyl alcohol level 155 on presentation. - Continue CIWA protocol. - Seizure precautions. - Monitor for withdrawal symptoms. Dyslipidemia: Continue home Statin. DVT prophylaxis: SCD/TEDs. Heparin. This note was transcribed by MARIA TERESA Hernandez . I, Dr. Ashley Larkin personally performed the history, physical exam, and medical decision making; and confirmed the accuracy of the information in the transcribed note. Authenticated by Dr. Ashley Larkin on 04/02/17 at 11:53. DC plan: DC home in stable condition to follow up as OP with PCP and consultants. Diet : healthy hearrt Activity ad ross as tolerated 'Meds per med reconciliations Discussed Condition With patient, nurse Iveth Miranda Apr 02, 2017 12:06 Ashley Larkin MD Apr 02, 2017 12:37
[2017-04-02] MEDS ORDERED: HYDR-3583 PO (12:14)
[2017-04-02] MEDS ORDERED: CYCLOBENZAPRINE HCL 10 MG TAB PO PRN (12:15)
[2017-04-02] MEDS ORDERED: KETOROLAC TROMETHAMINE 30 MG/ML (IVP) VIAL IV PUSH ONE (12:15)
[2017-04-02] MEDS ORDERED: CYCL5TAB PO (12:18)
--- NOTE | 2017-04-02 12:53 | EKG ---
Date Performed: 04/02/2017 Time Performed: 03:53:15 PTAGE: 62 years EKG: Sinus rhythm INCOMPLETE RIGHT BUNDLE BRANCH BLOCK BORDERLINE ECG Since PREVIOUS TRACING , no significant change noted PREVIOUS TRACIN04/02/2017 00.22 DOCTOR: Gisselle Carreon Interpretating Date/Time 04/02/2017 12:52:05
--- NOTE | 2017-04-02 12:54 | EKG ---
Date Performed: 04/02/2017 Time Performed: 00:22:48 PTAGE: 62 years EKG: Sinus rhythm WITH SINUS ARRHYTHMIA NONSPECIFIC T-WAVE ABNORMALITY BORDERLINE ECG Since PREVIOUS TRACING , no significant change noted PREVIOUS TRACIN04/01/2017 20.26 DOCTOR: Gisselle Carreon Interpretating Date/Time 04/02/2017 12:52:54
--- NOTE | 2017-04-02 12:56 | EKG ---
Date Performed: 04/01/2017 Time Performed: 20:26:38 PTAGE: 62 years EKG: Sinus rhythm INCOMPLETE RIGHT BUNDLE BRANCH BLOCK NONSPECIFIC T-WAVE ABNORMALITY BORDERLINE ECG Since PREVIOUS TRACING , no significant change noted PREVIOUS TRACIN03/13/2017 10.24 DOCTOR: Gisselle Carreon Interpretating Date/Time 04/02/2017 12:55:02
[2017-04-02] MEDS: ACETAMINOPHEN/HYDROcodone 325 MG/5 MG TAB PO PRN (18:11)
[2017-04-02] MEDS ORDERED: ATORVASTATIN 40 MG TAB PO SCH (21:00)
[2017-04-03] VITALS: BP 141/93; PULSE 58; RESP 20; TEMP 98.2; O2SAT 96
[2017-04-03] MEDS: HEPARIN SODIUM - SQ 10,000 UNITS/ML VIAL SQ SCH ×2 (00:16→06:54)
[2017-04-03] MEDS: ACETAMINOPHEN/HYDROcodone 325 MG/5 MG TAB PO PRN ×2 (00:23→07:25)
[2017-04-03] MEDS: MORPHINE SULFATE 2 MG/ML INJ IV PUSH PRN ×2 (02:37→08:09)
[2017-04-03 04:00] VITALS: BP 152/103; PULSE 58; RESP 20; TEMP 96.7; O2SAT 96
[2017-04-03 08:00] VITALS: BP 137/81; PULSE 61; PULSE 68; RESP 18; TEMP 98; O2SAT 96
[2017-04-03] MEDS: AMIODARONE 200 MG TAB PO SCH (08:09)
[2017-04-03] MEDS: ASPIRIN 81 MG CHEW TAB CHEW SCH (08:09)
[2017-04-03] MEDS: PANTOPRAZOLE SOD 40 MG DELAYED RELEASE TAB PO SCH (08:10)
[2017-04-03] MEDS: CLOPIDOGREL 75 MG TAB PO SCH (08:10)
[2017-04-03] MEDS: METOPROLOL TARTRATE 25 MG TAB PO SCH (08:10)
[2017-04-03 08:14] VITALS: RESP 20
--- NOTE | 2017-04-03 10:01 | HHI.DCPOC ---
Discharge Care Plan Goals to Promote Your Health * To prevent worsening of your condition and complications * To maintain your health at the optimal level Directions to Meet Your Goals Take your medications as prescribed Follow your dietary instruction Follow activity as directed Keep your appointments as scheduled Take your immunizations and boosters as scheduled If your symptoms worsen call your PCP, if no PCP go to Urgent Care Center or Emergency Room Smoking is Dangerous to Your Health. Avoid second hand smoke Call the 24-hour hour crisis hotline for domestic abuse at Ashley Larkin MD Apr 03, 2017 10:00
--- NOTE | 2017-04-03 10:14 | HHI.PR ---
Subjective Remarks No events overnight. Pain is controlled. No n/v/d/c. Objective Vitals Vital Signs Date Time Temp Pulse Resp B/P (MAP) Pulse Ox O2 Delivery O2 Flow Rate FiO2 04/03/17 08:00 98.0 61 18 137/81 (99) 96 04/03/17 04:00 96.7 58 20 152/103 (119) 96 04/03/17 00:00 98.2 58 20 141/93 (109) 96 04/02/17 23:00 62 04/02/17 20:00 98.1 60 20 135/84 (101) 97 04/02/17 19:06 18 04/02/17 16:00 98.0 64 16 141/86 (104) 96 04/02/17 14:47 18 04/02/17 12:00 97.3 73 16 140/86 (104) 98 I/O 04/02/17 04/02/17 04/02/17 04/03/17 04/03/17 04/03/17 07:00 15:00 23:00 07:00 15:00 23:00 Intake Total 720 ml 300 ml 120 ml Output Total 375 ml 675 ml Balance 720 ml -75 ml -555 ml Intake Oral 720 ml 300 ml 120 ml Output Urine Total 375 ml 675 ml # Voids 1 # Bowel Movements 0 Result Diagram: 04/01/17205404/01/172054 Imaging Last Impressions Chest X-Ray 04/01/172042 Signed Impressions: Service Date/Time: Saturday, April 01, 2017 20:48 - CONCLUSION: Chronic mild cardiac silhouette enlargement a moderate size hiatal hernia. Lungs are clear. Moo Gurrola MD Objective Remarks GENERAL: This is a well-nourished, well-developed patient, in no apparent distress. CARDIOVASCULAR: Regular rate and rhythm without murmurs, gallops, or rubs. Reproducible midsternal chest discomfort to palpation. RESPIRATORY: Clear to auscultation. Breath sounds equal bilaterally. No wheezes , rales, or rhonchi. GASTROINTESTINAL: Abdomen soft, non-tender, nondistended. No guarding. MUSCULOSKELETAL: Extremities without clubbing, cyanosis, or edema. No joint tenderness, effusion, or edema noted. NEUROLOGICAL: Awake and alert. Cranial nerves II through XII intact. Motor and sensory grossly within normal limits. Five out of 5 muscle strength in all muscle groups. Normal speech. A/P Problem List: (1) Chest pain ICD Code: R07.9 - Chest pain, unspecified Status: Acute Assessment and Plan Chest pain suspect musculoskeletal in nature resolved with muscle relaxers and pain meds Coronary artery disease status post CABG 2 03/04/2017 - Reproducible chest discomfort to palpation. - Serial EKGs and cardiac enzymes ordered for ruling out ACS purposes. Serial troponins flat. EKGs reviewed showing NSR with controlled heart rate, presence of RBBB. No ST changes to indicate ischemia. - Continuous cardiac telemetry to monitor for arrhythmia - Nitroglycerin 0.4 mg sublingual every 5 minutes PRN - Control pain, IV narcotics available PRN per pain scale. - Flexeril PO x 1 and Toradol IV x 1 given for musculoskeletal pain. Assess effect. - Continue home beta ailyn, statin, aspirin, Plavix and amiodarone. - Spoke to Dr. Peña who has seen patient post CABG who does not advise in stress testing patient due to the recent CABG, most likely musculoskeletal in nature since ACS ruled out with serial troponins and EKGs. Will control. pain and probable discharge to follow up with cardiology upon discharge. - Supportive care. Hypertension, chronic: May be related to musculoskeletal pain. Control pain. Continue home medications. Monitor BP trends. GERD: Continue home Protonix. Alcohol intoxication Chronic alcohol abuse - Ethyl alcohol level 155 on presentation. - Continue CIWA protocol. - Seizure precautions. - Monitor for withdrawal symptoms. Dyslipidemia: Continue home Statin. DVT prophylaxis: SCD/TEDs. Heparin. Discharge Planning DC home in stable condition to follow up as OP with PCP and consultants Meds per med reconciliations Activity ad ross as tolerated Diet healthy heart Ashley Larkin MD Apr 03, 2017 10:14
== END 2017-04-03 12:00 | disposition home or self-care (01) ==
LOC: PHED 20:19 → PHEDA 22:46 → PH3A 04-02 00:15
PROVIDERS: ADMIT Hospitalist; ATTEND Hospitalist
DX: R07.89 Other chest pain (principal); F10.129 Alcohol abuse with intoxication, unspecified; E78.5 Hyperlipidemia, unspecified; I10 Essential (primary) hypertension; I25.10 Atherosclerotic heart disease of native coronary artery without angina pectoris; G47.33 Obstructive sleep apnea (adult) (pediatric); I45.10 Unspecified right bundle-branch block; K21.9 Gastro-esophageal reflux disease without esophagitis; I25.2 Old myocardial infarction; K44.9 Diaphragmatic hernia without obstruction or gangrene; Z95.1 Presence of aortocoronary bypass graft; Z95.5 Presence of coronary angioplasty implant and graft; Z85.51 Personal history of malignant neoplasm of bladder; Z87.11 Personal history of peptic ulcer disease; Z90.6 Acquired absence of other parts of urinary tract; Z87.891 Personal history of nicotine dependence
CPT/HCPCS: 71010; 80053; 80307; 82550; 83690; 83735; 84484; 85025; 85610; 85730; 93005; 96361; 96372; 96374; 96375; 96376; 99285; G0378; J1644; J1885; J2270; J2405; J7030; Q0164

== ENCOUNTER 2017-07-14 14:18 | Emergency (ER) | payer MEDICAID ==
[~2017-07-14] VITALS: Ht 172.7 cm; Wt 100.0 kg
[~2017-07-14 14:18] MED LIST changes: +CYCL5TAB PO; -DOCU1CAP39 PO; -FOLI1TAB6 PO; -GABA100C4 PO; -THERM PO
[2017-07-14 14:40] VITALS: BP 127/74; PULSE 73; RESP 20; TEMP 98.9; O2SAT 100
--- NOTE | 2017-07-14 15:09 | RADRPT ---
EXAM DATE/TIME: 07/14/2017 14:41 [facility] COMPARISON: CHEST SINGLE AP, April 01, 2017, 20:48. INDICATIONS : Chest Pain with dizziness MEDICAL HISTORY : Myocardial infarction. Hypercholesterolemia. Carcinoma, prostatic SURGICAL HISTORY : Umbilical hernia repair. CABG. 2 cardiac stents. Prostatectomy. Coronary Artery Stent, Removal of Ile al conduit ENCOUNTER: Initial ACUITY: 1 day PAIN SCORE: 7/10 LOCATION: chest FINDINGS: A single view of the chest demonstrates a cardiomegaly. Moderate hiatal hernia. Previous sternotomy. Minimal basal atelectasis or scarring. No pneumothorax. CONCLUSION: 1. Cardiomegaly with minimal basal atelectasis or scarring. Moderate hiatal hernia. Dread Thornton MD on July 14, 2017 at 15:03 Board Certified Radiologist. This report was verified electronically.
[2017-07-14] MEDS ORDERED: ORPHENADRINE CITRATE 100 MG SUSTAINED RELEASE TAB PO ONE (15:15)
[2017-07-14] MEDS ORDERED: ACETAMINOPHEN/HYDROcodone 325 MG/5 MG TAB PO ONE (15:15)
[2017-07-14 15:30] LABS: AUTOMATED NEUTROPHIL # 6.1 TH/MM3 (1.8-7.7); BASOPHIL % 0.4 % (0.0-2.0); EOSINOPHIL % 0.1 % (0.0-4.0); HEMATOCRIT 36.9 % (39.0-51.0); HEMOGLOBIN 11.6 GM/DL (13.0-17.0); LYMPH % 8.1 % (9.0-44.0); LYMPHOCYTE # 0.6 TH/MM3 (1.0-4.8); MEAN CELL VOLUME 80.4 FL (80.0-100.0); MEAN CORPUSCULAR HEMOGLOBIN 25.3 PG (27.0-34.0); MEAN CORPUSCULAR HGB CONC 31.5 % (32.0-36.0); MEAN PLATELET VOLUME 8.4 FL (7.0-11.0); MONO % 5.9 % (0.0-8.0); MONOCYTE # 0.4 TH/MM3 (0-0.9); NEUT % 85.5 % (16.0-70.0); PLATELET COUNT 162 TH/MM3 (150-450); RED BLOOD COUNT 4.59 MIL/MM3 (4.50-5.90); RED CELL DISTRIBUTION WIDTH 22.8 % (11.6-17.2); WHITE BLOOD COUNT 7.2 TH/MM3 (4.0-11.0)
[2017-07-14 15:44] LABS: BICARBONATE 20.7 MEQ/L (21.0-32.0); BLOOD UREA NITROGEN 20 MG/DL (7-18); CALCIUM 9.1 MG/DL (8.5-10.1); CHLORIDE 99 MEQ/L (98-107); CREATININE 1.37 MG/DL (0.60-1.30); GLOMERULAR FILTRATION RATE 52 ML/MIN (>89); GLUCOSE,RANDOM 120 MG/DL (74-106); SODIUM (NA) 135 MEQ/L (136-145)
[2017-07-14 15:47] LABS: TROPONIN I LESS THAN 0.02 NG/ML (0.02-0.05)
[2017-07-14] MEDS ORDERED: ASPI-516 CHEW (16:00)
--- NOTE | 2017-07-14 16:12 | RADRPT ---
EXAM DATE/TIME: 07/14/2017 15:41 [facility] COMPARISON: No previous studies available for comparison. INDICATIONS : Shortness of breath. Right sided chest pain. MEDICAL HISTORY : Hypertension. Myocardial infarction. Skin cancer. SURGICAL HISTORY : CABG. Coronary artery stent. ENCOUNTER: Initial ACUITY: 3 days PAIN SCORE: 6/10 LOCATION: Bilateral chest FINDINGS: PA and lateral views of the chest demonstrate no consolidation or effusion. Moderate hiatal hernia. P revious sternotomy. Stable kyphoplasty change at T12. CONCLUSION: 1. No consolidation or pleural effusion. The stable kyphoplasty change at T12. Moderate hiatal hernia . Dread Thornton MD on July 14, 2017 at 16:08 Board Certified Radiologist. This report was verified electronically.
[2017-07-14] MEDS ORDERED: PERC5TAB12 PO (16:36)
[2017-07-14] MEDS ORDERED: REGL10TA5 PO (16:36)
--- NOTE | 2017-07-14 16:37 | PD ---
HPI Chief Complaint: Chest Pain Time Seen by Provider: 15:07 Travel History International Travel<30 days: No Contact w/Intl Traveler<30days: No Traveled to known affect area: No History of Present Illness HPI Is a 62-year-old man presents to the emergency department for evaluation following fall. States he tripped and fell, on a corner several days ago. He had a CABG done about March [address] Hoover. History of DVT and PE as well. Complains of pain in his chest especially about the sternum and on the left side. Pain was worse and is out of pain medicine so he came in today. No shortness of breath. Also complaining of hiccups that are bothersome to him. They have been ongoing since the surgery but are worse since he fell. History Past Medical History Narrative Medical Multiple ED visits for alcohol use Coronary artery disease status post CABG 2 03/04/2017- Dr. Luther Right DVT Right lung PE Arthritis Anxiety Bladder cancer status post cystectomy with ileostomy Arthritis Anxiety Bladder cancer Hyperlipidemia GERD Hepatitis B Hypertension Myocardial infarction 2 Obstructive sleep apnea but does not use CPAP Gastric ulcer 3 years ago - with upper endoscopy 2 years ago showing no further ulceration. Social History Alcohol Use: Yes (0.5 LITRE VODKA DAILY) Tobacco Use: Yes (1/2 - 1 PPD ) Allergies-Medications (Allergen,Severity, Reaction): Coded Allergies: Sulfa (Sulfonamide Antibiotics) (Unverified Allergy, Severe, Rash, 07/14/17) "quit breathing" doxycycline (Unverified Allergy, Severe, 07/14/17) allergy Reported Meds & Prescriptions Reported Meds & Active Scripts Active Hydrocodone-Acetamin 10-325 mg (Hydrocodone/Acetaminophen) 10 Mg-325 Mg Tablet 1 Tab PO Q6HR PRN Ventolin Hfa 18 GM Inh (Albuterol Sulfate) 90 Mcg/Act Aer 2 Puff INH Q4-6H PRN Metoprolol Tartrate 25 Mg Tab 25 Mg PO BID Atorvastatin (Atorvastatin Calcium) 40 Mg Tab 40 Mg PO HS Plavix (Clopidogrel Bisulfate) 75 Mg Tab 75 Mg PO DAILY Polyethylene Glycol 3350 Powder (Polyethylene Glycol) 17 Gram Pow 17 Gm PO DAILY Reported Aspirin 81 Mg Chew 162 Mg CHEW DAILY Pantoprazole (Pantoprazole Sodium) 40 Mg Tab 40 Mg PO DAILY Review of Systems Except as stated in HPI: all other systems reviewed are Neg Physical Exam Narrative GENERAL: Well-appearing 62 oh man, no acute distress. SKIN: Focused skin assessment warm/dry. HEAD: Atraumatic. Normocephalic. EYES: Pupils equal and round. No scleral icterus. No injection or drainage. ENT: No nasal bleeding or discharge. Mucous membranes pink and moist. NECK: Trachea midline. No JVD. CARDIOVASCULAR: Regular rate and rhythm. No murmur appreciated. RESPIRATORY: No accessory muscle use. Clear to auscultation. Breath sounds equal bilaterally. GASTROINTESTINAL: Abdomen soft, non-tender, nondistended. Hepatic and splenic margins not palpable. MUSCULOSKELETAL: No obvious deformities. No clubbing. No cyanosis. No edema. NEUROLOGICAL: Awake and alert. No obvious cranial nerve deficits. Motor grossly within normal limits. Normal speech. PSYCHIATRIC: Appropriate mood and affect; insight and judgment normal. Data Data Last Documented VS Vital Signs Date Time Temp Pulse Resp B/P (MAP) Pulse Ox O2 Delivery O2 Flow Rate FiO2 07/14/17 14:44 99 Nasal Cannula 2.00 07/14/17 14:40 98.9 73 20 127/74 (91) Orders Orders Electrocardiogram (07/14/17 14:29) Complete Blood Count With Diff (07/14/17 14:29) Basic Metabolic Panel (Bmp) (07/14/17 14:29) Ckmb (Isoenzyme) Profile (07/14/17 14:29) Troponin I (07/14/17 14:29) Chest, Single Ap (07/14/17 14:29) Iv Access Insert/Monitor (07/14/17 14:29) Ecg Monitoring (07/14/17 14:29) Oxygen Administration (07/14/17 14:29) Oximetry (07/14/17 14:29) Coag Profile (07/14/17 14:29) Acetamin-Hydrocod 325-5 Mg (Sidney 5-325 (07/14/17 15:15) Orphenadrine Sr (Norflex Cr) (07/14/17 15:15) Chest, Pa & Lat (07/14/17 ) Labs Laboratory Tests Test 07/14/17 14:37 White Blood Count 7.2 TH/MM3 Red Blood Count 4.59 MIL/MM3 Hemoglobin 11.6 GM/DL Hematocrit 36.9 % Mean Corpuscular Volume 80.4 FL Mean Corpuscular Hemoglobin 25.3 PG Mean Corpuscular Hemoglobin Concent 31.5 % Red Cell Distribution Width 22.8 % Platelet Count 162 TH/MM3 Mean Platelet Volume 8.4 FL Neutrophils (%) (Auto) 85.5 % Lymphocytes (%) (Auto) 8.1 % Monocytes (%) (Auto) 5.9 % Eosinophils (%) (Auto) 0.1 % Basophils (%) (Auto) 0.4 % Neutrophils # (Auto) 6.1 TH/MM3 Lymphocytes # (Auto) 0.6 TH/MM3 Monocytes # (Auto) 0.4 TH/MM3 Eosinophils # (Auto) 0.0 TH/MM3 Basophils # (Auto) 0.0 TH/MM3 CBC Comment DIFF FINAL Differential Comment Prothrombin Time 10.0 SEC Prothromb Time International Ratio 1.0 RATIO Activated Partial Thromboplast Time 23.0 SEC Blood Urea Nitrogen 20 MG/DL Creatinine 1.37 MG/DL Random Glucose 120 MG/DL Calcium Level 9.1 MG/DL Sodium Level 135 MEQ/L Potassium Level 3.7 MEQ/L Chloride Level 99 MEQ/L Carbon Dioxide Level 20.7 MEQ/L Anion Gap 15 MEQ/L Estimat Glomerular Filtration Rate 52 ML/MIN Total Creatine Kinase 39 U/L Troponin I LESS THAN 0.02 NG/ML MDM Medical Decision Making Medical Screen Exam Complete: Yes Emergency Medical Condition: Yes Interpretation(s) LABS: CBC is remarkable for mild anemia. BMP is unremarkable. BUN and creatinine are elevated. Troponin negative. Coags are unremarkable. Chest x-ray: No consolidation or pleural effusion. Stable kyphoplasty at T12. Moderate hiatal hernia. Differential Diagnosis Fracture, injury to sternum, contusion, pneumothorax, other Narrative Course We will 62-year-old man presents emerged from a chest wall pain after fall couple days ago. He still healing from his CABG surgery. He looks well. Ran out of his pain medications which may be playing into his worsening pain today. Looks well. Heart looks fine. Outpatient follow-up. Diagnosis Primary Impression: Chest wall pain Additional Instructions: Try Reglan as needed for pickups. Use Percocet sparingly as needed for severe chest wall pain. Follow-up with your primary doctor in 2-4 days. Return to the emergency department for any new or worsening symptoms. Med/Other Pt SpecificInfo: Prescription(s) given Scripts Oxycodone-Acetaminophen (Percocet) 5-325 mg Tab 1 TAB PO Q6H Y for PAIN, #6 TAB 0 Refills Prov: Navi Reed MD 07/14/17 Metoclopramide (Reglan) 10 Mg Tab 10 MG PO TIDAC Y for ABDOMINAL CRAMPING, #15 TAB 0 Refills Prov: Navi Reed MD 07/14/17 Disposition: 01 DISCHARGE HOME Condition: Stable Navi Reed MD Jul 14, 2017 16:36
--- NOTE | 2017-07-15 15:30 | EKG ---
Date Performed: 07/14/2017 Time Performed: 14:31:18 PTAGE: 62 years EKG: Sinus rhythm NONSPECIFIC ST & T-WAVE ABNORMALITY Since the previous tracing, no significant change noted BORDERLI NE ECG PREVIOUS TRACING : 04/02/2017 03.53 DOCTOR: Marcelo Purcell Interpretating Date/Time 07/15/2017 15:22:34
== END 2017-07-14 17:50 | disposition home or self-care (01) ==
LOC: NEPE 14:18
DX: R07.89 Other chest pain (principal); E78.5 Hyperlipidemia, unspecified; I10 Essential (primary) hypertension; I25.2 Old myocardial infarction; I25.10 Atherosclerotic heart disease of native coronary artery without angina pectoris; K21.9 Gastro-esophageal reflux disease without esophagitis; F17.200 Nicotine dependence, unspecified, uncomplicated; Z85.51 Personal history of malignant neoplasm of bladder; Z95.1 Presence of aortocoronary bypass graft
CPT/HCPCS: 71045; 71046; 80048; 82550; 84484; 85025; 85610; 85730; 93005; 99285

== ENCOUNTER 2017-08-15 00:45 | Emergency (ER) | payer MEDICAID ==
[~2017-08-15] VITALS: Ht 175.3 cm; Wt 89.8 kg
[~2017-08-15 00:45] MED LIST changes: -AMIO200T PO; -CLIN150 PO; -CYCL5TAB PO; -LACT PO; +PERC5TAB12 PO; +REGL10TA5 PO
[2017-08-15 00:51] VITALS: BP 136/83; PULSE 90; TEMP 98
[2017-08-15 01:50] VITALS: BP 136/63; PULSE 90; RESP 18; TEMP 98; O2SAT 97
[2017-08-15 02:50] VITALS: BP 138/92; PULSE 94; RESP 18; O2SAT 97
--- NOTE | 2017-08-15 03:13 | PD ---
HPI Chief Complaint: Musculoskeletal Complaint Time Seen by Provider: 01:48 Travel History International Travel<30 days: No Contact w/Intl Traveler<30days: No Traveled to known affect area: No History of Present Illness HPI Patient is a 62-year-old male who says a month ago he fell flat onto his chest he said he went to the emergency room they did state an x-ray and put him on Reglan because he has had chronic hiccups ever since. They come and go it is intermittent but he says it is making it hard for him to swallow sometimes is hard for him to breathe. Patient says that metoclopramide 10 mg p.o. does not help his symptoms. He denies any other significant past medical history he denies COPD patient was briefly in the ER for this a month ago has had no follow -up since then he says it is very hard to get into see his PCP and therefore he has not been treated he only has the med he got from the prior ER visit a month ago for hiccups. Hiccups he says come and go but they start slow and then progressed to severe enough that he can feels that he cannot eat he feels short of breath and the medication he is taking is not alleviating his symptoms he has not seen a specialist for this and he is only had x-rays PFSH Past Medical History Hx Anticoagulant Therapy: Yes (asa) Arthritis: Yes (BACK) Asthma: No Blood Disorders: No Anxiety: Yes Depression: No Heart Rhythm Problems: Yes Cancer: Yes (HX of bladder ) Cardiac Catheterization: Yes (SENTS AND CBG) Cardiovascular Problems: Yes (CABG, 2 stents) High Cholesterol: Yes Chemotherapy: No Chest Pain: Yes Congestive Heart Failure: No COPD: No Cerebrovascular Accident: No Coronary Artery Disease: Yes Diabetes: No Diminished Hearing: No Endocrine: No Gastrointestinal Disorders: Yes GERD: Yes Genitourinary: Yes (ILEAL CONDUIT) Headaches: Yes Hepatitis: Yes (HEP B) Hiatal Hernia: No Hypertension: Yes Immune Disorder: No Implanted Vascular Access Dvce: Yes Musculoskeletal: No Neurologic: No Psychiatric: No Reproductive: No Respiratory: No Immunizations Current: Yes Migraines: No Myocardial Infarction: Yes (2) Radiation Therapy: No Seizures: No Sleep Apnea: Yes Thyroid Disease: No Ulcer: Yes Past Surgical History Abdominal Surgery: Yes Body Medical Devices: ILEAL CONDUIT, CARDIAC STENTS Cardiac Surgery: Yes (CARDIAC STENT 01/2013, BYPASS 02/2017) Coronary Stent: Yes (2 ) Ear Surgery: No Endocrine Surgery: No Eye Surgery: No Genitourinary Surgery: Yes (HX of bladder cancer and removal with Ileal conduit , HX of kidney stents) Gynecologic Surgery: No Oral Surgery: No Pacemaker: No Prostatectomy: Yes Thoracic Surgery: No Other Surgery: Yes (CYSTECTOMY/PROSTATECTOMY 2010) Family History Family Myocardial Infarction: Yes Social History Alcohol Use: Yes (0.5 LITRE VODKA DAILY) Tobacco Use: Yes (1/2 - 1 PPD ) Substance Use: No Allergies-Medications (Allergen,Severity, Reaction): Coded Allergies: Sulfa (Sulfonamide Antibiotics) (Unverified Allergy, Severe, Rash, 08/15/17 ) "quit breathing" doxycycline (Unverified Allergy, Severe, 08/15/17) allergy Reported Meds & Prescriptions Reported Meds & Active Scripts Active Baclofen 10 Mg Tab 10 Mg PO TID Baclofen 10 Mg Tab 5 Mg PO TID Percocet (Oxycodone-Acetaminophen) 5-325 mg Tab 1 Tab PO Q6H PRN Reglan (Metoclopramide HCl) 10 Mg Tab 10 Mg PO TIDAC PRN Hydrocodone-Acetamin 10-325 mg (Hydrocodone/Acetaminophen) 10 Mg-325 Mg Tablet 1 Tab PO Q6HR PRN Ventolin Hfa 18 GM Inh (Albuterol Sulfate) 90 Mcg/Act Aer 2 Puff INH Q4-6H PRN Metoprolol Tartrate 25 Mg Tab 25 Mg PO BID Atorvastatin (Atorvastatin Calcium) 40 Mg Tab 40 Mg PO HS Plavix (Clopidogrel Bisulfate) 75 Mg Tab 75 Mg PO DAILY Polyethylene Glycol 3350 Powder (Polyethylene Glycol) 17 Gram Pow 17 Gm PO DAILY Reported Aspirin 81 Mg Chew 162 Mg CHEW DAILY Pantoprazole (Pantoprazole Sodium) 40 Mg Tab 40 Mg PO DAILY Review of Systems Except as stated in HPI: all other systems reviewed are Neg Physical Exam Narrative GENERAL: Awake alert does not appear to be any distress at this time and he is not hiccuping when I do my initial interview SKIN: Warm and dry. HEAD: Atraumatic. Normocephalic. EYES: Pupils equal and round. No scleral icterus. No injection or drainage. ENT: No nasal bleeding or discharge. Mucous membranes pink and moist. NECK: Trachea midline. No JVD. CARDIOVASCULAR: Regular rate and rhythm. RESPIRATORY: No accessory muscle use. Clear to auscultation. Breath sounds equal bilaterally. 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 MUSCULOSKELETAL: Extremities without clubbing, cyanosis, or edema. No obvious deformities. NEUROLOGICAL: Awake and alert. No obvious cranial nerve deficits. Motor grossly within normal limits. Five out of 5 muscle strength in the arms and legs. Normal speech. PSYCHIATRIC: Appropriate mood and affect; insight and judgment normal. Data Data Last Documented VS Vital Signs Date Time Temp Pulse Resp B/P (MAP) Pulse Ox O2 Delivery O2 Flow Rate FiO2 08/15/17 03:58 86 18 113/67 (82) 97 Room Air 08/15/17 01:[address] Thorax/ Chest Wo Iv Contras (08/15/17 ) Baclofen (Lioresal) (08/15/17 04:15) Ed Discharge Order (08/15/17 06:26) MDM Medical Decision Making Medical Screen Exam Complete: Yes Emergency Medical Condition: Yes Differential Diagnosis Differential diagnosis includes hiccuped idiopathic versus trauma to the diaphragm versus chest pain NOS versus fractured rib versus pulmonary contusion Narrative Course CT of chest and diaphragm show no injury just a hiatal hernia patient is given baclofen in the ER to help with hiccups and given a prescription for 10 mg 3 times daily with one refill if it helps he should follow-up with his doctor for further refill and possibly further consults Diagnosis Primary Impression: Hiccups Patient Instructions: General Instructions, Hiccups (ED) Scripts Baclofen (Baclofen) 10 Mg Tab 10 MG PO TID, #20 TAB 0 Refills Prov: Mark Crenshaw MD 08/15/17 Baclofen (Baclofen) 10 Mg Tab 5 MG PO TID, #20 TAB 1 Refill Prov: Mark Crenshaw MD 08/15/17 Disposition: 01 DISCHARGE HOME Condition: Good Mark Crenshaw MD August 15, 2017 03:13
--- NOTE | 2017-08-15 03:41 | RADRPT ---
EXAM DATE/TIME: 08/15/2017 03:21 [facility] COMPARISON: CHEST PA & LAT, July 14, 2017, 15:41. INDICATIONS : Severe hiccups. Evaluate for ruptured diaphragm. RADIATION DOSE: 17.08 CTDIvol (mGy) MEDICAL HISTORY : Cardiovascular disease. SURGICAL HISTORY : CABG ENCOUNTER: Initial ACUITY: 1 month PAIN SCALE: 0/10 LOCATION: chest TECHNIQUE: Volumetric scanning of the chest was performed. Using automated exposure control and adjustment of t he mA and/or kV according to patient size, radiation dose was kept as low as reasonably achievable to obtain optimal diagnostic quality images. DICOM format image data is available electronically for r eview and comparison. Follow-up recommendations for detected pulmonary nodules are based at a minimum on nodule size and pa tient risk factors according to Fleischner Society Guidelines. FINDINGS: LUNGS: There is no consolidation or pneumothorax. No concerning pulmonary nodule is visualized. There is mi ld underlying emphysema and bullous change. There is mild scarring in the lung bases. PLEURAE: There is no pleural thickening or pleural effusion. MEDIASTINUM: Status post median sternotomy with postsurgical changes status post bypass grafting procedure. The he art and great vessels demonstrate no acute abnormality. There is no mediastinal or hilar lymphadenop athy. AXILLAE: Within normal limits. No lymphadenopathy. MUSCULOSKELETAL: Status post kyphoplasty at the T12 level. There is osteopenia and mild degenerative change. There is a mild scoliosis. There are old healed right-sided rib fractures. MISCELLANEOUS: The visualized upper abdominal organs demonstrate no acute abnormality. There is a moderate size retr ocardiac hiatal hernia. There is severe hepatic steatosis in the visualized portions of the liver. CONCLUSION: 1. The diaphragm is intact. 2. Moderate size retrocardiac hiatal hernia. 3. Status post median sternotomy for bypass grafting procedure with postsurgical changes. 4. Mild underlying emphysema. Jens Rubio MD on August 15, 2017 at 3:36 Board Certified Radiologist. This report was verified electronically.
[2017-08-15 03:58] VITALS: BP 113/67; PULSE 86; RESP 18; O2SAT 97
[2017-08-15] MEDS ORDERED: BACL10TA PO ×2 (04:05→04:35)
[2017-08-15] MEDS ORDERED: BACLOFEN 10 MG TAB PO ONE (04:15)
[2017-08-15 06:27] VITALS: BP 115/64
--- NOTE | 2017-08-15 20:46 | EKG ---
Date Performed: 08/15/2017 Time Performed: 01:09:22 PTAGE: 62 years EKG: Sinus rhythm with atrial premature complexes. Nonspecific ST abnormalities. Since previous tracing, no significan t change noted ABNORMAL RHYTHM ECG PREVIOUS TRACING : 07/14/2017 14.31 DOCTOR: Damian Wren Interpretating Date/Time 08/15/2017 20:46:11
== END 2017-08-15 06:34 | disposition home or self-care (01) ==
LOC: PHED 00:45
DX: K44.9 Diaphragmatic hernia without obstruction or gangrene (principal); R94.31 Abnormal electrocardiogram [ECG] [EKG]; J43.9 Emphysema, unspecified; I25.10 Atherosclerotic heart disease of native coronary artery without angina pectoris; I10 Essential (primary) hypertension; F41.9 Anxiety disorder, unspecified; E78.00 Pure hypercholesterolemia, unspecified; K21.9 Gastro-esophageal reflux disease without esophagitis; I25.2 Old myocardial infarction
CPT/HCPCS: 71250; 93005; 99284

== ENCOUNTER 2017-08-19 17:18 | Emergency (ER) | payer MEDICAID ==
[~2017-08-19] VITALS: Ht 175.3 cm; Wt 88.3 kg
[~2017-08-19 17:18] MED LIST changes: +BACL10TA PO
[2017-08-19 17:27] VITALS: PULSE 92; RESP 16; TEMP 98; O2SAT 97
[2017-08-19 17:57] VITALS: O2SAT 98
[2017-08-19 17:59] VITALS: BP 106/75; PULSE 86; RESP 18; O2SAT 98
[2017-08-19] MEDS ORDERED: SODIUM CHLOR 0.9% 1000 ML INJ 1,000 ML IV ONE (18:00)
[2017-08-19] MEDS ORDERED: THIAMINE INJ 100 MG in SODIUM CHLORIDE 0.9% INJ 100 ML IV ONE (18:00)
--- NOTE | 2017-08-19 18:06 | PD ---
HPI Chief Complaint: GI Complaint Time Seen by Provider: 17:38 Travel History International Travel<30 days: No Contact w/Intl Traveler<30days: No Traveled to known affect area: No History of Present Illness HPI 62-year-old male complains of hiccups, generalized malaise and weakness and syncope. Patient states that he has intermittent hiccups for the past month. Patient has been seen in emergency room 2 times in the past for the hiccups. Patient has CT of the chest done which was normal. Patient was given prescription for Reglan and then baclofen. Patient states that he did not fill the prescription for baclofen. Patient states that he has intermittent hiccups since then. Patient has not seen his personal physician follow-up with that. Patient states that he has intermittent nausea vomiting diarrhea for the past 2 weeks. Patient states that he had 2 syncopal episodes recently, the last one was yesterday. Patient states that the syncopal episode lasted a few seconds. Patient states that he fell and hit his head. Patient states that he has aching headache. Patient states the headache is diffuse over the head. Patient denies any visual change. Patient denies any neck pain. Patient denies any chest pain or shortness of breath. Patient denies abdominal pain. Patient denies any focal weakness or numbness of the extremity. Patient states that he drinks alcohol daily. Last drink was 2 days ago. Patient has history hypertension, hyperlipidemia. Patient is a smoker. Patient denies any illicit drug abuse. Patient has history of chronic pain has been taking oxycodone hydrocodone for the pain. Patient has history of CAD status post CABG and stent placement. Patient is on Plavix. Patient has history of cystectomy and prostatectomy and ileal conduit in place. PFSH Past Medical History Hx Anticoagulant Therapy: Yes (plavix) Arthritis: Yes (BACK) Asthma: No Blood Disorders: No Anxiety: Yes Depression: No Heart Rhythm Problems: Yes Cancer: Yes (HX of bladder ) Cardiac Catheterization: Yes (SENTS AND CBG) Cardiovascular Problems: Yes (htn on meds, bypass x 2 , stents x 2, IN x 2) High Cholesterol: Yes Chemotherapy: No Chest Pain: Yes Congestive Heart Failure: No COPD: No Cerebrovascular Accident: No Coronary Artery Disease: Yes Diabetes: No Diminished Hearing: No Endocrine: No Gastrointestinal Disorders: Yes GERD: Yes Genitourinary: Yes (ILEAL CONDUIT) Headaches: Yes Hepatitis: Yes (HEP B) Hiatal Hernia: No Hypertension: Yes Immune Disorder: No Implanted Vascular Access Dvce: Yes Musculoskeletal: No Neurologic: No Psychiatric: No Reproductive: No Respiratory: No Immunizations Current: Yes Migraines: No Myocardial Infarction: Yes (2) Radiation Therapy: No Seizures: No Sleep Apnea: Yes Thyroid Disease: No Ulcer: Yes Tetanus Vaccination: > 5 Years Influenza Vaccination: Yes Past Surgical History Abdominal Surgery: Yes Body Medical Devices: ILEAL CONDUIT, CARDIAC STENTS Cardiac Surgery: Yes (CARDIAC STENT 01/2013, BYPASS 02/2017) Coronary Stent: Yes (2 ) Ear Surgery: No Endocrine Surgery: No Eye Surgery: No Genitourinary Surgery: Yes (HX of bladder cancer and removal with Ileal conduit , HX of kidney stents) Gynecologic Surgery: No Oral Surgery: No Pacemaker: No Prostatectomy: Yes Thoracic Surgery: No Other Surgery: Yes (CYSTECTOMY/PROSTATECTOMY 2010) Family History Family Myocardial Infarction: Yes Social History Alcohol Use: Yes (3 drinks daily) Tobacco Use: Yes (1/2 - 1 PPD ) Substance Use: No Allergies-Medications (Allergen,Severity, Reaction): Coded Allergies: Sulfa (Sulfonamide Antibiotics) (Unverified Allergy, Severe, Rash, 08/19/17 ) "quit breathing" doxycycline (Unverified Allergy, Severe, 08/19/17) allergy Reported Meds & Prescriptions Reported Meds & Active Scripts Active Percocet (Oxycodone-Acetaminophen) 5-325 mg Tab 1 Tab PO Q6H PRN Ventolin Hfa 18 GM Inh (Albuterol Sulfate) 90 Mcg/Act Aer 2 Puff INH Q4-6H PRN Metoprolol Tartrate 25 Mg Tab 25 Mg PO BID Atorvastatin (Atorvastatin Calcium) 40 Mg Tab 40 Mg PO HS Plavix (Clopidogrel Bisulfate) 75 Mg Tab 75 Mg PO DAILY Reported Aspirin 81 Mg Chew 162 Mg CHEW DAILY Pantoprazole (Pantoprazole Sodium) 40 Mg Tab 40 Mg PO DAILY Review of Systems General / Constitutional: No: Fever Eyes: No: Visual changes HENT: No: Headaches Cardiovascular: No: Chest Pain or Discomfort Respiratory: No: Shortness of Breath Gastrointestinal: Positive: Nausea, Vomiting, Diarrhea, No: Abdominal Pain Genitourinary: No: Dysuria Musculoskeletal: No: Pain Skin: No Rash Neurologic: Positive: Syncope, No: Weakness Psychiatric: No: Depression Endocrine: No: Polydipsia Hematologic/Lymphatic: No: Easy Bruising Physical Exam Narrative GENERAL: Well-nourished, well-developed patient. SKIN: Focused skin assessment warm/dry. HEAD: Normocephalic. EYES: No scleral icterus. No injection or drainage. Pupils 2 mm equal reactive. NECK: Supple, trachea midline. No JVD or lymphadenopathy. CARDIOVASCULAR: Regular rate and rhythm without murmurs, gallops, or rubs. RESPIRATORY: Breath sounds equal bilaterally. No accessory muscle use. GASTROINTESTINAL: Abdomen soft, non-tender, nondistended. MUSCULOSKELETAL: No cyanosis, or edema. BACK: Nontender without obvious deformity. No CVA tenderness. Neurologic exam: Patient is awake and alert oriented 3. Patient moves all extremity well. No obvious focal neurologic deficit. Data Data Last Documented VS Vital Signs Date Time Temp Pulse Resp B/P (MAP) Pulse Ox O2 Delivery O2 Flow Rate FiO2 08/19/17 19:03 73 18 129/90 (103) 98 Room Air 08/19/17 17:27 98.0 Orders Orders Electrocardiogram (08/19/17 17:52) Complete Blood Count With Diff (08/19/17 17:52) Comprehensive Metabolic Panel (08/19/17 17:52) Creatine Kinase (Cpk) (08/19/17 17:52) Troponin I (08/19/17:52) Prothrombin Time / Inr (Pt) (08/19/17 17:52) Act Partial Throm Time (Ptt) (08/19/17 17:52) Urinalysis - C+S If Indicated (08/19/17:52) Magnesium (Mg) (08/19/17 17:52) Thyroid Stimulating Hormone (08/19/17 17:52) Phosphorus (Po4) (08/19/17 17:52) Chest, Single Ap (08/19/17 17:52) Ct Brain W/O Iv Contrast(Rout) (08/19/17 17:52) Iv Access Insert/Monitor (08/19/17 17:52) Ecg Monitoring (08/19/17 17:52) Oximetry (08/19/17 17:52) Drug Screen, Random Urine (08/19/17 17:52) Alcohol (Ethanol) (08/19/17 17:52) Sodium Chlor 0.9% 1000 Ml Inj (Ns 1000 M (08/19/17 18:00) Thiamine Inj (Thiamine Inj) (08/19/17 18:00) Urine Culture (08/19/17 18:50) Ceftriaxone Inj (Rocephin Inj) (08/19/17 19:30) Azithromycin Powd Pack (Zithromax Powd P (08/19/17 19:30) Chlorpromazine (Thorazine) (08/19/17 19:45) Diphenhydramine (Benadryl) (08/19/17 19:45) Levofloxacin (Levaquin) (08/19/17 19:45) Labs Laboratory Tests Test 08/19/17 17:40 08/19/17 18:50 White Blood Count 8.9 TH/MM3 Red Blood Count 4.53 MIL/MM3 Hemoglobin 12.1 GM/DL Hematocrit 37.5 % Mean Corpuscular Volume 82.9 FL Mean Corpuscular Hemoglobin 26.8 PG Mean Corpuscular Hemoglobin Concent 32.3 % Red Cell Distribution Width 21.5 % Platelet Count 262 TH/MM3 Mean Platelet Volume 9.3 FL Neutrophils (%) (Auto) 79.4 % Lymphocytes (%) (Auto) 13.4 % Monocytes (%) (Auto) 5.6 % Eosinophils (%) (Auto) 0.5 % Basophils (%) (Auto) 1.1 % Neutrophils # (Auto) 7.1 TH/MM3 Lymphocytes # (Auto) 1.2 TH/MM3 Monocytes # (Auto) 0.5 TH/MM3 Eosinophils # (Auto) 0.0 TH/MM3 Basophils # (Auto) 0.1 TH/MM3 CBC Comment DIFF FINAL Differential Comment Prothrombin Time 10.0 SEC Prothromb Time International Ratio 1.0 RATIO Activated Partial Thromboplast Time 21.7 SEC Blood Urea Nitrogen 18 MG/DL Creatinine 1.10 MG/DL Random Glucose 108 MG/DL Total Protein 7.7 GM/DL Albumin 3.0 GM/DL Calcium Level 9.0 MG/DL Phosphorus Level 2.6 MG/DL Magnesium Level 1.7 MG/DL Alkaline Phosphatase 102 U/L Aspartate Amino Transf (AST/SGOT) 55 U/L Alanine Aminotransferase (ALT/SGPT) 58 U/L Total Bilirubin 0.7 MG/DL Sodium Level 135 MEQ/L Potassium Level 3.5 MEQ/L Chloride Level 106 MEQ/L Carbon Dioxide Level 18.9 MEQ/L Anion Gap 10 MEQ/L Estimat Glomerular Filtration Rate 67 ML/MIN Total Creatine Kinase 73 U/L Troponin I LESS THAN 0.02 NG/ML Thyroid Stimulating Hormone 3rd Gen 1.080 uIU/ML Ethyl Alcohol Level LESS THAN 3 MG/DL Urine Color YELLOW Urine Turbidity CLEAR Urine pH 6.5 Urine Specific [place] 1.010 Urine Protein 300 OR GREATER mg/dL Urine Glucose (UA) NEG mg/dL Urine Ketones NEG mg/dL Urine Occult Blood LARGE Urine Nitrite NEG Urine Bilirubin NEG Urine Urobilinogen 1.0 MG/DL Urine Leukocyte Esterase MOD Urine RBC INNUM /hpf Urine WBC INNUM /hpf Urine WBC Clumps FEW Urine Squamous Epithelial Cells 0-5 /hpf Urine Bacteria FEW /hpf Urine Mucus MANY /lpf Microscopic Urinalysis Comment CULTURE INDICATED Urine Opiates Screen NEG Urine Barbiturates Screen NEG Urine Amphetamines Screen NEG Urine Benzodiazepines Screen NEG Urine Cocaine Screen NEG Urine Cannabinoids Screen NEG MDM Medical Decision Making Medical Screen Exam Complete: Yes Emergency Medical Condition: Yes Interpretation(s) 1846 PM. CBC WBC 8.9. Hemoglobin 12.1 hematocrit 37.5. 79 neutrophil. Sodium 135. Bicarb 18.9. AST 55. Cardiac enzymes are normal. TSH normal. Alcohol less than 3. 1921 PM. Last Impressions Chest X-Ray 08/19/17 1752 Signed Impressions: Service Date/Time: Saturday, August 19, 2017 18:02 - CONCLUSION: 1. No acute abnormality or significant interval change. Andrés Diana MD CT scan of the brain negative acute pathology. Urine drug screen negative acute. UA positive for WBC RBC and bacteria. Differential Diagnosis Differential diagnosis including vasovagal reaction, dehydration, electrolyte imbalance, alcohol intoxication, TIA, CVA, side effect of medications. Narrative Course 62-year-old male with syncope, nausea vomiting diarrhea, recurrent hiccups, history of EtOH abuse. Normal saline solution 1 L IV bolus. Thiamine 100 mg IV. Rocephin 1 g IV. Compazine 25 mg p.o. now. Benadryl 25 mg p.o. given. Levaquin 500 mg p.o. given. Diagnosis Primary Impression: UTI (urinary tract infection) Qualified Codes: N30.00 - Acute cystitis without hematuria Additional Impressions: Syncope Qualified Codes: R55 - Syncope and collapse Hiccups Patient Instructions: General Instructions Additional Instructions: Take medications as directed. Encourage patient to follow-up with local physician and neurologist. Return if persistent problem or worse. Med/Other Pt SpecificInfo: Prescription(s) given Scripts [Thorazine] No Conflict Check 25 MG PO TID for HICCUPS, #21 Prov: Otilio Matias MD 08/19/17 Ciprofloxacin (Cipro) 500 Mg Tab 500 MG PO BID for Infection, #20 TAB 0 Refills Prov: Otilio Matias MD 08/19/17 Disposition: 01 DISCHARGE HOME Condition: Stable Otilio Matias MD August 19, 2017 18:06
[2017-08-19 18:11] LABS: AUTOMATED NEUTROPHIL # 7.1 TH/MM3 (1.8-7.7); BASOPHIL # 0.1 TH/MM3 (0-0.2); BASOPHIL % 1.1 % (0.0-2.0); EOSINOPHIL % 0.5 % (0.0-4.0); HEMATOCRIT 37.5 % (39.0-51.0); HEMOGLOBIN 12.1 GM/DL (13.0-17.0); LYMPH % 13.4 % (9.0-44.0); LYMPHOCYTE # 1.2 TH/MM3 (1.0-4.8); MEAN CELL VOLUME 82.9 FL (80.0-100.0); MEAN CORPUSCULAR HEMOGLOBIN 26.8 PG (27.0-34.0); MEAN CORPUSCULAR HGB CONC 32.3 % (32.0-36.0); MEAN PLATELET VOLUME 9.3 FL (7.0-11.0); MONO % 5.6 % (0.0-8.0); MONOCYTE # 0.5 TH/MM3 (0-0.9); NEUT % 79.4 % (16.0-70.0); PLATELET COUNT 262 TH/MM3 (150-450); RED BLOOD COUNT 4.53 MIL/MM3 (4.50-5.90); RED CELL DISTRIBUTION WIDTH 21.5 % (11.6-17.2); WHITE BLOOD COUNT 8.9 TH/MM3 (4.0-11.0)
--- NOTE | 2017-08-19 18:18 | RADRPT ---
EXAM DATE/TIME: 08/19/2017 18:02 [facility] COMPARISON: CHEST SINGLE AP, July 14, 2017, 14:41. INDICATIONS : Shortness of breath. MEDICAL HISTORY : Hypertension. Myocardial infarction. SURGICAL HISTORY : CABG. Coronary artery stent. ENCOUNTER: Initial ACUITY: 1 day PAIN SCORE: 0/10 LOCATION: Bilateral chest FINDINGS: Mediastinal wires. No new focal pleural or parenchymal opacities. Cardiome skull contours are stable. Moderate retrocardiac opacity consistent with hiatal hernia. CONCLUSION: 1. No acute abnormality or significant interval change. Andrés Diana MD on August 19, 2017 at 18:14 Board Certified Radiologist. This report was verified electronically.
[2017-08-19 18:20] LABS: CHLORIDE 106 MEQ/L (98-107); SODIUM (NA) 135 MEQ/L (136-145)
[2017-08-19 18:24] LABS: BICARBONATE 18.9 MEQ/L (21.0-32.0); BLOOD UREA NITROGEN 18 MG/DL (7-18); GLUCOSE,RANDOM 108 MG/DL (74-106); MAGNESIUM 1.7 MG/DL (1.5-2.5)
[2017-08-19 18:27] LABS: ALT (GPT) 58 U/L (12-78); AST (GOT) 55 U/L (15-37); GLOMERULAR FILTRATION RATE 67 ML/MIN (>89); PHOSPHORUS 2.6 MG/DL (2.5-4.9)
[2017-08-19 18:28] LABS: TOTAL BILIRUBIN ADULT 0.7 MG/DL (0.2-1.0); TOTAL PROTEIN 7.7 GM/DL (6.4-8.2)
[2017-08-19 18:30] LABS: ALKALINE PHOSPHATASE 102 U/L (45-117)
[2017-08-19 18:32] LABS: TROPONIN I LESS THAN 0.02 NG/ML (0.02-0.05)
[2017-08-19 18:59] LABS: BLOOD, URINE LARGE (NEG); GLUCOSE,URINE NEG (NEG); KETONE, URINE NEG (NEG); NITRITE,URINE NEG (NEG); PH, URINE 6.5 (5.0-8.5); URINE COLOR YELLOW (YELLW/STRAW); URINE LEUKOCYTE ESTERASE MOD (NEG)
[2017-08-19 19:02] LABS: BILIRUBIN, URINE NEG (NEG)
[2017-08-19 19:03] VITALS: BP 129/90; PULSE 73; RESP 18; O2SAT 98
[2017-08-19 19:09] LABS: RBC, URINE INNUM /hpf (0-3); WBC, URINE INNUM /hpf (0-5); WHITE BLOOD CELL CLUMPS FEW
[2017-08-19 19:10] LABS: BACTERIA, URINE FEW /hpf; MUCUS URINE MANY /lpf (OCC); SQUAMOUS EPITHELIAL CELL URINE 0-5 /hpf (0-5)
--- NOTE | 2017-08-19 19:17 | RADRPT ---
EXAM DATE/TIME: 08/19/2017 18:31 [facility] COMPARISON: No previous studies available for comparison. INDICATIONS : Altered mental status. RADIATION DOSE: 54.14 CTDIvol (mGy) MEDICAL HISTORY : Hypertension. SURGICAL HISTORY : Coronary artery stent. ENCOUNTER: Initial ACUITY: 1 month PAIN SCALE: 0/10 LOCATION: cranial TECHNIQUE: Multiple contiguous axial images were obtained of the head. Using automated exposure control and adj ustment of the mA and/or kV according to patient size, radiation dose was kept as low as reasonably a chievable to obtain optimal diagnostic quality images. DICOM format image data is available electro nically for review and comparison. FINDINGS: CEREBRUM: The ventricles are normal for age. No evidence of midline shift, mass lesion, hemorrhage or acute in farction. No extra-axial fluid collections are seen. POSTERIOR FOSSA: The cerebellum and brainstem are intact. The 4th ventricle is midline. The cerebellopontine angle i s unremarkable. EXTRACRANIAL: The visualized portion of the orbits is intact. SKULL: The calvaria is intact. No evidence of skull fracture. CONCLUSION: Normal examination. Fadi De León MD on August 19, 2017 at 19:14 Board Certified Radiologist. This report was verified electronically.
[2017-08-19] MEDS ORDERED: AZITHROMYCIN PWD FOR SUSP 1 GM PACKET PO ONE (19:30)
[2017-08-19] MEDS ORDERED: cefTRIAXone INJ 1,000 MG in SODIUM CHLORIDE 0.9% INJ 100 ML IV ONE (19:30)
[2017-08-19] MEDS ORDERED: CIPR-9 PO (19:35)
[2017-08-19] MEDS ORDERED: THORAZINE PO (19:37)
[2017-08-19] MEDS ORDERED: diphenhydrAMINE HCL 25 MG CAP PO ONE (19:45)
[2017-08-19] MEDS ORDERED: chlorproMAZINE HCL 25 MG TAB PO ONE (19:45)
[2017-08-19] MEDS ORDERED: LEVOFLOXACIN 500 MG TAB PO ONE (19:45)
[2017-08-19 20:13] VITALS: BP 113/73
--- NOTE | 2017-08-20 09:36 | EKG ---
Date Performed: 08/19/2017 Time Performed: 18:02:45 PTAGE: 62 years EKG: Sinus rhythm WITH OCCASIONAL SUPRAVENTRICULAR PREMATURE COMPLEXES NONSPECIFIC ST & T-WAVE ABNORMALITY BORDERLINE ECG Since the PREVIOUS TRACING , no significant change noted PREVIOUS TRACIN08/15/2017 01.09 DOCTOR: Gisselle Carreon Interpretating Date/Time 08/20/2017 09:36:39
== END 2017-08-19 20:27 | disposition home or self-care (01) ==
LOC: PHED 17:18
DX: N39.0 Urinary tract infection, site not specified (principal); B96.20 Unspecified Escherichia coli [E. coli] as the cause of diseases classified elsewhere; R55 Syncope and collapse; R06.6 Hiccough; R11.2 Nausea with vomiting, unspecified; R19.7 Diarrhea, unspecified; R51 Headache; R94.31 Abnormal electrocardiogram [ECG] [EKG]; Z79.899 Other long term (current) drug therapy
CPT/HCPCS: 70450; 71045; 80053; 80307; 81001; 82550; 83735; 84100; 84443; 84484; 85025; 85610; 85730; 87077; 87086; 87186; 93005; 96361; 96365; 99285; J0696; J3411; J7030

== ENCOUNTER 2017-09-06 18:47 | Emergency (ER) | payer MEDICAID ==
[~2017-09-06] VITALS: Ht 175.3 cm; Wt 92.4 kg
[~2017-09-06 18:47] MED LIST changes: -BACL10TA PO; +CIPR-9 PO; -HYDR-3583 PO; -POLY17S PO; -REGL10TA5 PO; +THORAZINE PO
[2017-09-06] MEDS ORDERED: IOHEXOL 350 MG/ML 10 ML VIAL (for RAD DIAG) IVCONTRAST ONE (18:48)
[2017-09-06 18:51] VITALS: BP 127/83; PULSE 76; RESP 20; TEMP 97.8; O2SAT 96
--- NOTE | 2017-09-06 19:48 | PD ---
HPI Chief Complaint: Edema Time Seen by Provider: 19:35 Travel History International Travel<30 days: No Contact w/Intl Traveler<30days: No Traveled to known affect area: No History of Present Illness HPI Patient presents to the emergency department complaining of bilateral ankle swelling. States that this is a third time that it happened first time secondary to blood clots "behind my lungs", second time was because "I was anemic." States that the swelling has increased since 7:00 today. No chest pain but reports shortness of breath at rest and on exertion-likely because of asthma per patient, subjective fever, chills, nausea, but no vomiting and no recent travel. Also reporting normal urine output. PFSH Past Medical History Hx Anticoagulant Therapy: Yes (plavix) Arthritis: Yes (BACK) Asthma: No Blood Disorders: No Anxiety: Yes Depression: No Heart Rhythm Problems: Yes Cancer: Yes (HX of bladder ) Cardiac Catheterization: Yes (SENTS AND CBG) Cardiovascular Problems: Yes (HTN ) High Cholesterol: Yes Chemotherapy: No Chest Pain: Yes Congestive Heart Failure: No COPD: No Cerebrovascular Accident: No Coronary Artery Disease: Yes Diabetes: No Diminished Hearing: No Endocrine: No Gastrointestinal Disorders: Yes GERD: Yes Genitourinary: Yes (ILEAL CONDUIT) Headaches: Yes Hepatitis: Yes (HEP B) Hiatal Hernia: No Hypertension: Yes Immune Disorder: No Implanted Vascular Access Dvce: Yes Musculoskeletal: No Neurologic: No Psychiatric: No Reproductive: No Respiratory: Yes (PE) Immunizations Current: Yes Migraines: No Myocardial Infarction: Yes (2) Radiation Therapy: No Seizures: No Sleep Apnea: Yes Thyroid Disease: No Ulcer: Yes Tetanus Vaccination: Unknown Influenza Vaccination: Yes Past Surgical History Abdominal Surgery: Yes Body Medical Devices: ILEAL CONDUIT, CARDIAC STENTS Cardiac Surgery: Yes (CARDIAC STENT 01/2013, BYPASS 02/2017) Coronary Stent: Yes (2 ) Ear Surgery: No Endocrine Surgery: No Eye Surgery: No Genitourinary Surgery: Yes (HX of bladder cancer and removal with Ileal conduit , HX of kidney stents) Gynecologic Surgery: No Oral Surgery: No Pacemaker: No Prostatectomy: Yes Thoracic Surgery: No Other Surgery: Yes (CYSTECTOMY/PROSTATECTOMY 2010) Family History Family Myocardial Infarction: Yes Social History Alcohol Use: Yes (3 drinks daily) Tobacco Use: Yes (1/2 - 1 PPD ) Substance Use: No Allergies-Medications (Allergen,Severity, Reaction): Coded Allergies: Sulfa (Sulfonamide Antibiotics) (Unverified Allergy, Severe, Rash, 09/06/17) "quit breathing" doxycycline (Unverified Allergy, Severe, 09/06/17) allergy Reported Meds & Prescriptions Reported Meds & Active Scripts Active [Thorazine] 25 Mg PO TID Cipro (Ciprofloxacin HCl) 500 Mg Tab 500 Mg PO BID Percocet (Oxycodone-Acetaminophen) 5-325 mg Tab 1 Tab PO Q6H PRN Ventolin Hfa 18 GM Inh (Albuterol Sulfate) 90 Mcg/Act Aer 2 Puff INH Q4-6H PRN Metoprolol Tartrate 25 Mg Tab 25 Mg PO BID Atorvastatin (Atorvastatin Calcium) 40 Mg Tab 40 Mg PO HS Plavix (Clopidogrel Bisulfate) 75 Mg Tab 75 Mg PO DAILY Reported Aspirin 81 Mg Chew 162 Mg CHEW DAILY Pantoprazole (Pantoprazole Sodium) 40 Mg Tab 40 Mg PO DAILY Review of Systems Except as stated in HPI: all other systems reviewed are Neg Physical Exam Narrative GENERAL: No acute distress. SKIN: Focused skin assessment warm/dry. HEAD: Atraumatic. Normocephalic. EYES: Extraocular muscles intact bilaterally.. No scleral icterus. No injection or drainage. ENT: No nasal bleeding or discharge. Mucous membranes pink and moist. NECK: Trachea midline. No JVD. CARDIOVASCULAR: Regular rate and rhythm. No murmur appreciated. RESPIRATORY: No accessory muscle use. Clear to auscultation. Breath sounds equal bilaterally. GASTROINTESTINAL: Abdomen soft, non-tender, nondistended. Positive ostomy bag for urine output. MUSCULOSKELETAL: No obvious deformities. No clubbing. No cyanosis. Mild pitting bilateral lower extremity edema edema. NEUROLOGICAL: Awake and alert. No obvious cranial nerve deficits. Motor grossly within normal limits. Normal speech. PSYCHIATRIC: Appropriate mood and affect; insight and judgment normal. Data Data Last Documented VS Vital Signs Date Time Temp Pulse Resp B/P (MAP) Pulse Ox O2 Delivery O2 Flow Rate FiO2 09/06/17 23:22 16 09/06/17 22:00 72 150/95 (113) 94 Room Air 09/06/17 18:51 97.8 Orders Orders Complete Blood Count With Diff (09/06/17 19:48) Comprehensive Metabolic Panel (09/06/17 19:48) B-Type Natriuretic Peptide (09/06/17 19:48) D-Dimer (09/06/17 19:48) Act Partial Throm Time (Ptt) (09/06/17 19:48) Prothrombin Time / Inr (Pt) (09/06/17 19:48) Magnesium (Mg) (09/06/17 19:48) Ckmb (Isoenzyme) Profile (09/06/17 19:48) Troponin I (09/06/17 19:48) Iv Access Insert/Monitor (09/06/17 19:48) Electrocardiogram (09/06/17 19:48) Ecg Monitoring (09/06/17 19:48) Oximetry (09/06/17 19:48) Chest, Pa & Lat (09/06/17 19:48) Sodium Chloride 0.9% Flush (Ns Flush) (09/06/17 20:00) Us Leg Venous Doppler Bilat (09/06/17 19:48) Acetamin-Hydrocod 325-5 Mg ([place] 5-325 (09/06/17 21:45) Ct Pulmonary Angiogram (09/06/17 22:46) Iohexol 350 Inj (Omnipaque 350 Inj) (09/06/17 18:48) Labs Laboratory Tests Test 09/06/17 20:00 09/06/17 21:30 White Blood Count 7.0 TH/MM3 Red Blood Count 3.95 MIL/MM3 Hemoglobin 10.5 GM/DL Hematocrit 33.1 % Mean Corpuscular Volume 83.8 FL Mean Corpuscular Hemoglobin 26.5 PG Mean Corpuscular Hemoglobin Concent 31.6 % Red Cell Distribution Width 19.7 % Platelet Count 316 TH/MM3 Mean Platelet Volume 7.7 FL Neutrophils (%) (Auto) 76.2 % Lymphocytes (%) (Auto) 17.3 % Monocytes (%) (Auto) 3.9 % Eosinophils (%) (Auto) 1.5 % Basophils (%) (Auto) 1.1 % Neutrophils # (Auto) 5.3 TH/MM3 Lymphocytes # (Auto) 1.2 TH/MM3 Monocytes # (Auto) 0.3 TH/MM3 Eosinophils # (Auto) 0.1 TH/MM3 Basophils # (Auto) 0.1 TH/MM3 CBC Comment DIFF FINAL Differential Comment Prothrombin Time 10.0 SEC Prothromb Time International Ratio 1.0 RATIO Activated Partial Thromboplast Time 23.3 SEC D-Dimer Quantitative (PE/DVT) 1.03 MG/L FEU Blood Urea Nitrogen 9 MG/DL Creatinine 0.91 MG/DL Random Glucose 75 MG/DL Total Protein 7.2 GM/DL Albumin 2.7 GM/DL Calcium Level 8.1 MG/DL Magnesium Level 1.5 MG/DL Alkaline Phosphatase 106 U/L Aspartate Amino Transf (AST/SGOT) 89 U/L Alanine Aminotransferase (ALT/SGPT) 43 U/L Total Bilirubin 0.2 MG/DL Sodium Level 139 MEQ/L Potassium Level 4.9 MEQ/L Chloride Level 107 MEQ/L Carbon Dioxide Level 22.9 MEQ/L Anion Gap 9 MEQ/L Estimat Glomerular Filtration Rate 84 ML/MIN Total Creatine Kinase 80 U/L Troponin I LESS THAN 0.02 NG/ML B-Type Natriuretic Peptide 143 PG/ML MDM Medical Decision Making Medical Screen Exam Complete: Yes Emergency Medical Condition: Yes Interpretation(s) ECG: Sinus rhythm, rate 69, normal axis, QTC 430, normal intervals, no ST elevation or depression Labs: Hemoglobin and hematocrit decreased from prior, AST increased, BNP slightly increased but patient has a history of elevated BNP (with today's being lower than prior), d-dimer elevated Last Impressions CT Angiography 09/06/176 Signed Impressions: CONCLUSION: 1. No pulmonary and bullous. 2. Mild emphysematous change in the right upper lung. 3. Suspected subpleural atelectasis at the posterior lower lobes. 4. Large hiatal hernia. 5. Hepatic steatosis. Lower Extremity Ultrasound 09/06/171947 Signed Impressions: CONCLUSION: 1. Negative exam with no evidence of deep venous thrombosis. Chest X-Ray 09/06/171947 Signed Impressions: CONCLUSION: 1. No acute cardiac pulmonary disease. 2. Retrocardiac hiatal hernia. 3. Status post kyphoplasty in the lower thoracic spine. Differential Diagnosis CHF, kidney disease, liver disease, DVT Narrative Course Patient presents to the emergency department complaining bilateral lower extremity edema. He is afebrile with stable vitals. Patient was placed on radiation oncology nurse and IV access obtained. Will check EKG, labs, chest x-ray, and ultrasound bilateral lower extremities. 2135: Ultrasound at bedside. Patient complaining of chronic pain, give 1 [place]. Diagnosis Primary Impression: Edema Qualified Codes: R60.0 - Localized edema Patient Instructions: General Instructions Additional Instructions: 1. Follow-up with primary care doctor in 48-72 hours. 2. Keep extremities elevated above the level of heart. 3. Return to the emergency department for fever, chest pain, increased swelling, shortness of breath, or any new/worrisome /worsening symptoms. Disposition: 01 DISCHARGE HOME Condition: Stable Merlene Owens MD Sep 06, 2017 19:48
[2017-09-06 19:55] VITALS: BP 144/84; PULSE 70; RESP 16; O2SAT 95
[2017-09-06 20:00] VITALS: RESP 16; O2SAT 95
[2017-09-06] MEDS ORDERED: SODIUM CHLORIDE 0.9% FLUSH 10 ML FLUSH IVF PRN (20:00)
--- NOTE | 2017-09-06 20:19 | RADRPT ---
EXAM DATE: 09/06/2017 8:14 PM EDT AGE/SEX: 62 years / Male INDICATIONS: Shortness of breath. CLINICAL DATA: This is the patient's initial encounter. Patient reports that signs and symptoms have been present for 4 - 6 months and indicates a pain score of 8/10. MEDICAL/SURGICAL HISTORY: . Hypertension. Myocardial infarction. Skin cancer . CABG. Coronary artery stent COMPARISON: [facility] [place]ST [place] & LAT, 07/14/2017. . FINDINGS: PA and lateral views of the chest demonstrate the lungs to be symmetrically aerated without evidence of mass, infiltrate or effusion. The cardiomediastinal contours are unremarkable. Osseous structures are intact. The patient is status post median sternotomy. Patient is also status post kyphoplasty in the lower thoracic spine. Retrocardiac hiatal hernia is again noted. CONCLUSION: 1. No acute cardiac pulmonary disease. 2. Retrocardiac hiatal hernia. 3. Status post kyphoplasty in the lower thoracic spine. Electronically signed by: Jens Rubio MD 09/06/2017 8:18 PM EDT
[2017-09-06 20:28] LABS: CHLORIDE 107 MEQ/L (98-107); SODIUM (NA) 139 MEQ/L (136-145)
[2017-09-06 20:29] LABS: AUTOMATED NEUTROPHIL # 5.3 TH/MM3 (1.8-7.7); BASOPHIL # 0.1 TH/MM3 (0-0.2); BASOPHIL % 1.1 % (0.0-2.0); EOSINOPHIL # 0.1 TH/MM3 (0-0.4); EOSINOPHIL % 1.5 % (0.0-4.0); HEMATOCRIT 33.1 % (39.0-51.0); HEMOGLOBIN 10.5 GM/DL (13.0-17.0); LYMPH % 17.3 % (9.0-44.0); LYMPHOCYTE # 1.2 TH/MM3 (1.0-4.8); MEAN CELL VOLUME 83.8 FL (80.0-100.0); MEAN CORPUSCULAR HEMOGLOBIN 26.5 PG (27.0-34.0); MEAN CORPUSCULAR HGB CONC 31.6 % (32.0-36.0); MEAN PLATELET VOLUME 7.7 FL (7.0-11.0); MONO % 3.9 % (0.0-8.0); MONOCYTE # 0.3 TH/MM3 (0-0.9); NEUT % 76.2 % (16.0-70.0); PLATELET COUNT 316 TH/MM3 (150-450); RED BLOOD COUNT 3.95 MIL/MM3 (4.50-5.90); RED CELL DISTRIBUTION WIDTH 19.7 % (11.6-17.2)
[2017-09-06 20:31] LABS: ALBUMIN 2.7 GM/DL (3.4-5.0); BICARBONATE 22.9 MEQ/L (21.0-32.0); CALCIUM 8.1 MG/DL (8.5-10.1); GLUCOSE,RANDOM 75 MG/DL (74-106); MAGNESIUM 1.5 MG/DL (1.5-2.5)
[2017-09-06 20:32] LABS: BLOOD UREA NITROGEN 9 MG/DL (7-18)
[2017-09-06 20:34] LABS: ALT (GPT) 43 U/L (12-78)
[2017-09-06 20:35] LABS: AST (GOT) 89 U/L (15-37); CREATININE 0.91 MG/DL (0.60-1.30); GLOMERULAR FILTRATION RATE 84 ML/MIN (>89)
[2017-09-06 20:55] VITALS: BP 124/75; PULSE 74; RESP 18; O2SAT 96
[2017-09-06] MEDS ORDERED: ACETAMINOPHEN/HYDROcodone 325 MG/5 MG TAB PO ONE (21:45)
[2017-09-06 21:53] LABS: D-DIMER 1.03 MG/L FEU (0.00-0.50)
[2017-09-06 22:00] VITALS: BP 150/95; PULSE 72; RESP 16; O2SAT 94
[2017-09-06 22:19] LABS: ALKALINE PHOSPHATASE 106 U/L (45-117); TOTAL BILIRUBIN ADULT 0.2 MG/DL (0.2-1.0); TOTAL PROTEIN 7.2 GM/DL (6.4-8.2); TROPONIN I LESS THAN 0.02 NG/ML (0.02-0.05)
--- NOTE | 2017-09-06 22:44 | RADRPT ---
EXAM DATE: 09/06/2017 10:38 PM EDT AGE/SEX: 62 years / Male INDICATIONS: Bilateral ankle swelling. CLINICAL DATA: This is the patient's initial encounter. Patient reports that signs and symptoms have been present for 1 day and indicates a pain score of 3/10. MEDICAL/SURGICAL HISTORY: Hypertension. Hypercholesterolemia. Cardiovascular disease. Hepati tis B. Arthritis. Bladder Cancer. GERD. Pulmonary Embolism. CABG. Prostatectomy. Cystectomy. C oronary Stents x 2. Ileal Conduit. Renal stents. COMPARISON: [facility] [place] BILATERAL VENOUS DOPPLER, 02/27/2017. . No external comparison. TECHNIQUE: Venous ultrasound of both lower extremities was performed from the inguinal ligament to t he proximal calf. Real-time, color Doppler and spectral tracing, compression and augmentation techni ques were used. FINDINGS: Right Leg: There is normal compressibility of the deep venous system from the inguinal region to the proximal calf. No echogenic clot is seen in the lumen of the common femoral, femoral, popliteal, an d posterior tibial veins. There is a normal response of the venous system to proximal and distal aug mentation and respiration. Left Leg: There is normal compressibility of the deep venous system from the inguinal region to the proximal calf. No echogenic clot is seen in the lumen of the common femoral, femoral, popliteal, and posterior tibial veins. There is a normal response of the venous system to proximal and distal augm entation and respiration. CONCLUSION: 1. Negative exam with no evidence of deep venous thrombosis. Electronically signed by: Jens Rubio MD 09/06/2017 10:42 PM EDT
[2017-09-06 23:10] VITALS: BP 143/88; PULSE 82; RESP 18; O2SAT 93
--- NOTE | 2017-09-07 00:37 | RADRPT ---
EXAM DATE: 09/06/2017 11:52 PM EDT AGE/SEX: 62 years / Male INDICATIONS: Ankle swelling and shortness of breath CLINICAL DATA: This is the patient's initial encounter. Patient reports that signs and symptoms have been present for 1 day and indicates a pain score of 8/10. MEDICAL/SURGICAL HISTORY: Carcinoma, bladder. Hypertension. Cardiovascular disease. Hep c,ulcers CABG. Coronary artery stent. Prostatectomy. cystectomy,ileal conduit RADIATION DOSE: 17.91 CTDI (mGy) COMPARISON: No prior [facility] exams available for comparison. TECHNIQUE: Volumetric scanning was performed using a multi-row detector CT scanner during bolus infu yenni of 100 ml Omnipaque 350 (iohexol) nonionic water-soluble contrast as a single exam dose. The da ta was post processed with a variety of visualization algorithms including full volume maximum intens ity projection and sliding thin slab reformation. Using automated exposure control and adjustment of the mA and/or kV according to patient size, radiation dose was kept as low as reasonably achievable to obtain optimal diagnostic quality images. FINDINGS: Pulmonary Arteries: No filling defects are seen in the pulmonary arteries out to the subsegmental ve ssels. The left and right pulmonary arteries are normal in diameter. Lung: There is emphysematous change seen in the right upper lung. There is increased density in the subpleural regions at the posterior lower lobes bilaterally likely related to atelectasis. Effusion: None. Mediastinum: The patient is status post sternotomy and coronary artery bypass graft. Other: The axilla is unremarkable. There is a large hiatal hernia. There is diffuse decreased attenu ation to the liver. There are old healed anterior right rib fractures. The patient is status post steven tebroplasty at T12. CONCLUSION: 1. No pulmonary and bullous. 2. Mild emphysematous change in the right upper lung. 3. Suspected subpleural atelectasis at the posterior lower lobes. 4. Large hiatal hernia. 5. Hepatic steatosis. Electronically signed by: Fadi Stevens MD 09/07/2017 12:36 AM EDT
[2017-09-07 00:55] VITALS: BP 141/93; PULSE 85; RESP 16; O2SAT 97
--- NOTE | 2017-09-08 08:47 | EKG ---
Date Performed: 09/06/2017 Time Performed: 20:03:09 PTAGE: 62 years EKG: Sinus rhythm Within normal limits PREVIOUS TRACING : 08/19/2017 18.02 Since previous tracing, PAC(s) no longer present. ST- T changes have improved. DOCTOR: Edward Conley Interpretating Date/Time 09/08/2017 08:45:53
== END 2017-09-07 01:08 | disposition home or self-care (01) ==
LOC: PHED 18:47
DX: R60.0 Localized edema (principal); R06.02 Shortness of breath; E78.00 Pure hypercholesterolemia, unspecified; F41.9 Anxiety disorder, unspecified; I10 Essential (primary) hypertension; I25.10 Atherosclerotic heart disease of native coronary artery without angina pectoris; K21.9 Gastro-esophageal reflux disease without esophagitis; K44.9 Diaphragmatic hernia without obstruction or gangrene; F17.200 Nicotine dependence, unspecified, uncomplicated
CPT/HCPCS: 71046; 71275; 80053; 82550; 83735; 83880; 84484; 85025; 85379; 85610; 85730; 93005; 93970; 99285; Q9967

== ENCOUNTER 2017-10-07 11:12 | Observation (INO) ==
[2017-10-07 15:41] LABS: Clarity,Urine Cloudy (Clear); Color,Urine Yellow (Yellw/Straw); Glucose,Urine (UA) Negative (Negative); Leukocyte Esterase,Urine Small (Negative); Nitrite,Urine Negative (Negative); PH,Urine 7.5 (5.0-8.5); Specific Gravity,Urine 1.015 (1.002-1.035)
[2017-10-07 15:45] LABS: Bilirubin,Urine Negative (Negative)
[2017-10-07 15:47] LABS: Bacteria,Urine Many /hpf; RBC,Urine 0-3 /hpf (0-3); WBC,Urine 21-50 /hpf (0-5)
[2017-10-07 15:48] LABS: Mucus,Urine Many /lpf (Occasional)
[2017-10-07 15:59] LABS: Baso % (Auto) 0.3 % (0.0-2.0); Chloride 105 meq/L (98-107); Eos % (Auto) 0.4 % (0.0-4.0); Hematocrit 32.9 % (39.0-51.0); Hemoglobin 10.6 gm/dL (13.0-17.0); Lymph # (Auto) 0.9 th/mm3 (1.0-4.8); Mean Corpuscular HGB Conc 32.1 % (32.0-36.0); Mean Corpuscular Hemoglobin 27.8 pg (27.0-34.0); Mean Corpuscular Volume 86.7 fL (80.0-100.0); Mean Platelet Volume 7.4 fL (7.0-11.0); Mono # (Auto) 0.6 th/mm3 (0.0-0.9); Mono % (Auto) 9.2 % (0.0-8.0); Neut # (Auto) 4.9 th/mm3 (1.8-7.7); Neut % (Auto) 76.1 % (16.0-70.0); Platelet Count 217 th/mm3 (150-450); Potassium 3.8 meq/L (3.5-5.1); Red Cell Distribution Width 23.2 % (11.6-17.2); Sodium 138 meq/L (136-145); White Blood Count 6.4 th/mm3 (4.0-11.0)
[2017-10-07 16:02] LABS: Calcium 8.5 mg/dL (8.5-10.1)
[2017-10-07 16:03] LABS: Anion Gap 9 meq/L (5-15); Blood Urea Nitrogen 15 mg/dL (7-18); Carbon Dioxide 24.1 meq/L (21.0-32.0); Glucose,Random 102 mg/dL (74-106)
[2017-10-07 16:06] LABS: Alanine Aminotransferase 27 U/L (12-78); Aspartate Aminotransferase 20 U/L (15-37); Glomerular Filtration Rate 61 mL/min (>89)
[2017-10-07 16:07] LABS: Total Protein 7.5 g/dL (6.4-8.2)
[2017-10-07 16:09] LABS: Alkaline Phosphatase 91 U/L (45-117)
--- NOTE | 2017-10-07 16:25 | ED ---
HPI General Chief complaint: Urogenital-Male Stated complaint: Severe Kidney/back pain/KUMAR E2rfgpt History of Present Illness HPI narrative: 62-year-old man, history of multiple medical problems including DVT/PE, bladder cancer status post ileal conduit, CAD presented the ER for evaluation of possible UTI. Patient states that he noticed change in color of his urine, foul-smelling. Patient was here and was recently discharged with diagnosis of UTI but states that the outpatient treatment did not help him. Patient has no fever chills or night sweats although reports some nausea and vomiting and mild abdominal pain from the infection. No chest pain or shortness of breath. He has a little bit of irritation around the side of his ostomy. Related Data Home Medications Medication Instructions Recorded Confirmed albuterol sulfate [Ventolin HFA] 2 puff INHALATION Q4-6H PRN 10/07/17 10/07/17 aspirin [Aspir-81] 81 mg PO DAILY 10/07/17 10/07/17 atorvastatin 40 mg PO DAILY 10/07/17 10/07/17 clopidogrel [Plavix] 75 mg PO DAILY 10/07/17 10/07/17 metoprolol tartrate 12.5 mg PO BID 10/07/17 10/07/17 oxycodone-acetaminophen [Percocet] 1 tab PO Q6H PRN 10/07/17 10/07/17 pantoprazole 40 mg PO DAILY 10/07/17 10/07/17 Previous Rx's Medication Instructions Recorded ciprofloxacin HCl [Cipro] 500 mg PO BID #12 tab 10/08/17 metoprolol tartrate 12.5 mg PO BID tab 10/08/17 Allergies Allergy/AdvReac Type Severity Reaction Status Date / Time doxycycline Allergy Severe UNKNOWN Verified 10/07/17 16:20 Sulfa (Sulfonamide Allergy Severe Rash Verified 10/07/17 16:20 Antibiotics) Review of Systems Except as stated in HPI: all other systems reviewed are negative [facility] Medical History Medical History COPD (chronic obstructive pulmonary disease) (Acute) High cholesterol (Acute) Hypertension (Acute) Surgical History Surgical History History of bladder surgery (Acute) Hx of CABG (Acute) Family History Family History Other HTN (hypertension) Social History Social History Substance History: No History of Abuse Second Hand Smoke Exposure: Yes Smoking Status: Current every day smoker Tobacco Type: Cigarettes How Often Do You Have a Drink Containing Alcohol: 4 or more times a week Recent Travel in [facility] within the Last 8 Weeks: No Recent Out of Country Travel within the Last 8 Weeks: No Immunization History Tetanus Immunization: Unsure Hx Influenza Vaccine This Season: No Exam Narrative Exam Narrative: GENERAL: Alert oriented 3, no acute distress SKIN: Focused skin assessment warm/dry. HEAD: Atraumatic. Normocephalic. EYES: Pupils equal and round. No scleral icterus. No injection or drainage. ENT: No nasal bleeding or discharge. Mucous membranes pink and moist. NECK: Trachea midline. No JVD. CARDIOVASCULAR: Regular rate and rhythm. No murmur appreciated. RESPIRATORY: No accessory muscle use. Clear to auscultation. Breath sounds equal bilaterally. GASTROINTESTINAL: Right ostomy bag collecting turbid dark colored urine, no pus , abdomen soft, non-tender, nondistended. Hepatic and splenic margins not palpable. MUSCULOSKELETAL: No obvious deformities. No clubbing. No cyanosis. No edema. NEUROLOGICAL: Awake and alert. No obvious cranial nerve deficits. Motor grossly within normal limits. Normal speech. PSYCHIATRIC: Appropriate mood and affect; insight and judgment normal. Course Initial Documented Vital Signs Temperature 98.8 F 10/07/17 11:33 Pulse Rate 87 10/07/17 11:33 Respiratory Rate 18 10/07/17 11:33 Blood Pressure 108/73 10/07/17 11:33 Pulse Oximetry 98 10/07/17 11:33 Last Documented Vital Signs Temperature 97.7 F 10/08/17 12:00 Pulse Rate 59 L 10/08/17 12:00 Respiratory Rate 16 10/08/17 14:30 Blood Pressure 109/64 10/08/17 12:00 Pulse Oximetry 97 10/08/17 12:00 Medical Decision Making [facility] Narrative Medical decision making narrative: 62-year-old male here for evaluation of patient was here and was recently discharged with some oral antibiotics he says that it did not help him. Urine analysis is positive for UTI, patient has nausea and vomiting states that he will not be able to tolerate p.o. medications , he did not have any nausea or vomiting here in the ER, microbiology reviewed and culture revealed E. coli MDR will respond to Zosyn. I will start the patient on Zosyn and have him admitted for 23 hours observation. Lab Data Result diagrams: 10/07/17 15:25 07/02/18 15:25 Lab Results 10/07/17 10/07/17 10/07/17 Range/Units 15:25 15:25 15:25 CBC w Diff Slide review pending WBC 6.4 (4.0-11.0) th/mm3 RBC 3.80 L (4.50-5.90) mil/mm3 Hgb 10.6 L (13.0-17.0) gm/dL Hct 32.9 L (39.0-51.0) % MCV 86.7 (80.0-100.0) fL MCH 27.8 (27.0-34.0) pg MCHC 32.1 (32.0-36.0) % RDW 23.2 H (11.6-17.2) % Plt Count 217 (150-450) th/mm3 MPV 7.4 (7.0-11.0) fL Neut % (Auto) 76.1 H (16.0-70.0) % Lymph % (Auto) 14.0 (9.0-44.0) % [place] % (Auto) 9.2 H (0.0-8.0) % Eos % (Auto) 0.4 (0.0-4.0) % Baso % (Auto) 0.3 (0.0-2.0) % Neut # (Auto) 4.9 (1.8-7.7) th/mm3 Lymph # (Auto) 0.9 L (1.0-4.8) th/mm3 [place] # (Auto) 0.6 (0.0-0.9) th/mm3 Eos # (Auto) 0.0 (0.0-0.4) th/mm3 Baso # (Auto) 0.0 (0.0-0.2) th/mm3 WBC Differential . Diff Scan Auto diff confirmed Toxic Granulation 1+ H (None) Platelet Estimate Normal (Normal) Platelet Morphology Normal (Normal) Stomatocytes 1+ H (None) Sodium 138 (136-145) meq/L Potassium 3.8 (3.5-5.1) meq/L Chloride 105 (98-107) meq/L Carbon Dioxide 24.1 (21.0-32.0) meq/L Anion Gap 9 (5-15) meq/L BUN 15 (7-18) mg/dL Creatinine 1.20 (0.60-1.30) mg/dL Estimated GFR 61 L (>89) mL/min Random Glucose 102 (74-106) mg/dL Calcium 8.5 (8.5-10.1) mg/dL Total Bilirubin 0.6 (0.2-1.0) mg/dL AST 20 (15-37) U/L ALT 27 (12-78) U/L Alkaline Phosphatase 91 (45-117) U/L Total Protein 7.5 (6.4-8.2) g/dL Albumin 3.0 L (3.4-5.0) g/dL Urine Color Yellow (Yellw/Straw) Urine Clarity Cloudy H (Clear) Urine pH 7.5 (5.0-8.5) Ur Specific [place] 1.015 (1.002-1.035) Urine Protein 100 H (Neg-Trace) mg/dL Urine Glucose (UA) Negative (Negative) mg/dL Urine Ketones Trace (Negative) mg/dL Urine Occult Blood Small H (Negative) Urine Nitrate Negative (Negative) Urine Bilirubin Negative (Negative) Urine Urobilinogen 1.0 (Less than 2) mg/dL Ur Leukocyte Esterase Small H (Negative) Urine RBC 0-3 (0-3) /hpf Urine WBC 21-50 H (0-5) /hpf Urine Bacteria Many H (None) /hpf Urine Mucus Many H (Occasional) /lpf Micro UA Comment Culture indicated Urine Culture Comments Culture indicated Discharge Plan Discharge Disposition Patient Disposition: 02 Transfer to [facility] Discharge Condition Condition: Stable Discharge Order Discharge Orders: Discharge Order (Routine); Ordered 10/08/17 Ordered By: Romy Ma Discharge Details Anticipated Discharge Date: 10/08/17 Discharge Problem: Urine findings abnormal, Urinary system disease Physicians Team ED Provider: Brian Montes Primary Care Provider: UNKNOWN, Attending Provider: Justen Weber Discharge Interventions Interventions: Vital Signs Last Done: 10/07/17 16:13 ED Discharge Assessment Last Done: 10/07/17 19:09 Status ED Status: Left Department Discharge Information Discharge Date/Time: 10/07/17 18:30
[2017-10-07] MEDS ORDERED: Piperacil/Tazo 3.375 GM Premix 50 ML IV.SIG ONE (16:26)
[2017-10-07] MEDS ORDERED: Morphine Sulfate Inj 2 MG/ML Vial IV.PUSH ONE (16:26)
[2017-10-07] MEDS ORDERED: Bisacodyl 10 MG Supp RECTAL PRN (16:40)
[2017-10-07] MEDS ORDERED: Temazepam 15 MG Capsule PO PRN (16:40)
[2017-10-07] MEDS ORDERED: Piperacil/Tazo 4.5 GM Premix 4.5 GM/100 ML BAG IV.SIG SCH (16:45)
[2017-10-07 17:03] LABS: Platelet Estimate Normal (Normal); Platelet Morphology Normal (Normal); Stomatocytes 1+
[2017-10-07 17:04] LABS: Toxic Granulation 1+
--- NOTE | 2017-10-07 17:05 | P.HPIM ---
History of Present Illness Primary Care Physician: UNKNOWN Chief Complaint: Right sided abdominal pain and urinary troubles History of Present Illness: This patient is a very pleasant 62-year-old gentleman with ileal conduit due to bladder cancer and reconstruction treatments. He comes in with dark urine and complaint similar to previous complaint for which she was here for observation last week. He reports pressure and discomfort in ileoconduit. He has no fevers or chills. There is no white cell count is elevated. Previously had elevated lactic acid but this is not the case at this time. Patient was treated empirically with Rocephin and amoxicillin. Cultures since have grown E coli of which were unable to confirm that it is an ESBL orthotist. Patient is recommended for further observation due to dehydration and for initiation of IV antibiotics failed outpatient treatment. - Diagnosis (1) Urine findings abnormal (2) COPD (chronic obstructive pulmonary disease) (3) Chronic pain (4) Chronic hiccoughs (5) LEELEE (obstructive sleep apnea) - Inpatient Certification If this patient has been admitted as an Inpatient: I certify that the inpatient services were ordered in accordance with Medicare regulations governing the order. This includes certification that hospital inpatient services are reasonable and necessary and in the case of services not specified as inpatient-only under 42 CFR 419.22(n), that they are appropriately provided as inpatient services in accordance to with the 2-midnight benchmark under 43 CFR 412.3(e) Review of Systems All other systems reviewed negative except as stated in HPI Musculoskeletal: Reports back pain, Reports body aches PMFSH - History History Provided By: Patient - Medical History Medical History: Medical History (Last Updated 10/07/17 @ 17:04 by Romy Ma MD) COPD (chronic obstructive pulmonary disease) High cholesterol Hypertension - Surgical History Surgical History: Surgical History (Last Updated 10/07/17 @ 17:10 by Romy Ma MD) History of bladder surgery Hx of CABG - Family History Family History: Family History (Last Updated 10/07/17 @ 17:10 by Romy Ma MD) Other HTN (hypertension) - Tobacco History Second Hand Smoke Exposure: No Tobacco Use In Past 30 Days: Yes Smoking Status: Current every day smoker (Smokes about a pack a day for the last 40 years) Tobacco Type: Cigarettes - Alcohol History How Often Do You Have a Drink Containing Alcohol: 4 or more times a week - Substance Use History Substance History: No History of Abuse - Travel History Recent Travel in the [place] Within the Last 8 Weeks: No Recent Travel Out of the Country Within the Last 8 Weeks: No - Immunization History Tetanus Immunization: Unsure Hx Influenza Vaccine This Season: No Medications and Allergies Active Medications: Active Medications Al Hydroxide/Mg Hydroxide (Milk Of Magnesia Liq) 30 ml PO Q12H PRN PRN Reason: Mild Constipation Bisacodyl (Dulcolax Supp) 10 mg RECTAL DAILY PRN PRN Reason: SEVERE CONSITIPATION Lactulose (Lactulose Liq) 30 ml PO DAILY PRN PRN Reason: SEVERE CONSITIPATION Senna/Docusate Sodium (Stefani-Colace) 1 tab PO BID JOSHUA Sennosides (Senokot) 17.2 mg PO Q12H PRN PRN Reason: Moderate Constipation Sodium Chloride (Ns Flush) 2 ml IV.FLUSH PRN PRN PRN Reason: FLUSH AFTER USING IV ACCESS Temazepam (Restoril) 15 mg PO HS PRN PRN Reason: INSOMNIA Allergies Allergy/AdvReac Type Severity Reaction Status Date / Time doxycycline Allergy Severe UNKNOWN Verified 10/07/17 16:20 Sulfa (Sulfonamide Allergy Severe Rash Verified 10/07/17 16:20 Antibiotics) Home Medications Medication Instructions Recorded Confirmed Type albuterol sulfate [Ventolin HFA] 2 puff INHALATION Q4-6H PRN 10/07/17 10/07/17 History aspirin [Aspir-81] 81 mg PO DAILY 10/07/17 10/07/17 History atorvastatin 40 mg PO DAILY 10/07/17 10/07/17 History clopidogrel [Plavix] 75 mg PO DAILY 10/07/17 10/07/17 History metoprolol tartrate 12.5 mg PO BID 10/07/17 10/07/17 History oxycodone-acetaminophen [Percocet] 1 tab PO Q6H PRN 10/07/17 10/07/17 History pantoprazole 40 mg PO DAILY 10/07/17 10/07/17 History Exam Vital signs: Vital Signs 10/07/17 11:33 10/07/17 16:13 Temperature 98.8 F Pulse Rate 87 88 Respiratory Rate 18 18 Blood Pressure 108/73 115/85 Pulse Oximetry 98 100 Intake & Output 10/06/17 10/07/17 10/07/17 18:59 06:59 18:59 Weight 90.6 kg - Constitutional no acute distress, mild distress - Routine HEENT Exam Head: Present: normocephalic, atraumatic Eye: Present: EOMI, PERRL ENT: Present: mucous membranes moist - Routine Neck Exam Present: supple, full ROM - Routine Respiratory Exam Present: CTA bilaterally - Routine Cardiovascular Exam Present: RRR, S1, S2 - Routine Abdominal Exam Present: soft Comments: Right ileal conduit - Routine Extremities Exam Present: full ROM - Routine Skin Exam Present: intact - Routine Neurological Exam Present: alert, oriented X3 Results - Labs CBC & Chem 7: 10/07/17 15:25 10/07/17 15:25 Labs: Short CBC 10/07/17 Range/Units 15:25 WBC 6.4 (4.0-11.0) th/mm3 Hgb 10.6 L (13.0-17.0) gm/dL Hct 32.9 L (39.0-51.0) % Plt Count 217 (150-450) th/mm3 BMP 10/07/17 15:25 Sodium 138 Potassium 3.8 Chloride 105 Carbon Dioxide 24.1 BUN 15 Creatinine 1.20 Calcium 8.5 Liver Function 10/07/17 Range/Units 15:25 Total Bilirubin 0.6 (0.2-1.0) mg/dL AST 20 (15-37) U/L ALT 27 (12-78) U/L Alkaline Phosphatase 91 (45-117) U/L Albumin 3.0 L (3.4-5.0) g/dL Urine 10/07/17 Range/Units 15:25 Urine Color Yellow (Yellw/Straw) Urine Clarity Cloudy H (Clear) Urine pH 7.5 (5.0-8.5) Ur Specific [place] 1.015 (1.002-1.035) Urine Protein 100 H (Neg-Trace) mg/dL Urine Glucose (UA) Negative (Negative) mg/dL Caprini VTE Risk Assessment Caprini VTE Risk Assessment: Moderate/High Risk (score >= 2) Caprini Risk Assessment Model: Point Value = 1 Point Value = 2 Point Value = 3 Point Value = 5 Age 41-60 Minor surgery BMI > 25 kg/m2 Swollen legs Varicose veins or History of unexplained or recurrent spontaneous Oral contraceptives or hormone replacement Sepsis (< 1 month) Serious lung disease, including pneumonia (< 1 month) Abnormal pulmonary function Acute myocardial infarction Congestive heart failure (< 1 month) History of inflammatory bowel disease Medical patient at bed rest Age 61-74 Arthroscopic surgery Major open surgery (> 45 min) Laparoscopic surgery (> 45 min) Malignancy Confined to bed (> 72 hours) Immobilizing plaster cast Central venous access Age >= 75 History of VTE Family history of VTE Factor V Leiden Prothrombin [id number] Lupus anticoagulant Anticardiolipin antibodies Elevated serum homocysteine Heparin-induced thrombocytopenia Other congenital or acquired thrombophilia Stroke (< 1 month) Elective arthroplasty Hip, pelvis, or leg fracture Acute spinal cord injury (< 1 month) Prophylaxis Regimen: Total Risk Factor Score Risk Level Prophylaxis Regimen 0-1 Low Early ambulation 2 Moderate Order ONE of the following: *Sequential Compression Device (SCD) *Heparin 5000 units SQ BID 3-4 Higher Order ONE of the following medications: *Heparin 5000 units SQ TID *Enoxaparin/Lovenox 40 mg SQ daily (WT < 150 kg, CrCl > 30 mL/min) *Enoxaparin/Lovenox 30 mg SQ daily (WT < 150 kg, CrCl > 10-29 mL/min) *Enoxaparin/Lovenox 30 mg SQ BID (WT < 150 kg, CrCl > 30 mL/min) AND/OR *Sequential Compression Device (SCD) 5 or more Highest Order ONE of the following medications: *Heparin 5000 units SQ TID (Preferred with Epidurals) *Enoxaparin/Lovenox 40 mg SQ daily (WT < 150 kg, CrCl > 30 mL/min) *Enoxaparin/Lovenox 30 mg SQ daily (WT < 150 kg, CrCl > 10-29 mL/min) *Enoxaparin/Lovenox 30 mg SQ BID (WT < 150 kg, CrCl > 30 mL/min) AND *Sequential Compression Device (SCD) Assessment and Plan - Assessment (1) Urine findings abnormal Code(s): R82.90 - Unspecified abnormal findings in urine Status: Acute Plan: We will continue with Cipro based on previous cultures with probable ESBL AND allergy to sulfa Follow-up second cultures patient may have chronically colonized status Outpatient urology follow-up planned (2) COPD (chronic obstructive pulmonary disease) Code(s): J44.9 - Chronic obstructive pulmonary disease, unspecified Status: Chronic Plan: Currently stable without evidence of acute exacerbation Continue with handheld inhaler for now and follow clinically (3) Chronic pain Code(s): G89.29 - Other chronic pain Status: Acute (4) Chronic hiccoughs Code(s): R06.6 - Hiccough Status: Chronic Plan: This is been going on for years for the patient He does not want Thorazine or any other treatment and will tolerate the symptoms without treatment. (5) LEELEE (obstructive sleep apnea) Code(s): G47.33 - Obstructive sleep apnea (adult) (pediatric) Status: Chronic Plan: Patient will benefit from outpatient sleep study - Plan Discharge Planning: Likely discharge in a.m. on oral antibiotics and with outpatient neurological follow-up
[2017-10-07] MEDS ORDERED: Ciprofloxacin 400 MG/200 ML 400 MG/200 ML PIGGYBACK IV.SIG SCH (18:00)
[2017-10-07] MEDS: oxyCODONE/Acetaminophen 10/325 Tablet PO PRN (20:01)
[2017-10-07] MEDS: Metoprolol Tartrate 25 MG Tablet PO SCH (20:41)
[2017-10-07] MEDS: Senna/Docusate Sodium 8.6/50 MG Tablet PO SCH (20:43)
[2017-10-08] MEDS: oxyCODONE/Acetaminophen 10/325 Tablet PO PRN ×3 (02:31→14:00)
[2017-10-08] MEDS: Metoprolol Tartrate 25 MG Tablet PO SCH (08:48)
[2017-10-08] MEDS: Senna/Docusate Sodium 8.6/50 MG Tablet PO SCH (08:48)
--- NOTE | 2017-10-08 13:13 | P.DS ---
Date of admission: 10/07/17 16:40 Primary care physician: UNKNOWN Brief History from admission: This patient is a very pleasant 62-year-old gentleman with ileal conduit due to bladder cancer and reconstruction treatments. He comes in with dark urine and complaint similar to previous complaint for which she was here for observation last week. He reports pressure and discomfort in ileoconduit. He has no fevers or chills. There is no white cell count is elevated. Previously had elevated lactic acid but this is not the case at this time. Patient was treated empirically with Rocephin and amoxicillin. Cultures since have grown E coli of which were unable to confirm that it is an ESBL cattle producers. Patient is recommended for further observation due to dehydration and for initiation of IV antibiotics failed outpatient treatment. DS: Diagnosis - Discharge Diagnosis (1) Urine findings abnormal Status: Acute (2) COPD (chronic obstructive pulmonary disease) Status: Chronic (3) Chronic pain Status: Chronic (4) Chronic hiccoughs Status: Chronic (5) LEELEE (obstructive sleep apnea) Status: Chronic DS: Medications - Discharge Medications Prescriptions: ciprofloxacin HCl [Cipro] 500 mg PO BID #12 tab DS: Summary Hospital Course: This patient is seen and evaluated for abdominal discomfort likely related to urinary tract infection. Patient has ileal conduit and had some foul-smelling dark urine. He had previous cultures which show E. coli with ESBL status unknown. Recommendation is her for ciprofloxacin which the patient did receive IV and will be discharged on oral antibiotics. He feels much better and would like to go home. - Time Spent with Patient Total time spent providing and/or coordinating discharge services: - Quality: VTE Deep Vein Thrombosis/Pulmonary Embolism Present on Admission: No Exam Vital signs: Vital Signs 10/07/17 16:13 10/07/17 16:40 10/07/17 20:00 Temperature 98.2 F Pulse Rate 88 85 67 Respiratory Rate 18 17 20 Blood Pressure 115/85 100/68 122/85 Pulse Oximetry 100 95 10/08/17 00:00 10/08/17 00:37 10/08/17 08:00 Temperature 98.4 F 96.7 F L Pulse Rate 69 63 Respiratory Rate 20 18 18 Blood Pressure 121/80 124/78 Pulse Oximetry 96 96 Intake & Output 10/07/17 10/08/17 10/08/17 18:59 06:59 18:59 Intake Total 50 / 50 520 / 520 Balance 50 / 50 520 / 520 Weight 90.6 kg 94.2 kg Intake: IV 50 / 50 200 / 200 Cipro 400 MG/200 ML Inj 400 mg 200 / 200 In 200 ml @ 200 mls/hr IV.SIG Q12H JOSHUA Rx#:[id number] Zosyn 3.375 GM Premix 50 ML @ 50 / 50 100 mls/hr IV.SIG ONCE ONE Rx#: [id number] Oral 320 / 320 Other: # Voids 4 # Bowel Movements 0 Weight On Admission 93.5 kg Narrative: GENERAL: Patient calm resting and without complaints SKIN: Warm and dry. No rashes or ecchymotic injuries EYES: Pupils equal and round. No scleral icterus. No injection or drainage. ENT: External ear exam normal. No acute nasal bleeding or discharge. Mucous membranes pink and moist. CARDIOVASCULAR: Regular rate and rhythm. No murmurs gallops or rubs appreciated RESPIRATORY: Good air flow and effort without accessory muscle use. Clear to auscultation. Breath sounds equal bilaterally. GASTROINTESTINAL: Right-sided ileal conduit, abdomen soft, non-tender, nondistended. Hepatic and splenic margins not palpable. MUSCULOSKELETAL: Extremities without clubbing, cyanosis, or edema. No obvious deformities. NEUROLOGICAL: Awake and alert. No obvious cranial nerve deficits. Motor grossly within normal limits. Five out of 5 muscle strength in the arms and legs. Normal speech. Results Procedures completed during hospitalization: none Labs on day of discharge: Labs from last 24 hours 10/07/17 10/07/17 10/07/17 15:25 15:25 15:25 CBC w Diff Slide review pending WBC 6.4 RBC 3.80 L Hgb 10.6 L Hct 32.9 L MCV 86.7 MCH 27.8 MCHC 32.1 RDW 23.2 H Plt Count 217 MPV 7.4 Neut % (Auto) 76.1 H Lymph % (Auto) 14.0 Payne % (Auto) 9.2 H Eos % (Auto) 0.4 Baso % (Auto) 0.3 Neut # (Auto) 4.9 Lymph # (Auto) 0.9 L Payne # (Auto) 0.6 Eos # (Auto) 0.0 Baso # (Auto) 0.0 WBC Differential . Diff Scan Auto diff confirmed Toxic Granulation 1+ H Platelet Estimate Normal Platelet Morphology Normal Stomatocytes 1+ H Sodium 138 Potassium 3.8 Chloride 105 Carbon Dioxide 24.1 Anion Gap 9 BUN 15 Creatinine 1.20 Estimated GFR 61 L Random Glucose 102 Calcium 8.5 Total Bilirubin 0.6 AST 20 ALT 27 Alkaline Phosphatase 91 Total Protein 7.5 Albumin 3.0 L Urine Color Yellow Urine Clarity Cloudy H Urine pH 7.5 Ur Specific Ten Sleep 1.015 Urine Protein 100 H Urine Glucose (UA) Negative Urine Ketones Trace Urine Occult Blood Small H Urine Nitrate Negative Urine Bilirubin Negative Urine Urobilinogen 1.0 Ur Leukocyte Esterase Small H Urine RBC 0-3 Urine WBC 21-50 H Urine Bacteria Many H Urine Mucus Many H Micro UA Comment Culture indicated Urine Culture Comments Culture indicated Preliminary micro results at discharge 10/07/17 15:25 Urine Culture - Preliminary Clean Catch Urine gram negative rods Discharge Plan - Discharge Disposition Patient Disposition: 01 Discharge Home - Discharge Condition Condition: Stable - Discharge Order Discharge Orders: Discharge Order (Routine); Ordered 10/08/17 Ordered By: Romy Ma - Discharge Details Anticipated Discharge Date: 10/08/17 - Physicians Team Primary Care Provider: UNKNOWN, Attending Provider: Romy Ma
== END 2017-10-08 14:30 | disposition home or self-care (01) ==
LOC: PHEDA 11:12 → PHED 11:12 → PH3 11:12
PROVIDERS: ADMIT Internal Medicine; ATTEND Internal Medicine

== ENCOUNTER 2017-11-22 14:46 | Observation (INO) ==
--- NOTE | 2017-11-22 15:19 | ED ---
HPI General Chief Complaint: Chest Pain Stated Complaint: Evac/Chest pain Time Seen by Provider: 11/22/17 15:05 History of Present Illness HPI narrative: The patient is a 62-year-old male with a history of COPD, 2 cardiac stents, and a double bypass presenting to the emergency department for evaluation of chest pain. The patient states that his chest pain began about 2 weeks ago and comes and goes frequently. He states that comes while he is at rest and while he is exerting himself, is associated with some shortness of breath and nausea, goes away after about 1015 seconds, is substernal, is 7/10 on the pain scale, and is nonradiating. He states that he has passed out multiple times in the past 2 weeks with no prodromal symptoms. The patient states that he awoke feeling back to his baseline shortly after passing out. He states that he fell on his right knee and is at his head a couple of times. He currently has some right knee pain but has not had any headaches or vision changes. The patient was administered both nitro and aspirin in route via EMS that provided no relief to his chest pain. Complete Quality Measures for STEMI Alert Patients Related Data Home Medications Medication Instructions Recorded Confirmed atorvastatin 40 mg PO DAILY 10/07/17 11/22/17 clopidogrel [Plavix] 75 mg PO DAILY 10/07/17 11/22/17 pantoprazole 40 mg PO DAILY 10/07/17 11/22/17 amoxicillin 500 mg PO BID 11/22/17 11/22/17 metoprolol tartrate 25 mg PO BID 11/22/17 11/22/17 Allergies Allergy/AdvReac Type Severity Reaction Status Date / Time doxycycline Allergy Severe UNKNOWN Verified 11/22/17 15:24 Sulfa (Sulfonamide Allergy Severe Rash Verified 11/22/17 15:24 Antibiotics) Review of Systems Constitutional Denies chills and Denies fever(s) Eyes Denies eye pain and Denies photophobia ENT Denies dizziness and Denies neck pain Cardiovascular Reports chest pain, Denies diaphoresis and Reports dyspnea Respiratory Denies cough and Denies dyspnea Gastrointestinal Reports nausea and Denies vomiting Genitourinary Denies hematuria and Denies dysuria Musculoskeletal Denies numbness and Denies stiffness Integumentary/Breasts Denies rash and Denies jaundice Neurologic Denies dizziness and Reports frequent falls Psychiatric Denies confusion and Denies visual hallucinations Endocrine Denies fatigue and Denies polydipsia Hematologic/Lymphatic Denies easy bruising and Denies lymphadenopathy PMFSH Medical History Medical History Alcoholism /alcohol abuse (Acute) COPD (chronic obstructive pulmonary disease) (Acute) High cholesterol (Acute) Hypertension (Acute) Surgical History Surgical History History of ileal conduit (Acute) Previous back surgery (Acute) Stented coronary artery (Acute) History of bladder surgery (Acute) Hx of CABG (Acute) Family History Family History Other HTN (hypertension) Social History Social History Substance History: No History of Abuse Second Hand Smoke Exposure: Yes Smoking Status: Current every day smoker Tobacco Type: Cigarettes How Often Do You Have a Drink Containing Alcohol: 4 or more times a week Recent Travel in [facility] within the Last 8 Weeks: No Recent Out of Country Travel within the Last 8 Weeks: No Exam Narrative Exam Narrative: GENERAL: Well-developed and well-nourished male appearing in no acute respiratory distress. SKIN: Focused skin assessment warm/dry. HEAD: Atraumatic. Normocephalic. EYES: Pupils equal and round. No scleral icterus. No injection or drainage. ENT: No nasal bleeding or discharge. Mucous membranes pink and moist. NECK: Trachea midline. No JVD. CARDIOVASCULAR: Regular rate and rhythm. No murmur appreciated. Midline scar from previous surgery. RESPIRATORY: No accessory muscle use. Clear to auscultation. Breath sounds equal bilaterally. GASTROINTESTINAL: Abdomen soft, mildly distended, nondistended. Hepatic and splenic margins not palpable. Ileal-conduit noted on right upper quadrant, clean and dry with no erythema. MUSCULOSKELETAL: No obvious deformities. No clubbing. No cyanosis. No edema. Mild tenderness to palpation over the top of the right patella, no erythema or effusion noted. Patient has full range of motion of both knees bilaterally. NEUROLOGICAL: Awake and alert. No obvious cranial nerve deficits. Motor grossly within normal limits. Normal speech. Course Initial Documented Vital Signs Temperature 98.5 F 11/22/17 14:50 Pulse Rate 84 11/22/17 14:50 Respiratory Rate 18 11/22/17 14:50 Blood Pressure 175/95 H 11/22/17 14:50 Pulse Oximetry 97 11/22/17 14:50 Last Documented Vital Signs Temperature 98.5 F 11/22/17 14:50 Pulse Rate 85 11/22/17 17:00 Respiratory Rate 20 11/22/17 17:00 Blood Pressure 168/102 H 11/22/17 17:00 Pulse Oximetry 93 L 11/22/17 17:00 Medical Decision Making MDM Narrative Medical decision making narrative: Patient is a 62-year-old male with a extensive cardiac history presenting to the emergency department for 2 weeks of on and off chest pain associated with some shortness of breath and nausea. The patient states that this chest pain feels somewhat similar to previous chest pain episodes except this time he has syncopized 2-3 times. Out of concern for ACS we will obtain cardiac enzymes and basic blood work as well an EKG, and chest x-ray. Out of concern from his previous falls his new right patella pain will be assessed by a x-ray. X-ray and cardiac enzymes are within normal limits. Patient will be admitted to the chest pain center. Patient does drink a large amount of alcohol and will put on the [place] protocol. Medical Screen Exam Complete: Yes Emergency Medical Condition: Yes Differential Diagnosis Differential Diagnosis: Myocardial infarction, ACS, atypical chest pain, pulmonary embolism, costochondritis, cardiogenic syncope, vasovagal episode, electrolyte derangement, alcohol abuse disorder Lab Data Result diagrams: 11/22/17 15:19 11/22/17 15:19 Lab Results 11/22/17 11/22/17 11/22/17 Range/Units 15:19 15:19 15:19 WBC 5.4 (4.0-11.0) th/mm3 RBC 3.64 L (4.50-5.90) mil/mm3 Hgb 9.8 L (13.0-17.0) gm/dL Hct 31.4 L (39.0-51.0) % MCV 86.2 (80.0-100.0) fL MCH 27.0 (27.0-34.0) pg MCHC 31.3 L (32.0-36.0) % RDW 22.6 H (11.6-17.2) % Plt Count 179 (150-450) th/mm3 MPV 7.8 (7.0-11.0) fL Neut % (Auto) 68.5 (16.0-70.0) % Lymph % (Auto) 20.0 (9.0-44.0) % [place] % (Auto) 10.7 H (0.0-8.0) % Eos % (Auto) 0.4 (0.0-4.0) % Baso % (Auto) 0.4 (0.0-2.0) % Neut # (Auto) 3.7 (1.8-7.7) th/mm3 Lymph # (Auto) 1.1 (1.0-4.8) th/mm3 [place] # (Auto) 0.6 (0.0-0.9) th/mm3 Eos # (Auto) 0.0 (0.0-0.4) th/mm3 Baso # (Auto) 0.0 (0.0-0.2) th/mm3 WBC Differential . Differential Comment Auto diff final PT 10.2 (9.8-11.6) sec INR 1.0 Ratio APTT 22.8 L (24.3-30.1) sec Sodium 139 (136-145) meq/L Potassium 3.2 L (3.5-5.1) meq/L Chloride 108 H (98-107) meq/L Carbon Dioxide 18.5 L (21.0-32.0) meq/L Anion Gap 13 (5-15) meq/L BUN 4 L (7-18) mg/dL Creatinine 0.81 (0.60-1.30) mg/dL Estimated GFR Greater than 89 (>89) mL/min Random Glucose 88 (74-106) mg/dL Calcium 8.2 L (8.5-10.1) mg/dL Magnesium 1.5 (1.5-2.5) mg/dL Total Creatine Kinase 71 (39-308) U/L Troponin I 0.03 (0.02-0.05) ng/mL Imaging Data Radiologist's impression: Chest X-Ray 11/22/17 15:10 CONCLUSION: 1. No acute abnormality or significant interval change. Knee X-Ray 11/22/17 15:10 CONCLUSION: 1. No acute fracture or dislocation. Discharge Plan Discharge Disposition Patient Disposition: 30 Still Patient Discharge Details Diagnosis: Atypical chest pain, Contusion of knee, right, Hypertension Physicians Team ED Provider: Salvatore Prakash Primary Care Provider: UNKNOWN, Attending Provider: Alejandro Galloway Status ED Status: Admitted Observation Patient
[2017-11-22 15:37] LABS: Baso % (Auto) 0.4 % (0.0-2.0); Eos % (Auto) 0.4 % (0.0-4.0); Hematocrit 31.4 % (39.0-51.0); Hemoglobin 9.8 gm/dL (13.0-17.0); Lymph # (Auto) 1.1 th/mm3 (1.0-4.8); Mean Corpuscular HGB Conc 31.3 % (32.0-36.0); Mean Corpuscular Volume 86.2 fL (80.0-100.0); Mean Platelet Volume 7.8 fL (7.0-11.0); Mono # (Auto) 0.6 th/mm3 (0.0-0.9); Mono % (Auto) 10.7 % (0.0-8.0); Neut # (Auto) 3.7 th/mm3 (1.8-7.7); Neut % (Auto) 68.5 % (16.0-70.0); Platelet Count 179 th/mm3 (150-450); Red Blood Count 3.64 mil/mm3 (4.50-5.90); Red Cell Distribution Width 22.6 % (11.6-17.2); White Blood Count 5.4 th/mm3 (4.0-11.0)
[2017-11-22 15:47] LABS: Activated Partial Thrombo Time 22.8 sec (24.3-30.1); Prothrombin Time 10.2 sec (9.8-11.6)
--- NOTE | 2017-11-22 16:01 | XR ---
EXAM DATE: 11/22/2017 3:35 PM EDT AGE/SEX: 62 years / Male INDICATIONS: Chest pain. CLINICAL DATA: This is the patient's initial encounter. Patient reports that signs and symptoms have been present for 1 month and indicates a pain score of 6/10. MEDICAL/SURGICAL HISTORY: Hypertension. CABG. Cardiac stents. COMPARISON: [facility], CHEST PA & LAT, 09/06/2017. . FINDINGS: Median sternotomy wires. No new focal pleural or parenchymal opacities. Cardiomediastinal contours ar e stable. Probable moderate hiatal hernia. CONCLUSION: 1. No acute abnormality or significant interval change. Electronically signed by: Andrés Diana MD 11/22/2017 3:59 PM EDT
--- NOTE | 2017-11-22 16:02 | XR ---
EXAM DATE: 11/22/2017 3:35 PM EDT AGE/SEX: 62 years / Male INDICATIONS: Fall, complains of right knee pain. CLINICAL DATA: This is the patient's initial encounter. Patient reports that signs and symptoms have been present for 1 month and indicates a pain score of 8/10. MEDICAL/SURGICAL HISTORY: Hypertension. CABG. COMPARISON: No prior exams available for comparison. FINDINGS: Bony structures are intact and in normal alignment. Joints are intact without dislocation or signifi cant arthropathy. Osseous density is normal. Soft tissues are unremarkable. No radiopaque foreign bodies seen. CONCLUSION: 1. No acute fracture or dislocation. Electronically signed by: Andrés Diana MD 11/22/2017 4:01 PM EDT
[2017-11-22 16:03] LABS: Anion Gap 13 meq/L (5-15); Blood Urea Nitrogen 4 mg/dL (7-18); Calcium 8.2 mg/dL (8.5-10.1); Carbon Dioxide 18.5 meq/L (21.0-32.0); Chloride 108 meq/L (98-107); Glomerular Filtration Rate Greater Than 89 mL/min (>89); Glucose,Random 88 mg/dL (74-106); Magnesium 1.5 mg/dL (1.5-2.5); Potassium 3.2 meq/L (3.5-5.1); Sodium 139 meq/L (136-145)
[2017-11-22 16:07] LABS: Troponin I 0.03 ng/mL (0.02-0.05)
[2017-11-22 16:18] LABS: Creatine Kinase 71 U/L (39-308)
[2017-11-22] MEDS ORDERED: Ketorolac Inj 30 MG/ML (IVP) Vial IV.PUSH ONE (17:17)
[2017-11-22] MEDS ORDERED: LORazepam 1 MG Tablet PO PRN (17:29)
[2017-11-22] MEDS ORDERED: Haloperidol Inj 5 MG/ML Ampul IV.PUSH PRN (17:29)
[2017-11-22] MEDS ORDERED: Metoprolol Tartrate 50 MG Tablet PO ONE (18:41)
[2017-11-22 19:08] LABS: Troponin I 0.02 ng/mL (0.02-0.05)
[2017-11-22] MEDS ORDERED: Acetaminophen 500 MG Tablet PO PRN (21:11)
[2017-11-22] MEDS: Morphine Inj 4 MG/ML Vial IV.PUSH PRN (21:41)
[2017-11-22 22:50] LABS: Troponin I 0.03 ng/mL (0.02-0.05)
[2017-11-23] MEDS: Morphine Inj 4 MG/ML Vial IV.PUSH PRN ×2 (01:52→06:24)
[2017-11-23] MEDS ORDERED: Metoprolol Tartrate 25 MG Tablet PO SCH (09:00)
[2017-11-23] MEDS ORDERED: Regadenoson Inj 0.4 MG/5 ML Syringe IV.PUSH ONE (10:06)
--- NOTE | 2017-11-23 10:58 | P.HPCA ---
History of Present Illness Primary Care Physician: UNKNOWN Chief Complaint: Chest pain History of Present Illness: This is a 62-year-old male with history of CAD status post two-vessel bypass in 2017 that presents to ED with complaint of chest discomfort. States that he has had 2 weeks of intermittent chest discomfort. Points to the center of his chest. When asked to describe the discomfort he becomes very upset and states "I do not know, I am tired of people asking me." Symptoms last for seconds at a time. At times short of breath with it but states also gets short of breath at times without the discomfort. Denies nausea or diaphoresis. States he has an inhaler at home although he does not know why but states that when he uses it the symptoms will improve. States he has not followed up with gaggerman recently. Voices compliance with his medications. States he is an alcoholic and drinks about 1.75 L of vodka every 2 days. States he has never had a seizure when stopping alcohol consumption. Continues to smoke cigarettes. Patient smokes one half pack a series daily for the last 9 months but prior that he smoked 1 pack a series daily for use as was 15 years. He drinks one point submitted bottle of vodka every other day. Denies illicit drug use. There is family history of CAD. - Diagnosis (1) Chest pain (2) CAD (coronary artery disease) (3) Status post aorto-coronary artery bypass graft (4) Hyperlipidemia (5) Tobacco abuse (6) Alcohol abuse (7) Hypertension Review of Systems General: Patient denies fevers, chills, and recent travel. HEENT: Patient denies headache, sore throat, difficulty swallowing. Cardiovascular: Has the chest discomfort as mentioned above. Denies sensation of heart beating rapidly or irregularly. No syncope. Denies diaphoresis. Respiratory: Intermittent shortness of breath. Denies inspirational chest discomfort. Denies coughing wheezing or hemoptysis. GI: Patient denies nausea, vomiting, diarrhea, abdominal pain, bloody stools. Musculoskeletal: Patient denies joint pain or edema. Denies calf pain or edema. Neurovascular: Patient denies numbness, tingling, weakness in extremities. Denies headache. Endocrine: Denies polyuria and polydipsia. Hematologic: Denies easy bruising. Skin: Denies rash or itching. PMFSH - History History Provided By: Patient - Medical History Medical History: Medical History (Last Reviewed 11/23/17 @ 06:42 by Adolfo Mobley) Alcoholism /alcohol abuse COPD (chronic obstructive pulmonary disease) High cholesterol Hypertension - Surgical History Surgical History: Surgical History (Last Reviewed 11/23/17 @ 06:42 by Adolfo Mobley) History of ileal conduit Previous back surgery Stented coronary artery History of bladder surgery Hx of CABG - Family History Family History: Family History (Last Updated 10/07/17 @ 17:10 by Romy Ma MD) Other HTN (hypertension) - Tobacco History Second Hand Smoke Exposure: Yes Tobacco Use In Past 30 Days: Yes Smoking Status: Current every day smoker Tobacco Type: Cigarettes - Alcohol History How Often Do You Have a Drink Containing Alcohol: 4 or more times a week - Substance Use History Substance History: No History of Abuse - Travel History Recent Travel in the [place] Within the Last 8 Weeks: No Recent Travel Out of the Country Within the Last 8 Weeks: No - Immunization History Tetanus Immunization: <5 Years Hx Influenza Vaccine This Season: No Medications and Allergies Active Medications: Active Medications Acetaminophen (Tylenol) 500 mg PO Q4H PRN PRN Reason: HEADACHE Atorvastatin Calcium (Lipitor) 40 mg PO DAILY [facility] Clopidogrel Bisulfate (Plavix) 75 mg PO DAILY [facility] Flumazenil (Romazecon Inj) 0.2 mg IV.PUSH Q1M PRN PRN Reason: OVERSEDATION Haloperidol Lactate (Haldol Inj) 1 mg IV.PUSH Q15M PRN PRN Reason: for severe agitation Lorazepam (Ativan Inj) 1 mg IV.PUSH Q4H PRN PRN Reason: for CIWA 8-10 Lorazepam (Ativan Inj) 2 mg IV.PUSH Q15M PRN PRN Reason: for CIWA > 20 Lorazepam (Ativan Inj) 2 mg IV.PUSH Q1H PRN PRN Reason: for CIWA 15-20 Lorazepam (Ativan Inj) 2 mg IV.PUSH Q2H PRN PRN Reason: for CIWA 11-14 Lorazepam (Ativan) 1 mg PO Q4H PRN PRN Reason: for CIWA 8-10 Lorazepam (Ativan) 2 mg PO Q2H PRN PRN Reason: for CIWA 11-14 Last Admin: 11/23/17 08:35 Dose: 2 mg Metoprolol Tartrate (Lopressor) 25 mg PO BID [facility] Morphine Sulfate (Morphine Inj) 2 mg IV.PUSH Q4H PRN PRN Reason: PAIN SCALE 8 TO 10 Last Admin: 11/23/17 06:24 Dose: 2 mg Ondansetron HCl (Zofran Inj) 4 mg IV.PUSH Q6H PRN PRN Reason: NAUSEA Last Admin: 11/22/17 22:12 Dose: 4 mg Pantoprazole Sodium (Protonix) 40 mg PO DAILY [facility] Sodium Chloride (Ns Flush) 2 ml IV.FLUSH UNSCH PRN PRN Reason: FLUSH AFTER USING IV ACCESS Sodium Chloride (Ns Flush) 2 ml IV.FLUSH BID JOSHUA Last Admin: 11/22/17 21:42 Dose: 2 ml Sodium Chloride (Ns Flush) 2 ml IV.FLUSH PRN PRN PRN Reason: FLUSH AFTER USING IV ACCESS Allergies Allergy/AdvReac Type Severity Reaction Status Date / Time doxycycline Allergy Severe UNKNOWN Verified 11/22/17 15:24 Sulfa (Sulfonamide Allergy Severe Rash Verified 11/22/17 15:24 Antibiotics) Home Medications Medication Instructions Recorded Confirmed Type atorvastatin 40 mg PO DAILY 10/07/17 11/22/17 History clopidogrel [Plavix] 75 mg PO DAILY 10/07/17 11/22/17 History pantoprazole 40 mg PO DAILY 10/07/17 11/22/17 History amoxicillin 500 mg PO BID 11/22/17 11/22/17 History metoprolol tartrate 25 mg PO BID 11/22/17 11/22/17 History Exam Vital signs: Vital Signs 11/22/17 14:50 11/22/17 17:00 11/22/17 19:08 Temperature 98.5 F 98.7 F Pulse Rate 84 85 82 Respiratory Rate 18 20 18 Blood Pressure 175/95 H 168/102 H 156/98 H Pulse Oximetry 97 93 L 97 11/22/17 19:44 11/22/17 20:00 11/22/17 22:10 Temperature Pulse Rate 73 Respiratory Rate 16 16 Blood Pressure Pulse Oximetry 11/22/17 23:45 11/23/17 00:10 11/23/17 04:00 Temperature 98.2 F 98.6 F Pulse Rate 69 68 67 Respiratory Rate 18 18 Blood Pressure 124/81 141/89 H Pulse Oximetry 95 97 11/23/17 04:03 11/23/17 08:24 11/23/17 09:42 Temperature 98.2 F Pulse Rate 74 70 Respiratory Rate 20 Blood Pressure 160/100 H Pulse Oximetry 96 97 Intake & Output 11/22/17 11/23/1718 18:59 06:59 18:59 Weight 91.138 kg 90.718 kg Other: Date of Last Bowel Movement 11/22/17 Weight On Admission 90.718 kg Narrative: GENERAL: This is a well-nourished, well-developed patient, in no apparent distress. Patient speaks in clear complete sentences. Patient is pleasant. HEENT: Head is atraumatic and normocephalic. Neck is supple without lymphadenopathy and trachea is midline. No JVD or carotid bruits. CARDIOVASCULAR: Regular rate and rhythm without murmurs, gallops, or rubs. RESPIRATORY: Clear to auscultation. Breath sounds equal bilaterally. No wheezes , rales, or rhonchi. Chest wall is nontender. No use of accessory muscles. GASTROINTESTINAL: Abdomen is nontender, nondistended. Abdomen soft. No obvious pulsatile mass or bruit. No CVA tenderness. Strong femoral pulses bilaterally. Normal bowel sounds in all quadrants. MUSCULOSKELETAL: Patient is moving upper and lower extremities freely. No calf tenderness or edema, no Homans sign. Strong pulses in upper and lower extremities. NEUROLOGICAL: Patient is alert and oriented. Cranial nerves 2-12 are grossly intact. No focal deficits and speech is clear. SKIN: No rash and turgor is normal. Results 11/22/17 15:19 11/22/17 15:19 Cardiac Enzymes 11/22/17 11/22/17 11/22/17 Range/Units 15:19 18:25 22:10 Troponin I 0.03 0.02 0.03 (0.02-0.05) ng/mL Coagulation 11/22/17 Range/Units 15:19 PT 10.2 (9.8-11.6) sec APTT 22.8 L (24.3-30.1) sec CBC 11/22/17 Range/Units 15:19 WBC 5.4 (4.0-11.0) th/mm3 RBC 3.64 L (4.50-5.90) mil/mm3 Hgb 9.8 L (13.0-17.0) gm/dL Hct 31.4 L (39.0-51.0) % Plt Count 179 (150-450) th/mm3 Neut # (Auto) 3.7 (1.8-7.7) th/mm3 Lymph # (Auto) 1.1 (1.0-4.8) th/mm3 [place] # (Auto) 0.6 (0.0-0.9) th/mm3 Eos # (Auto) 0.0 (0.0-0.4) th/mm3 Baso # (Auto) 0.0 (0.0-0.2) th/mm3 Comprehensive Metabolic Panel 11/22/17 Range/Units 15:19 Sodium 139 (136-145) meq/L Potassium 3.2 L (3.5-5.1) meq/L Chloride 108 H (98-107) meq/L Carbon Dioxide 18.5 L (21.0-32.0) meq/L BUN 4 L (7-18) mg/dL Creatinine 0.81 (0.60-1.30) mg/dL Calcium 8.2 L (8.5-10.1) mg/dL Intake and Output 11/22/17 11/23/17 11/23/17 22:59 06:59 14:59 Other: Date of Last Bowel Movement 11/22/17 Weight 90.718 kg Weight On Admission 90.718 kg EKG interpretations - EKG EKG shows: sinus rhythm (EKGs are sinus rhythm without significant ST segment depressions or elevations.) Caprini VTE Risk Assessment Caprini VTE Risk Assessment: No/Low Risk (score <= 1) Caprini Risk Assessment Model: Point Value = 1 Point Value = 2 Point Value = 3 Point Value = 5 Age 41-60 Minor surgery BMI > 25 kg/m2 Swollen legs Varicose veins or History of unexplained or recurrent spontaneous Oral contraceptives or hormone replacement Sepsis (< 1 month) Serious lung disease, including pneumonia (< 1 month) Abnormal pulmonary function Acute myocardial infarction Congestive heart failure (< 1 month) History of inflammatory bowel disease Medical patient at bed rest Age 61-74 Arthroscopic surgery Major open surgery (> 45 min) Laparoscopic surgery (> 45 min) Malignancy Confined to bed (> 72 hours) Immobilizing plaster cast Central venous access Age >= 75 History of VTE Family history of VTE Factor V Leiden Prothrombin [id number] Lupus anticoagulant Anticardiolipin antibodies Elevated serum homocysteine Heparin-induced thrombocytopenia Other congenital or acquired thrombophilia Stroke (< 1 month) Elective arthroplasty Hip, pelvis, or leg fracture Acute spinal cord injury (< 1 month) Prophylaxis Regimen: Total Risk Factor Score Risk Level Prophylaxis Regimen 0-1 Low Early ambulation 2 Moderate Order ONE of the following: *Sequential Compression Device (SCD) *Heparin 5000 units SQ BID 3-4 Higher Order ONE of the following medications: *Heparin 5000 units SQ TID *Enoxaparin/Lovenox 40 mg SQ daily (WT < 150 kg, CrCl > 30 mL/min) *Enoxaparin/Lovenox 30 mg SQ daily (WT < 150 kg, CrCl > 10-29 mL/min) *Enoxaparin/Lovenox 30 mg SQ BID (WT < 150 kg, CrCl > 30 mL/min) AND/OR *Sequential Compression Device (SCD) 5 or more Highest Order ONE of the following medications: *Heparin 5000 units SQ TID (Preferred with Epidurals) *Enoxaparin/Lovenox 40 mg SQ daily (WT < 150 kg, CrCl > 30 mL/min) *Enoxaparin/Lovenox 30 mg SQ daily (WT < 150 kg, CrCl > 10-29 mL/min) *Enoxaparin/Lovenox 30 mg SQ BID (WT < 150 kg, CrCl > 30 mL/min) AND *Sequential Compression Device (SCD) Assessment and Plan - Assessment (1) Chest pain Code(s): R07.9 - Chest pain, unspecified Status: Acute (2) CAD (coronary artery disease) Code(s): I25.10 - Atherosclerotic heart disease of [place] coronary artery without angina pectoris Status: Acute (3) Status post aorto-coronary artery bypass graft Code(s): Z95.1 - Presence of aortocoronary bypass graft Status: Acute (4) Hyperlipidemia Code(s): E78.5 - Hyperlipidemia, unspecified Status: Acute (5) Tobacco abuse Code(s): Z72.0 - Tobacco use Status: Acute (6) Alcohol abuse Code(s): F10.10 - Alcohol abuse, uncomplicated Status: Acute (7) Hypertension Code(s): I10 - Essential (primary) hypertension Status: Acute - Plan * Chest pain: Patient has had serial cardiac enzymes and EKGs for ruling out purposes. He will be seen by Dr. Conley of cardiology in the chest pain center. He will have a Lexiscan. He would be discharged home if the stress test is nonischemic with instructions to follow-up with PCP and gaggerman. Return to ED for interval issues. * CAD with history of two-vessel bypass: Continue medications. Will be reassessed with stress testing. He will need to follow-up with gaggerman. * Tobacco abuse: Patient counseled on importance of smoking cessation. * Alcohol abuse: Patient counseled importance of no longer abusing alcohol. He should look into outpatient therapy. * Hypertension: Continue medication. * Hyperlipidemia: Continue medication. Patient is stable at this time. He is agreeable to this plan. H&P: Quality - VTE Deep Vein Thrombosis/Pulmonary Embolism Present on Admission: No (7) Hypertension Qualifiers: Hypertension type: unspecified Qualified Code(s): I10 - Essential (primary) hypertension
--- NOTE | 2017-11-23 11:33 | NM ---
EXAM DATE: 11/23/2017 11:27 AM EDT AGE/SEX: 62 years / Male INDICATIONS:Angina. . Chest pain. CLINICAL DATA: This is the patient's initial encounter. Patient reports that signs and symptoms have been present for 2 weeks and indicates a pain score of 7/10. MEDICAL/SURGICAL HISTORY: Chronic obstructive pulmonary disease. Hypertension. Hypercholester olemia. CABG. Coronary artery stent. History of bladder surgery, ileal conduit, lower back surgery. COMPARISON: [facility], MYOCARDIAL PERF PHARM SPECT, 02/26/2017. . DOSE: 8.7 mCi Tc 99m Myoview at rest 26.7 mCi [id number] at stress 0.4 mg Lexiscan STRESS SYMPTOMS: Shortness of breath. Nausea. EJECTION FRACTION: >70 % TECHNIQUE: The patient underwent pharmacologic stress with infusion of prescribed dose. Continuous ECG tracing was monitored during stress. Gated SPECT imaging was performed after stress and conventi onal SPECT imaging was performed at rest. The examination was performed on a SPECT/CT scanner, both attenuation and non-corrected datasets were reviewed. FINDINGS: Distribution: The maximum perfused segment at stress is in the lateral wall. Perfusion Study: The pattern of perfusion at stress is within normal limits. Gated Study: There are intact wall motion and wall thickening without hypokinetic or dyskinetic segm ents. The ejection fraction is calculated at >70%. RISK CATEGORY: 1- Low Risk CONCLUSION: No reversible perfusion defects. No focal wall motion abnormalities. Electronically signed by: Moo Gurrola MD 11/23/2017 11:32 AM EDT
--- NOTE | 2017-11-23 14:51 | TR ---
Date Performed: 11/23/2017 Time Performed: 10:15:29 DOCTOR: Edward Conley DRUG LIST: CLINICAL HISTORY: CHEST PAIN REASON FOR TEST: CHEST PAIN REASON FOR ENDING: OBSERVATION: CONCLUSION: COMMENTS: Lexiscan stress test was performed under standard four minute protocol. Radionuclide was injected one minute prior to ending the test. No electrocardiographic abormalities were present t o suggest ischemia. Nuclear imaging and interpretation are pending.
--- NOTE | 2017-11-23 15:04 | ECG ---
Date Performed: 11/22/2017 Time Performed: 21:05:06 PTAGE: 62 years EKG: Sinus rhythm POSSIBLE RIGHT VENTRICULAR CONDUCTION DELAY BORDERLINE ECG PREVIOUS TRACING : 11/22/2017 18.38 Since previous tracing, no significant change noted DOCTOR: Edward Conley Interpretating Date/Time 11/23/2017 15:03:39
--- NOTE | 2017-11-23 15:05 | ECG ---
Date Performed: 11/22/2017 Time Performed: 18:38:31 PTAGE: 62 years EKG: Sinus rhythm MINIMAL ST DEPRESSION BORDERLINE ECG PREVIOUS TRACING : 11/22/2017 14.54 Since previous tracing, no significant change noted DOCTOR: Edward Conley Interpretating Date/Time 11/23/2017 15:04:13
--- NOTE | 2017-11-23 15:06 | ECG ---
Date Performed: 11/22/2017 Time Performed: 14:54:51 PTAGE: 62 years EKG: Sinus rhythm WITH OCCASIONAL SUPRAVENTRICULAR PREMATURE COMPLEXES MINIMAL ST DEPRESSION BORDERLINE ECG PREVIOUS TRACING : 09/06/2017 20.03 Since previous tracing, no significant change noted DOCTOR: Edward Conley Interpretating Date/Time 11/23/2017 15:04:54
== END 2017-11-23 15:46 | disposition home or self-care (01) ==
LOC: NEDA 14:46 → NEPGCP 14:46 → NEPE 14:46 → NEPGCP 18:55
PROVIDERS: ADMIT Internal Medicine Interventional Cardiology; ATTEND Internal Medicine Interventional Cardiology